=== PATIENT | male | born 1950 | race Caucasian/White ===

== ENCOUNTER → 2018-08-09 09:31 | Outpatient (CLI) | payer MEDICARE, OTHER, SELFPAY ==
[2018-08-09 10:47] LABS: BUN Creatinine Ratio 17.8 (6-22); Blood Urea Nitrogen 16 mg/dL (9-20); Carbon Dioxide 28 mmol/L (22-32); Chloride 101 mmol/L (98-107); Estimated Glomerular Filt Rate > 60.0 mL/min (>60); Glucose 288 mg/dL (80-110); HEMOLYSIS 18 (0-50); Potassium 4.4 mmol/L (3.4-5.1); Sodium 139 mmol/L (137-145)
[2018-08-09 10:48] LABS: Hemoglobin A1C% w Est Avg Glu 10.5 % (4.0-6.0)
== END ==
PROVIDERS: PCP Family Medicine; Visit Provider Family Medicine
DX: E11.9 Type 2 diabetes mellitus without complications (principal)
CPT/HCPCS: 36415; 80048; 83036

== ENCOUNTER → 2019-10-29 08:46 | Outpatient (CLI) | payer MEDICARE, OTHER, SELFPAY ==
[2019-10-29 09:36] LABS: Add Manual Diff / Slide Review NO; Basophils Absolute Auto 100 /uL (0-100); Eosinophils Absolute Auto 200 /uL (0-450); Eosinophils Percent Auto 3.4 % (2-4); Hemoglobin 15.2 g/dL (13.5-17.5); Lymphocytes Absolute Auto 1600 /uL (1100-4500); Lymphocytes Percent Auto 30.3 % (25-40); Mean Corpuscular HGB Conc 33.7 % (30-36); Mean Corpuscular Hemoglobin 29.3 PG (26-34); Monocytes Absolute Auto 400 /uL (0-900); Monocytes Percent Auto 6.7 % (3-14); Neutrophils Absolute Auto 3100 /uL (1500-7000); Neutrophils Percent Auto 58.6 % (50-75); Platelet Count 176 X10^3/uL (150-400); Red Blood Cell Count 5.17 X10^6/uL (4.5-5.9); Red Cell Distribution Width 13.6 % (11.6-14.8); White Blood Cell Count 5.4 X10^3/uL (4.5-11.0)
[2019-10-29 09:38] LABS: Hemoglobin A1C% w Est Avg Glu 10.8 % (4.0-6.0)
[2019-10-29 09:44] LABS: Alanine Aminotransferase 34 IU/L (<50); Albumin 3.6 g/dL (3.5-5.0); Albumin Globulin Ratio 1.1 (1.0-2.8); Alkaline Phosphatase 61 U/L (38-126); Aspartate Aminotransferase 30 IU/L (17-59); Bilirubin Total 0.6 mg/dL (0.2-1.3); Blood Urea Nitrogen 22 mg/dL (9-20); Calcium 8.8 mg/dL (8.4-10.2); Carbon Dioxide 30 mmol/L (22-32); Chloride 100 mmol/L (98-107); Cholesterol 287 mg/dL (140-199); Estimated Glomerular Filt Rate > 60.0 mL/min (>60); Globulin 3.2 g/dL (1.7-4.1); Glucose 249 mg/dL (80-110); HDL Cholesterol 28 mg/dL (40-60); HEMOLYSIS < 15 (0-50); Potassium 4.1 mmol/L (3.4-5.1); Sodium 137 mmol/L (137-145); Total Protein 6.8 g/dL (6.3-8.2)
[2019-10-29 09:51] LABS: Triglycerides 569 mg/dL (35-150)
== END ==
PROVIDERS: PCP Family Medicine; Referring Provider Family Medicine; Visit Provider Family Medicine
DX: E11.9 Type 2 diabetes mellitus without complications (principal)
CPT/HCPCS: 36415; 80053; 80061; 83036; 85025

== ENCOUNTER 2020-05-25 16:20 | Emergency (ER) | payer MEDICARE, OTHER, SELFPAY ==
[2020-05-25 16:33] VITALS: BP 177/79; PULSE 77; RESP 18; TEMP 36.8; O2SAT 95; BMI 33.5
[2020-05-25] MEDS: TET,DIPH,PERTUSS(ACELL),VAC/PF 0.5 ML SYRINGE IM (17:19)
[2020-05-25] MEDS: BACITRACIN OINT 0.9 GM PCKT 1 APPLIC TOP (17:20)
[2020-05-25] MEDS: DOXYCYCLINE HYCLATE 100 MG TABLET PO (17:21)
--- NOTE | 2020-05-25 17:51 | ED_ITS ---
HPI - Wound/Laceration <SENIA Wise - Last Filed: 05/25/20 20:43> General Chief Complaint: Wound/Laceration Stated Complaint: Rt lower leg infection/pain Time Seen by Provider: 05/25/20 16:33 Source: patient Mode of arrival: Ambulatory Limitations: no limitations History of Present Illness HPI narrative: This is a 69-year-old male, former smoker, with unknown history of last tetanus immunization with history of diabetes, neuropathy, venous stasis, hypertension, CAD with triple bypass presents to ED with chief complain of leg infection on right pablo. Patient reports he had brushed affected area against the drawer 3 days ago in his motor home and has used topical antibiotic medication on affected site but the area has been progressively worse with pain, redness and mild swelling. Patient reports pain as 7 to 8/10 and jabbing and shooting and occasionally radiates up to his upper pablo. Patient reports has not been sleeping well for last couple of days due to discomfort. The patient denies associated symptoms such as fever, chills, nausea or vomiting. Since patient has history of diabetes his concerned for infection getting worse. Patient had bilateral leg infections which did not heal for a long time from venous stasis/ulcers in November. At that time a referral to wound clinic was discussed with Dr. Shea but this has not been followed up. Patient currently takes Lasix 80 mg mg daily for bilateral leg swelling. Patient reports he checks blood sugar twice a day and he has been all over the places. Related Data Home Medications Medication Instructions Recorded Confirmed omeprazole 20 mg PO QDAY #0 09/22/16 03/03/20 aspirin 81 mg chewable tablet 162 mg PO QDAY #0 tab 01/22/19 03/03/20 Resmed Airsense 10 CPAP #1 ea 02/27/19 03/03/20 Previous Rx's Medication Instructions Recorded insulin asp prt-insulin aspart 60 units SQ BID #6 vial 11/25/16 [Novolog Mix 70-30 U-100 Insuln] insulin NPH and regular human 60 units SQ BID #10 ml 12/14/16 [Novolin 70/30 U-100 Insulin] Glucose: Home Monitor units BID #1 10/03/17 Test Strips - Freestyle str BID #100 10/24/17 blood sugar diagnostic See Rx Instructions .ROUTE 06/18/19 .COMPLEX #50 unspecified atorvastatin 80 mg tablet 80 mg PO DAILY #90 tab 10/30/19 metoprolol succinate 50 mg 50 mg PO DAILY #90 tab 10/30/19 tablet,extended release 24 hr diclofenac sodium 1 % topical gel 2 gram TOP BID #100 gram 10/31/19 metoprolol succinate 25 mg 25 mg PO .HS #90 tab 12/14/19 tablet,extended release 24 hr furosemide 40 mg tablet 80 mg PO DAILY #90 tab 03/03/20 lisinopril 40 mg tablet 40 mg PO DAILY #90 tab 03/03/20 metformin 500 mg tablet,extended 1,000 mg PO BID #360 tab 03/03/20 release 24 hr doxycycline hyclate 100 mg PO BID 7 Days #14 cap 05/25/20 mupirocin 1 applictn TOP BID #15 gram 05/25/20 Allergies Allergy/AdvReac Type Severity Reaction Status Date / Time aspirin AdvReac Mild GI PROBLEMS Verified 05/25/20 16:33 VICODEN Allergy Mild CRAMPS Uncoded 05/25/20 16:33 STOMACH Review of Systems <SENIA Wise - Last Filed: 05/25/20 20:43> Review of Systems Narrative: General: Denies fever, chills, fatigue, malaise, sweats. HEENT: Denies sinus pain, ear pain, sore throat, difficulty swallowing, dizziness. Respiratory: Denies dyspnea, cough, wheezing, hemoptysis, sputum. Cardiovascular: Denies chest pain, palpitations, orthopnea, edema. Gastrointestinal: Denies nausea, vomiting, abdominal pain, diarrhea, constipation, melena. : Denies dysuria, frequency, incontinence, hematuria, urinary retention. Musculoskeletal: See HPI Skin: See HPI Neurologic: Denies weakness, headache, numbness, change in speech, confusion, seizures, incoordination. Psychiatric: No concerning psychosocial issues. 12-point review of systems is negative except for those stated above. Patient History <SENIA Wise - Last Filed: 05/25/20 20:43> Medical History Diabetes mellitus (Chronic ~1994) Hyperlipidemia (Chronic ~2005) Hypertension (Chronic ~2005) Obstructive sleep apnea of adult (Chronic ~04/2017) Snoring (Inactive ~2006) Tinnitus (Chronic ~1989) Surgical History Anesthesia (Resolved) History of knee surgery (Resolved ~1994) S/P triple vessel bypass (Resolved ~2006) Status post wrist surgery (Resolved ~2011) Family History Father Heart disease Grandmother Diabetes mellitus Grandfather Heart disease Grandmother Diabetes mellitus Social History marital status: Smoking Status: Former smoker alcohol intake: current substance use type: does not use Smoking Status: Former smoker alcohol intake frequency: a few times a week Substance Use Type: does not use Exam <SENIA Wise - Last Filed: 05/25/20 20:43> Narrative Exam Narrative: General appearance: well developed, well nourished, in no acute distress. Head: normocephalic, atraumatic, no scalp lesions, non-tender. ENT: Hearing grossly intact. Nose without bleeding, purulent discharge. Airway patent. Neck/Thyroid: neck supple, full range of motion, no visible masses or meningeal signs. No JVD, non-tender without lymphadenopathy. Heart: no clubbing, no cyanosis, no edema. S1 and S2 normal. RRR w/o murmurs, clicks, or bruits. Lungs: Breathing even and unlabored. No stridor. No accessory muscles used. Able to speak in full sentences. Chest: normal shape and expansion. Abdomen: non-obese, non-distended. Neurologic: alert and oriented. Cognitive exam, [employer] and PNS grossly intact on informal exam. Psych: good eye contact, normal affect. Initial Vital Signs Initial Vital Signs: Vital Signs Temperature 98.2 F 05/25/20 16:33 Pulse Rate 77 05/25/20 16:33 Respiratory Rate 18 05/25/20 16:33 Blood Pressure 177/79 H 05/25/20 16:33 Pulse Oximetry 95 05/25/20 16:33 Skin General: crusts, erythema, eschar, No fluctuance, warm and other (dark scab on right pablo, approx 3 x 2.5 cm with erythema and mild swelling) <Magdalena Howard DO - Last Filed: 05/26/20 08:24> Initial Vital Signs Initial Vital Signs: Vital Signs Temperature 98.2 F 05/25/20 16:33 Pulse Rate 77 05/25/20 16:33 Respiratory Rate 18 05/25/20 16:33 Blood Pressure 177/79 H 05/25/20 16:33 Pulse Oximetry 95 05/25/20 16:33 Scores <[facility] - Last Filed: 05/25/20 20:43> GCS Rajan coma scale eye opening: Spontaneous [place] coma scale verbal response: Orientated Rajan coma scale motor response: Obey commands Rajan coma scale total score: 15 qSOFA Altered Mental Status (GCS <15): No Respiratory rate greater than/equal to 22: No Systolic blood pressure less than or equal to 100: No qSOFA Total: 0 0-1 Not High Risk 1-3 High risk Course <[facility] - Last Filed: 05/25/20 20:43> Orders Ordered: Discontinued Medications Bacitracin (Bacitracin) 1 applic TOP NOW ONE Stop: 05/25/20 16:55 Last Admin: 05/25/20 17:20 Dose: 1 applic Documented by: REMINGTON Diphtheria/Tetanus/Acell Pertussis (Adacel) 0.5 ml IM .ONCE ONE Stop: 05/25/20 16:55 Last Admin: 05/25/20 17:19 Dose: 0.5 ml Documented by: REMINGTON Doxycycline Hyclate (Vibramycin) 100 mg PO NOW ONE Stop: 05/25/20 16:55 Last Admin: 05/25/20 17:21 Dose: 100 mg Documented by: REMINGTON Vital Signs Vital signs: Vital Signs - 8 hr 05/25/20 16:33 Temperature 98.2 F Pulse Rate 77 Respiratory Rate 18 Blood Pressure 177/79 H Pulse Oximetry 95 <Magdalena Howard DO - Last Filed: 05/26/20 08:24> Orders Ordered: Discontinued Medications Bacitracin (Bacitracin) 1 applic TOP NOW ONE Stop: 05/25/20 16:55 Last Admin: 05/25/20 17:20 Dose: 1 applic Documented by: REMINGTON Diphtheria/Tetanus/Acell Pertussis (Adacel) 0.5 ml IM .ONCE ONE Stop: 05/25/20 16:55 Last Admin: 05/25/20 17:19 Dose: 0.5 ml Documented by: REMINGTON Doxycycline Hyclate (Vibramycin) 100 mg PO NOW ONE Stop: 05/25/20 16:55 Last Admin: 05/25/20 17:21 Dose: 100 mg Documented by: REMINGTON Vital Signs Vital signs: Vital Signs - 8 hr 05/25/20 16:33 Temperature 98.2 F Pulse Rate 77 Respiratory Rate 18 Blood Pressure 177/79 H Pulse Oximetry 95 [facility] - Wound/Laceration <Dillon SENIA Patino - Last Filed: 05/25/20 20:43> Differential Diagnosis Differential diagnosis: Likely abrasion and other (Cellulitis) Medical Records Attestation: I reviewed the patient's medical records. [facility] Narrative Medical decision making narrative: This is 69-year-old male who has history of venous stasis/ulcer, non insulin-dependent diabetes, bilateral leg swelling presents to ED with right pablo injury from abrasion that has been getting worse for last 3 days. Patient denies constitutional symptoms. Physical exam is consistent with early cellulitis on right pablo with slight erythema, edema, tender to palpate on affected side without significant drainage but eschar with dark scabs which may require debridements. Patient was medicated with doxycycline in ED with wound care. Patient discharged to home with remaining course of doxycycline and mupirocin for antibiotic ointment. Advised to keep the wound clean and dry after using soap and water and applying antibiotic ointment and to follow-up with wound clinic and a referral has been faxed for an evaluation and treatment. Patient advised to use [id number] Tylenol and or Motrin as needed for discomfort which patient declined in ED. Patient advised to elevate his affected leg and limit excessive walking. Return precautions were discussed with patient and patient verbalized understanding in agreement with treatment plan. Discharge Plan Departure Patient Disposition: Home Clinical Impression: Cellulitis Qualifiers: Site of cellulitis: extremity Site of cellulitis of extremity: lower extremity Laterality: right Qualified Code(s): L03.115 - Cellulitis of right lower limb Discharge Date/Time: 05/25/20 18:09 Instructions: DI for Cellulitis -- Adult Activity Restrictions/Additional Instructions: You have been diagnosed with [right lower leg cellulitis. You were treated with wound care and 1st dose of doxycycline while in ED.]. What to do: *Take your medications as directed. Please continue with doxycycline twice a day for 7 day course. Please use mupirocin antibiotic ointment on affected site at least 2 times a day with wound care. Please elevate your leg while at rest and use warm pack 2 to 3 times a day on affected site to help with the healing. This medication have been transmitted to [facility] in [place]. *Follow up with your primary care provider in 2-3 days, call for an appointment. Please follow-up with wound clinic to set up an appointment on Tuesday. Your information has been faxed to wound clinic. Let them know you were seen in the ED and that we asked you to be seen in follow up. *Return to ED if you have any new, worsening, or concerning symptoms, such as [fever/chills, worsening pain, increasing swelling/redness, chest pain, breathing difficulty, unable to tolerate fluids, tingling/numbness/weakness to affected leg or any acute concerns]. Prescriptions: New doxycycline hyclate 100 mg capsule 100 mg PO BID 7 Days Qty: 14 RF: 0 mupirocin 2 % ointment 1 applictn TOP BID Qty: 15 RF: 0 No Action atorvastatin 80 mg tablet 80 mg PO DAILY Qty: 90 RF: 3 metoprolol succinate 50 mg tablet extended release 24 hr 50 mg PO DAILY Qty: 90 RF: 3 lisinopril 40 mg tablet 40 mg PO DAILY Qty: 90 RF: 3 metformin [Glucophage XR] 500 mg tablet extended release 24 hr 1,000 mg PO BID Qty: 360 RF: 3 furosemide 40 mg tablet 80 mg PO DAILY Qty: 90 RF: 1 omeprazole 20 MG capsule,delayed release(DR/EC) 20 mg PO QDAY Qty: 0 RF: 0 insulin asp prt-insulin aspart [Novolog Mix 70-30 U-100 Insuln] 100 UNIT/1 ML solution 60 units SQ BID Qty: 6 RF: 3 insulin NPH and regular human [Novolin 70/30 U-100 Insulin] 100 UNIT/1 ML suspension 60 units SQ BID Qty: 10 RF: 0 Glucose: Home Monitor BID Qty: 1 RF: 0 Test Strips - Freestyle BID Qty: 100 RF: 3 aspirin 81 mg tablet,chewable 162 mg PO QDAY Qty: 0 RF: 0 FreeStyle Lite Strips Strip See Rx Instructions .ROUTE .COMPLEX Qty: 50 RF: 12 diclofenac sodium 1 % gel 2 gram TOP BID Qty: 100 RF: 1 metoprolol succinate 25 mg tablet extended release 24 hr 25 mg PO .HS Qty: 90 RF: 3 (DME) Resmed Airsense 10 CPAP Qty: 1 RF: 0 Referrals: Skip Shea MD [Primary Care Provider] - <Magdalena Howard DO - Last Filed: 05/26/20 08:24> Cosign ED Attending Cosignature Attestation: I was immediately available in the department for consultation. Documentation has been reviewed. I agree with assessment and plan.
== END 2020-05-25 18:09 | disposition home or self-care (01) ==
PROVIDERS: Emergency Provider Nurse Practitioner Family; PCP Family Medicine
DX: L03.115 Cellulitis of right lower limb (principal); Z23 Encounter for immunization
CPT/HCPCS: 90471; 99283; 99284; 90715

== ENCOUNTER → 2020-06-02 14:18 | Outpatient (CLI) | payer MEDICARE, OTHER, SELFPAY | PROVIDERS: Family Provider Family Medicine; PCP Family Medicine; Referring Provider Family Medicine; Visit Provider Family Medicine | DX: I87.2 Venous insufficiency (chronic) (peripheral) (principal); L97.811 Non-pressure chronic ulcer of other part of right lower leg limited to breakdown of skin; I73.9 Peripheral vascular disease, unspecified; E11.65 Type 2 diabetes mellitus with hyperglycemia; L03.115 Cellulitis of right lower limb | CPT/HCPCS: 93922; 99203; 99213 ==

== ENCOUNTER → 2020-06-09 10:09 | Outpatient (CLI) | payer MEDICARE, OTHER, SELFPAY | PROVIDERS: Family Provider Family Medicine; PCP Family Medicine; Referring Provider Family Medicine; Visit Provider Family Medicine | DX: I87.2 Venous insufficiency (chronic) (peripheral) (principal); L97.811 Non-pressure chronic ulcer of other part of right lower leg limited to breakdown of skin; I73.9 Peripheral vascular disease, unspecified; E11.65 Type 2 diabetes mellitus with hyperglycemia | CPT/HCPCS: 93923; 97597; 99213 ==

== ENCOUNTER → 2020-06-11 09:17 | Outpatient (CLI) | payer MEDICARE, OTHER, SELFPAY | PROVIDERS: Family Provider Family Medicine; PCP Family Medicine; Referring Provider Family Medicine; Visit Provider Family Medicine | DX: S80.821A Blister (nonthermal), right lower leg, initial encounter (principal); I87.2 Venous insufficiency (chronic) (peripheral) | CPT/HCPCS: 29581 ==

== ENCOUNTER → 2020-06-18 14:12 | Outpatient (CLI) | payer MEDICARE, OTHER, SELFPAY | PROVIDERS: Family Provider Family Medicine; PCP Family Medicine; Referring Provider Family Medicine; Visit Provider Family Medicine | DX: I87.2 Venous insufficiency (chronic) (peripheral) (principal); L97.811 Non-pressure chronic ulcer of other part of right lower leg limited to breakdown of skin; I73.9 Peripheral vascular disease, unspecified; E11.65 Type 2 diabetes mellitus with hyperglycemia | CPT/HCPCS: 11042 ==

== ENCOUNTER → 2020-06-27 12:19 | Outpatient (CLI) | payer MEDICARE, OTHER, SELFPAY | PROVIDERS: Family Provider Family Medicine; PCP Family Medicine; Referring Provider Family Medicine; Visit Provider Family Medicine | DX: I87.2 Venous insufficiency (chronic) (peripheral) (principal); L97.811 Non-pressure chronic ulcer of other part of right lower leg limited to breakdown of skin | CPT/HCPCS: 29581 ==

== ENCOUNTER → 2020-07-07 11:32 | Outpatient (CLI) | payer MEDICARE, OTHER, SELFPAY | PROVIDERS: Family Provider Family Medicine; PCP Family Medicine; Referring Provider Family Medicine; Visit Provider Family Medicine | DX: I87.2 Venous insufficiency (chronic) (peripheral) (principal); L97.811 Non-pressure chronic ulcer of other part of right lower leg limited to breakdown of skin; S81.802A Unspecified open wound, left lower leg, initial encounter; I73.9 Peripheral vascular disease, unspecified; E11.65 Type 2 diabetes mellitus with hyperglycemia | CPT/HCPCS: 97597; 99213; 99214 ==

== ENCOUNTER → 2020-07-14 09:49 | Outpatient (CLI) | payer MEDICARE, OTHER, SELFPAY | PROVIDERS: Family Provider Family Medicine; PCP Family Medicine; Referring Provider Family Medicine; Visit Provider Family Medicine | DX: I87.2 Venous insufficiency (chronic) (peripheral) (principal); L97.811 Non-pressure chronic ulcer of other part of right lower leg limited to breakdown of skin; L97.821 Non-pressure chronic ulcer of other part of left lower leg limited to breakdown of skin | CPT/HCPCS: 29581 ==

== ENCOUNTER → 2020-07-21 11:16 | Outpatient (CLI) | payer MEDICARE, OTHER, SELFPAY | PROVIDERS: Family Provider Family Medicine; PCP Family Medicine; Referring Provider Family Medicine; Visit Provider Family Medicine | DX: I87.2 Venous insufficiency (chronic) (peripheral) (principal); L97.811 Non-pressure chronic ulcer of other part of right lower leg limited to breakdown of skin; L97.821 Non-pressure chronic ulcer of other part of left lower leg limited to breakdown of skin | CPT/HCPCS: 29581 ==

== ENCOUNTER → 2020-07-28 08:42 | Outpatient (CLI) | payer MEDICARE, OTHER, SELFPAY | PROVIDERS: Family Provider Family Medicine; PCP Family Medicine; Referring Provider Family Medicine; Visit Provider Family Medicine | DX: I87.2 Venous insufficiency (chronic) (peripheral) (principal); I73.9 Peripheral vascular disease, unspecified; E11.65 Type 2 diabetes mellitus with hyperglycemia | CPT/HCPCS: 99212; 99213 ==

== ENCOUNTER → 2021-04-14 13:11 | Outpatient (CLI) | payer MEDICARE, OTHER, SELFPAY ==
[2021-04-14 13:46] LABS: Add Manual Diff / Slide Review NO; Basophils Absolute Auto 0 /uL (0-100); Basophils Percent Auto 0.6 % (0-2); Eosinophils Absolute Auto 100 /uL (0-450); Eosinophils Percent Auto 1.9 % (2-4); Hemoglobin 14.2 g/dL (13.5-17.5); Lymphocytes Absolute Auto 2400 /uL (1100-4500); Lymphocytes Percent Auto 32.9 % (25-40); Mean Corpuscular HGB Conc 33.8 % (30-36); Mean Corpuscular Hemoglobin 28.7 PG (26-34); Monocytes Absolute Auto 400 /uL (0-900); Monocytes Percent Auto 5.4 % (3-14); Neutrophils Absolute Auto 4300 /uL (1500-7000); Neutrophils Percent Auto 59.2 % (50-75); Platelet Count 203 X10^3/uL (150-400); Red Blood Cell Count 4.94 X10^6/uL (4.5-5.9); Red Cell Distribution Width 13.5 % (11.6-14.8); White Blood Cell Count 7.2 X10^3/uL (4.5-11.0)
[2021-04-14 13:58] LABS: Hemoglobin A1C% w Est Avg Glu 10.4 % (4.0-6.0)
[2021-04-14 14:41] LABS: Alanine Aminotransferase 27 IU/L (<50); Albumin 3.7 g/dL (3.5-5.0); Albumin Globulin Ratio 1.3 (1.0-2.8); Alkaline Phosphatase 60 U/L (38-126); Aspartate Aminotransferase 28 IU/L (17-59); BUN Creatinine Ratio 32.7 (6-22); Bilirubin Total 0.4 mg/dL (0.2-1.3); Blood Urea Nitrogen 35 mg/dL (9-20); Calcium 9.6 mg/dL (8.4-10.2); Carbon Dioxide 24 mmol/L (22-32); Chloride 104 mmol/L (98-107); Cholesterol 188 mg/dL (140-199); Estimated Glomerular Filt Rate > 60.0 mL/min (>60); Globulin 2.9 g/dL (1.7-4.1); Glucose 249 mg/dL (80-110); HDL Cholesterol 38 mg/dL (40-60); HEMOLYSIS < 15 (0-50); Potassium 4.9 mmol/L (3.4-5.1); Sodium 134 mmol/L (137-145); Total Protein 6.6 g/dL (6.3-8.2); Triglycerides 459 mg/dL (35-150)
[2021-04-15 12:46] LABS: Creatinine Urine Random 87.3 mg/dL
[2021-04-15 12:47] LABS: Microalbumi Creatinin Ratio Ur 121.4 ug/mg CR (<30); Microalbumin Urine Random 10.6 mg/dL (0-1.6)
== END ==
PROVIDERS: Family Provider Family Medicine; PCP Family Medicine; Referring Provider Family Medicine; Visit Provider Family Medicine
DX: E11.9 Type 2 diabetes mellitus without complications (principal); Z12.5 Encounter for screening for malignant neoplasm of prostate; I25.10 Atherosclerotic heart disease of native coronary artery without angina pectoris; E78.5 Hyperlipidemia, unspecified; I10 Essential (primary) hypertension
CPT/HCPCS: 36415; 80053; 80061; 82043; 82570; 83036; 85025; G0103

== ENCOUNTER 2021-10-10 12:56 | Emergency (ER) | payer MEDICARE, OTHER, SELFPAY ==
[2021-10-10] VITALS (11 sets, daily range): BP systolic 150; BP diastolic 71; PULSE 70–88; RESP 16; TEMP 36.4; O2SAT 93–95; BMI 28.8
[2021-10-10 13:45] LABS: COVID19 -Nasal RAPID POSITIVE (Negative)
--- NOTE | 2021-10-10 14:20 | ED.GENADULT ---
HPI - General Adult General Chief complaint: Weakness Stated complaint: COVID, Nausea,Dizzy, Weak Time Seen by Provider: 10/10/21 14:08 Source: patient Mode of arrival: Ambulatory History of Present Illness HPI narrative: Patient is a 71-year-old male. Is a insulin-dependent diabetic. Is unvaccinated against COVID. Tested positive for COVID earlier this week. He states that for the past 3 weeks he is felt very weak. Somewhat difficult for him to express exactly what is going on a except that he just generally does not feel very well. Has had weight loss. Blood sugars have been elevated. Has had dizziness and nausea. Was exposed to COVID last month. Tested positive for COVID earlier this week. Related Data Home Medications Medication Instructions Recorded Confirmed aspirin 81 mg chewable tablet 162 mg PO QDAY #0 tab 01/22/19 04/21/21 Resmed Airsense 10 CPAP #1 ea 02/27/19 04/21/21 Previous Rx's Medication Instructions Recorded insulin human U-100 NPH-regulr 60 units (0.6 mL) SQ BID #10 ml 12/14/16 70-30 mix 100 unit/mL subcutaneous susp (Novolin 70/30 U-100 Insulin) Glucose: Home Monitor units BID #1 10/03/17 Test Strips - Freestyle str BID #100 10/24/17 atorvastatin 80 mg tablet 80 mg PO DAILY #90 tab 10/30/19 metoprolol succinate 50 mg 50 mg PO DAILY #90 tab 10/30/19 tablet,extended release 24 hr diclofenac sodium 1 % topical gel 2 gram TOP BID #100 gram 10/31/19 blood sugar diagnostic (FreeStyle See Rx Instructions .ROUTE 07/15/20 Lite Strips) .COMPLEX #100 each fluoxetine 40 mg capsule 40 mg PO DAILY #30 cap 04/21/21 lisinopril 40 mg tablet See Rx Instructions .ROUTE 07/23/21 .COMPLEX #90 tab metformin 500 mg tablet,extended See Rx Instructions .ROUTE 07/23/21 release 24 hr .COMPLEX #360 tab DISABLED PARKING PLACARD #1 ea 08/26/21 Allergies Allergy/AdvReac Type Severity Reaction Status Date / Time aspirin AdvReac Mild GI PROBLEMS Verified 08/26/21 16:25 VICODEN Allergy Mild CRAMPS Uncoded 08/26/21 16:25 STOMACH Review of Systems Constitutional Constitutional: Reports chills, Reports fatigue, Denies fever(s), Reports lethargy and Reports malaise Cardiovascular Cardiovascular: Denies chest pain and Denies dyspnea Respiratory Respiratory: Denies dyspnea Gastrointestinal Gastrointestinal: Reports as per HPI and Reports system reviewed and no additional complaints, except as documented Musculoskeletal Musculoskeletal: Reports system reviewed and no additional complaints, except as documented Integumentary/Breasts Skin/Breast: Reports system reviewed and no additional complaints, except as documented Neurologic Neurologic: Reports system reviewed and no additional complaints, except as documented Endocrine Endocrine: Reports fatigue Hematologic/Lymphatic On Anticoagulants: No Patient History Medical History Diabetes mellitus (06/04/15) Diabetes mellitus (~1994) Hyperlipidemia (~2005) Hypertension (~2005) Obstructive sleep apnea of adult (~04/2017) Snoring (~2006) Tinnitus (~1989) Surgical History Anesthesia History of knee surgery (~1994) S/P triple vessel bypass (~2006) Status post wrist surgery (~2011) Family History Father Heart disease Grandmother Diabetes mellitus Grandfather Heart disease Grandmother Diabetes mellitus Social History marital status: Smoking Status: Former smoker alcohol intake: current substance use type: does not use Smoking Status: Former smoker alcohol intake frequency: a few times a week Substance Use Type: does not use Exam Initial Vital Signs Initial Vital Signs: Vital Signs Blood Pressure 150/71 H 10/10/21 13:10 HENMT Head: normal to inspection and normocephalic Resp Effort & Inspection: normal respiratory effort Auscultation: clear to auscultation bilaterally Cardio Rate: regular rate Rhythm: regular rhythm GI Inspection: normal to inspection Skin General: no rashes or lesions noted Neuro General: patient alert, patient awake and moves all extremities Extrem General: normal to inspection and capillary refill normal Psych Appearance: grossly normal Course Orders Ordered: ED Orders 10/10/21 13:31 COVID19 -Nasal swab/Pre-Proc Stat 10/10/21 14:21 EKG-12 Lead Stat 10/10/21 14:35 Complete Blood Count AUTO DIFF Stat Comprehensive Metabolic Panel Stat Ketones (Beta-Hydroxybutyrate) Stat Lipase Stat Troponin & CK Cardiac Panel Stat Discontinued Medications Sodium Chloride (Normal Saline 0.9%) 1,000 mls @ 1,000 mls/hr IV BOLUS ONE Stop: 10/10/21 15:20 Last Infusion: 10/10/21 15:45 Dose: 0 mls/hr Documented by: Admin: 10/10/21 14:42 Dose: 1,000 mls/hr Documented by: CELIA Vital Signs Vital signs: Vital Signs - 8 hr 10/10/21 13:10 10/10/21 13:11 10/10/21 13:18 Temperature 97.5 F L Pulse Rate 84 88 Respiratory Rate 16 Blood Pressure 150/71 H 150/71 H Pulse Oximetry 95 95 10/10/21 13:30 10/10/21 14:00 10/10/21 14:30 Temperature Pulse Rate 78 73 70 Respiratory Rate Blood Pressure Pulse Oximetry 93 94 94 10/10/21 15:00 10/10/21 15:30 10/10/21 16:00 Temperature Pulse Rate 73 71 76 Respiratory Rate Blood Pressure Pulse Oximetry 95 95 94 10/10/21 16:30 10/10/21 17:00 Temperature Pulse Rate 72 71 Respiratory Rate Blood Pressure 150/71 H Pulse Oximetry 95 95 Medical Decision Making Lab Data Lab results reviewed: Yes I reviewed the patient's lab results. Result diagrams: 10/10/21 14:35 10/10/21 14:35 Labs: Lab Results 10/10/21 10/10/21 10/10/21 Range/Units 13:31 14:35 14:35 WBC 5.8 (4.5-11.0) X10^3/uL RBC 5.31 (4.5-5.9) X10^6/uL Hgb 15.2 (13.5-17.5) g/dL Hct 44.8 (41-53) % MCV 84.4 (80-100) fL MCH 28.7 (26-34) PG MCHC 34.0 (30-36) % RDW 13.5 (11.6-14.8) % Plt Count 135 L (150-400) X10^3/uL Neut % (Auto) 62.7 (50-75) % Lymph % (Auto) 29.3 (25-40) % [place] % (Auto) 6.2 (3-14) % Eos % (Auto) 0.4 L (2-4) % Baso % (Auto) 1.4 (0-2) % Neut # (Auto) 3600 (8823-3631) /uL Lymph # (Auto) 1700 (0539-7372) /uL [place] # (Auto) 400 (0-900) /uL Eos # (Auto) 0 (0-450) /uL Baso # (Auto) 100 (0-100) /uL Sodium 131 L (137-145) mmol/L Potassium 4.9 (3.4-5.1) mmol/L Chloride 96 L (98-107) mmol/L Carbon Dioxide 31 (22-32) mmol/L BUN 20 (9-20) mg/dL Creatinine 1.29 H (0.66-1.25) mg/dL Estimated GFR 54.7 L (>60) mL/min BUN/Creatinine Ratio 15.5 (6-22) Glucose 253 H (80-110) mg/dL Calcium 8.4 (8.4-10.2) mg/dL Total Bilirubin 0.5 (0.2-1.3) mg/dL AST 55 (17-59) IU/L ALT 59 H (<50) IU/L Alkaline Phosphatase 65 (38-126) U/L Total Creatine Kinase 60 (55-170) U/L CK-MB (CK-2) TNP CK-MB (CK-2) Rel Index TNP Troponin I 0.019 (0.01-0.034) ng/mL Total Protein 7.0 (6.3-8.2) g/dL Albumin 3.8 (3.5-5.0) g/dL Globulin 3.2 (1.7-4.1) g/dL Albumin/Globulin Ratio 1.2 (1.0-2.8) Lipase 64 (23-300) U/L Ketones 0.13 (<0.27) mmol/L SARS-CoV-2 (PCR) Positive H (Negative) ECG Data Attestation: I personally reviewed and interpreted this ECG as follows: Interpretation: Sinus rhythm Ventricular rate is 73 Frequent PACs Significant motion artifact. MDM Narrative Medical decision making narrative: Patient is hyperglycemic but not in DKA. Labs are relatively unremarkable. I suspect that the bump in his creatinine is secondary to his lack of oral intake recently. He was given fluids here in the ER. Patient is COVID positive today. This does explain his presenting symptoms and he potentially could have had a for the past several weeks. He was informed of his positive COVID result. No indication for antibiotics. He was given return precautions and follow-up instructions. He expressed understanding and agreement Discharge Plan Departure Patient Disposition: Home Clinical Impression: COVID-19 Activity Restrictions/Additional Instructions: Continue to take all of your medications as directed. Be sure to increase your fluid intake. Your workup here in the emergency department is very reassuring. There is no indication for any antibiotics. Contact your primary doctor for a follow-up. Follow current CDC guidelines with regard to COVID-19. Return to the emergency department for any new or worsening symptoms. Prescriptions: No Action atorvastatin 80 mg tablet 80 mg PO DAILY Qty: 90 3RF metoprolol succinate 50 mg tablet extended release 24 hr 50 mg PO DAILY Qty: 90 3RF fluoxetine 40 mg capsule 40 mg PO DAILY Qty: 30 3RF (DME) DISABLED PARKING PLACARD See Rx Instructions .Route .MEDSUPPLY Qty: 1 0RF Rx Instructions: PATIENT QUALIFIES FOR DISABLED PARKING PLACARD insulin NPH and regular human [Novolin 70/30 U-100 Insulin] 100 UNIT/1 ML suspension 60 units SQ BID Qty: 10 0RF Glucose: Home Monitor BID Qty: 1 0RF Test Strips - Freestyle BID Qty: 100 3RF aspirin 81 mg tablet,chewable 162 mg PO QDAY Qty: 0 0RF diclofenac sodium 1 % gel 2 gram TOP BID Qty: 100 1RF Rx Instructions: apply sparingly twice daily to affected areas FreeStyle Lite Strips Strip See Rx Instructions .ROUTE .COMPLEX Qty: 100 11RF Dose Instruction: USE STRIP TO CHECK GLUCOSE TWICE DAILY TO CHECK GLUCOSE Rx Instructions: USE STRIP TO CHECK GLUCOSE TWICE DAILY metformin 500 mg tablet extended release 24 hr See Rx Instructions .ROUTE .COMPLEX Qty: 360 0RF Dose Instruction: Take 2 tablets by mouth twice daily Rx Instructions: Take 2 tablets by mouth twice daily lisinopril 40 mg tablet See Rx Instructions .ROUTE .COMPLEX Qty: 90 0RF Dose Instruction: Take 1 tablet by mouth once daily Rx Instructions: Take 1 tablet by mouth once daily (DME) Resmed Airsense 10 CPAP Qty: 1 0RF Dose Instruction: As directed Label Comments: Pressure: 8-14 cmH2O DME: [facility] Rx Instructions: As directed Referrals: Skip Shea MD [Primary Care Provider] -
[2021-10-10] MEDS: SODIUM CHLORIDE 0.9% 1,000 ML 1000 ML IV (14:42)
[2021-10-10 15:16] LABS: Add Manual Diff / Slide Review NO; Basophils Absolute Auto 100 /uL (0-100); Basophils Percent Auto 1.4 % (0-2); Eosinophils Absolute Auto 0 /uL (0-450); Eosinophils Percent Auto 0.4 % (2-4); Hematocrit 44.8 % (41-53); Hemoglobin 15.2 g/dL (13.5-17.5); Lymphocytes Absolute Auto 1700 /uL (1100-4500); Lymphocytes Percent Auto 29.3 % (25-40); Mean Corpuscular Hemoglobin 28.7 PG (26-34); Mean Corpuscular Volume 84.4 fL (80-100); Monocytes Absolute Auto 400 /uL (0-900); Monocytes Percent Auto 6.2 % (3-14); Neutrophils Absolute Auto 3600 /uL (1500-7000); Neutrophils Percent Auto 62.7 % (50-75); Platelet Count 135 X10^3/uL (150-400); Red Blood Cell Count 5.31 X10^6/uL (4.5-5.9); Red Cell Distribution Width 13.5 % (11.6-14.8); White Blood Cell Count 5.8 X10^3/uL (4.5-11.0)
[2021-10-10 15:17] LABS: Alanine Aminotransferase 59 IU/L (<50); Albumin 3.8 g/dL (3.5-5.0); Albumin Globulin Ratio 1.2 (1.0-2.8); Alkaline Phosphatase 65 U/L (38-126); Aspartate Aminotransferase 55 IU/L (17-59); BUN Creatinine Ratio 15.5 (6-22); Bilirubin Total 0.5 mg/dL (0.2-1.3); Blood Urea Nitrogen 20 mg/dL (9-20); Calcium 8.4 mg/dL (8.4-10.2); Carbon Dioxide 31 mmol/L (22-32); Chloride 96 mmol/L (98-107); Creatine Kinase 60 U/L (55-170); Estimated Glomerular Filt Rate 54.7 mL/min (>60); Globulin 3.2 g/dL (1.7-4.1); Glucose 253 mg/dL (80-110); HEMOLYSIS < 15 (0-50); Lipase 64 U/L (23-300); Potassium 4.9 mmol/L (3.4-5.1); Sodium 131 mmol/L (137-145)
[2021-10-10 15:20] LABS: Ketones (Beta-Hydroxybutyrate) 0.13 mmol/L (<0.27)
[2021-10-10 15:31] LABS: Troponin I 0.019 ng/mL (0.01-0.034)
== END 2021-10-10 17:07 | disposition home or self-care (01) ==
PROVIDERS: Emergency Provider Emergency Medicine; Family Provider Family Medicine; PCP Family Medicine
DX: U07.1 COVID-19 (principal); Z87.891 Personal history of nicotine dependence; I49.1 Atrial premature depolarization
CPT/HCPCS: 36415; 80053; 82009; 82550; 83690; 84484; 85025; 87635; 93005; 93010; 96360; 99284; C9803

== ENCOUNTER 2021-10-13 14:30 | Emergency (ER) | payer MEDICARE, OTHER, SELFPAY ==
[2021-10-13] VITALS (11 sets, daily range): BP systolic 117–135; BP diastolic 56–87; PULSE 67–87; RESP 14–18; TEMP 36.3; O2SAT 92–96; BMI 28.5
[2021-10-13] MEDS: ONDANSETRON 4 MG/2 ML INJ IV (15:25)
--- NOTE | 2021-10-13 15:45 | ED.NEUROSD ---
HPI - Neuro Symptoms/Deficit General Chief Complaint: Neuro Symptoms/Deficit Stated Complaint: Covid+, dehydrated, confused Time Seen by Provider: 10/13/21 15:08 Mode of arrival: Wheelchair History of Present Illness HPI Narrative: 71-year-old male insulin-dependent diabetic and vaccinated for COVID tested positive for COVID last week. He said he was just feeling weaker. Family member in room and is the primary historian. He says that he has had increasing weakness over last 6 months or so but has gotten significantly worse. Seeing that patient is more foggy normal. Was here and evaluated on 10/10/2021 for similar. Found to be mildly dehydrated with slightly elevated creatinine as he was given fluids and discharged home. He actually had COVID test 3 days ago and it was positive. Family member is concerned that this may be something more than COVID. He has had significant decreased oral intake he is urinating but very minimal. Patient really has no complaints and does not answer questions. He has not had fever chills or body aches no sore throat no significant shortness of breath. This significant increased weakness and decreased intake On Anticoagulants: No Related Data Home Medications Medication Instructions Recorded Confirmed aspirin 81 mg chewable tablet 162 mg PO QDAY #0 tab 01/22/19 04/21/21 Resmed Airsense 10 CPAP #1 ea 02/27/19 04/21/21 Previous Rx's Medication Instructions Recorded insulin human U-100 NPH-regulr 60 units (0.6 mL) SQ BID #10 ml 12/14/16 70-30 mix 100 unit/mL subcutaneous susp (Novolin 70/30 U-100 Insulin) Glucose: Home Monitor units BID #1 10/03/17 Test Strips - Freestyle str BID #100 10/24/17 atorvastatin 80 mg tablet 80 mg PO DAILY #90 tab 10/30/19 metoprolol succinate 50 mg 50 mg PO DAILY #90 tab 10/30/19 tablet,extended release 24 hr diclofenac sodium 1 % topical gel 2 gram TOP BID #100 gram 10/31/19 blood sugar diagnostic (FreeStyle See Rx Instructions .ROUTE 07/15/20 Lite Strips) .COMPLEX #100 each fluoxetine 40 mg capsule 40 mg PO DAILY #30 cap 04/21/21 lisinopril 40 mg tablet See Rx Instructions .ROUTE 07/23/21 .COMPLEX #90 tab metformin 500 mg tablet,extended See Rx Instructions .ROUTE 07/23/21 release 24 hr .COMPLEX #360 tab DISABLED PARKING PLACARD #1 ea 08/26/21 Allergies Allergy/AdvReac Type Severity Reaction Status Date / Time aspirin AdvReac Mild GI PROBLEMS Verified 10/13/21 14:49 VICODEN Allergy Mild CRAMPS Uncoded 08/26/21 16:25 STOMACH Review of Systems Review of Systems ROS Unobtainable: All systems reviewed & are unremarkable except as noted in HPI and below Constitutional Constitutional: Denies body ache(s), Reports daytime sleepiness, Reports fatigue, Denies frequent falls, Denies headache(s), Reports lethargy and Reports poor appetite Eyes Eyes: Denies change in vision and Denies irritation ENT Ears, Nose, Mouth, and Throat: Denies dizziness, Denies headache(s) and Denies sore throat Cardiovascular Cardiovascular: Denies chest pain, Denies lightheadedness and Denies dyspnea on exertion Respiratory Respiratory: Denies dyspnea on exertion Gastrointestinal Gastrointestinal: Denies abdominal pain, Denies nausea and Denies vomiting Genitourinary Genitourinary: Reports as per HPI Musculoskeletal Musculoskeletal: Denies back pain and Reports myalgias Neurologic Neurologic: Reports confusion, Denies dizziness, Denies frequent falls, Denies headache(s) and Reports memory loss Psychiatric Psychiatric: Reports confusion and Reports memory loss Endocrine Endocrine: Reports fatigue Hematologic/Lymphatic On Anticoagulants: No Patient History Medical History Diabetes mellitus (06/04/15) Diabetes mellitus (~1994) Hyperlipidemia (~2005) Hypertension (~2005) Obstructive sleep apnea of adult (~04/2017) Snoring (~2006) Tinnitus (~1989) Surgical History Anesthesia History of knee surgery (~1994) S/P triple vessel bypass (~2006) Status post wrist surgery (~2011) Family History Father Heart disease Grandmother Diabetes mellitus Grandfather Heart disease Grandmother Diabetes mellitus Social History marital status: Smoking Status: Former smoker alcohol intake: current substance use type: does not use Smoking Status: Former smoker alcohol intake frequency: a few times a week Substance Use Type: does not use Exam Initial Vital Signs Initial Vital Signs: Vital Signs Temperature 97.3 F L 10/13/21 14:49 Pulse Rate 87 10/13/21 14:49 Respiratory Rate 16 10/13/21 14:49 Blood Pressure 135/62 10/13/21 14:49 Pulse Oximetry 96 10/13/21 14:49 GENERAL: Weak 71-year-old male HEENT: Head atraumatic,EOMI, pupils reactive, face symmetric, [moist] mucous membranes CARDIOVASCULAR: Regular rate and rhythm without murmurs, rubs or gallops. RESPIRATORY: Breath sounds equal bilaterally, no wheezes rales or rhonchi. ABDOMEN: Soft, nontender. Normoactive bowel sounds all 4 quadrants. No guarding or rebound. EXTREMITIES: Normal range of motion, no clubbing or edema. 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 Course Orders Ordered: ED Orders 10/13/21 14:55 EKG-12 Lead Stat 10/13/21 15:30 Complete Blood Count AUTO DIFF Stat Comprehensive Metabolic Panel Stat Lactate (Lactic Acid) Stat Lipase Stat Partial Thromboplastin Time Stat Prothrombin Time INR Stat Troponin & CK Cardiac Panel Stat 10/13/21 16:05 COVID19 -Nasal swab/Pre-Proc Stat 10/13/21 17:14 CT head/brain wo con Stat Discontinued Medications Sodium Chloride (Normal Saline 0.9%) 1,000 mls @ 1,000 mls/hr IV BOLUS ONE Stop: 10/13/21 16:54 Last Infusion: 10/13/21 17:29 Dose: 0 mls/hr Documented by: Admin: 10/13/21 16:17 Dose: 1,000 mls/hr Documented by: VALDO Sodium Chloride (Normal Saline 0.9%) 1,000 mls @ 1,000 mls/hr IV BOLUS ONE Stop: 10/13/21 18:13 Last Infusion: 10/13/21 19:13 Dose: 0 mls/hr Documented by: Admin: 10/13/21 17:30 Dose: 1,000 mls/hr Documented by: VALDO Ondansetron HCl (Ondansetron 4 Mg/2 Ml Inj) 4 mg IV NOW ONE Stop: 10/13/21 14:55 Last Admin: 10/13/21 15:25 Dose: 4 mg Documented by: VALDO Vital Signs Vital signs: Vital Signs - 8 hr 10/13/21 14:49 10/13/21 15:07 10/13/21 15:30 Temperature 97.3 F L Pulse Rate 87 67 74 Respiratory Rate 16 17 Blood Pressure 135/62 Pulse Oximetry 96 93 94 10/13/21 15:37 10/13/21 16:00 10/13/21 16:30 Temperature Pulse Rate 73 69 70 Respiratory Rate 15 16 18 Blood Pressure 123/56 L 133/60 120/62 Pulse Oximetry 93 93 92 10/13/21 17:00 10/13/21 17:30 10/13/21 18:00 Temperature Pulse Rate 69 73 67 Respiratory Rate 18 14 15 Blood Pressure 117/87 124/59 L Pulse Oximetry 94 93 95 10/13/21 18:30 10/13/21 19:00 Temperature Pulse Rate 77 77 Respiratory Rate 14 18 Blood Pressure Pulse Oximetry 94 93 MDM - Neuro Symptoms/Deficit Lab Data Result diagrams: 10/13/21 15:30 10/13/21 15:30 Labs: Lab Results 10/13/21 10/13/21 10/13/21 Range/Units 15:30 15:30 15:30 WBC 6.9 (4.5-11.0) X10^3/uL RBC 5.30 (4.5-5.9) X10^6/uL Hgb 15.3 (13.5-17.5) g/dL Hct 44.5 (41-53) % MCV 83.9 (80-100) fL MCH 28.9 (26-34) PG MCHC 34.5 (30-36) % RDW 13.3 (11.6-14.8) % Plt Count 191 (150-400) X10^3/uL Neut % (Auto) 75.6 H (50-75) % Lymph % (Auto) 17.4 L (25-40) % [place] % (Auto) 6.2 (3-14) % Eos % (Auto) 0.3 L (2-4) % Baso % (Auto) 0.5 (0-2) % Neut # (Auto) 5200 (0676-7255) /uL Lymph # (Auto) 1200 (0966-3170) /uL [place] # (Auto) 400 (0-900) /uL Eos # (Auto) 0 (0-450) /uL Baso # (Auto) 0 (0-100) /uL PT 12.4 (10.1-12.7) SECONDS INR 1.1 (0.9-1.3) APTT 33 (26.4-36.2) SECONDS Sodium 132 L (137-145) mmol/L Potassium 4.7 (3.4-5.1) mmol/L Chloride 96 L (98-107) mmol/L Carbon Dioxide 26 (22-32) mmol/L BUN 26 H (9-20) mg/dL Creatinine 1.54 H (0.66-1.25) mg/dL Estimated GFR 44.6 L (>60) mL/min BUN/Creatinine Ratio 16.9 (6-22) Glucose 319 H (80-110) mg/dL Lactate (0.7-2.1) mmol/L Calcium 9.1 (8.4-10.2) mg/dL Total Bilirubin 0.8 (0.2-1.3) mg/dL AST 39 (17-59) IU/L ALT 37 (<50) IU/L Alkaline Phosphatase 91 (38-126) U/L Total Creatine Kinase (55-170) U/L CK-MB (CK-2) CK-MB (CK-2) Rel Index Troponin I (0.01-0.034) ng/mL Total Protein 7.3 (6.3-8.2) g/dL Albumin 3.9 (3.5-5.0) g/dL Globulin 3.4 (1.7-4.1) g/dL Albumin/Globulin Ratio 1.1 (1.0-2.8) Lipase 80 (23-300) U/L SARS-CoV-2 (PCR) (Negative) 10/13/21 10/13/21 10/13/21 Range/Units 15:30 15:30 16:05 WBC (4.5-11.0) X10^3/uL RBC (4.5-5.9) X10^6/uL Hgb (13.5-17.5) g/dL Hct (41-53) % MCV (80-100) fL MCH (26-34) PG MCHC (30-36) % RDW (11.6-14.8) % Plt Count (150-400) X10^3/uL Neut % (Auto) (50-75) % Lymph % (Auto) (25-40) % [place] % (Auto) (3-14) % Eos % (Auto) (2-4) % Baso % (Auto) (0-2) % Neut # (Auto) (8361-3370) /uL Lymph # (Auto) (0077-3029) /uL [place] # (Auto) (0-900) /uL Eos # (Auto) (0-450) /uL Baso # (Auto) (0-100) /uL PT (10.1-12.7) SECONDS INR (0.9-1.3) APTT (26.4-36.2) SECONDS Sodium (137-145) mmol/L Potassium (3.4-5.1) mmol/L Chloride (98-107) mmol/L Carbon Dioxide (22-32) mmol/L BUN (9-20) mg/dL Creatinine (0.66-1.25) mg/dL Estimated GFR (>60) mL/min BUN/Creatinine Ratio (6-22) Glucose (80-110) mg/dL Lactate 2.0 (0.7-2.1) mmol/L Calcium (8.4-10.2) mg/dL Total Bilirubin (0.2-1.3) mg/dL AST (17-59) IU/L ALT (<50) IU/L Alkaline Phosphatase (38-126) U/L Total Creatine Kinase 42 L (55-170) U/L CK-MB (CK-2) TNP CK-MB (CK-2) Rel Index TNP Troponin I 0.016 (0.01-0.034) ng/mL Total Protein (6.3-8.2) g/dL Albumin (3.5-5.0) g/dL Globulin (1.7-4.1) g/dL Albumin/Globulin Ratio (1.0-2.8) Lipase (23-300) U/L SARS-CoV-2 (PCR) Negative (Negative) Imaging Data CT scan - head: Radiologist's Impression: PROCEDURE:? CT HEAD/BRAIN WO CON ? INDICATIONS:? increased confusion and weakness ? TECHNIQUE:? Noncontrast 4.5 mm thick angled axial sections acquired from the foramen magnum to the vertex, with coronal and sagittal reformats.? For radiation dose reduction, the following was used:? automated exposure control, adjustment of mA and/or kV according to patient size.? ? COMPARISON:? [facility], , STROKE PROTOCOL, 10/18/2016, 7:18. ? FINDINGS:? Image quality:? Excellent.? ? CSF spaces:? Basal cisterns are patent.? No extra-axial fluid collections.? The ventricles are symmetric in size and shape.? ? Brain:? No intracranial bleeds or masses.? There is cerebral volume loss for age, with resultant ventricular and sulcal prominence.? Small chronic left thalamic lacunar infarct is stable compared to prior MRI.? Prominent perivascular space in the left putamen is stable.? There are periventricular and deep white matter chronic small vessel ischemic changes.? There is intracranial internal carotid artery vertebral artery atherosclerosis. ? ? Skull and face:? Calvarium and visualized facial bones appear intact, without suspicious lesions.? ? Sinuses:? Partially visualized mucous retention cyst versus polyp in the right maxillary sinus.? The mastoids are clear.? ? IMPRESSION:? No acute intracranial disease process. ? ? Dictated by: Danuta Pan MD, PhD on 10/13/2021 at 17:44 ? ? ECG Data Interpretation: Normal sinus rhythm rate 70 p.r. interval 160 QRS 2 MDM Narrative Medical decision making narrative: Patient sounds as though he has had some ongoing weakness memory confusion son thinks it has gotten definitely worse. Records report that there is some memory loss. He definitely had a recent infection with COVID although his COVID test today is negative. I suspect that recent infection cause worsening confusion. His creatinine today is slightly worse than what it was previously. He was given 2 L of IV fluids. He is eating and drinking here in the emergency department he actually overall looks better. No EKG changes. Head CT is negative as well. He is not hypoxic. He does not meet any admission criteria at this time. I recommend close outpatient follow-up. Discharge Plan Departure Patient Disposition: Home Clinical Impression: Dehydration Instructions: DI for Dehydration -- Adult Activity Restrictions/Additional Instructions: *You have been diagnosed with dehydration *What to do: At this time you do have some mild bruising dehydration. Please drink fluids, water, Gatorade, Pedialyte broth apple sauce, or Jell-O Head CT and COVID, are negative today. I do recommend outpatient follow-up *Continue to take medications as directed *Follow up with your primary care provider in 2-3 days or call [phone] *Return to ER if you should have increasing confusion, decreased intake, increasing shortness of breath, any new, worsening or concerning symptoms Prescriptions: No Action atorvastatin 80 mg tablet 80 mg PO DAILY Qty: 90 3RF metoprolol succinate 50 mg tablet extended release 24 hr 50 mg PO DAILY Qty: 90 3RF fluoxetine 40 mg capsule 40 mg PO DAILY Qty: 30 3RF (DME) DISABLED PARKING PLACARD See Rx Instructions .Route .MEDSUPPLY Qty: 1 0RF Rx Instructions: PATIENT QUALIFIES FOR DISABLED PARKING PLACARD insulin NPH and regular human [Novolin 70/30 U-100 Insulin] 100 UNIT/1 ML suspension 60 units SQ BID Qty: 10 0RF Glucose: Home Monitor BID Qty: 1 0RF Test Strips - Freestyle BID Qty: 100 3RF aspirin 81 mg tablet,chewable 162 mg PO QDAY Qty: 0 0RF diclofenac sodium 1 % gel 2 gram TOP BID Qty: 100 1RF Rx Instructions: apply sparingly twice daily to affected areas FreeStyle Lite Strips Strip See Rx Instructions .ROUTE .COMPLEX Qty: 100 11RF Dose Instruction: USE STRIP TO CHECK GLUCOSE TWICE DAILY TO CHECK GLUCOSE Rx Instructions: USE STRIP TO CHECK GLUCOSE TWICE DAILY metformin 500 mg tablet extended release 24 hr See Rx Instructions .ROUTE .COMPLEX Qty: 360 0RF Dose Instruction: Take 2 tablets by mouth twice daily Rx Instructions: Take 2 tablets by mouth twice daily lisinopril 40 mg tablet See Rx Instructions .ROUTE .COMPLEX Qty: 90 0RF Dose Instruction: Take 1 tablet by mouth once daily Rx Instructions: Take 1 tablet by mouth once daily (DME) Resmed Airsense 10 CPAP Qty: 1 0RF Dose Instruction: As directed Label Comments: Pressure: 8-14 cmH2O DME: [facility] Rx Instructions: As directed Referrals: Skip Shea MD [Primary Care Provider] -
[2021-10-13 15:47] LABS: Add Manual Diff / Slide Review NO; Basophils Absolute Auto 0 /uL (0-100); Basophils Percent Auto 0.5 % (0-2); Eosinophils Absolute Auto 0 /uL (0-450); Eosinophils Percent Auto 0.3 % (2-4); Hematocrit 44.5 % (41-53); Hemoglobin 15.3 g/dL (13.5-17.5); Lymphocytes Absolute Auto 1200 /uL (1100-4500); Lymphocytes Percent Auto 17.4 % (25-40); Mean Corpuscular HGB Conc 34.5 % (30-36); Mean Corpuscular Hemoglobin 28.9 PG (26-34); Mean Corpuscular Volume 83.9 fL (80-100); Monocytes Absolute Auto 400 /uL (0-900); Monocytes Percent Auto 6.2 % (3-14); Neutrophils Absolute Auto 5200 /uL (1500-7000); Neutrophils Percent Auto 75.6 % (50-75); Platelet Count 191 X10^3/uL (150-400); Red Cell Distribution Width 13.3 % (11.6-14.8); White Blood Cell Count 6.9 X10^3/uL (4.5-11.0)
[2021-10-13 16:00] LABS: INR 1.1 (0.9-1.3); Prothrombin Time 12.4 SECONDS (10.1-12.7)
[2021-10-13 16:04] LABS: PTT Partial Thromboplastin Tim 33 SECONDS (26.4-36.2)
[2021-10-13 16:09] LABS: Alanine Aminotransferase 37 IU/L (<50); Albumin 3.9 g/dL (3.5-5.0); Albumin Globulin Ratio 1.1 (1.0-2.8); Alkaline Phosphatase 91 U/L (38-126); Aspartate Aminotransferase 39 IU/L (17-59); BUN Creatinine Ratio 16.9 (6-22); Bilirubin Total 0.8 mg/dL (0.2-1.3); Blood Urea Nitrogen 26 mg/dL (9-20); Calcium 9.1 mg/dL (8.4-10.2); Carbon Dioxide 26 mmol/L (22-32); Chloride 96 mmol/L (98-107); Estimated Glomerular Filt Rate 44.6 mL/min (>60); Globulin 3.4 g/dL (1.7-4.1); Glucose 319 mg/dL (80-110); HEMOLYSIS 22 (0-50); Lipase 80 U/L (23-300); Potassium 4.7 mmol/L (3.4-5.1); Sodium 132 mmol/L (137-145); Total Protein 7.3 g/dL (6.3-8.2)
[2021-10-13] MEDS: SODIUM CHLORIDE 0.9% 1,000 ML 1000 ML IV ×2 (16:17→17:30)
[2021-10-13 16:42] LABS: COVID19 -Nasal RAPID Negative (Negative)
--- NOTE | 2021-10-13 17:14 | DI.CT.S_ITS ---
PROCEDURE: CT HEAD/BRAIN WO CON INDICATIONS: increased confusion and weakness TECHNIQUE: Noncontrast 4.5 mm thick angled axial sections acquired from the foramen magnum to the vertex, with coronal and sagittal reformats. For radiation dose reduction, the following was used: automated exposure control, adjustment of mA and/or kV according to patient size. COMPARISON: [facility], , STROKE PROTOCOL, 10/18/2016, 7:18. FINDINGS: Image quality: Excellent. CSF spaces: Basal cisterns are patent. No extra-axial fluid collections. The ventricles are symmetric in size and shape. Brain: No intracranial bleeds or masses. There is cerebral volume loss for age, with resultant ventricular and sulcal prominence. Small chronic left thalamic lacunar infarct is stable compared to prior MRI. Prominent perivascular space in the left putamen is stable. There are periventricular and deep white matter chronic small vessel ischemic changes. There is intracranial internal carotid artery vertebral artery atherosclerosis. Skull and face: Calvarium and visualized facial bones appear intact, without suspicious lesions. Sinuses: Partially visualized mucous retention cyst versus polyp in the right maxillary sinus. The mastoids are clear. IMPRESSION: No acute intracranial disease process. Dictated by: Danuta Pan MD, PhD on 10/13/2021 at 17:44 Approved by: Danuta Pan MD, PhD on 10/13/2021 at 17:47
[2021-10-13 18:58] LABS: Creatine Kinase 42 U/L (55-170)
[2021-10-13 19:11] LABS: Troponin I 0.016 ng/mL (0.01-0.034)
== END 2021-10-13 19:25 | disposition home or self-care (01) ==
PROVIDERS: Emergency Provider Emergency Medicine; Family Provider Family Medicine; PCP Family Medicine
DX: E86.0 Dehydration (principal); R41.0 Disorientation, unspecified; Z20.822 Contact with and (suspected) exposure to COVID-19
CPT/HCPCS: 36415; 70450; 80053; 82550; 83605; 83690; 84484; 85025; 85610; 85730; 87635; 93005; 96361; 96374; 99284; C9803; J2405

== ENCOUNTER → 2021-10-23 13:38 | Outpatient (CLI) | payer MEDICARE, OTHER, SELFPAY ==
--- NOTE | 2021-10-23 13:39 | DI.CT.S_ITS ---
PROCEDURE: CT ABDOMEN PELVIS W CON INDICATIONS: 40# wt loss in 2 months, loss of appetite, weakness TECHNIQUE: After the administration of intravenous contrast, axial sections acquired from the lung bases to the pubic symphysis. Coronal and sagittal reformats were performed. For radiation dose reduction, the following was used: automated exposure control, adjustment of mA and/or kV according to patient size. COMPARISON: [facility], CT, ABDOMEN/PELVIS WITH CONTRAST, 11/21/2017, 13:55. FINDINGS: Image quality: Excellent. Lung bases: Lung bases are clear. Heart size is normal. Solid organs: Liver: The liver has no mass or intrahepatic biliary ductal dilatation. The portal vein and hepatic veins are patent. Biliary: The gallbladder has no gallstones, pericholecystic fluid, gallbladder wall thickening, or surrounding inflammatory change. Pancreas: The pancreas has no mass or ductal dilatation. There is no surrounding inflammation. Spleen: Normal size. There are no masses. Adrenals: The left adrenal gland is normal. The right adrenal gland has a a mass interspersed with fat measuring 4.6 x 5.0 cm consistent with an adrenal myelolipoma. Kidneys: No obstructive calculus or hydronephrosis. No solid mass. No cystic mass. Peritoneum and bowel: The distal esophagus and stomach are normal. The small bowel has a normal caliber and appearance. The terminal ileum is normal. The large bowel has a normal caliber and appearance. The appendix is normal. No free fluid or air. Nodes and vessels: No retroperitoneal or mesenteric adenopathy by size criteria. The aorta has atherosclerotic calcifications. There are severe calcified plaque of the common iliac arteries and both internal iliac arteries bilaterally causing 70% stenosis of the right common iliac artery, 90% stenosis of the left common iliac artery, and occlusion of both internal iliac arteries. 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 The midportion of the right external iliac artery has severe calcified plaque with 50% stenosis. Both common femoral arteries have severe calcified plaque causing 90% stenosis. Miscellaneous: Bilateral fat containing inguinal hernias. PELVIS: Genitourinary: The bladder has no wall thickening or mass. No bladder calcifications. The prostate is enlarged measuring 6.8 x 4.9 cm. Bones: No suspicious bony lesions. No vertebral body compression fractures. IMPRESSION: 1. No acute abnormality of the abdomen or pelvis. 2. Right adrenal nodule consistent with a benign adrenal myelolipoma, unchanged compared to the prior CTs. 3. Enlarged prostate. 4. 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 Dictated by: Erik Garcia M.D. on 10/23/2021 at 14:26 Approved by: Erik Garcia M.D. on 10/23/2021 at 14:39
== END ==
PROVIDERS: Family Provider Family Medicine; PCP Family Medicine; Referring Provider Physician Assistant; Visit Provider Physician Assistant
DX: E27.9 Disorder of adrenal gland, unspecified (principal); N40.0 Benign prostatic hyperplasia without lower urinary tract symptoms; I70.8 Atherosclerosis of other arteries; R63.0 Anorexia; R63.4 Abnormal weight loss; R53.1 Weakness; M54.50 Low back pain, unspecified; E86.0 Dehydration
CPT/HCPCS: 74177; Q9967

== ENCOUNTER 2022-03-18 22:39 | Emergency (ER) | payer MEDICARE, SELFPAY ==
[2022-03-18 22:46] VITALS: PULSE 70; O2SAT 96
[2022-03-18 22:47] VITALS: BP 182/83; PULSE 67; RESP 15; O2SAT 97
[2022-03-18 22:57] VITALS: BP 182/89; PULSE 69; RESP 16; TEMP 36.9; O2SAT 97; BMI 30.7
[2022-03-18 23:00] VITALS: PULSE 67; O2SAT 96
--- NOTE | 2022-03-18 23:04 | DI.RAD.S_ITS ---
PROCEDURE: XR CHEST 1V INDICATIONS: chest pain TECHNIQUE: One view of the chest was acquired. COMPARISON: [facility], , CHEST 1 VIEW, 07/02/2013, 16:02. FINDINGS: Surgical changes and devices: Postsurgical changes redemonstrated in the mediastinum. Lungs and pleura: Lungs are clear. No pleural effusions or pneumothorax. Mediastinum: Mediastinal contours appear normal. Heart size is normal. Bones and chest wall: No suspicious bony lesions. Overlying soft tissues appear unremarkable. IMPRESSION: 1. No acute cardiopulmonary disease. Dictated by: David Becker M.D. on 03/19/2022 at 0:32 Approved by: David Becker M.D. on 03/19/2022 at 0:32
[2022-03-18 23:16] LABS: Prothrombin Time 10.8 SECONDS (10.1-12.7)
[2022-03-18 23:19] LABS: PTT Partial Thromboplastin Tim 31 SECONDS (26.4-36.2)
[2022-03-18 23:21] LABS: Alanine Aminotransferase 38 IU/L (<50); Albumin 4.3 g/dL (3.5-5.0); Albumin Globulin Ratio 1.3 (1.0-2.8); Alkaline Phosphatase 62 U/L (38-126); Aspartate Aminotransferase 32 IU/L (17-59); BUN Creatinine Ratio 26.3 (6-22); Bilirubin Total 0.8 mg/dL (0.2-1.3); Blood Urea Nitrogen 26 mg/dL (9-20); Calcium 9.3 mg/dL (8.4-10.2); Carbon Dioxide 26 mmol/L (22-32); Chloride 100 mmol/L (98-107); Creatine Kinase 145 U/L (55-170); Estimated Glomerular Filt Rate > 60 mL/min (>60); Globulin 3.3 g/dL (1.7-4.1); Glucose 150 mg/dL (80-110); HEMOLYSIS < 15 (0-50); Lipase 270 U/L (23-300); Magnesium 1.4 mg/dL (1.6-2.3); Potassium 4.1 mmol/L (3.4-5.1); Sodium 137 mmol/L (137-145); Total Protein 7.6 g/dL (6.3-8.2)
[2022-03-18 23:22] LABS: Add Manual Diff / Slide Review NO; Basophils Absolute Auto 100 /uL (0-100); Basophils Percent Auto 0.7 % (0-2); Eosinophils Absolute Auto 100 /uL (0-450); Eosinophils Percent Auto 1.4 % (2-4); Hematocrit 43.6 % (41-53); Hemoglobin 14.9 g/dL (13.5-17.5); Lymphocytes Absolute Auto 2600 /uL (1100-4500); Mean Corpuscular HGB Conc 34.3 % (30-36); Mean Corpuscular Hemoglobin 28.9 PG (26-34); Mean Corpuscular Volume 84.4 fL (80-100); Monocytes Absolute Auto 500 /uL (0-900); Monocytes Percent Auto 5.8 % (3-14); Neutrophils Absolute Auto 5500 /uL (1500-7000); Neutrophils Percent Auto 62.1 % (50-75); Platelet Count 223 X10^3/uL (150-400); Red Blood Cell Count 5.16 X10^6/uL (4.5-5.9); Red Cell Distribution Width 13.4 % (11.6-14.8); White Blood Cell Count 8.8 X10^3/uL (4.5-11.0)
[2022-03-18 23:30] VITALS: PULSE 71; O2SAT 96
[2022-03-18 23:30] LABS: COVID19 -Nasal RAPID Negative (Negative)
[2022-03-18 23:32] LABS: Troponin I 0.022 ng/mL (0.01-0.034)
[2022-03-18 23:36] LABS: Creatine Kinase MB 1.48 ng/mL (<2.37)
[2022-03-18] MEDS: ONDANSETRON 4 MG/2 ML INJ IV (23:53)
[2022-03-19] VITALS (32 sets, daily range): BP systolic 112–166; BP diastolic 58–88; PULSE 63–79; RESP 15–32; O2SAT 81–99
--- NOTE | 2022-03-19 01:28 | ED_ITS ---
HPI - Chest Pain General Chief Complaint: Chest Pain Stated Complaint: nausea, chest discomfort, dizzy Time Seen by Provider: 03/19/22 01:14 History of Present Illness HPI narrative: Patient here with family. Complains 1 week of nausea sweating dizziness and substernal pain. Nonradiating. Patient has significant history of coronary disease and bypass surgery 10 years ago. 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 No recent cardiology workup. Has had recent fatigue and tired which is different from baseline. No recent illness cough cold congestion fever chills. Patient is diabetic. Related Data Home Medications Medication Instructions Recorded Confirmed aspirin 81 mg chewable tablet 162 mg PO QDAY #0 tabs 01/22/19 12/21/21 Resmed Airsense 10 CPAP #1 ea 02/27/19 12/21/21 Previous Rx's Medication Instructions Recorded insulin human U-100 NPH-regulr 60 units (0.6 mL) SQ BID #10 mL 12/14/16 70-30 mix 100 unit/mL subcutaneous susp (Novolin 70/30 U-100 Insulin) Glucose: Home Monitor units BID ##1 10/03/17 Test Strips - Freestyle str BID ##100 10/24/17 atorvastatin 80 mg tablet 80 mg PO DAILY #90 tabs 10/30/19 metoprolol succinate 50 mg 50 mg PO DAILY #90 tabs 10/30/19 tablet,extended release 24 hr diclofenac sodium 1 % topical gel 2 gram topical BID #100 grams 10/31/19 blood sugar diagnostic (FreeStyle See Rx Instructions .Route 07/15/20 Lite Strips) .COMPLEX #100 ea DISABLED PARKING PERMIT #1 ea 10/28/21 nitroglycerin 0.4 mg sublingual 0.4 mg sublingual Q5-15M PRN chest 12/09/21 tablet pain #30 tabs duloxetine 60 mg capsule,delayed 60 mg PO DAILY #90 caps 12/21/21 release lisinopril 40 mg tablet See Rx Instructions .Route 12/21/21 .COMPLEX #90 tabs metformin 500 mg tablet,extended See Rx Instructions .Route 01/05/22 release 24 hr .COMPLEX #360 tabs Allergies Allergy/AdvReac Type Severity Reaction Status Date / Time aspirin AdvReac Mild GI PROBLEMS Verified 12/21/21 13:41 VICODEN Allergy Mild CRAMPS Uncoded 12/21/21 13:41 STOMACH Review of Systems Review of Systems Narrative: GENERAL: Denies chills, positive fatigue, positive for malaise, negative fever, positive sweats. HEENT: Denies sinus pain, ear pain, sore throat RESPIRATORY: Denies dyspnea, cough CARDIOVASCULAR: Positive chest pain, negative palpitations GASTROINTESTINAL: Positive nausea, negative vomiting, abdominal pain : Denies dysuria, frequency, hematuria MUSCULOSKELETAL: denies muscle or bony pain SKIN: Denies rash, skin lesions NEUROLOGIC: Denies weakness, numbness ROS Unobtainable: All systems reviewed & are unremarkable except as noted in HPI and below Patient History Medical History COVID-19 Diabetes mellitus (06/04/15) Diabetes mellitus (~1994) Hyperlipidemia (~2005) Hypertension (~2005) Obstructive sleep apnea of adult (~04/2017) Snoring (~2006) Tinnitus (~1989) Surgical History Anesthesia History of knee surgery (~1994) S/P triple vessel bypass (~2006) Status post wrist surgery (~2011) Family History Father Heart disease Grandmother Diabetes mellitus Grandfather Heart disease Grandmother Diabetes mellitus Social History marital status: Smoking Status: Former smoker alcohol intake: current substance use type: does not use Smoking Status: Former smoker alcohol intake frequency: a few times a week Substance Use Type: does not use Exam Narrative Exam Narrative: GENERAL: in no distress, not toxic not dyspneic HEAD: Normocephalic. EYES: Pupils equal round No scleral icterus. ENT: Mucous membranes moist. NECK: Trachea midline. CARDIOVASCULAR: Regular rate and rhythm without murmurs RESPIRATORY: Clear to auscultation. Breath sounds equal bilaterally. No wheezes, rales, or rhonchi. GASTROINTESTINAL: Abdomen soft, non-tender, no peritoneal signs, nontender abdomen. Bowel sounds present. EXTREMITIES: No gross deformities. BACK: No flank tenderness. NEURO: AOx4. SKIN: Warm and dry PSYCH: Not anxious, is cooperative Initial Vital Signs Initial Vital Signs: Vital Signs Pulse Rate 70 03/18/22 22:46 Pulse Oximetry 96 03/18/22 22:46 Course Course Course Narrative: No new issues during course of stay Decision to Admit Date: 03/19/22 Decision to Admit time: 01:32 Orders Ordered: Discontinued Medications Acetaminophen (Acetaminophen 325 Mg Tablet) 650 mg PO Q6HR PRN PRN Reason: Fever/Mild Pain (1-3) Acetaminophen (Acetaminophen 325 Mg Tablet) 650 mg PO Q6HR PRN PRN Reason: Fever/Mild Pain (1-3) Aspirin (Aspirin 81 Mg Chew Tab) 324 mg PO NOW ONE Stop: 03/19/22 01:25 Last Admin: 03/19/22 01:31 Dose: 324 mg Documented By: NIRMAL Aspirin (Aspirin 81 Mg Chew Tab) 162 mg PO DAILY [facility] Last Admin: 03/19/22 09:55 Dose: 162 mg Documented By: CAMILA Atorvastatin Calcium (Atorvastatin 20 Mg Tablet) 80 mg PO DAILY [facility] Last Admin: 03/19/22 09:57 Dose: 80 mg Documented By: CAMILA Dextrose (Dextrose 50 % In Water 25 Gm/50 Ml Syringe) 25 gm IV PRN PRN PRN Reason: Hypoglycemia Duloxetine HCl (Duloxetine 30 Mg Capsule) 60 mg PO DAILY [facility] Last Admin: 03/19/22 09:55 Dose: 60 mg Documented By: CAMILA Enoxaparin Sodium (Enoxaparin 40 Mg/0.4 Ml Syringe) 40 mg SUBCUT DAILY [facility] Last Admin: 03/19/22 10:03 Dose: Not Given Documented By: CAMILA Sodium Chloride (Normal Saline 0.9%) 500 mls @ 1,000 mls/hr IV BOLUS ONE Stop: 03/19/22 01:53 Last Infusion: 03/19/22 02:34 Dose: 0 mls/hr Documented By: Admin: 03/19/22 01:32 Dose: 1,000 mls/hr Documented By: NIRMAL Insulin Human Isoph/Insulin Regular (Insulin Nph/Reg 70-30 100 Unit/Ml 3ml Vial) 60 unit SUBCUT BID [facility] Last Admin: 03/19/22 10:06 Dose: Not Given Documented By: CAMILA Insulin Human Lispro (Insulin Lispro 100 Unit/Ml 3ml Vial) 0 unit SUBCUT ACHS [facility]; Protocol Last Admin: 03/19/22 12:59 Dose: Not Given Documented By: Admin: 03/19/22 08:45 Dose: Not Given Documented By: CAMILA Lisinopril (Lisinopril 20 Mg Tablet) 20 mg PO DAILY [facility] Last Admin: 03/19/22 10:01 Dose: 20 mg Documented By: CAMILA Metoprolol Succinate (Metoprolol Er 50 Mg Tablet) 50 mg PO DAILY [facility] Last Admin: 03/19/22 09:59 Dose: 50 mg Documented By: CAMILA Nitroglycerin (Nitroglycerin Oint 1 Inch/Gm Oint...G.) 1 inch TOP NOW ONE Stop: 03/19/22 01:28 Last Admin: 03/19/22 01:31 Dose: 1 inch Documented By: NIRMAL Ondansetron HCl (Ondansetron 4 Mg/2 Ml Inj) 4 mg IV NOW ONE Stop: 03/18/22 23:45 Last Admin: 03/18/22 23:53 Dose: 4 mg Documented By: NIRMAL Ondansetron HCl (Ondansetron 4 Mg/2 Ml Inj) 4 mg IV Q4HR PRN PRN Reason: Nausea And Vomiting Reevaluation(s) Reevaluation #1: Reviewed results patient agrees were admit. Currently chest pain-free. Time: 01:32 Consultations Consultation #1: Spoke with patient's position frannie, primary care, Dr. Shea, agrees needs for admit and stress test Time: 01:33 Vital Signs Vital signs: Vital Signs - 8 hr 03/18/22 22:57 Temperature 98.4 F Pulse Rate 69 Respiratory Rate 16 Blood Pressure 182/89 H Pulse Oximetry 97 Oxygen Delivery Method Room Air MDM - Chest Pain Differential Diagnosis Differential diagnosis: Likely stable angina, unstable angina pectoris, atypical chest pain, st elevation myocardial infarction and chest pain Lab Data Result diagrams: 03/18/22 22:55 03/18/22 22:55 Labs: Lab Results 03/18/22 03/18/22 03/18/22 Range/Units 22:55 22:55 22:55 WBC 8.8 (4.5-11.0) X10^3/uL RBC 5.16 (4.5-5.9) X10^6/uL Hgb 14.9 (13.5-17.5) g/dL Hct 43.6 (41-53) % MCV 84.4 (80-100) fL MCH 28.9 (26-34) PG MCHC 34.3 (30-36) % RDW 13.4 (11.6-14.8) % Plt Count 223 (150-400) X10^3/uL Neut % (Auto) 62.1 (50-75) % Lymph % (Auto) 30.0 (25-40) % [place] % (Auto) 5.8 (3-14) % Eos % (Auto) 1.4 L (2-4) % Baso % (Auto) 0.7 (0-2) % Neut # (Auto) 5500 (8187-8088) /uL Lymph # (Auto) 2600 (9323-4633) /uL [place] # (Auto) 500 (0-900) /uL Eos # (Auto) 100 (0-450) /uL Baso # (Auto) 100 (0-100) /uL PT 10.8 (10.1-12.7) SECONDS INR 1.0 (0.9-1.3) APTT 31 (26.4-36.2) SECONDS Sodium 137 (137-145) mmol/L Potassium 4.1 (3.4-5.1) mmol/L Chloride 100 (98-107) mmol/L Carbon Dioxide 26 (22-32) mmol/L BUN 26 H (9-20) mg/dL Creatinine 0.99 (0.66-1.25) mg/dL Estimated GFR > 60 (>60) mL/min BUN/Creatinine Ratio 26.3 H (6-22) Glucose 150 H (80-110) mg/dL Calcium 9.3 (8.4-10.2) mg/dL Magnesium 1.4 L (1.6-2.3) mg/dL Total Bilirubin 0.8 (0.2-1.3) mg/dL AST 32 (17-59) IU/L ALT 38 (<50) IU/L Alkaline Phosphatase 62 (38-126) U/L Total Creatine Kinase 145 (55-170) U/L CK-MB (CK-2) 1.48 (<2.37) ng/mL CK-MB (CK-2) Rel Index 1.0 L (1.5-5.0) % Troponin I 0.022 (0.01-0.034) ng/mL Total Protein 7.6 (6.3-8.2) g/dL Albumin 4.3 (3.5-5.0) g/dL Globulin 3.3 (1.7-4.1) g/dL Albumin/Globulin Ratio 1.3 (1.0-2.8) Lipase 270 (23-300) U/L SARS-CoV-2 (PCR) (Negative) 03/18/22 03/19/22 Range/Units 22:58 03:09 WBC (4.5-11.0) X10^3/uL RBC (4.5-5.9) X10^6/uL Hgb (13.5-17.5) g/dL Hct (41-53) % MCV (80-100) fL MCH (26-34) PG MCHC (30-36) % RDW (11.6-14.8) % Plt Count (150-400) X10^3/uL Neut % (Auto) (50-75) % Lymph % (Auto) (25-40) % [place] % (Auto) (3-14) % Eos % (Auto) (2-4) % Baso % (Auto) (0-2) % Neut # (Auto) (5741-1174) /uL Lymph # (Auto) (9134-7040) /uL [place] # (Auto) (0-900) /uL Eos # (Auto) (0-450) /uL Baso # (Auto) (0-100) /uL PT (10.1-12.7) SECONDS INR (0.9-1.3) APTT (26.4-36.2) SECONDS Sodium (137-145) mmol/L Potassium (3.4-5.1) mmol/L Chloride (98-107) mmol/L Carbon Dioxide (22-32) mmol/L BUN (9-20) mg/dL Creatinine (0.66-1.25) mg/dL Estimated GFR (>60) mL/min BUN/Creatinine Ratio (6-22) Glucose (80-110) mg/dL Calcium (8.4-10.2) mg/dL Magnesium (1.6-2.3) mg/dL Total Bilirubin (0.2-1.3) mg/dL AST (17-59) IU/L ALT (<50) IU/L Alkaline Phosphatase (38-126) U/L Total Creatine Kinase 131 (55-170) U/L CK-MB (CK-2) 1.25 (<2.37) ng/mL CK-MB (CK-2) Rel Index 1.0 L (1.5-5.0) % Troponin I 0.027 (0.01-0.034) ng/mL Total Protein (6.3-8.2) g/dL Albumin (3.5-5.0) g/dL Globulin (1.7-4.1) g/dL Albumin/Globulin Ratio (1.0-2.8) Lipase (23-300) U/L SARS-CoV-2 (PCR) Negative (Negative) Point of Care Testing Glucose POC 154 Imaging Data Chest x-ray: Radiologist's Impression: [address] [address] XRay Report Signed Patient: Wilfrido Mclean MR#: [id number] : 1950 Acct:[id number] Age/Sex: 71 / M Date of Service: 03/18/22 Loc: ED Accession Number: [id number] ?? Procedure: XR chest 1V Ordering Provider: Toni Jennings MD PROCEDURE:? XR CHEST 1V ? INDICATIONS:? chest pain ? TECHNIQUE:? One view of the chest was acquired.? ? COMPARISON:? Located Within [facility], , CHEST 1 VIEW, 07/02/2013, 16:02. ? FINDINGS:? ? Surgical changes and devices:? Postsurgical changes redemonstrated in the mediastinum. ? Lungs and pleura:? Lungs are clear.? No pleural effusions or pneumothorax.? ? Mediastinum:? Mediastinal contours appear normal.? Heart size is normal.? ? Bones and chest wall:? No suspicious bony lesions.? Overlying soft tissues appear unremarkable.? ? IMPRESSION:? ? 1.? No acute cardiopulmonary disease. ? ? ? Dictated by: David Becker M.D. on 03/19/2022 at 0:32 ? ? Approved by: David Becker M.D. on 03/19/2022 at 0:32 ? ECG Data Interpretation: Sinus rhythm. Rate 71. No ST elevation or depression MDM Narrative Medical decision making narrative: Appropriate for admission for repeat troponin as well as stress test and echocardiogram. Patient has significant risk factors and past coronary artery disease history. Reviewed with patient and agrees for admit. Currently chest pain-free. Reviewed with primary care Dr. Shea and agrees for admit. Discharge Plan Departure Patient Disposition: Admitted as Observation Clinical Impression: Gastroenteritis, Chest pain Visit Report Forms: Patient Portal/API, Stroke Signs & Symptoms
[2022-03-19] MEDS: ASPIRIN 81 MG CHEW TAB 324 MG PO (01:31)
[2022-03-19] MEDS: NITROGLYCERIN OINT 1 INCH/GM OINT...G. TOP (01:31)
[2022-03-19] MEDS: SODIUM CHLORIDE 0.9% 500 ML 1000 ML IV (01:32)
[2022-03-19 03:34] LABS: Creatine Kinase 131 U/L (55-170)
[2022-03-19 03:47] LABS: Troponin I 0.027 ng/mL (0.01-0.034)
[2022-03-19 03:50] LABS: Creatine Kinase MB 1.25 ng/mL (<2.37)
--- NOTE | 2022-03-19 07:53 | P.HP_ITS ---
History of Present Illness History of Present Illness Date Patient Seen: 03/19/22 Time Patient Seen: 07:54 Chief complaint: nausea, chest discomfort, dizzy Narrative: 71-year-old male who presents to the emergency department with complaints of not feeling well for 3 or 4 days nausea significant vomiting and chest discomfort. Patient has a past medical history coronary artery disease status post bypass surgery diabetes insulin dependent poorly controlled obstructive stent sleep apnea hypertension cerebrovascular accident. Patient states his symptoms started 2-3 days ago. He began to not feel very well a little bit weak and tired. He then to begin to get a little bit nauseated. And then yesterday he threw up multiple times. He says he was just throwing up bile in water. After he threw up multiple times he could not eat. Fell little bit worn out his then began to have some chest discomfort. Says his chest discomfort was substernal radiating up from his abdominal area. S associated with nausea. There was no radiation of the pain to his chest or neck. With not exertional. He says he has no pain now. Patient had coronary artery bypass 10 years ago. Has not had any recent imaging of his heart or echocardiogram. Patient has poor control of his blood sugars. He does state he takes his medication regularly. On review of his laboratory test from the emergency room cardiac troponins are negative x2 EKG shows or probable old septal infarct no acute ST or T-wave changes. Chest x-ray shows no significant heart enlargement or signs of heart failure. Patient History Medical History COVID-19 Diabetes mellitus (06/04/15) Diabetes mellitus (~1994) Hyperlipidemia (~2005) Hypertension (~2005) Obstructive sleep apnea of adult (~04/2017) Snoring (~2006) Tinnitus (~1989) Surgical History Anesthesia History of knee surgery (~1994) S/P triple vessel bypass (~2006) Status post wrist surgery (~2011) Family & Social History Family History Father Heart disease Grandmother Diabetes mellitus Grandfather Heart disease Grandmother Diabetes mellitus Safety & Behavioral: Feels Safe in Current Yes Environment Been Physically Hurt or No Threatened By a Person Tobacco & Substance use: Smoking Status Former smoker alcohol intake current alcohol intake frequency a few times a week Substance Use Type does not use Meds Home Medications and Allergies Home Medications Medication Instructions Recorded Confirmed Type insulin human U-100 NPH-regulr 60 units (0.6 mL) SQ BID #10 mL 12/14/16 12/21/21 Rx 70-30 mix 100 unit/mL subcutaneous susp (Novolin 70/30 U-100 Insulin) Glucose: Home Monitor units BID ##1 10/03/17 12/21/21 Rx Test Strips - Freestyle str BID ##100 10/24/17 12/21/21 Rx aspirin 81 mg chewable tablet 162 mg PO QDAY #0 tabs 01/22/19 12/21/21 History Resmed Airsense 10 CPAP #1 ea 02/27/19 12/21/21 History atorvastatin 80 mg tablet 80 mg PO DAILY #90 tabs 10/30/19 12/21/21 Rx metoprolol succinate 50 mg 50 mg PO DAILY #90 tabs 10/30/19 12/21/21 Rx tablet,extended release 24 hr diclofenac sodium 1 % topical gel 2 gram topical BID #100 grams 10/31/19 0 12/21/21 Rx blood sugar diagnostic (FreeStyle See Rx Instructions .Route 07/15/20 12/21/21 Rx Lite Strips) .COMPLEX #100 ea DISABLED PARKING PERMIT #1 ea 10/28/21 12/21/21 Rx nitroglycerin 0.4 mg sublingual 0.4 mg sublingual Q5-15M PRN chest 12/09/21 12/21/21 Rx tablet pain #30 tabs duloxetine 60 mg capsule,delayed 60 mg PO DAILY #90 caps 12/21/21 12/21/21 Rx release lisinopril 40 mg tablet See Rx Instructions .Route 12/21/21 Rx .COMPLEX #90 tabs metformin 500 mg tablet,extended See Rx Instructions .Route 01/05/22 Rx release 24 hr .COMPLEX #360 tabs Allergies Allergy/AdvReac Type Severity Reaction Status Date / Time aspirin AdvReac Mild GI PROBLEMS Verified 12/21/21 13:41 VICODEN Allergy Mild CRAMPS Uncoded 12/21/21 13:41 STOMACH Exam Vital Signs (past 8 hours): - 03/19/22 00:00 03/19/22 00:30 07/01/22 01:00 Pulse Rate 75 73 71 Respiratory Rate 30 H 23 32 H Blood Pressure Pulse Oximetry 95 89 L 96 03/19/22 01:30 03/19/22 01:40 03/19/22 01:40 Pulse Rate 79 70 Respiratory Rate 27 H 28 H Blood Pressure 158/76 H Pulse Oximetry 96 95 03/19/22 02:00 03/19/22 02:00 03/19/22 02:30 Pulse Rate 69 Respiratory Rate 24 Blood Pressure 150/83 H 166/88 H Pulse Oximetry 91 03/19/22 02:30 03/19/22 03:00 03/19/22 03:01 Pulse Rate 66 69 Respiratory Rate 22 19 Blood Pressure 154/71 H Pulse Oximetry 94 93 03/19/22 03:01 03/19/22 03:30 03/19/22 03:30 Pulse Rate 70 65 Respiratory Rate 25 H 19 Blood Pressure 143/73 H Pulse Oximetry 91 92 03/19/22 04:00 03/19/22 04:01 03/19/22 04:01 Pulse Rate 67 66 Respiratory Rate 19 16 Blood Pressure 142/64 H Pulse Oximetry 81 L 94 03/19/22 04:30 03/19/22 05:00 03/19/22 05:30 Pulse Rate 72 69 Respiratory Rate 23 23 Blood Pressure 131/67 Pulse Oximetry 03/19/22 05:30 03/19/22 06:00 03/19/22 06:01 Pulse Rate 71 64 Respiratory Rate 20 29 H Blood Pressure 150/67 H Pulse Oximetry 91 92 03/19/22 06:01 03/19/22 06:30 03/19/22 06:31 Pulse Rate 74 69 Respiratory Rate 27 H 20 Blood Pressure 129/72 Pulse Oximetry 91 03/19/22 06:31 Pulse Rate 74 Respiratory Rate 18 Blood Pressure Pulse Oximetry Oxygen Delivery Method Room Air Narrative Exam Narrative: Gen.: Alert good historian recognizes me knows he is in the emergency department fairly good historian HEENT: Pupils equal round and reactive neck is supple or mucosa is moist Cardio: [S1-S2 regular rate and rhythm no murmurs appreciated.] Respiratory: Lungs are clear normal respiratory effort no wheezes or crackles Abdomen: [Soft nontender no rebound or guarding no liver spleen enlargement no appreciable hernias] Extremities: Warm dry perfused some chronic venous stasis changes of his lower extremity with some edema Objective Labs Result Diagrams: 03/18/22 22:55 03/18/22 22:55 Labs: Laboratory Results - last 24 hr 03/18/22 03/18/22 03/18/22 22:55 22:55 22:55 WBC 8.8 RBC 5.16 Hgb 14.9 Hct 43.6 MCV 84.4 MCH 28.9 MCHC 34.3 RDW 13.4 Plt Count 223 Neut % (Auto) 62.1 Lymph % (Auto) 30.0 [place] % (Auto) 5.8 Eos % (Auto) 1.4 L Baso % (Auto) 0.7 Neut # (Auto) 5500 Lymph # (Auto) 2600 [place] # (Auto) 500 Eos # (Auto) 100 Baso # (Auto) 100 PT 10.8 INR 1.0 APTT 31 Sodium 137 Potassium 4.1 Chloride 100 Carbon Dioxide 26 BUN 26 H Creatinine 0.99 Estimated GFR > 60 BUN/Creatinine Ratio 26.3 H Glucose 150 H Calcium 9.3 Magnesium 1.4 L Total Bilirubin 0.8 AST 32 ALT 38 Alkaline Phosphatase 62 Total Creatine Kinase 145 CK-MB (CK-2) 1.48 CK-MB (CK-2) Rel Index 1.0 L Troponin I 0.022 Total Protein 7.6 Albumin 4.3 Globulin 3.3 Albumin/Globulin Ratio 1.3 Lipase 270 SARS-CoV-2 (PCR) 03/18/22 03/19/22 22:58 03:09 WBC RBC Hgb Hct MCV MCH MCHC RDW Plt Count Neut % (Auto) Lymph % (Auto) [place] % (Auto) Eos % (Auto) Baso % (Auto) Neut # (Auto) Lymph # (Auto) [place] # (Auto) Eos # (Auto) Baso # (Auto) PT INR APTT Sodium Potassium Chloride Carbon Dioxide BUN Creatinine Estimated GFR BUN/Creatinine Ratio Glucose Calcium Magnesium Total Bilirubin AST ALT Alkaline Phosphatase Total Creatine Kinase 131 CK-MB (CK-2) 1.25 CK-MB (CK-2) Rel Index 1.0 L Troponin I 0.027 Total Protein Albumin Globulin Albumin/Globulin Ratio Lipase SARS-CoV-2 (PCR) Negative Assessment & Plan Assessment and plan (1) Gastroenteritis: Status: Acute (2) Chest pain: Status: Acute Plan 71-year-old male with significant cardiac risk factors and history of coronary artery disease with recent illness with weakness fatigue tiredness and 24 hours of significant vomiting presented to the emergency department with chest discomfort. Cardiac enzymes x2 were negative chest x-ray negative EKG shows no significant changes. He was admitted to the hospital for observation and further workup. Will proceed with cardiac imaging with an echocardiogram and Cardiolite stress testing if possible. We can get an echocardiogram that shows and no significant wall motion abnormalities are heart failure and a stress test initially is normal then he can be discharged. If for some reason we were unable to get the stress test with this can be done as an outpatient. Discharge plan. Echocardiogram today cardiac stress testing today. Discharge from hospital. If stress test not able to done we will do that as an outpati ent. Patient will have close interval follow-up with me in the clinic in the next 1 week. No changes to his current medical regiment Time Spent With Patient Critical Care time: I spent a total of [] minutes of critical care time on this patient's care today; this time is exclusive of procedural time.
--- NOTE | 2022-03-19 07:59 | DI.ECHO.S_ITS ---
[facility] +---------+ [facility] +---------+ : : [address] [place] [address] : : : : [id number] : : : : Phone: [phone] Echocardiogram Report + + :Name: JOJO SHEA Study Date: 03/19/2022 Height: 71 in : :[facility] ReadingLocation: Weight: 220 lb : : Gender: Male BSA: 2.2 m2 : :: 1950 Age: 71 yrs BP: 144/70 mmHg: :Reason For Study: Chest pain : :Ordering Physician: LINSEY, : :HARITHA Performed By: Kraig Liu : :Referring: HARITHA STILES : + + Interpretation Summary There is mild concentric left ventricular hypertrophy. The ejection fraction is estimated to be 55-60%. Diastolic function could not be accurately assessed due to unobtainable data. The right ventricle is normal in size and function. Significant valvular abnormalities. Unable to estimate PASP. Compared to the prior study dated 03/17/2017, no significant change. Procedure: A two-dimensional transthoracic echocardiogram with color flow and Doppler was performed. The study quality was technically adequate. Comparison is made with the echocardiogram of 03/17/2017. Left Ventricle: The left ventricle is normal in size. There is mild concentric left ventricular hypertrophy. Left ventricular systolic function is normal. The ejection fraction is estimated to be 55-60%. There are no focal wall motion abnormalities. Diastolic function could not be accurately assessed due to unobtainable data. Right Ventricle: The right ventricle is normal in size and function. Atria: Both atria are normal in size. The interatrial septum grossly appears intact with no obvious evidence for an atrial septal defect. Mitral Valve: There is mild mitral annular calcification. There is no mitral regurgitation noted. Aortic Valve: The aortic valve is trileaflet. The aortic valve is mildly calcified. There is no aortic valve stenosis. No aortic regurgitation is present. Tricuspid Valve: The tricuspid valve is normal in structure and function. There is a trace or physiologic amount of tricuspid regurgitation. Pulmonary artery pressures cannot be estimated because of the lack of a measurable TR jet velocity. Pulmonic Valve: The pulmonic valve is not well visualized. Great Vessels: The aortic root is normal size. The dimensions of the ascending aorta are normal. The IVC is of normal diameter and collapses greater than 50% with a sniff. This suggests a low right atrial pressure of 3 mm Hg. Pericardium/ Pleura There is no pericardial effusion. There is no pleural effusion. MMode/2D Measurements & Calculations LVIDd: 4.5 cm LVOT diam: 2.4 cm LVIDs: 3.1 cm Ao root diam: 3.9 cm FS: 30.5 % asc Aorta Diam: 3.5 cm IVSd: 1.2 cm LVPWd: 1.1 cm LV shields. diameter/BSA (cm/m^2): 2.0 LV sys. diameter/BSA (cm/m^2): 1.4 LA A2 area: 19.8 cm2 RA long axis: 5.6 cm LA A4 area: 18.6 cm2 RA area: 15.0 cm2 LA length (vol): 5.4 cm RA vol: 34.1 ml LA vol: 58.0 ml RA : 15.5 ml/m2 LA vol index: 26.4 ml/m2 TAPSE: 1.7 cm Doppler Measurements & Calculations Ao V2 max: 97.5 cm/sec LVOT Max Berry: 75.0 cm/sec Ao V2 mean: 71.8 cm/sec LV V1 max P.2 mmHg Ao max P.9 mmHg LV V1 VTI: 16.1 cm Ao mean P.3 mmHg JOSE(I,D): 3.8 cm2 Ao V2 VTI: 19.6 cm JOSE(V,D): 3.6 cm2 sev ratio: 0.82 JOSE indexed to BSA (cm^2/m^2): 1.7 MV E max berry: 47.0 cm/sec SV(LVOT): 74.7 ml MV A max berry: 91.6 cm/sec MV E/A: 0.51 Med Peak E' Berry: 3.9 cm/sec E/E' med: 12.0 Lat Peak E' Berry: 4.8 cm/sec E/E' lat: 9.8 E/e' average: 10.9 MV dec time: 0.35 sec Reading Physician:02:18 PM
[2022-03-19] MEDS: ASPIRIN 81 MG CHEW TAB 162 MG PO (09:55)
[2022-03-19] MEDS: DULOXETINE 30 MG CAPSULE 60 MG PO (09:55)
[2022-03-19] MEDS: ATORVASTATIN 20 MG TABLET 80 MG PO (09:57)
[2022-03-19] MEDS: METOPROLOL ER 50 MG TABLET PO (09:59)
[2022-03-19] MEDS: lisinopriL 20 MG TABLET PO (10:01)
--- NOTE | 2022-03-19 13:17 | PM.TREADMILL ---
Cardiac Stress Test Report Referral & Results Date Patient Seen: 03/19/22 Time Patient Seen: 13:17 Requesting provider: Skip Shea Indication: Chest pain Rest ECG: Sinus rhythm and sinus bradycardia with PACs Procedure Note: After Lexiscan injection had minimal dyspnea, no chest discomfort No significant ST changes after Lexiscan injection No significant ectopy Impression: Normal Lexiscan stress test Nuclear images pending Please note: Actual ECG tracings can be found in the PACS system.
--- NOTE | 2022-03-19 16:03 | PC.NURSE ---
1600: call placed to Dr Shea. Pt anxious. awaiting NST results and wanting to go home from ER. Dr Shea states ECHO WNL for pt and will call him to f/u with results from NST when read by Dr Joya. Pt agreeble to plan. Verbal order for Discharge. 1620: Dr Shea called stating NST was read and is normal. Pt made aware. Advised to f/u with Dr Shea's office this week. Pt ambulated out of ED with steady gait. No further questions and DC instructions given.
--- NOTE | 2022-03-19 18:54 | DI.NM.S_ITS ---
DATE OF SERVICE: 03/19/2022 PROCEDURE PERFORMED: Pharmacologic vasodilator stress and rest myocardial perfusion imaging with gating to assess ejection fraction and regional wall motion. ORDERING PROVIDER: Dr. Skip Shea. INDICATIONS: The patient is a 71-year-old male admitted with nausea, dyspnea, and atypical chest discomfort. CARDIAC STRESS: Per protocol, 0.4 mg of regadenoson was infused with a normal hemodynamic response. He had minimal dyspnea but no chest discomfort. His resting ECG is normal. With stress, there were no significant ST-segment shifts. He had frequent PACs, at times consecutively, with short runs of ectopic atrial tachycardia that were self-limited but no other arrhythmias. Per protocol, 25.5 millicuries of technetium-99m Myoview was injected and he was imaged 10 minutes later using a gated SPECT acquisition protocol. Earlier in the day while at rest, he had been injected with 9.3 millicuries of technetium- 99m Myoview and was imaged 30 minutes later, again using a gated SPECT acquisition protocol. FINDINGS: 1. Raw data: There is fair myocardial tracer uptake with evidence of diaphragmatic attenuation. The lung/heart ratio is normal at 0.36 with normal TID ratio of 1.29. 2. Quantitated gated SPECT: Post-stress ejection fraction is estimated at 59% without any focal wall motion abnormality and specifically the inferior wall appears to have normal contractility, although image quality is somewhat poor. The resting ejection fraction is estimated at 56% with a normal resting end-diastolic volume of 97 mL although the resting images are of quite poor image quality. 3. Myocardial perfusion imaging: Immediate post-stress supine images show a fairly normal myocardial perfusion pattern with a mild defect at the base of the inferior wall, extending slightly into the mid and distal inferolateral wall in a pattern that would be consistent with diaphragmatic attenuation, supported by its near-complete resolution on the prone images although a very subtle defect remains present more distally. The resting images show a similar perfusion pattern without any significant improvement in the perfusion defect. IMPRESSION: 1. Probable normal myocardial perfusion study. 2. Predominantly fixed proximal mid inferior and inferolateral perfusion defect that nearly completely resolves on the prone images, most consistent with diaphragmatic attenuation artifact. While previous nontransmural infarction cannot be entirely excluded, this is less likely given the absence of any wall motion abnormality in this distribution. There is no evidence for significant ischemia. 3. Normal left ventricular systolic function without any focal wall motion abnormality with normal left ventricular volumes. 4. No angina or ECG evidence of ischemia with pharmacologic vasodilator stress. Wilfrido Mclean - KACIE/bony/albert doc#: [id number]/job#: [id number] dd: 03/19/2022 16:09:00 dt: 03/19/2022 18:09:00 DICTATING MD/COPIES TO: Harshil Joya MD; Skip Shea MD COPIES MNE: JOAN;
== END 2022-03-19 16:20 | disposition admitted as inpatient to this hospital (09) ==
LOC: ED 03-19 01:14 → AC 03-19 01:32
PROVIDERS: Emergency Medicine; Emergency Provider Family Medicine; Family Provider Family Medicine; PCP Family Medicine
DX: K52.9 Noninfective gastroenteritis and colitis, unspecified (principal); R07.9 Chest pain, unspecified; Z20.822 Contact with and (suspected) exposure to COVID-19
CPT/HCPCS: 36415; 71045; 78452; 80053; 82550; 82553; 82962; 83690; 83735; 84484; 85025; 85610; 85730; 87635; 93005; 93010; 93017; 93306; 96361; 96374; 99284; C9803; A9502; J1815; J2405; J2785

== ENCOUNTER 2022-10-12 12:56 | Emergency (ER) | payer MEDICARE, SELFPAY ==
[2022-10-12] VITALS (21 sets, daily range): BP systolic 159–243; BP diastolic 77–119; PULSE 70–79; RESP 12–23; TEMP 36.7; O2SAT 91–98; BMI 25.7
--- NOTE | 2022-10-12 13:28 | DI.RAD.S_ITS ---
PROCEDURE: XR CHEST 1V INDICATIONS: altered mental status TECHNIQUE: One view of the chest was acquired. COMPARISON: [facility], CR, XR CHEST 1V, 03/18/2022, 23:23. FINDINGS: Surgical changes and devices: Median sternotomy changes. Lungs and pleura: Low lung volumes. This crowds the central bronchovascular structures. There is possible perihilar peribronchial thickening. No visible dense consolidations in the visible lung zhang. No pneumothorax. Mediastinum: The heart is not well seen due to low lung volumes. No significant central venous congestion. Bones and chest wall: No suspicious bony lesions. Overlying soft tissues appear unremarkable. IMPRESSION: 1. Possible bilateral perihilar peribronchial thickening, potentially accentuated by low lung volumes. Consider bronchitis and correlate clinically. Dictated by: Dariana Molina M.D. on 10/12/2022 at 13:48 Approved by: Dariana Molina M.D. on 10/12/2022 at 13:51
[2022-10-12 13:37] LABS: Hematocrit 45.7 % (41-53); Hemoglobin 15.4 g/dL (13.5-17.5); Lymphocytes Percent Auto 20.3 % (25-40); Mean Corpuscular HGB Conc 33.6 % (30-36); Mean Corpuscular Hemoglobin 28.4 PG (26-34); Mean Corpuscular Volume 84.5 fL (80-100); Monocytes Percent Auto 4.9 % (3-14); Neutrophils Percent Auto 73.1 % (50-75); Platelet Count 192 X10^3/uL (150-400); Red Cell Distribution Width 13.8 % (11.6-14.8); White Blood Cell Count 8.5 X10^3/uL (4.5-11.0)
[2022-10-12 13:38] LABS: Add Manual Diff / Slide Review NO; Basophils Absolute Auto 100 /uL (0-100); Basophils Percent Auto 0.8 % (0-2); Eosinophils Absolute Auto 100 /uL (0-450); Eosinophils Percent Auto 0.9 % (2-4); Lymphocytes Absolute Auto 1700 /uL (1100-4500); Monocytes Absolute Auto 400 /uL (0-900); Neutrophils Absolute Auto 6300 /uL (1500-7000)
[2022-10-12 13:46] LABS: Alanine Aminotransferase 40 IU/L (<50); Albumin 4.5 g/dL (3.5-5.0); Albumin Globulin Ratio 1.3 (1.0-2.8); Alkaline Phosphatase 82 U/L (38-126); Aspartate Aminotransferase 31 IU/L (17-59); BUN Creatinine Ratio 22.8 (6-22); Bilirubin Total 1.1 mg/dL (0.2-1.3); Blood Urea Nitrogen 21 mg/dL (9-20); Calcium 9.3 mg/dL (8.4-10.2); Carbon Dioxide 29 mmol/L (22-32); Chloride 94 mmol/L (98-107); Estimated Glomerular Filt Rate > 60 mL/min (>60); Globulin 3.6 g/dL (1.7-4.1); Glucose 344 mg/dL (80-110); HEMOLYSIS < 15 (0-50); Potassium 4.9 mmol/L (3.4-5.1); Sodium 134 mmol/L (137-145); Total Protein 8.1 g/dL (6.3-8.2)
[2022-10-12 14:10] LABS: Ammonia (NH3) < 9 umol/L (9-30)
--- NOTE | 2022-10-12 14:11 | DI.CT.S_ITS ---
PROCEDURE: CT HEAD/BRAIN WO CON INDICATIONS: Altered mental status TECHNIQUE: Noncontrast 4.5 mm thick angled axial sections acquired from the foramen magnum to the vertex, with coronal and sagittal reformats. For radiation dose reduction, the following was used: automated exposure control, adjustment of mA and/or kV according to patient size. COMPARISON: None. FINDINGS: Image quality: Excellent. CSF spaces: Basal cisterns are patent. No extra-axial fluid collections. The ventricles are symmetric in size and shape. Brain: No intracranial bleeds or masses. There is cerebral volume loss for age, with resultant ventricular and sulcal prominence. There are periventricular and deep white matter chronic small vessel ischemic changes. There is intracranial internal carotid artery and vertebral artery atherosclerosis. Skull and face: Calvarium and visualized facial bones appear intact, without suspicious lesions. Sinuses: Partially visualized mucous retention cyst versus polyp in the right maxillary sinus. The mastoids are clear. IMPRESSION: No acute intracranial disease process. Dictated by: Danuta Pan MD, PhD on 10/12/2022 at 14:28 Approved by: Danuta Pan MD, PhD on 10/12/2022 at 14:30
--- NOTE | 2022-10-12 14:16 | ED.AMS ---
HPI - Altered Mental Status General Chief Complaint: Altered Mental Status Stated Complaint: confusion,not eating/drinking,shaking Time Seen by Provider: 10/12/22 14:01 Source: patient Mode of arrival: Wheelchair History of Present Illness HPI narrative: Patient brought in from home by his good friend. For altered mental status. Patient is able to state his name and date of . However he minimizes many other things that has been going on in his life. He does agree with what his friend has been saying. Patient lives remotely in a trailer. It has no electricity other than being powered by propane gas tank. Patient does not take good care of himself according to his friend. Primary care is Dr. Shea, patient states he saw him 1 month ago but did not mentioned was going on his life. Patient has history of bypass surgery. Also has poor peripheral circulation to the legs. Patient denies any fall or injury. Patient admits not been taking good care of himself or taking his home medications. Friend came to visit him today, [facility], there is no pro pain or fuel no electricity no heat no food. Patient as live this way without eating for the past 4 days. Patient has poor home support according to his friend. He has children in local area but they do not visit him or take care of him. Friend states he will take him home with him if needed tonight to stay with him. Related Data Home Medications Medication Instructions Recorded Confirmed aspirin 81 mg chewable tablet 162 mg PO QDAY #0 tabs 01/22/19 10/14/22 Previous Rx's Medication Instructions Recorded atorvastatin 80 mg tablet 80 mg PO DAILY #90 tabs 10/30/19 blood sugar diagnostic (FreeStyle See Rx Instructions .Route 07/15/20 Lite Strips) .COMPLEX #100 ea DISABLED PARKING PERMIT #1 ea 10/28/21 nitroglycerin 0.4 mg sublingual 0.4 mg sublingual Q5-15M PRN chest 12/09/21 tablet pain #30 tabs duloxetine 60 mg capsule,delayed 60 mg PO DAILY #90 caps 12/21/21 release lisinopril 40 mg tablet See Rx Instructions .Route 09/17/22 .COMPLEX #90 tabs insulin glargine 100 unit/mL (3 40 unit (0.4 mL) SUBCUT 2100 #15 mL 10/18/22 mL) subcutaneous pen (Lantus Solostar U-100 Insulin) insulin lispro 100 unit/mL See Rx Instructions .Route 10/18/22 subcutaneous solution (Humalog .COMPLEX #10 mL U-100 Insulin) metformin 500 mg tablet,extended 1,000 mg PO BID #60 tabs 10/18/22 release 24 hr metoprolol succinate 50 mg 50 mg PO BID #30 tabs 10/18/22 tablet,extended release 24 hr triamterene 37.5 1 tab PO DAILY #30 tabs 10/18/22 mg-hydrochlorothiazide 25 mg tablet Allergies Allergy/AdvReac Type Severity Reaction Status Date / Time acetaminophen [From Vicodin] AdvReac Mild CRAMPS Verified 10/14/22 18:41 STOMACH aspirin AdvReac Mild GI PROBLEMS Verified 12/21/21 13:41 hydrocodone [From Vicodin] AdvReac Mild CRAMPS Verified 10/14/22 18:41 STOMACH Review of Systems Review of Systems Narrative: GENERAL: negative chills, fatigue, malaise, fever, sweats. 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) COVID-19 CVA (cerebral vascular accident) CVA, old, cognitive deficits Depression Diabetes mellitus (~1994) Diabetic neuropathy Hyperlipidemia (~2005) Hypertension (~2005) Obstructive sleep apnea of adult (~04/2017) Osteoarthritis of hand (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) Snoring (~2006) Tinnitus (~1989) Vascular dementia Surgical History Anesthesia History of knee surgery (~1994) S/P triple vessel bypass (~2006) Status post wrist surgery (~2011) Family History Father Heart disease Grandmother Diabetes mellitus Grandfather Heart disease Grandmother Diabetes mellitus Social History marital status: household members: none Smoking Status: Former smoker alcohol intake: current substance use type: does not use Smoking Status: Former smoker alcohol intake frequency: a few times a week Substance Use Type: does not use Exam Narrative Exam Narrative: GENERAL: in no distress, not toxic not dyspneic HEAD: Normocephalic. Atraumatic nontender scalp and face no bruising on the face. EYES: Pupils equal round ENT: Mucous membranes moist. NECK: Trachea midline. CARDIOVASCULAR: Regular rate and rhythm without murmurs RESPIRATORY: Clear to auscultation. Breath sounds equal bilaterally. No wheezes, rales, or rhonchi. GASTROINTESTINAL: Abdomen soft, non-tender EXTREMITIES: No gross deformities. BACK: No flank tenderness. NEURO: Patient is awake alert or to self date of and where he is at. He does recall recent events his friend describes at his home setting. Clear speech no facial droop light touch intact to bilateral face and hands with strong equal caregiver assisted living. SKIN: Warm and dry PSYCH: Not anxious, is cooperative Initial Vital Signs Initial Vital Signs: Vital Signs Temperature 98.1 F 10/12/22 13:05 Pulse Rate 76 10/12/22 13:05 Respiratory Rate 18 10/12/22 13:05 Blood Pressure 232/107 H 10/12/22 13:05 Pulse Oximetry 98 10/12/22 13:05 Oxygen Delivery Method 10/12/22 13:05 Course Orders Ordered: Discontinued Medications Sodium Chloride (Normal Saline 0.9%) 1,000 mls @ 1,000 mls/hr IV BOLUS ONE Stop: 10/12/22 17:41 Last Infusion: 10/12/22 17:39 Dose: 0 mls/hr Documented By: Admin: 10/12/22 16:53 Dose: 1,000 mls/hr Documented By: VICTORINO Sodium Chloride (Normal Saline 0.9%) 1,000 mls @ 1,000 mls/hr IV BOLUS ONE Stop: 10/12/22 18:48 Last Infusion: 10/12/22 19:10 Dose: 0 mls/hr Documented By: Admin: 10/12/22 17:51 Dose: 1,000 mls/hr Documented By: HARLAN Insulin Glargine (Insulin Glargine 100 Unit/Ml 3ml Pen) 20 unit SUBCUT NOW ONE Stop: 10/12/22 19:01 Last Admin: 10/12/22 19:09 Dose: 20 unit Documented By: HARLAN Co-signed By: CONRADO Insulin Human Regular (Insulin Regular 100 Unit/Ml 3 Ml Vial) 5 unit IV NOW ONE Stop: 10/12/22 16:55 Last Admin: 10/12/22 17:00 Dose: 5 unit Documented By: VICTORINO Co-signed By: CONRADO Metoprolol Succinate (Metoprolol Er 50 Mg Tablet) 50 mg PO NOW ONE Stop: 10/12/22 17:35 Last Admin: 10/12/22 17:45 Dose: 50 mg Documented By: HARLAN Vital Signs Vital signs: Vital Signs - 8 hr 10/12/22 13:05 10/12/22 13:30 10/12/22 13:38 Temperature 98.1 F Pulse Rate 76 77 78 Respiratory Rate 18 15 12 Blood Pressure 232/107 H Pulse Oximetry 98 97 96 Oxygen Delivery Method Room Air 10/12/22 13:38 10/12/22 14:00 10/12/22 14:01 Temperature Pulse Rate 78 Respiratory Rate Blood Pressure 243/103 H 159/81 H Pulse Oximetry 98 95 Oxygen Delivery Method Room Air 10/12/22 14:01 10/12/22 14:30 10/12/22 14:31 Temperature Pulse Rate 75 72 72 Respiratory Rate Blood Pressure Pulse Oximetry 95 98 98 Oxygen Delivery Method 10/12/22 14:31 10/12/22 15:00 10/12/22 15:01 Temperature Pulse Rate 74 76 Respiratory Rate 20 12 Blood Pressure 188/89 H Pulse Oximetry 97 97 Oxygen Delivery Method 10/12/22 15:31 10/12/22 15:31 10/12/22 16:00 Temperature Pulse Rate 79 78 Respiratory Rate 14 Blood Pressure 176/77 H Pulse Oximetry 91 95 Oxygen Delivery Method 10/12/22 16:30 10/12/22 16:30 10/12/22 17:00 Temperature Pulse Rate 72 74 Respiratory Rate Blood Pressure 191/119 H Pulse Oximetry 97 96 Oxygen Delivery Method 10/12/22 17:05 10/12/22 17:05 10/12/22 17:30 Temperature Pulse Rate 74 Respiratory Rate 13 Blood Pressure 188/95 H 185/87 H Pulse Oximetry 97 Oxygen Delivery Method 10/12/22 17:30 10/12/22 17:45 Temperature Pulse Rate 72 75 Respiratory Rate 13 Blood Pressure 185/87 H Pulse Oximetry Oxygen Delivery Method MDM - Altered Mental Status Lab Data 10/12/22 13:11 10/12/22 13:11 Labs: Lab Results 10/12/22 10/12/22 10/12/22 Range/Units 13:11 13:11 13:11 WBC 8.5 (4.5-11.0) X10^3/uL RBC 5.40 (4.5-5.9) X10^6/uL Hgb 15.4 (13.5-17.5) g/dL Hct 45.7 (41-53) % MCV 84.5 (80-100) fL MCH 28.4 (26-34) PG MCHC 33.6 (30-36) % RDW 13.8 (11.6-14.8) % Plt Count 192 (150-400) X10^3/uL Neut % (Auto) 73.1 (50-75) % Lymph % (Auto) 20.3 L (25-40) % [place] % (Auto) 4.9 (3-14) % Eos % (Auto) 0.9 L (2-4) % Baso % (Auto) 0.8 (0-2) % Neut # (Auto) 6300 (8629-8866) /uL Lymph # (Auto) 1700 (3440-2398) /uL [place] # (Auto) 400 (0-900) /uL Eos # (Auto) 100 (0-450) /uL Baso # (Auto) 100 (0-100) /uL Sodium 134 L (137-145) mmol/L Potassium 4.9 (3.4-5.1) mmol/L Chloride 94 L (98-107) mmol/L Carbon Dioxide 29 (22-32) mmol/L BUN 21 H (9-20) mg/dL Creatinine 0.92 (0.66-1.25) mg/dL Estimated GFR > 60 (>60) mL/min BUN/Creatinine Ratio 22.8 H (6-22) Glucose 344 H (80-110) mg/dL Calcium 9.3 (8.4-10.2) mg/dL Total Bilirubin 1.1 (0.2-1.3) mg/dL AST 31 (17-59) IU/L ALT 40 (<50) IU/L Alkaline Phosphatase 82 (38-126) U/L Ammonia < 9 L (9-30) umol/L Total Creatine Kinase (55-170) U/L CK-MB (CK-2) (<2.37) ng/mL CK-MB (CK-2) Rel Index (1.5-5.0) % Troponin I (0.01-0.034) ng/mL Total Protein 8.1 (6.3-8.2) g/dL Albumin 4.5 (3.5-5.0) g/dL Globulin 3.6 (1.7-4.1) g/dL Albumin/Globulin Ratio 1.3 (1.0-2.8) Urine RBC (0-5/HPF) Urine WBC (0-5/HPF) Urine Bacteria (None) Ur Culture Indicated? U Opiates 300ng/mL cut (Negative) Ur Oxycodone Screen (Negative) Urine Methadone Screen (Negative) Ur Barbiturates Screen (Negative) U Tricyclic Antidepress (Negative) Ur Phencyclidine Scrn (Negative) Ur Amphetamines Screen (Negative) U Methamphetamines Scrn (Negative) Ur MDMA Scrn (Ecstasy) (Negative) U Benzodiazepines Scrn (Negative) Urine Cocaine Screen (Negative) U Marijuana (THC) Screen (Negative) Ketones (<0.27) mmol/L SARS-CoV-2 (PCR) (Negative) 10/12/22 10/12/22 10/12/22 Range/Units 13:11 13:11 16:05 WBC (4.5-11.0) X10^3/uL RBC (4.5-5.9) X10^6/uL Hgb (13.5-17.5) g/dL Hct (41-53) % MCV (80-100) fL MCH (26-34) PG MCHC (30-36) % RDW (11.6-14.8) % Plt Count (150-400) X10^3/uL Neut % (Auto) (50-75) % Lymph % (Auto) (25-40) % [place] % (Auto) (3-14) % Eos % (Auto) (2-4) % Baso % (Auto) (0-2) % Neut # (Auto) (4604-1126) /uL Lymph # (Auto) (4534-3350) /uL [place] # (Auto) (0-900) /uL Eos # (Auto) (0-450) /uL Baso # (Auto) (0-100) /uL Sodium (137-145) mmol/L Potassium (3.4-5.1) mmol/L Chloride (98-107) mmol/L Carbon Dioxide (22-32) mmol/L BUN (9-20) mg/dL Creatinine (0.66-1.25) mg/dL Estimated GFR (>60) mL/min BUN/Creatinine Ratio (6-22) Glucose (80-110) mg/dL Calcium (8.4-10.2) mg/dL Total Bilirubin (0.2-1.3) mg/dL AST (17-59) IU/L ALT (<50) IU/L Alkaline Phosphatase (38-126) U/L Ammonia (9-30) umol/L Total Creatine Kinase 114 (55-170) U/L CK-MB (CK-2) 1.72 (<2.37) ng/mL CK-MB (CK-2) Rel Index 1.5 (1.5-5.0) % Troponin I 0.020 (0.01-0.034) ng/mL Total Protein (6.3-8.2) g/dL Albumin (3.5-5.0) g/dL Globulin (1.7-4.1) g/dL Albumin/Globulin Ratio (1.0-2.8) Urine RBC (0-5/HPF) Urine WBC (0-5/HPF) Urine Bacteria (None) Ur Culture Indicated? U Opiates 300ng/mL cut Negative (Negative) Ur Oxycodone Screen Negative (Negative) Urine Methadone Screen Negative (Negative) Ur Barbiturates Screen Negative (Negative) U Tricyclic Antidepress Negative (Negative) Ur Phencyclidine Scrn Negative (Negative) Ur Amphetamines Screen Negative (Negative) U Methamphetamines Scrn Negative (Negative) Ur MDMA Scrn (Ecstasy) Negative (Negative) U Benzodiazepines Scrn Negative (Negative) Urine Cocaine Screen Negative (Negative) U Marijuana (THC) Screen Negative (Negative) Ketones 1.59 H (<0.27) mmol/L SARS-CoV-2 (PCR) (Negative) 10/12/22 10/12/22 10/12/22 Range/Units 16:05 16:54 18:35 WBC (4.5-11.0) X10^3/uL RBC (4.5-5.9) X10^6/uL Hgb (13.5-17.5) g/dL Hct (41-53) % MCV (80-100) fL MCH (26-34) PG MCHC (30-36) % RDW (11.6-14.8) % Plt Count (150-400) X10^3/uL Neut % (Auto) (50-75) % Lymph % (Auto) (25-40) % [place] % (Auto) (3-14) % Eos % (Auto) (2-4) % Baso % (Auto) (0-2) % Neut # (Auto) (3767-6052) /uL Lymph # (Auto) (9161-3049) /uL [place] # (Auto) (0-900) /uL Eos # (Auto) (0-450) /uL Baso # (Auto) (0-100) /uL Sodium (137-145) mmol/L Potassium (3.4-5.1) mmol/L Chloride (98-107) mmol/L Carbon Dioxide (22-32) mmol/L BUN (9-20) mg/dL Creatinine (0.66-1.25) mg/dL Estimated GFR (>60) mL/min BUN/Creatinine Ratio (6-22) Glucose (80-110) mg/dL Calcium (8.4-10.2) mg/dL Total Bilirubin (0.2-1.3) mg/dL AST (17-59) IU/L ALT (<50) IU/L Alkaline Phosphatase (38-126) U/L Ammonia (9-30) umol/L Total Creatine Kinase (55-170) U/L CK-MB (CK-2) (<2.37) ng/mL CK-MB (CK-2) Rel Index (1.5-5.0) % Troponin I (0.01-0.034) ng/mL Total Protein (6.3-8.2) g/dL Albumin (3.5-5.0) g/dL Globulin (1.7-4.1) g/dL Albumin/Globulin Ratio (1.0-2.8) Urine RBC 1-5/hpf (0-5/HPF) Urine WBC None seen (0-5/HPF) Urine Bacteria None seen (None) Ur Culture Indicated? Cult not indicated U Opiates 300ng/mL cut (Negative) Ur Oxycodone Screen (Negative) Urine Methadone Screen (Negative) Ur Barbiturates Screen (Negative) U Tricyclic Antidepress (Negative) Ur Phencyclidine Scrn (Negative) Ur Amphetamines Screen (Negative) U Methamphetamines Scrn (Negative) Ur MDMA Scrn (Ecstasy) (Negative) U Benzodiazepines Scrn (Negative) Urine Cocaine Screen (Negative) U Marijuana (THC) Screen (Negative) Ketones 0.49 H (<0.27) mmol/L SARS-CoV-2 (PCR) Negative (Negative) Point of Care Testing Glucose POC 220 Urine Dip Bedside Urine Glucose 1000 mg/dl Bedside Urine Bilirubin - Negative Bedside Urine Ketone ++ 40 Urine Specific [place] 1.020 Bedside Urine Occult Blood +/- Bedside Urine pH 6.0 Bedside Urine Protein ++ 100 Bedside Urine Urobilinogen - Negative Bedside Urine Nitrite - Negative Bedside Urine Leukocytes - Negative Esterase Imaging Data Chest x-ray: Radiologist's Impression: [address] [address] XRay Report Signed Patient: Wilfrido Mclean MR#: [id number] : 1950 Acct:[id number] Age/Sex: 72 / M Date of Service: 10/12/22 Loc: ED Accession Number: [id number] ?? Procedure: XR chest 1V Ordering Provider: Toni Jennings MD PROCEDURE:? XR CHEST 1V ? INDICATIONS:? altered mental status ? TECHNIQUE:? One view of the chest was acquired.? ? [facility]. ? FINDINGS:? ? Surgical changes and devices:? Median sternotomy changes. ? Lungs and pleura:? Low lung volumes.? This crowds the central bronchovascular structures. ?There is possible perihilar peribronchial thickening.? No visible dense consolidations in the visible lung zhang.? No pneumothorax. ? Mediastinum:? The heart is not well seen due to low lung volumes.? No significant central venous congestion. ? Bones and chest wall:? No suspicious bony lesions.? Overlying soft tissues appear unremarkable.? ? IMPRESSION:? ? 1. Possible bilateral perihilar peribronchial thickening, potentially accentuated by low lung volumes.? Consider bronchitis and correlate clinically.? ? ? Dictated by: Dariana Molina M.D. on 10/12/2022 at 13:48 ? ? Approved by: Dariana Molina M.D. on 10/12/2022 at 13:51 ? CT scan - head: Radiologist's Impression: [place] [address] CT Scan Report Signed Patient: Wilfrido Mclean MR#: [id number] : 1950 Acct:[id number] Age/Sex: 72 / M Date of Service: 10/12/22 Loc: ED Accession Number: [id number] ?? Procedure: CT head/brain wo con Ordering Provider: Toni Jennings MD PROCEDURE:? CT HEAD/BRAIN WO CON ? INDICATIONS:? Altered mental status ? TECHNIQUE:? Noncontrast 4.5 mm thick angled axial sections acquired from the foramen magnum to the vertex, with coronal and sagittal reformats.? For radiation dose reduction, the following was used:? automated exposure control, adjustment of mA and/or kV according to patient size.? ? COMPARISON:? None. ? FINDINGS:? Image quality:? Excellent.? ? CSF spaces:? Basal cisterns are patent.? No extra-axial fluid collections.? The ventricles are symmetric in size and shape.? ? Brain:? No intracranial bleeds or masses.? There is cerebral volume loss for age, with resultant ventricular and sulcal prominence.? There are periventricular and deep white matter chronic small vessel ischemic changes.? There is intracranial internal carotid artery and vertebral artery atherosclerosis.? ? Skull and face:? Calvarium and visualized facial bones appear intact, without suspicious lesions.? ? Sinuses:? Partially visualized mucous retention cyst versus polyp in the right maxillary sinus.? The mastoids are clear.? ? IMPRESSION:? No acute intracranial disease process. ? ? Dictated by: Danuta Pan MD, PhD on 10/12/2022 at 14:28 ? ? Approved by: Danuta Pan MD, PhD on 10/12/2022 at 14:30 ? ECG Data Interpretation: Sinus rhythm rate [address] elevation or depression MDM Narrative Medical decision making narrative: Patient brought in from home by his good friend. For altered mental status. Patient is able to state his name and date of . However he minimizes many other things that has been going on in his life. He does agree with what his friend has been saying. Patient lives remotely in a trailer. It has no electricity other than being powered by propane gas tank. Patient does not take good care of himself according to his friend. Primary care is Dr. Shea, patient states he saw him 1 month ago but did not mentioned was going on his life. Patient has history of bypass surgery. Also has poor peripheral circulation to the legs. Patient denies any fall or injury. Patient admits not been taking good care of himself or taking his home medications. Friend came to visit him today, the windshield was missing in the trailer, there is no pro pain or fuel no electricity no heat no food. Patient as live this way without eating for the past 4 days. Patient has poor home support according to his friend. He has children in local area but they do not visit him or take care of him. After exam and history, CBC CMP EKG troponin urinalysis CT scan head and chest x-ray have been ordered. [facility] CC: Altered mental status Complicating co-morbidities: Diabetes/CABG Data collected from: Patient and friend Medical records reviewed: Previous visits for dehydration/cellulitis Differential considered: Includes but not limited to TIA/stroke/dehydration/dementia/UTI/electrolyte imbalance Exam documented above, pertinent findings include: Altered mental status Lab Test results independently reviewed as above. Pertinent findings: CBC without leukocytosis, CMP without acute renal injury, there is glucose hyperglycemia 344 with normal bicarb. Urinalysis no bacteria no WBC, ketone positive at 1.59. Urine drug screen is negative. Negative COVID, troponin 0.02 Independently reviewed EKG as above Imaging studies independently reviewed: CT head no acute process, chest x-ray no acute process. Consultations: 4:45 p.m.. Spoke with primary care provider, Dr. Skip Shea, he knows patient very well. Patient was with daughter for a while living with her but patient did not want to stay with her any longer. That is why he is in the trailer by himself. However he feels patient could benefit hydration here glucose control and go home with his friend and he will see patient in the office tomorrow or . He feels hospitalization would do more harm for patient 6:[address] Shea again. At this time patient can be discharged. I did review ketones with him and glucose is improving as well as blood pressure. He desires patient to have Lantus subcutaneous 20 units and discharge home as patient will have long-acting insulin through the night. Blood pressure is trending downward. Treatments: IV fluids/insulin Re-evaluations: 6:45 p.m.. Patient in no distress. Son at bedside. They agree with treatment plan and discharge home with his friend Darrel. He will follow up with Dr. Shea tomorrow or . Discussion: Appropriate for discharge home. Exam and imaging otherwise reassuring. Blood pressure and glucose levels due to noncompliance/not taking meds for the past 4 days. However patient in no distress. Patient interacting at baseline at this time per son and friend/Darrel. Return precautions reviewed with him. Patient does have appropriate follow up with his primary care who was on-call today. Blood pressure 190/89. It has improved and trending down however metoprolol ER is slow acting but it is working. Patient denies any chest pain or headache. bench worker binding, Anali, has seen and evaluated patient. She will make APS report for patient's essentially self neglect. Diagnosis: Hyperglycemia Discharge Plan Departure Patient Disposition: Home Clinical Impression: Acute hyperglycemia, Hypertension Instructions: High Blood Pressure, DI for Hyperglycemia -- Adult Activity Restrictions/Additional Instructions: Please stay with your friend leonard, you will need to see your family doctor tomorrow or for re-evaluation and to review your home medications. Please do continue your home medications/diabetes medication/blood pressure medications. Return if worse if any questions or concerns Prescriptions: No Action atorvastatin 80 mg tablet 80 mg PO DAILY Qty: 90 3RF duloxetine 60 mg capsule,delayed release(DR/EC) 60 mg PO DAILY Qty: 90 3RF aspirin 81 mg tablet,chewable 162 mg PO QDAY Qty: 0 FreeStyle Lite Strips Strip See Rx Instructions .ROUTE .COMPLEX Qty: 100 11RF Dose Instruction: USE STRIP TO CHECK GLUCOSE TWICE DAILY TO CHECK GLUCOSE Rx Instructions: USE STRIP TO CHECK GLUCOSE TWICE DAILY (DME) DISABLED PARKING PERMIT See Rx Instructions .ROUTE .MEDSUPPLY Qty: 1 0RF Rx Instructions: I find this patient to be medically disabled and qualified for disabled parking as indicated, and signed, on the accompanying Disabled Parking Application for Individuals. nitroglycerin 0.4 mg tablet, sublingual 0.4 mg sublingual Q5-15M PRN (Reason: chest pain) Qty: 30 1RF Label Comments: Rx Instructions: do not exceed 3 doses per episode lisinopril 40 mg tablet See Rx Instructions .ROUTE .COMPLEX Qty: 90 1RF Dose Instruction: Take 1 tablet by mouth once daily Rx Instructions: Take 1 tablet by mouth once daily metoprolol succinate 50 mg Tablet Extended Release 24 Hr 50 mg PO BID Qty: 30 0RF metformin 500 mg Tablet Extended Release 24 Hr 1,000 mg PO BID Qty: 60 0RF insulin glargine [Lantus Solostar U-100 Insulin] 100 unit/mL (3 mL) Insulin Pen 40 unit SUBCUT 2100 Qty: 15 0RF insulin lispro [Humalog U-100 Insulin] 100 unit/mL Solution See Rx Instructions .ROUTE .COMPLEX Qty: 10 0RF Rx Instructions: see protocol on separate sheet, check qid triamterene-hydrochlorothiazid 37.5-25 mg tablet 1 tab PO DAILY Qty: 30 0RF Referrals: Skip Shea MD [Primary Care Provider] - Stand Alone Forms: Patient Portal/API
[2022-10-12 14:21] LABS: Creatine Kinase 114 U/L (55-170)
[2022-10-12 14:47] LABS: CKMB % Relative Index 1.5 % (1.5-5.0); Creatine Kinase MB 1.72 ng/mL (<2.37)
[2022-10-12 16:18] LABS: UR Morphine/Opiate cutoff 300 Negative (Negative); Ur Creatinine Normal (Normal); Ur Specific Gravity Normal (Normal); Urine Amphetamines Negative (Negative); Urine Barbiturates Negative (Negative); Urine Benzodiazepines Negative (Negative); Urine Cocaine Negative (Negative); Urine MDMA Negative (Negative); Urine Methadone Negative (Negative); Urine Methamphetamines Negative (Negative); Urine Oxycodone Negative (Negative); Urine Phencyclidine Negative (Negative); Urine Tetrahydrocannabinol Negative (Negative); Urine Tricyclic Antidepressant Negative (Negative); Urine pH Normal (Normal)
[2022-10-12 16:20] LABS: Bacteria Urine None Seen; RBC Urine 1-5/HPF (0-5/HPF); WBC Urine None Seen (0-5/HPF)
[2022-10-12 16:21] LABS: Culture Indicated Urine Cult Not Indicated
[2022-10-12 16:33] LABS: Ketones (Beta-Hydroxybutyrate) 1.59 mmol/L (<0.27)
[2022-10-12] MEDS: SODIUM CHLORIDE 0.9% 1,000 ML 1000 ML IV ×2 (16:53→17:51)
[2022-10-12] MEDS: INSULIN REGULAR 100 UNIT/ML 3 ML VIAL IV (17:00)
--- NOTE | 2022-10-12 17:12 | CM.SWNOTE ---
HOB MACHINE OPERATOR/ED DCP Note Patient is 72 y/o male who presents to ED via POV with friend due to friend's concern for patient's confusion, AMS, unhealthy living situation and concern for patient's lack of eating, drinking and taking medication. Patient's PCP is Dr. Shea. Patient has [employer] and Medicare insurance HOB MACHINE OPERATOR enters room to meet with patient, present in room is patient's friend Darrel and patient's son Marcellus. Patient presents as A/O to self and person. Patient presents as confused when asked where he lived and details about his living situation, unable to respond. When asked where he lived, patient reports [place]. It is reported that patient resides alone in an RV in [place] and friend identified that patient has been living without heat, water, or electricity and concern for no food in the home. When asked about patient's living situation, he states lousy. Patient's son and friend report concern for patient's steady decline but they did not know the extent of patient's living condition. Patient's son endorses that he recently checked on patient. It is reported that patient previously resided with daughter to manage patient health and well being but patient wanted to live independently. Patient's friend Darrel endorses that patient can reside with him temporarily while family figures out a terminal make up operator living situation for patient. HOB MACHINE OPERATOR reports to APS due to concern for patient's self neglect. APS Online Report Confirmation Number: [id number] ED provider Dr. Jennings calls patient's PCP and requests PCP f/u appt this week. Per ED provider, patient will d/c upon medical clearance after stabilizing patient's blood sugar. HOB MACHINE OPERATOR provides son with senior resource guide. Plan: patient to d/c to friend's home upon medical clearance, patient's family to coordinate appropriate living situation and higher level of care. MATHEW NormanSW
[2022-10-12 17:15] LABS: COVID19 -Nasal RAPID Negative (Negative)
[2022-10-12] MEDS: METOPROLOL ER 50 MG TABLET PO (17:45)
[2022-10-12 18:59] LABS: Ketones (Beta-Hydroxybutyrate) 0.49 mmol/L (<0.27)
[2022-10-12] MEDS: INSULIN GLARGINE 100 UNIT/ML 3ML PEN 20 UNIT SUBCUT (19:09)
== END 2022-10-12 19:25 | disposition home or self-care (01) ==
PROVIDERS: Emergency Provider Emergency Medicine; Family Provider Family Medicine; PCP Family Medicine
DX: E11.65 Type 2 diabetes mellitus with hyperglycemia (principal); I10 Essential (primary) hypertension; Z79.84 Long term (current) use of oral hypoglycemic drugs; Z79.4 Long term (current) use of insulin; Z87.891 Personal history of nicotine dependence
CPT/HCPCS: 36415; 70450; 71045; 80053; 80305; 81003; 81015; 82009; 82140; 82550; 82553; 82962; 84484; 85025; 87635; 93005; 99285; C9803

== ENCOUNTER 2022-10-14 14:50 | Inpatient (IN) | payer MEDICARE, OTHER, SELFPAY ==
[2022-10-14] VITALS (10 sets, daily range): BP systolic 176–210; BP diastolic 76–121; PULSE 101–118; RESP 16–27; TEMP 37.2–38.3; O2SAT 91–95; BMI 29.9
--- NOTE | 2022-10-14 15:32 | DI.RAD.S_ITS ---
PROCEDURE: XR CHEST 1V INDICATIONS: altered mental status TECHNIQUE: One view of the chest was acquired. COMPARISON: [facility], CR, XR CHEST 1V, 10/12/2022, 13:35. FINDINGS: Surgical changes and devices: CABG Lungs and pleura: Submaximal inspiration with patchy bibasilar atelectasis. No pleural effusions or pneumothorax. Mediastinum: Mediastinal contours appear normal. Heart size is normal. Bones and chest wall: No suspicious bony lesions. Overlying soft tissues appear unremarkable. IMPRESSION: Submaximal inspiration with patchy bibasilar atelectasis Dictated by: Carlito Alberts M.D. on 10/14/2022 at 17:31 Approved by: Carlito Alberts M.D. on 10/14/2022 at 17:32
[2022-10-14 15:37] LABS: Appearance Urine UA CLEAR; Bilirubin Urine UA NEGATIVE (NEGATIVE); Color Urine UA YELLOW; Glucose Urine UA 3+ g/dL (Negative); Ketones Urine UA 1+ (NEGATIVE); Leukocyte Esterase Urine UA NEGATIVE (NEGATIVE); Nitrite Urine UA NEGATIVE (Negative); Occult Blood Urine UA 1+ (Negative); Protein Urine UA 2+ (Negative); pH Urine UA 5.5 (4.5-8.0)
[2022-10-14 15:45] LABS: Amorphous Sediment Urine 1+; Bacteria Urine Occasional (0-1); RBC Urine 0-1/HPF (0-5/HPF); Squamous Epithelial Cell Urine 1-5 /HPF (0-5/HPF); WBC Urine None Seen (0-5/HPF)
[2022-10-14 15:46] LABS: Culture Indicated Urine Specimen Cultured
[2022-10-14 15:51] LABS: Add Manual Diff / Slide Review NO; Basophils Absolute Auto 100 /uL (0-100); Basophils Percent Auto 0.6 % (0-2); Eosinophils Absolute Auto 0 /uL (0-450); Hematocrit 46.7 % (41-53); Hemoglobin 15.8 g/dL (13.5-17.5); Lymphocytes Absolute Auto 500 /uL (1100-4500); Lymphocytes Percent Auto 4.3 % (25-40); Mean Corpuscular HGB Conc 33.7 % (30-36); Mean Corpuscular Hemoglobin 28.3 PG (26-34); Monocytes Absolute Auto 400 /uL (0-900); Monocytes Percent Auto 3.8 % (3-14); Neutrophils Absolute Auto 10700 /uL (1500-7000); Neutrophils Percent Auto 91.3 % (50-75); Platelet Count 201 X10^3/uL (150-400); Red Blood Cell Count 5.56 X10^6/uL (4.5-5.9); White Blood Cell Count 11.7 X10^3/uL (4.5-11.0)
--- NOTE | 2022-10-14 15:56 | DI.CT.S_ITS ---
PROCEDURE: CT ABDOMEN PELVIS W CON INDICATIONS: vomiting, hyperglycemia TECHNIQUE: After the administration of intravenous contrast, axial sections acquired from the lung bases to the pubic symphysis. Coronal and sagittal reformats were performed. For radiation dose reduction, the following was used: automated exposure control, adjustment of mA and/or kV according to patient size. COMPARISON: [facility], CT, CT ABDOMEN PELVIS W CON, 10/23/2021, 13:46. FINDINGS: Image quality: Excellent. Lung bases: Lung bases are clear. Heart size is normal. Solid organs: Liver: The liver has no mass or intrahepatic biliary ductal dilatation. The liver has a low density consistent with hepatic steatosis. Biliary: The gallbladder has no gallstones, pericholecystic fluid, gallbladder wall thickening, or surrounding inflammatory change. Pancreas: The pancreas has no mass or ductal dilatation. There is no surrounding inflammation. Spleen: Normal size. There are no masses. Adrenals: No hypertrophy or nodules. Kidneys: The right adrenal gland has a mass interspersed with fat measuring 5 cm consistent with no adrenal myelolipoma, unchanged compared to the prior study on 10/23/2021. There is a 1 cm stable simple cyst in the inferior pole of the right kidney. No solid mass. No cystic mass. Peritoneum and bowel: The distal esophagus and stomach are normal. The small bowel has a normal caliber and appearance. The terminal ileum is normal. The large bowel has a normal caliber and appearance. The appendix is normal. No free fluid or air. Nodes and vessels: No retroperitoneal or mesenteric adenopathy by size criteria. Aorta and inferior vena cava are normal in size. Bilateral atherosclerotic calcifications, severe in the aorta iliac bifurcation. Status post right MAGENTO DEVELOPER endarterectomy. The midportion of the right external iliac artery has severe calcified plaque with 50% stenosis. Both common femoral arteries have severe calcified plaque. Miscellaneous: No abdominal wall mass or hernia. PELVIS: Genitourinary: The bladder has no wall thickening or mass. No bladder calcifications. Bones: No suspicious bony lesions. No vertebral body compression fractures. IMPRESSION: 1. No acute abnormality of the abdomen or pelvis. 2. 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 3. Severe atherosclerotic disease in the iliac arteries and distal aorta. Dictated by: Erik Garcia M.D. on 10/14/2022 at 16:51 Approved by: Erik Garcia M.D. on 10/14/2022 at 16:57
[2022-10-14] MEDS: SODIUM CHLORIDE 0.9% 2,259 ML 753 ML IV (16:02)
[2022-10-14 16:03] LABS: Alanine Aminotransferase 454 IU/L (<50); Albumin 4.7 g/dL (3.5-5.0); Albumin Globulin Ratio 1.1 (1.0-2.8); Alkaline Phosphatase 223 U/L (38-126); Aspartate Aminotransferase 393 IU/L (17-59); BUN Creatinine Ratio 22.6 (6-22); Bilirubin Total 2.1 mg/dL (0.2-1.3); Blood Urea Nitrogen 21 mg/dL (9-20); Calcium 9.8 mg/dL (8.4-10.2); Carbon Dioxide 24 mmol/L (22-32); Chloride 94 mmol/L (98-107); Estimated Glomerular Filt Rate > 60 mL/min (>60); Globulin 4.2 g/dL (1.7-4.1); Glucose 440 mg/dL (80-110); Sodium 133 mmol/L (137-145); Total Protein 8.9 g/dL (6.3-8.2)
[2022-10-14 16:04] LABS: Ammonia (NH3) < 9 umol/L (9-30)
[2022-10-14 16:13] LABS: HEMOLYSIS 86 (0-50); Potassium 5.2 mmol/L (3.4-5.1)
[2022-10-14 16:18] LABS: Lactate (Lactic Acid) 1.7 mmol/L (0.7-2.1)
[2022-10-14] MEDS: ONDANSETRON 4 MG/2 ML INJ IV (16:41)
[2022-10-14] MEDS: PIPERACILLIN/TAZO 4.5 GM in SODIUM CHLORIDE 0.9% 100 ML IV (17:01)
--- NOTE | 2022-10-14 17:10 | PM.HP.1 ---
History of Present Illness History of Present Illness Date Patient Seen: 10/14/22 Chief complaint: sent by Dr Shea Narrative: 72-year-old gentleman with a history of insulin-dependent diabetes with poor control peripheral arterial disease depression hypertension hyperlipidemia. Patient lives at home in a trailer. His family states he is had a gradual decline over the past few weeks. And more acutely in the last 2 days. He was in the emergency department 48 hours ago returned to my office to follow-up today. Patient has an altered level of mental status. Recognizes me but has a hard time saying my name he is confused. Nauseated and vomiting. When discussing with his son and daughter who brought him in states that they spent time with him over [place] he was doing well then they checked up on his house with him a couple of times and really was not seeming to do very well. . Like he was not taking his medication. There are times where he said he was sick. He was having difficult time communicating and this is progressively gotten worse. In my office he is hypertensive and tachycardic. Quite ill-appearing. He is able to answer one-word questions. Based on his clinical condition he was sent down to the emergency department. In the emergency department acute laboratory testing was done. Patient was found to be hyperglycemic but not ketotic. His an anion gap is 14. At this point his liver enzymes are quite elevated which was not previous their lipase is pending CT of his abdomen and pelvis shows it really an unremarkable process no signs of gallbladder liver disease. He had mild elevation of his white blood cell count as procalcitonin is normal urinalysis is normal. Mildly hyperkalemic. And his blood sugars are elevated. Patient in the emergency room has been getting fluids antinausea medication. On my re-evaluation his mental status is a little bit improved. Patient History Medical History COVID-19 Diabetes mellitus (06/04/15) Diabetes mellitus (~1994) Hyperlipidemia (~2005) Hypertension (~2005) Obstructive sleep apnea of adult (~04/2017) Snoring (~2006) Tinnitus (~1989) Surgical History Anesthesia History of knee surgery (~1994) S/P triple vessel bypass (~2006) Status post wrist surgery (~2011) Family & Social History Family History Father Heart disease Grandmother Diabetes mellitus Grandfather Heart disease Grandmother Diabetes mellitus Safety & Behavioral: Feels Safe in Current Yes Environment Been Physically Hurt or No Threatened By a Person Tobacco & Substance use: Smoking Status Former smoker alcohol intake current alcohol intake frequency a few times a week Substance Use Type does not use Meds Home Medications and Allergies Home Medications Medication Instructions Recorded Confirmed Type insulin human U-100 NPH-regulr 60 units (0.6 mL) SQ BID #10 mL 12/14/16 10/14/22 Rx 70-30 mix 100 unit/mL subcutaneous susp (Novolin 70/30 U-100 Insulin) aspirin 81 mg chewable tablet 162 mg PO QDAY #0 tabs 01/22/19 10/14/22 History atorvastatin 80 mg tablet 80 mg PO DAILY #90 tabs 10/30/19 10/14/22 Rx metoprolol succinate 50 mg 50 mg PO DAILY #90 tabs 10/30/19 10/14/22 Rx tablet,extended release 24 hr diclofenac sodium 1 % topical gel 2 gram topical BID #100 grams 10/31/19 10/14/22 Rx blood sugar diagnostic (FreeStyle See Rx Instructions .Route 07/15/20 10/14/22 Rx Lite Strips) .COMPLEX #100 ea DISABLED [place] #1 ea 10/28/21 10/14/22 Rx nitroglycerin 0.4 mg sublingual 0.4 mg sublingual Q5-15M PRN chest 12/09/21 10/14/22 Rx tablet pain #30 tabs duloxetine 60 mg capsule,delayed 60 mg PO DAILY #90 caps 12/21/21 10/14/22 Rx release metformin 500 mg tablet,extended See Rx Instructions .Route 05/04/22 10/14/22 Rx release 24 hr .COMPLEX #360 tabs lisinopril 40 mg tablet See Rx Instructions .Route 09/17/22 10/14/22 Rx .COMPLEX #90 tabs Allergies Allergy/AdvReac Type Severity Reaction Status Date / Time acetaminophen [From Vicodin] AdvReac Mild CRAMPS Verified 10/14/22 18:41 STOMACH aspirin AdvReac Mild GI PROBLEMS Verified 04/04/22 13:41 hydrocodone [From Vicodin] AdvReac Mild CRAMPS Verified 10/14/22 18:41 STOMACH Exam Vital Signs (past 8 hours): - 10/14/22 15:08 10/14/22 15:46 10/14/22 16:00 Temperature 98.9 F Pulse Rate 118 H 114 H 109 H Respiratory Rate 16 19 Blood Pressure 194/92 H Pulse Oximetry 95 93 92 Oxygen Delivery Method Room Air 10/14/22 16:01 10/14/22 16:01 Temperature Pulse Rate 110 H Respiratory Rate 20 Blood Pressure 210/86 H Pulse Oximetry 94 Oxygen Delivery Method Room Air Oxygen Delivery Method Room Air Narrative Exam Narrative: Gen.: Patient is alert elderly gentleman who has confusion HEENT: Pupils equal round and reactive or mucosa is dry Cardio: S1-S2 slight systolic murmur with tachycardia Respiratory: No wheezes or crackles normal respiratory effort Abdomen: Obese does not appear to be distended no significant rebound or guarding or tenderness Extremities: Trace lower extremity edema warm dry perfused Neurologic: Difficulty with word finding no apparent lower upper extremity weakness Objective Labs 10/14/22 15:30 10/14/22 15:30 Labs: Laboratory Results - last 24 hr 10/14/22 10/14/22 10/14/22 15:28 15:30 15:30 WBC 11.7 H RBC 5.56 Hgb 15.8 Hct 46.7 MCV 84.0 MCH 28.3 MCHC 33.7 RDW 14.0 Plt Count 201 Neut % (Auto) 91.3 H Lymph % (Auto) 4.3 L [place] % (Auto) 3.8 Eos % (Auto) 0.0 L Baso % (Auto) 0.6 Neut # (Auto) 87234 H Lymph # (Auto) 500 L [place] # (Auto) 400 Eos # (Auto) 0 Baso # (Auto) 100 Sodium 133 L Potassium 5.2 H Chloride 94 L Carbon Dioxide 24 BUN 21 H Creatinine 0.93 Estimated GFR > 60 BUN/Creatinine Ratio 22.6 H Glucose 440 H Lactate Calcium 9.8 Total Bilirubin 2.1 H AST 393 H ALT 454 H Alkaline Phosphatase 223 H D Ammonia Total Protein 8.9 H Albumin 4.7 Globulin 4.2 H Albumin/Globulin Ratio 1.1 Procalcitonin Urine Color Yellow Urine Appearance Clear Urine pH 5.5 Ur Specific [place] 1.020 Urine Protein 2+ H Urine Glucose (UA) 3+ H Urine Ketones 1+ H Urine Occult Blood 1+ H Urine Nitrate Negative Urine Bilirubin Negative Urine Urobilinogen 1.0 Ur Leukocyte Esterase Negative Urine RBC 0-1/hpf Urine WBC None seen Ur Squamous Epith Cells 1-5 /hpf Amorphous Sediment 1+ Urine Bacteria Occasional (0-1) Ur Culture Indicated? Specimen cultured 10/14/22 10/14/22 10/14/22 15:30 15:30 15:30 WBC RBC Hgb Hct MCV MCH MCHC RDW Plt Count Neut % (Auto) Lymph % (Auto) [place] % (Auto) Eos % (Auto) Baso % (Auto) Neut # (Auto) Lymph # (Auto) [place] # (Auto) Eos # (Auto) Baso # (Auto) Sodium Potassium Chloride Carbon Dioxide BUN Creatinine Estimated GFR BUN/Creatinine Ratio Glucose Lactate 1.7 Calcium Total Bilirubin AST ALT Alkaline Phosphatase Ammonia < 9 L Total Protein Albumin Globulin Albumin/Globulin Ratio Procalcitonin 0.40 Urine Color Urine Appearance Urine pH Ur Specific [place] Urine Protein Urine Glucose (UA) Urine Ketones Urine Occult Blood Urine Nitrate Urine Bilirubin Urine Urobilinogen Ur Leukocyte Esterase Urine RBC Urine WBC Ur Squamous Epith Cells Amorphous Sediment Urine Bacteria Ur Culture Indicated? Assessment & Plan Assessment and plan (1) Transaminitis: Status: Acute Plan Nonketotic hyperglycemia patient with a glucose of 440. Patient has no enlargement of his anion gap CO2 is 24. Says the 2nd time he has been in the hospital for in less than 24 hours previously in emergency department. Discussed significant signs of nausea vomiting and dehydration and other clinical findings that are concerning he will be admitted to the hospital he will continue IV fluid and insulin therapy will be placed on long-acting insulin as well as subcutaneous insulin will hold off on an insulin drip at this point because he is not ketotic. Although he is vomiting at this point. If needs be to control blood sugar we would consider starting a glucose drip at this point will can continue with the subcutaneous insulin. Transaminitis. Patient with significant elevation of his liver enzymes and bilirubin. CT scan of his abdomen shows no acute choledocholithiasis or biliary obstruction I would like to proceed with further workup as an ultrasound. Add a lipase onto his laboratory testing to make sure that there is no pancreatic involvement although pancreas on CT scan shows normal. Will go ahead and continue with the IV fluids and Zofran. He has a mild elevation of white blood cell count was given Zosyn in the emergency department will continue this until we have further at clinical indication of potential causes and rule out infection. Acute encephalopathy on the background of mild cognitive decline. Patient's mental status has significantly changed over previously he is confused and not a good historian. CT scan just in the hospital 2 days ago was normal. Will see if we improve his blood sugars and hydration if his mental status improves if not we may want to proceed with advanced imaging such as an MRI. Acute dehydration with nausea and vomiting. Patient will be admitted to the floor she is not able to keep anything p.o. and his blood sugars are quite out of control. Will continue with IV fluids antiemetics. Monitor his blood sugars closely. Keep a close eye on his kidney function and monitor his electrolytes. Hypertension. Restart patient's lisinopril and metoprolol. Preferal vascular disease. Patient has a history prefer vascular disease he is normally on a beta-austyn aspirin and statin. These are on hold because of his vomiting will reintroduce this once his nausea is improved. Insulin dependent diabetes. Insulin sliding scale with insulin coverage. Metformin will be on hold. Hyperlipidemia restart patient's statin when he is no longer vomiting Disposition plan admit as inpatient anticipate length of stay greater than 2 midnights Time Spent With Patient Critical Care time: I spent a total of [] minutes of critical care time on this patient's care today; this time is exclusive of procedural time.
--- NOTE | 2022-10-14 17:16 | ED.NAVMDI ---
HPI - Nausea/Vomiting/Diarrhea General Chief complaint: Nausea/Vomiting/Diarrhea Stated complaint: sent by Dr Shea Time Seen by Provider: 10/14/22 15:10 Source: patient Mode of arrival: Wheelchair History of Present Illness HPI Narrative: This is a 72-year-old male over by Dr. Shea his primary care physician from their office. Dr. Shea states patient was here recently, he has been altered for several days he is now having nausea and vomiting starting today. On evaluation for myself patient it knows his name he denies any issues but at bedside daughter and family including son-in-law state that patient has been much more confused. He has some mild confusion at baseline but significantly worsened. They do not believe he has been taking his medications including his insulin or blood pressure medications. Patient they state noted still having nausea and vomiting over the last 12 hours and has new urinary incontinence. No diarrhea constipation they are aware of. Patient himself denies any pain in his chest, back or abdomen. Patient family states his glucoses have been 300 or higher the last several days. He is supposed to be on medication for aspirin, dyslipidemia, diabetes and is insulin dependent, hypertension, patient has KESHIA. Patient has allergies reactions to aspirin and Vicodin. No tobacco, alcohol or illicit. Related Data Home Medications Medication Instructions Recorded Confirmed aspirin 81 mg chewable tablet 162 mg PO QDAY #0 tabs 01/22/19 10/14/22 Resmed Airsense 10 CPAP #1 ea 02/27/19 10/14/22 Previous Rx's Medication Instructions Recorded insulin human U-100 NPH-regulr 60 units (0.6 mL) SQ BID #10 mL 12/14/16 70-30 mix 100 unit/mL subcutaneous susp (Novolin 70/30 U-100 Insulin) Glucose: Home Monitor units BID ##1 10/03/17 Test Strips - Freestyle str BID ##100 10/24/17 atorvastatin 80 mg tablet 80 mg PO DAILY #90 tabs 10/30/19 metoprolol succinate 50 mg 50 mg PO DAILY #90 tabs 10/30/19 tablet,extended release 24 hr diclofenac sodium 1 % topical gel 2 gram topical BID #100 grams 10/31/19 blood sugar diagnostic (FreeStyle See Rx Instructions .Route 07/15/20 Lite Strips) .COMPLEX #100 ea DISABLED PARKING PERMIT #1 ea 10/28/21 nitroglycerin 0.4 mg sublingual 0.4 mg sublingual Q5-15M PRN chest 12/09/21 tablet pain #30 tabs duloxetine 60 mg capsule,delayed 60 mg PO DAILY #90 caps 12/21/21 release metformin 500 mg tablet,extended See Rx Instructions .Route 05/04/22 release 24 hr .COMPLEX #360 tabs lisinopril 40 mg tablet See Rx Instructions .Route 09/17/22 .COMPLEX #90 tabs Allergies Allergy/AdvReac Type Severity Reaction Status Date / Time aspirin AdvReac Mild GI PROBLEMS Verified 12/21/21 13:41 VICODEN Allergy Mild CRAMPS Uncoded 12/21/21 13:41 STOMACH Review of Systems Review of Systems ROS Unobtainable: All systems reviewed & are unremarkable except as noted in HPI and below Patient History Medical History COVID-19 Diabetes mellitus (06/04/15) Diabetes mellitus (~1994) Hyperlipidemia (~2005) Hypertension (~2005) Obstructive sleep apnea of adult (~04/2017) Snoring (~2006) Tinnitus (~1989) Surgical History Anesthesia History of knee surgery (~1994) S/P triple vessel bypass (~2006) Status post wrist surgery (~2011) Family History Father Heart disease Grandmother Diabetes mellitus Grandfather Heart disease Grandmother Diabetes mellitus Social History marital status: household members: none Smoking Status: Former smoker alcohol intake: current substance use type: does not use Smoking Status: Former smoker alcohol intake frequency: a few times a week Substance Use Type: does not use Exam Narrative Exam Narrative: GENERAL: Alert and oriented to self patient knows he is at the hospital but thinks he is at [facility], he is confused about the year. He does recognize his daughter at bedside. HEENT: Head normocephalic, atraumatic, EOMI, pupils reactive, face symmetric, moist mucous membranes NECK: Supple, full range of motion CARDIOVASCULAR: Regular rate and rhythm without murmurs, rubs or gallops. RESPIRATORY: Breath sounds equal bilaterally, no wheezes rales or rhonchi. ABDOMEN: Soft, nontender. Normoactive bowel sounds all 4 quadrants. No guarding or rebound, rigidity, no mass, nondistended. : No CVA tenderness EXTREMITIES: Normal range of motion, no clubbing. Neurovascularly intact. NEUROLOGICAL: Cranial nerves II through XII grossly intact. Moving all extremities, full range of motion all 4 extremities SKIN: Warm, dry, no petechiae, no rashes or lesions. Initial Vital Signs Initial Vital Signs: Vital Signs Temperature 98.9 F 10/14/22 15:08 Pulse Rate 118 H 10/14/22 15:08 Respiratory Rate 16 10/14/22 15:08 Blood Pressure 194/92 H 10/14/22 15:08 Pulse Oximetry 95 10/14/22 15:08 Oxygen Delivery Method 10/14/22 15:08 Scores GCS Rajan coma scale eye opening: Spontaneous Rajan coma scale verbal response: Confused Rajan coma scale motor response: Obey commands Rajan coma scale total score: 14 Course Orders Ordered: ED Orders 10/14/22 15:28 Urinalysis and Microscopic Stat Urine Culture Stat 10/14/22 15:30 Ammonia (NH3) Stat Complete Blood Count AUTO DIFF Stat Comprehensive Metabolic Panel Stat ETOH [Ethanol (ETOH)] Stat Folate Stat Lactate (Lactic Acid) Stat Lipase Stat Procalcitonin Stat Vitamin B12 Stat 10/14/22 15:32 XR chest 1V Stat 10/14/22 15:50 COVID19 -Nasal RAPID/Pre-Proc Stat 10/14/22 15:56 CT abdomen pelvis w con Stat 10/14/22 16:05 EKG-12 Lead Stat 10/14/22 16:13 Blood Culture Stat 10/14/22 16:20 Urine Drug Screen, Rapid Stat Sodium Chloride (Normal Saline 0.9%) 2,259 mls @ 753 mls/hr 30 ml/kg infuse over 3 hr (2259 ml) IV NOW ONE Stop: 10/14/22 18:55 Last Admin: 10/14/22 16:02 Dose: 753 mls/hr Documented By: KM Discontinued Medications Piperacillin Sod/Tazobactam (Sod 4.5 gm/ Sodium Chloride) 100 mls @ 200 mls/hr IV NOW ONE Stop: 10/14/22 16:50 Last Infusion: 10/14/22 17:51 Dose: 0 mls/hr Documented By: Admin: 10/14/22 17:01 Dose: 200 mls/hr Documented By: GOLDEN Insulin Human Regular (Insulin Regular 100 Unit/Ml 3 Ml Vial) 8 unit IV NOW ONE Stop: 10/14/22 17:28 Last Admin: 10/14/22 17:42 Dose: 8 unit Documented By: GOLDEN Co-signed By: CONRADO Ondansetron HCl (Ondansetron 4 Mg/2 Ml Inj) 4 mg IV NOW ONE Stop: 10/14/22 16:37 Last Admin: 10/14/22 16:41 Dose: 4 mg Documented By: GOLDEN Vital Signs Vital signs: Vital Signs - 8 hr 10/14/22 15:08 10/14/22 15:46 10/14/22 16:00 Temperature 98.9 F Pulse Rate 118 H 114 H 109 H Respiratory Rate 16 19 Blood Pressure 194/92 H Pulse Oximetry 95 93 92 Oxygen Delivery Method Room Air 10/14/22 16:01 10/14/22 16:01 10/14/22 16:30 Temperature Pulse Rate 110 H 107 H Respiratory Rate 20 20 Blood Pressure 210/86 H Pulse Oximetry 94 95 Oxygen Delivery Method Room Air 10/14/22 17:00 10/14/22 17:23 10/14/22 17:23 Temperature Pulse Rate 106 H 108 H Respiratory Rate 24 27 H Blood Pressure 186/121 H Pulse Oximetry 91 94 Oxygen Delivery Method 10/14/22 17:25 10/14/22 17:25 10/14/22 17:30 Temperature Pulse Rate 106 H Respiratory Rate 18 Blood Pressure 197/90 H 176/81 H Pulse Oximetry 94 Oxygen Delivery Method 10/14/22 17:30 Temperature Pulse Rate 101 H Respiratory Rate 21 Blood Pressure Pulse Oximetry 94 Oxygen Delivery Method MDM - Nausea/Vomiting/Diarrhea Lab Data 10/14/22 15:30 10/14/22 15:30 Labs: Lab Results 10/14/22 10/14/22 10/14/22 Range/Units 15:28 15:30 15:30 WBC 11.7 H (4.5-11.0) X10^3/uL RBC 5.56 (4.5-5.9) X10^6/uL Hgb 15.8 (13.5-17.5) g/dL Hct 46.7 (41-53) % MCV 84.0 (80-100) fL MCH 28.3 (26-34) PG MCHC 33.7 (30-36) % RDW 14.0 (11.6-14.8) % Plt Count 201 (150-400) X10^3/uL Neut % (Auto) 91.3 H (50-75) % Lymph % (Auto) 4.3 L (25-40) % [place] % (Auto) 3.8 (3-14) % Eos % (Auto) 0.0 L (2-4) % Baso % (Auto) 0.6 (0-2) % Neut # (Auto) 17278 H (0742-4219) /uL Lymph # (Auto) 500 L (3257-1361) /uL [place] # (Auto) 400 (0-900) /uL Eos # (Auto) 0 (0-450) /uL Baso # (Auto) 100 (0-100) /uL Sodium 133 L (137-145) mmol/L Potassium 5.2 H (3.4-5.1) mmol/L Chloride 94 L (98-107) mmol/L Carbon Dioxide 24 (22-32) mmol/L BUN 21 H (9-20) mg/dL Creatinine 0.93 (0.66-1.25) mg/dL Estimated GFR > 60 (>60) mL/min BUN/Creatinine Ratio 22.6 H (6-22) Glucose 440 H (80-110) mg/dL Lactate (0.7-2.1) mmol/L Calcium 9.8 (8.4-10.2) mg/dL Total Bilirubin 2.1 H (0.2-1.3) mg/dL AST 393 H (17-59) IU/L ALT 454 H (<50) IU/L Alkaline Phosphatase 223 H D (38-126) U/L Ammonia (9-30) umol/L Total Protein 8.9 H (6.3-8.2) g/dL Albumin 4.7 (3.5-5.0) g/dL Globulin 4.2 H (1.7-4.1) g/dL Albumin/Globulin Ratio 1.1 (1.0-2.8) Lipase (23-300) U/L Procalcitonin (<0.5) ng/mL Urine Color Yellow Urine Appearance Clear Urine pH 5.5 (4.5-8.0) Ur Specific [place] 1.020 (1.000-1.035) Urine Protein 2+ H (Negative) Urine Glucose (UA) 3+ H (Negative) g/dL Urine Ketones 1+ H (NEGATIVE) Urine Occult Blood 1+ H (Negative) Urine Nitrate Negative (Negative) Urine Bilirubin Negative (NEGATIVE) Urine Urobilinogen 1.0 (0.2) E.U./dL Ur Leukocyte Esterase Negative (NEGATIVE) Urine RBC 0-1/hpf (0-5/HPF) Urine WBC None seen (0-5/HPF) Ur Squamous Epith Cells 1-5 /hpf (0-5/HPF) Amorphous Sediment 1+ Urine Bacteria Occasional (0-1) (None) Ur Culture Indicated? Specimen cultured Ethyl Alcohol ( - 10) mg/dL SARS-CoV-2 (PCR) (Negative) 10/14/22 10/14/22 10/14/22 Range/Units 15:30 15:30 15:30 WBC (4.5-11.0) X10^3/uL RBC (4.5-5.9) X10^6/uL Hgb (13.5-17.5) g/dL Hct (41-53) % MCV (80-100) fL MCH (26-34) PG MCHC (30-36) % RDW (11.6-14.8) % Plt Count (150-400) X10^3/uL Neut % (Auto) (50-75) % Lymph % (Auto) (25-40) % [place] % (Auto) (3-14) % Eos % (Auto) (2-4) % Baso % (Auto) (0-2) % Neut # (Auto) (6205-2764) /uL Lymph # (Auto) (4924-4432) /uL [place] # (Auto) (0-900) /uL Eos # (Auto) (0-450) /uL Baso # (Auto) (0-100) /uL Sodium (137-145) mmol/L Potassium (3.4-5.1) mmol/L Chloride (98-107) mmol/L Carbon Dioxide (22-32) mmol/L BUN (9-20) mg/dL Creatinine (0.66-1.25) mg/dL Estimated GFR (>60) mL/min BUN/Creatinine Ratio (6-22) Glucose (80-110) mg/dL Lactate 1.7 (0.7-2.1) mmol/L Calcium (8.4-10.2) mg/dL Total Bilirubin (0.2-1.3) mg/dL AST (17-59) IU/L ALT (<50) IU/L Alkaline Phosphatase (38-126) U/L Ammonia < 9 L (9-30) umol/L Total Protein (6.3-8.2) g/dL Albumin (3.5-5.0) g/dL Globulin (1.7-4.1) g/dL Albumin/Globulin Ratio (1.0-2.8) Lipase (23-300) U/L Procalcitonin 0.40 (<0.5) ng/mL Urine Color Urine Appearance Urine pH (4.5-8.0) Ur Specific [place] (1.000-1.035) Urine Protein (Negative) Urine Glucose (UA) (Negative) g/dL Urine Ketones (NEGATIVE) Urine Occult Blood (Negative) Urine Nitrate (Negative) Urine Bilirubin (NEGATIVE) Urine Urobilinogen (0.2) E.U./dL Ur Leukocyte Esterase (NEGATIVE) Urine RBC (0-5/HPF) Urine WBC (0-5/HPF) Ur Squamous Epith Cells (0-5/HPF) Amorphous Sediment Urine Bacteria (None) Ur Culture Indicated? Ethyl Alcohol ( - 10) mg/dL SARS-CoV-2 (PCR) (Negative) 10/14/22 10/14/22 10/14/22 Range/Units 15:30 15:30 15:50 WBC (4.5-11.0) X10^3/uL RBC (4.5-5.9) X10^6/uL Hgb (13.5-17.5) g/dL Hct (41-53) % MCV (80-100) fL MCH (26-34) PG MCHC (30-36) % RDW (11.6-14.8) % Plt Count (150-400) X10^3/uL Neut % (Auto) (50-75) % Lymph % (Auto) (25-40) % [place] % (Auto) (3-14) % Eos % (Auto) (2-4) % Baso % (Auto) (0-2) % Neut # (Auto) (9378-9207) /uL Lymph # (Auto) (0142-3322) /uL [place] # (Auto) (0-900) /uL Eos # (Auto) (0-450) /uL Baso # (Auto) (0-100) /uL Sodium (137-145) mmol/L Potassium (3.4-5.1) mmol/L Chloride (98-107) mmol/L Carbon Dioxide (22-32) mmol/L BUN (9-20) mg/dL Creatinine (0.66-1.25) mg/dL Estimated GFR (>60) mL/min BUN/Creatinine Ratio (6-22) Glucose (80-110) mg/dL Lactate (0.7-2.1) mmol/L Calcium (8.4-10.2) mg/dL Total Bilirubin (0.2-1.3) mg/dL AST (17-59) IU/L ALT (<50) IU/L Alkaline Phosphatase (38-126) U/L Ammonia (9-30) umol/L Total Protein (6.3-8.2) g/dL Albumin (3.5-5.0) g/dL Globulin (1.7-4.1) g/dL Albumin/Globulin Ratio (1.0-2.8) Lipase 93 (23-300) U/L Procalcitonin (<0.5) ng/mL Urine Color Urine Appearance Urine pH (4.5-8.0) Ur Specific [place] (1.000-1.035) Urine Protein (Negative) Urine Glucose (UA) (Negative) g/dL Urine Ketones (NEGATIVE) Urine Occult Blood (Negative) Urine Nitrate (Negative) Urine Bilirubin (NEGATIVE) Urine Urobilinogen (0.2) E.U./dL Ur Leukocyte Esterase (NEGATIVE) Urine RBC (0-5/HPF) Urine WBC (0-5/HPF) Ur Squamous Epith Cells (0-5/HPF) Amorphous Sediment Urine Bacteria (None) Ur Culture Indicated? Ethyl Alcohol < 10 ( - 10) mg/dL SARS-CoV-2 (PCR) Negative (Negative) Point of Care Testing Glucose POC [address] scan - abdomen/pelvis: Radiologist's Impression: [address] [address] [address] Scan Report Signed Patient: Wilfrido Mclean MR#: [id number] : 1950 Acct:[id number] Age/Sex: 72 / M Date of Service: 10/14/22 Loc: ED Accession Number: [id number] ?? Procedure: CT abdomen pelvis w con Ordering Provider: Gabriella Miller D.O. PROCEDURE:? CT ABDOMEN PELVIS W CON ? INDICATIONS:? vomiting, hyperglycemia ? TECHNIQUE:? After the administration of intravenous contrast, axial sections acquired from the lung bases to the pubic symphysis.? Coronal and sagittal reformats were performed.? For radiation dose reduction, the following was used:? automated exposure control, adjustment of mA and/or kV according to patient size.? ? COMPARISON:? [facility], CT, CT ABDOMEN PELVIS W CON, 10/23/2021, 13:46. ? FINDINGS: Image quality:? Excellent.? ? Lung bases:? Lung bases are clear.? Heart size is normal. ? Solid organs:? Liver: The liver has no mass or intrahepatic biliary ductal dilatation.? The liver has a low density consistent with hepatic steatosis.? Biliary: The gallbladder has no gallstones, pericholecystic fluid, gallbladder wall thickening, or surrounding inflammatory change. Pancreas: The pancreas has no mass or ductal dilatation. There is no surrounding inflammation. Spleen: Normal size. There are no masses. Adrenals: No hypertrophy or nodules. Kidneys:? The right adrenal gland has a mass interspersed with fat measuring 5 cm consistent with no adrenal myelolipoma, unchanged compared to the prior study on 10/23/2021.? There is a 1 cm stable simple cyst in the inferior pole of the right kidney. ?No solid mass. No cystic mass. ? Peritoneum and bowel:? The distal esophagus and stomach are normal.? The small bowel has a normal caliber and appearance. The terminal ileum is normal. The large bowel has a normal caliber and appearance.? The appendix is normal. No free fluid or air.? ? Nodes and vessels:? No retroperitoneal or mesenteric adenopathy by size criteria.? Aorta and inferior vena cava are normal in size.? Bilateral atherosclerotic calcifications, severe in the aorta iliac bifurcation.? 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 The midportion of the right external iliac artery has severe calcified plaque with 50% stenosis.? Both common femoral arteries have severe calcified plaque. ? Miscellaneous:? No abdominal wall mass or hernia. ? PELVIS:? Genitourinary:? The bladder has no wall thickening or mass. No bladder calcifications. ? Bones:? No suspicious bony lesions.? No vertebral body compression fractures.? ? IMPRESSION:? 1. No acute abnormality of the abdomen or pelvis. 2. 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 3. 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 ? ? Dictated by: Erik Garcia M.D. on 10/14/2022 at 16:51 ? ? Approved by: Erik Garcia M.D. on 10/14/2022 at 16:57?? ECG Data Attestation: I personally reviewed and interpreted this ECG as follows: Prior ECG tracings: available for review Interpretation: Sinus rhythm rate of 102 AL 162 QRS of [address]TC [address] No acute [address] elevation or depression. MDM Narrative Medical decision making narrative: This is a 72-year-old altered mental status, hyperglycemia, elevated LFTs including bilirubin and AST ALT alk-phos with a lipase. Patient has a mild hyponatremia elevation potassium of 5.2 with a glucose of 440. Anion gap is 15. Patient has appropriate bicarb 24 does not appear to be in DKA, possible sepsis patient is tachycardic but afebrile and is actually hypertensive. Patient was given 30 cc/kilos bolus, for possible cholangitis was covered with Zosyn. CT abdomen pelvis does not show any clear obstructive cause, has right adrenal mass consistent with benign adrenal myelolipoma unchanged to prior. Patient has severe atherosclerotic disease and iliac arteries and distal aorta. Patient was seen by Dr. Shea, he initiated insulin and accepted for inpatient admission. Discharge Plan Departure Patient Disposition: Admitted As Inpatient Clinical Impression: Hyperglycemia Admit Date/Time: 10/14/22 18:07 Admit Provider: Skip Shea
[2022-10-14 17:19] LABS: Lipase 93 U/L (23-300)
[2022-10-14 17:31] LABS: COVID19 -Nasal RAPID Negative (Negative)
[2022-10-14] MEDS: INSULIN REGULAR 100 UNIT/ML 3 ML VIAL 8 UNIT IV (17:42)
[2022-10-14 17:46] LABS: Ethanol (ETOH) < 10 mg/dL
--- NOTE | 2022-10-14 18:01 | CM.IDA ---
Initial Brief DCP Assessment Patient is 72 y/o male who presents to ED after PCP appt with Dr. Shea and PCP recommends ED visit. Patient presented to ED on 10/12/22 and was seen by this AGRONOMY RESEARCH MANAGER. Patient presented with friend due to concern for patient's increase in confusion and concern for self neglect. AGRONOMY RESEARCH MANAGER reported this to APS. It is unknown what APS security investigator is assigned. Patient presents to ED today due to concern for gradual decline, increase in confusion, nausea, vomitting and not taking home medication. Patient's PCP Dr. Shea, patient has [employer] [facility] and Medicare insurance. Patient has history of insulin-dependent diabetes with poor control peripheral arterial disease,depression, hypertension & hyperlipidemia This AGRONOMY RESEARCH MANAGER has not met with patient today, It is reported that Dr. Shea has admitted patient to acute care for further evaluation due to patient's decline. Patient has been staying at [facility] since 12/10/22. Patient has a daughter that lives in [facility] and a son that lives in [place]. See AGRONOMY RESEARCH MANAGER note from 10/12/22 for more details. Patient is able to ambulate independently but has struggled with managing needs at home and ADLs independently in RV at home. Plan: patient to be admitted to acute care due to concern for hyperglycemia, transaminitis and hypertension. DCP to f/u with POC and patient needs, coordinate further with family and friends upon medical clearance. ELLI Norman Discharge Planning/Care Management CM Discharge Assessment Start: 10/14/22 17:55 Freq: Status: Active Protocol: Document 10/14/22 17:56 LN (Rec: 10/14/22 18:00 LN [id number]) Discharge Planning Assessment Assigned Customer Support Consultant ELLI Briones Advance Directives? No History Provided By Medical Record Has Patient been admitted in last 30 No days? Prior Living Arrangements RV Comment Patient has been residing alone in RV w/o water, heat or electricity. Since 10/12/22 patient has been staying at [facility] Household Members none Type of transporation used prior to Relies on Others admit Independent with ADL's No Is patient alert and oriented? No Needs Assistance With Managing Medications,Home Chores / Shopping Additional Comment unknown at this time. Please Provide Date Initial DC 10/14/22 Assessment Was Performed
[2022-10-14 18:36] LABS: Vitamin B12 628 pg/mL (239-931)
[2022-10-14 18:53] LABS: Folate 15.4 ng/mL (2.76-20.0)
[2022-10-14] MEDS: LACTATED RINGERS 1,000 ML 100 ML IV (20:03)
[2022-10-14] MEDS: PIPERACILLIN/TAZO 3.375 GM in SODIUM CHLORIDE 0.9% 100 ML IV (20:13)
[2022-10-14] MEDS: PANTOPRAZOLE 40 MG VIAL IV (20:14)
[2022-10-14] MEDS: INSULIN GLARGINE 100 UNIT/ML 3ML PEN 30 UNIT SUBCUT (20:34)
[2022-10-14] MEDS: INSULIN LISPRO 100 UNIT/ML 3ML VIAL SUBCUT (20:35)
[2022-10-14 20:51] LABS: UR Morphine/Opiate cutoff 300 Negative (Negative); Ur Creatinine Normal (Normal); Ur Specific Gravity Normal (Normal); Urine Amphetamines Negative (Negative); Urine Barbiturates Negative (Negative); Urine Benzodiazepines Negative (Negative); Urine Cocaine Negative (Negative); Urine MDMA Negative (Negative); Urine Methadone Negative (Negative); Urine Methamphetamines Negative (Negative); Urine Oxycodone Negative (Negative); Urine Phencyclidine Negative (Negative); Urine Tetrahydrocannabinol Negative (Negative); Urine Tricyclic Antidepressant Negative (Negative); Urine pH Normal (Normal)
[2022-10-15] VITALS (19 sets, daily range): BP systolic 136–214; BP diastolic 67–101; PULSE 72–125; RESP 16–21; TEMP 36.6–38.3; O2SAT 93–97
[2022-10-15] MEDS: ACETAMINOPHEN 325 MG TABLET 650 MG PO ×2 (01:10→08:54)
[2022-10-15] MEDS: METOPROLOL TARTRATE 5 MG/5 ML INJ IV (01:13)
--- NOTE | 2022-10-15 01:54 | PC.NURSE ---
Proof Technician Helper Contacted weatherization director provider Dr Karen Riojas informed him of Pt having temperature of 101.0 temporal with a blood pressure of 206/102 in left arm and 214/95 in right arm with a heart rate of (left)125 (right)126. Pt denied any chest pain or shortness of breath, and no complaints of nausea. Dr Jones gave verbal order of 5 mg Metoprolol IV push to give now and start cardiac Tele, as well as administer Tylenol 650. RN repeated orders back to provider and informed discharge planner.
[2022-10-15] MEDS: PIPERACILLIN/TAZO 3.375 GM in SODIUM CHLORIDE 0.9% 100 ML IV ×3 (04:30→20:33)
[2022-10-15 05:41] LABS: Add Manual Diff / Slide Review NO; Basophils Absolute Auto 0 /uL (0-100); Basophils Percent Auto 0.7 % (0-2); Eosinophils Absolute Auto 0 /uL (0-450); Eosinophils Percent Auto 0.1 % (2-4); Hematocrit 41.1 % (41-53); Hemoglobin 13.9 g/dL (13.5-17.5); Lymphocytes Absolute Auto 1100 /uL (1100-4500); Lymphocytes Percent Auto 15.7 % (25-40); Mean Corpuscular HGB Conc 33.8 % (30-36); Mean Corpuscular Hemoglobin 28.2 PG (26-34); Mean Corpuscular Volume 83.4 fL (80-100); Monocytes Absolute Auto 300 /uL (0-900); Monocytes Percent Auto 4.6 % (3-14); Neutrophils Absolute Auto 5300 /uL (1500-7000); Neutrophils Percent Auto 78.9 % (50-75); Platelet Count 157 X10^3/uL (150-400); Red Blood Cell Count 4.92 X10^6/uL (4.5-5.9); Red Cell Distribution Width 13.8 % (11.6-14.8); White Blood Cell Count 6.8 X10^3/uL (4.5-11.0)
[2022-10-15 05:58] LABS: Alanine Aminotransferase 308 IU/L (<50); Albumin 3.4 g/dL (3.5-5.0); Alkaline Phosphatase 157 U/L (38-126); Aspartate Aminotransferase 179 IU/L (17-59); BUN Creatinine Ratio 17.1 (6-22); Bilirubin Total 1.1 mg/dL (0.2-1.3); Blood Urea Nitrogen 18 mg/dL (9-20); Calcium 8.6 mg/dL (8.4-10.2); Carbon Dioxide 26 mmol/L (22-32); Chloride 100 mmol/L (98-107); Estimated Glomerular Filt Rate > 60 mL/min (>60); Globulin 3.3 g/dL (1.7-4.1); Glucose 235 mg/dL (80-110); HEMOLYSIS < 15 (0-50); Potassium 3.7 mmol/L (3.4-5.1); Sodium 135 mmol/L (137-145); Total Protein 6.7 g/dL (6.3-8.2)
[2022-10-15] MEDS: INSULIN LISPRO 100 UNIT/ML 3ML VIAL SUBCUT ×4 (08:53→20:43)
[2022-10-15] MEDS: ENOXAPARIN 40 MG/0.4 ML SYRINGE SUBCUT (08:54)
[2022-10-15] MEDS: lisinopriL 20 MG TABLET PO (08:55)
[2022-10-15] MEDS: PANTOPRAZOLE 40 MG VIAL IV (08:55)
[2022-10-15] MEDS: METOPROLOL ER 50 MG TABLET PO ×2 (08:55→20:34)
[2022-10-15] MEDS: lisinopriL 20 MG TABLET 40 MG PO (09:15)
--- NOTE | 2022-10-15 09:20 | CM.DPC ---
Addendum entered by Colette Lindo R.N. 10/15/22 15:02: Originally asked Gabby to fax other facilities, [facility], [facility]. Then, received a call from Leeanna luz [facility], stated, they can accept patient on Tuesday, they don't have much to skill patient on, but if he continues to have Metabolic Encephalopathy, can skill him for this. Did not see vaccination information on portal, but if it is unable to be located, as long as he tests negative for COVID, they can take him.Updated Leeanna that this ID Bobbin Doffer had met with family, and gave resources, such as Medicaid application. Addendum entered by Colette Lindo R.N. 10/15/22 14:31: Met with patient's daughter, Glory, and son, Ankit. Brought in the [employer] for [place] facilities, and Medicaid application, [facility]. Confirmed that patient has been residing on his property, in an , but currently has been staying with a friend, patient was living off of the grid. Discussed finances, and cost of AL facilities. Indicated that patient gets about a $1000.00 a month with social security. He does own property. Encouraged daughter to fill out Medicaid application as soon as possible. They would like to pursue getting an apartment for patient, and having caregivers come some of the time. They will also call some of the assisted living facilities, stated, he can't afford that very long. They have no preferences upon skilled facilities, just hope that he can be accepted in one of them. Leeanna luz [facility] is reviewing, and updated her on meeting with family. Encouraged family to pursue this MICHELL, for if he gets accepted to facility, has to have a place to stay. Daughter stated she will work on this, asked if he can stay with them, stated, they don't have the room. If no place is secure, will need to go home with friend. Addendum entered by Colette Lindo R.N. 10/15/22 13:26: UR nurse, Darrel, had sent to EHR to determine if inpatient. Received response that patient is inpatient status. Addendum entered by Colette Lindo R.N. 10/15/22 10:42: Planning on meeting with patient's daughter at 1400. Will bring in resources for some of the bed bug exterminator care agencies, [facility], as well as [employer] [facility]. Left a message with Chayo at [facility], in admission, asking if she has beds available, as well as respite beds. Original Note: DCP Cont: Spoke to Dr. Shea, who is here seeing patient. Indicated, he is still confused, and he most likely will need assisted, family may need to look into fdc care options. He will place P.T. orders as well. This DC Bobbin Doffer met with patient in his room. He was sitting up in bed, weak, alert to self, knows he lives in [place]. Confirmed that he drives, does not use any DME. Asked him if this DC Bobbin Doffer can call his daughter, Glory, he stated that it would be ok. Patient indicated that he is living alone. Called patient's daughter, Glory. She resides in [place], near [facility]. She indicated, his friend took him in, he has not been his norm, had been at the ER already, couldn't go home alone, everything is so new to us. Asked her if he has been in assisted facility before, stated that he has not, he had been doing pretty well on his own, driving, etc. Asked her if patient has the finances for fdc care, stated, for a couple of months. Asked her if she can come to the hospital so this DC Bobbin Doffer and her can meet and discuss resources. She will be here at about 1400. Will also provide a Medicaid application as well, for fdc care. At this time, unclear if he can make inpatient, UR may be sending to EHR. P: DCP to meet with daughter to discuss skilled facilities, and fdc planning today. Colette Lindo, ASHLEIGH/Butter Production Supervisor
--- NOTE | 2022-10-15 09:27 | DI.MRI.S_ITS ---
PROCEDURE: MR STROKE Pre- and post-contrast brain MRI, non-contrast brain MR angiogram, pre- and postcontrast neck MR angiogram INDICATIONS: confusion and difficulty with word finding. TECHNIQUE: Brain: Noncontrast axial T1 spin echo, axial T2 fast spin echo, sagittal and axial FLAIR, coronal T2 fast spin echo, axial gradient echo, axial diffusion and ADC through the brain. After the administration of contrast, axial 3D VIBE of the cranial vasculature and brain. Brain MRA: Non-contrast 3-D time of flight MR angiogram, with multiple tfmkevx-yovlaceyg-aiaghkgvoz (MIP) reformats performed. Neck MRA: Axial and sagittal TruFISP through the neck. Coronal dynamic MR angiogram during administration of contrast in the arterial and venous phases, with 3-dimenstional tgytlly-hqdjriwxd-cziavrkdig (MIP) reformats constructed from subtraction images. COMPARISON: [facility], MR, STROKE PROTOCOL, 07/02/2013, 15:42. [facility], CT, CT HEAD/BRAIN WO CON, 10/12/2022, 14:16. [facility], CR, XR CHEST 1V, 10/14/2022, 15:35. [facility], MR, STROKE PROTOCOL, 10/18/2016, 7:18. FINDINGS: Image quality: Excellent. BRAIN: The ventricular system and cortical sulci demonstrate atrophy, consistent for the patient's stated age. There are areas of increased T2/FLAIR signal intensity within the periventricular and subcortical white matter. There is no acute intra-or extra axial fluid collection. No acute hemorrhage, mass lesion or midline shift. Brainstem is unremarkable. Restricted diffusion is present in the left elliott radiata extending towards the basal ganglia. There is partial hypodensity on ADC sequence. Globes are symmetrical. Sinuses demonstrate mucous retention cyst versus polyp in the right maxillary sinus and minimal left maxillary sinus mucosal thickening.. Osseous structures are intact. BRAIN MR ANGIOGRAM: Anterior circulation: Intracranial internal carotid arteries are normal in size and enhancement. The flow within the paired anterior cerebral arteries is normal and symmetric. The flow within the middle cerebral arteries is normal and symmetric. The anterior communicating artery is seen. No stenoses, occlusions, or aneurysms. Posterior circulation: There is a left vertebral artery dominance. Portions of the V4 segment of the right vertebral artery demonstrate loss of signal intensity. This is new compared to 2017. The visualized portions of the vertebral arteries demonstrate normal caliber, and join to form a normal appearing basilar artery. The flow within the posterior cerebral arteries is normal and symmetric. No stenoses, occlusions, or aneurysms. NECK MR ANGIOGRAM: Carotids: Great vessels demonstrate a conventional anatomy as they arise from the aortic arch. The origins of the common carotid arteries appear patent. The calibers and courses of both common carotid arteries are normal. The bifurcation regions appear normal bilaterally. The internal carotid arteries demonstrate normal course and caliber. Posterior circulation: The origins of the vertebral arteries appear patent. More superior portions of both vertebral arteries demonstrate normal course and caliber, and join to form a normal appearing basilar artery. Miscellaneous: Subclavian arteries appear patent. Pre-contrast images through the neck show no soft tissue abnormalities. IMPRESSION: Focus of restricted diffusion consistent with subacute ischemia in the left elliott radiata/basal ganglia without superimposed hemorrhage. Mild to moderate atrophy and chronic microvascular ischemic changes. Loss of signal within portions of the V4 segment of the right vertebral artery. This could be secondary to slow flow or occlusion. As clinically indicated, CTA neck may be obtained for further evaluation. No areas of hemodynamically significant stenosis, vascular occlusion or aneurysmal dilation within the neck vasculature. Dictated by: Aspen Olsen M.D. on 10/15/2022 at 11:41 Approved by: Aspen Olsen M.D. on 10/15/2022 at 11:54
--- NOTE | 2022-10-15 09:27 | DI.US.S_ITS ---
PROCEDURE: US ABDOMEN COMPLETE INDICATIONS: Transaminitis TECHNIQUE: Real-time scanning was performed of the abdominal and retroperitoneal organs, with image documentation. COMPARISON: [facility], CT, CT ABDOMEN PELVIS W CON, 10/14/2022, 16:23. [facility], US, ABDOMEN COMPLETE, 11/30/2006, 14:48. FINDINGS: Liver: The liver demonstrates mildly enlarged size. The liver demonstrates generalized moderately increased echogenicity. This decreases ultrasound sensitivity for detection of hepatic masses. Gallbladder: Layering sludge can be seen. The gallbladder wall is not thickened, measuring 3 mm or less. No specific pericholecystic fluid is seen. The sonographic Dumont sign is negative. Biliary ducts: Intrahepatic bile ducts are non-dilated. Extrahepatic bile duct caliber measures 4 mm. Normal is 6-7 mm or less in diameter, or 10 mm or less post-cholecystectomy. Pancreas: Visualized portions of the pancreas are sonographically normal. Spleen: Spleen is normal in size and homogeneous in echotexture. Kidneys: Kidneys are normal in size and echotexture. Right kidney measures 11.8 cm long; left kidney measures 12 cm long. No hydronephrosis or nephrolithiasis. No solid masses. At the inferior pole of the right kidney, there is a 1.6 cm simple cyst seen. Aorta: Visualized aorta is normal in caliber at less than 3 cm. Iliacs: Proximal common iliac arteries are normal in caliber at less than 2.5 cm. IVC: Intrahepatic inferior vena cava is patent. Miscellaneous: No free abdominal fluid. IMPRESSION: Enlarged, fatty liver. Sludge can be seen within the gallbladder, without additional sonographic signs of cholecystitis. No biliary dilatation. Additional findings: 1.6 cm simple appearing right renal cyst Dictated by: Fletcher Horner M.D. on 10/15/2022 at 11:43 Approved by: Fletcher Horner M.D. on 10/15/2022 at 11:49
--- NOTE | 2022-10-15 09:59 | PM.PN.1 ---
Subjective Subjective Date Patient Seen: 10/15/22 Time Patient Seen: 10:00 Interval history: The patient seen and evaluated this morning. Confusion is a little bit improved. Had some accelerated blood pressures last night received a dose of IV labetalol. Blood pressure is better this morning. Vomiting has improved stating still little bit of nausea. Patient is still little bit confused. He is arousable he still does not recognize me he knows it is September and he is at the hospital in [place]. When asking about pain he denies any significant pain other than he says he does not not feel well. Has a hard time with some word-finding. Exam Vital Signs (past 8 hours): - 10/15/22 02:48 10/15/22 03:45 10/15/22 04:45 Temperature 98.4 F 98.2 F Pulse Rate 83 83 83 Respiratory Rate 17 Blood Pressure 170/76 H 154/83 H 152/77 H Pulse Oximetry 93 Oxygen Flow Rate 0 10/15/22 08:46 10/15/22 08:54 10/15/22 08:55 Temperature 99.9 F H 99.9 F H Pulse Rate 89 89 Respiratory Rate 18 Blood Pressure 164/77 H 164/77 H Pulse Oximetry 97 Oxygen Flow Rate 0 10/15/22 08:55 10/15/22 09:15 10/15/22 09:53 Temperature 98.6 F Pulse Rate 89 Respiratory Rate Blood Pressure 164/77 H 164/77 H Pulse Oximetry Oxygen Flow Rate Oxygen Delivery Method Room Air Oxygen Flow Rate 0 Narrative Exam Narrative: Gen.: Alert sleepy arouses to answer questions. Some mild cognitive confusion HEENT: Pupils equal round and reactive or mucosa is moist neck is supple Cardio: S1-S2 regular rate and rhythm Respiratory: Lungs are clear normal respiratory effort Abdomen: Soft some mild diffuse tenderness no rebound or guarding Extremities: Full range of motion normal strength Neurologic: Patient with difficulty with word finding Objective Labs 10/15/22 04:41 10/15/22 04:41 Labs: Laboratory Results - last 24 hr 10/14/22 10/14/22 10/14/22 15:28 15:30 15:30 WBC 11.7 H RBC 5.56 Hgb 15.8 Hct 46.7 MCV 84.0 MCH 28.3 MCHC 33.7 RDW 14.0 Plt Count 201 Neut % (Auto) 91.3 H Lymph % (Auto) 4.3 L [place] % (Auto) 3.8 Eos % (Auto) 0.0 L Baso % (Auto) 0.6 Neut # (Auto) 71445 H Lymph # (Auto) 500 L [place] # (Auto) 400 Eos # (Auto) 0 Baso # (Auto) 100 Sodium 133 L Potassium 5.2 H Chloride 94 L Carbon Dioxide 24 BUN 21 H Creatinine 0.93 Estimated GFR > 60 BUN/Creatinine Ratio 22.6 H Glucose 440 H Lactate Calcium 9.8 Total Bilirubin 2.1 H AST 393 H ALT 454 H Alkaline Phosphatase 223 H D Ammonia Total Protein 8.9 H Albumin 4.7 Globulin 4.2 H Albumin/Globulin Ratio 1.1 Lipase Vitamin B12 Folate Procalcitonin Urine Color Yellow Urine Appearance Clear Urine pH 5.5 Ur Specific [place] 1.020 Urine Protein 2+ H Urine Glucose (UA) 3+ H Urine Ketones 1+ H Urine Occult Blood 1+ H Urine Nitrate Negative Urine Bilirubin Negative Urine Urobilinogen 1.0 Ur Leukocyte Esterase Negative Urine RBC 0-1/hpf Urine WBC None seen Ur Squamous Epith Cells 1-5 /hpf Amorphous Sediment 1+ Urine Bacteria Occasional (0-1) Ur Culture Indicated? Specimen cultured U Opiates 300ng/mL cut Ur Oxycodone Screen Urine Methadone Screen Ur Barbiturates Screen U Tricyclic Antidepress Ur Phencyclidine Scrn Ur Amphetamines Screen U Methamphetamines Scrn Ur MDMA Scrn (Ecstasy) U Benzodiazepines Scrn Urine Cocaine Screen U Marijuana (THC) Screen Ethyl Alcohol SARS-CoV-2 (PCR) 10/14/22 10/14/22 10/14/22 15:30 15:30 15:30 WBC RBC Hgb Hct MCV MCH MCHC RDW Plt Count Neut % (Auto) Lymph % (Auto) [place] % (Auto) Eos % (Auto) Baso % (Auto) Neut # (Auto) Lymph # (Auto) [place] # (Auto) Eos # (Auto) Baso # (Auto) Sodium Potassium Chloride Carbon Dioxide BUN Creatinine Estimated GFR BUN/Creatinine Ratio Glucose Lactate 1.7 Calcium Total Bilirubin AST ALT Alkaline Phosphatase Ammonia < 9 L Total Protein Albumin Globulin Albumin/Globulin Ratio Lipase Vitamin B12 Folate Procalcitonin 0.40 Urine Color Urine Appearance Urine pH Ur Specific [place] Urine Protein Urine Glucose (UA) Urine Ketones Urine Occult Blood Urine Nitrate Urine Bilirubin Urine Urobilinogen Ur Leukocyte Esterase Urine RBC Urine WBC Ur Squamous Epith Cells Amorphous Sediment Urine Bacteria Ur Culture Indicated? U Opiates 300ng/mL cut Ur Oxycodone Screen Urine Methadone Screen Ur Barbiturates Screen U Tricyclic Antidepress Ur Phencyclidine Scrn Ur Amphetamines Screen U Methamphetamines Scrn Ur MDMA Scrn (Ecstasy) U Benzodiazepines Scrn Urine Cocaine Screen U Marijuana (THC) Screen Ethyl Alcohol SARS-CoV-2 (PCR) 10/14/22 10/14/22 10/14/22 15:30 15:30 15:30 WBC RBC Hgb Hct MCV MCH MCHC RDW Plt Count Neut % (Auto) Lymph % (Auto) [place] % (Auto) Eos % (Auto) Baso % (Auto) Neut # (Auto) Lymph # (Auto) [place] # (Auto) Eos # (Auto) Baso # (Auto) Sodium Potassium Chloride Carbon Dioxide BUN Creatinine Estimated GFR BUN/Creatinine Ratio Glucose Lactate Calcium Total Bilirubin AST ALT Alkaline Phosphatase Ammonia Total Protein Albumin Globulin Albumin/Globulin Ratio Lipase 93 Vitamin B12 628 Folate 15.4 Procalcitonin Urine Color Urine Appearance Urine pH Ur Specific [place] Urine Protein Urine Glucose (UA) Urine Ketones Urine Occult Blood Urine Nitrate Urine Bilirubin Urine Urobilinogen Ur Leukocyte Esterase Urine RBC Urine WBC Ur Squamous Epith Cells Amorphous Sediment Urine Bacteria Ur Culture Indicated? U Opiates 300ng/mL cut Ur Oxycodone Screen Urine Methadone Screen Ur Barbiturates Screen U Tricyclic Antidepress Ur Phencyclidine Scrn Ur Amphetamines Screen U Methamphetamines Scrn Ur MDMA Scrn (Ecstasy) U Benzodiazepines Scrn Urine Cocaine Screen U Marijuana (THC) Screen Ethyl Alcohol < 10 SARS-CoV-2 (PCR) 10/14/22 10/14/22 10/15/22 15:50 20:44 04:41 WBC 6.8 RBC 4.92 Hgb 13.9 Hct 41.1 MCV 83.4 MCH 28.2 MCHC 33.8 RDW 13.8 Plt Count 157 Neut % (Auto) 78.9 H Lymph % (Auto) 15.7 L [place] % (Auto) 4.6 Eos % (Auto) 0.1 L Baso % (Auto) 0.7 Neut # (Auto) 5300 Lymph # (Auto) 1100 [place] # (Auto) 300 Eos # (Auto) 0 Baso # (Auto) 0 Sodium Potassium Chloride Carbon Dioxide BUN Creatinine Estimated GFR BUN/Creatinine Ratio Glucose Lactate Calcium Total Bilirubin AST ALT Alkaline Phosphatase Ammonia Total Protein Albumin Globulin Albumin/Globulin Ratio Lipase Vitamin B12 Folate Procalcitonin Urine Color Urine Appearance Urine pH Ur Specific [place] Urine Protein Urine Glucose (UA) Urine Ketones Urine Occult Blood Urine Nitrate Urine Bilirubin Urine Urobilinogen Ur Leukocyte Esterase Urine RBC Urine WBC Ur Squamous Epith Cells Amorphous Sediment Urine Bacteria Ur Culture Indicated? U Opiates 300ng/mL cut Negative Ur Oxycodone Screen Negative Urine Methadone Screen Negative Ur Barbiturates Screen Negative U Tricyclic Antidepress Negative Ur Phencyclidine Scrn Negative Ur Amphetamines Screen Negative U Methamphetamines Scrn Negative Ur MDMA Scrn (Ecstasy) Negative U Benzodiazepines Scrn Negative Urine Cocaine Screen Negative U Marijuana (THC) Screen Negative Ethyl Alcohol SARS-CoV-2 (PCR) Negative 10/15/22 04:41 WBC RBC Hgb Hct MCV MCH MCHC RDW Plt Count Neut % (Auto) Lymph % (Auto) [place] % (Auto) Eos % (Auto) Baso % (Auto) Neut # (Auto) Lymph # (Auto) [place] # (Auto) Eos # (Auto) Baso # (Auto) Sodium 135 L Potassium 3.7 D Chloride 100 Carbon Dioxide 26 BUN 18 Creatinine 1.05 Estimated GFR > 60 BUN/Creatinine Ratio 17.1 Glucose 235 H D Lactate Calcium 8.6 Total Bilirubin 1.1 AST 179 H ALT 308 H Alkaline Phosphatase 157 H Ammonia Total Protein 6.7 Albumin 3.4 L Globulin 3.3 Albumin/Globulin Ratio 1.0 Lipase Vitamin B12 Folate Procalcitonin Urine Color Urine Appearance Urine pH Ur Specific [place] Urine Protein Urine Glucose (UA) Urine Ketones Urine Occult Blood Urine Nitrate Urine Bilirubin Urine Urobilinogen Ur Leukocyte Esterase Urine RBC Urine WBC Ur Squamous Epith Cells Amorphous Sediment Urine Bacteria Ur Culture Indicated? U Opiates 300ng/mL cut Ur Oxycodone Screen Urine Methadone Screen Ur Barbiturates Screen U Tricyclic Antidepress Ur Phencyclidine Scrn Ur Amphetamines Screen U Methamphetamines Scrn Ur MDMA Scrn (Ecstasy) U Benzodiazepines Scrn Urine Cocaine Screen U Marijuana (THC) Screen Ethyl Alcohol SARS-CoV-2 (PCR) [facility] Medical History COVID-19 Diabetes mellitus (06/04/15) Diabetes mellitus (~1994) Hyperlipidemia (~2006) Hypertension (~2005) Obstructive sleep apnea of adult (~04/2017) Snoring (~2006) Tinnitus (~1989) Surgical History Anesthesia History of knee surgery (~1994) S/P triple vessel bypass (~2006) Status post wrist surgery (~2011) Family History Father Heart disease Grandmother Diabetes mellitus Grandfather Heart disease Grandmother Diabetes mellitus Social History marital status: household members: none Smoking Status: Former smoker alcohol intake: current substance use type: does not use Assessment & Plan Assessment and plan (1) Transaminitis: Status: Acute Plan Nonketotic hyperglycemia with nausea vomiting and dehydration. Patient's blood sugars are improved with IV and subcutaneous insulin. Patient's nausea and vomiting has improved. Blood sugars are returning back to baseline but still elevated. Made adjustments to his long-acting insulin. Continue with insulin sliding scale. Still not feeling well. Will advance his diet as tolerated. Consider restarting metformin tomorrow. Transaminitis. Patient with improved liver enzymes today. Possibly due to hydration and decreasing of vomiting and improvement of blood sugars. Still concerned as there is a small picture of obstructive pattern I would like to do an ultrasound of his liver and gallbladder to rule out any possible stones. Continue with IV hydration Acute metabolic encephalopathy. Possibly due to underlying hyperglycemia. Can not exclude underlying cerebrovascular lesion. CT scan 2 days ago was done which was reviewed. Will proceed with an MRI stroke protocol today. Vitamin B12 folic acid were done. Urine toxicology and alcohol screening are done. Hypertensive urgency patient with blood pressures greater than 200. Required IV blood pressure management. Restarted oral medication today. Increase dose of lisinopril and metoprolol this morning for better blood pressure control. Peripheral vascular disease. Patient will be placed back on his beta-austyn aspirin and statin. Now that he is tolerating more orals. Insulin-dependent diabetes with long history of poor control recent hemoglobin A1c is quite elevated Impression and plan. MRI today ultrasound today continued correction of blood pressure and blood sugar. PT evaluation and consultation. Anticipate probably prison stay for discharge plan. Time Spent With Patient Critical Care time: I spent a total of [] minutes of critical care time on this patient's care today; this time is exclusive of procedural time. Quality VTE Deep Vein Thrombosis/Pulmonary Embolism Present on Admission: No
[2022-10-15] MEDS: LACTATED RINGERS 1,000 ML 100 ML IV ×2 (11:16→21:10)
--- NOTE | 2022-10-15 11:30 | PT.IIE ---
Current Diagnoses Elevation of levels of liver transaminase levels (10/14/22) Surgical History (Last Reviewed 10/14/22 @ 18:21 by Gabriella Miller DO) Anesthesia History of knee surgery (~1994) S/P triple vessel bypass (~2006) Status post wrist surgery (~2011) Medical History (Last Reviewed 10/14/22 @ 18:21 by Gabriella Miller DO) COVID-19 Diabetes mellitus (06/04/15) Diabetes mellitus (~1994) Hyperlipidemia (~2005) Hypertension (~2005) Obstructive sleep apnea of adult (~04/2017) Snoring (~2006) Tinnitus (~1989) Physical Therapy Inpatient Evaluation/Re-Eval M1 PT/OT-IP Prior Functional Status Start: 10/15/22 12:53 Freq: NEEDED Status: Active Protocol: Document 10/15/22 11:30 AB (Rec: 10/15[facility]22 13:[facility] Review Prior Functional Status Medical History Reviewed Yes Communication able to make needs known but with delay with responding and needs repetitions Mobility and Gait pt stated that he is independent with all mobilities and ambulation without AD; per son, pt has been declining in function due to LE instability/weakness due to DM Social History Household Members none Living Arrangements RV Number of Floors (Floors) One Floor Number of Stairs To Enter/Railing? 3 steps B rails to enter the house Home Environment Standard Height Toilet,Walk in Shower Home Equipment Hand Held Shower,Grab Bars In Shower M2 PT-IP Current Condition Start: 10/15/22 12:53 Freq: NEEDED Status: Active Protocol: Document 10/15/22 11:30 AB (Rec: 10/15/22 13:03 [facility] Therapy Current Condition Current Condition Evaluation Date 10/15/22 Treatment Diagnosis hyperglycemia; difficulty in walking Onset Date 10/14/22 M3 PT-IP Subjective Start: 10/15/22 12:53 Freq: NEEDED Status: Active Protocol: Document 10/15/22 11:30 AB (Rec: 10/15/22 13:03 AB [id number]) Subjective Physical Therapy Visit Type Type Initial Evaluation Visit Start Time 11:30 Visit Stop Time 11:50 Total Visit Minutes 20 Number of SKIN CARE CONSULTANT Visits 0 M4 PT-IP Mobility and Gait Start: 10/15/22 12:53 Freq: NEEDED Status: Active Protocol: Document 10/15/22 11:30 AB (Rec: 10/15/22 13:03 AB [email or web address]) PT-Bed Mobility Assessment Supine to Sit Supine to Sit Standby Assistance,Head of Bed Elevated Sit to Supine Sit to Supine Standby Assistance PT-Transfer Assessment Sit to and From Stand Sit to and from Stand Contact Guard Assistance, Minimal Assistance,1 Person Assistance,Use of Upper Extremities Equipment Transfer Assistive Device Gait Belt,Front Wheeled Walker Orthotic/Prosthetic Devices or Brace: No Comments Mobility Comments completed supine to sit SBA with HOB elevated. able to sit on EOB SBA. completed sit to stand CGA to min A with unsteadiness on initial standing. pt ambulated in room using FWW CGA to min A using FWW with (+) LOB x 4 to the L and posteriorly. pt stated that he has LE numbness due to DM. automobile glass technician came in and wants pt back in bed for US procedure. pt ambulated back to EOB. completed sit to supine SBA. positioned pt in bed. call light and table placed within reach. Gait Assessment Gait Gait Assistance Required: Contact Guard Assist,Minimum Assistance Distance (Feet) 40 Able to Maintain Weight Bearing Status Yes During Gait Assistive Devices Assistive Device Gait Belt,Front Wheeled Walker Orthotic/Prosthetic Devices or Brace: No Gait Deviations General Gait Pattern Antalgic,Decreased Stride Length,Step-to Gait Factors Limiting Gait Function Factors Limiting Gait Function Decreased Activity Tolerance, Decreased Sensation,Decreased Strength,Difficulty Following Directions,Pain,Poor Balance, Poor Safety Awareness PT-Balance Assessment Sitting Balance and Reactions Static Sitting Balance Ability Good Dynamic Sitting Balance Ability Fair Standing Balance and Reactions Static Standing Balance Ability Fair Dynamic Standing Balance Ability Poor Device Used FWW M5 PT-IP Objective Assessments Start: 10/15/22 12:53 Freq: NEEDED Status: Active Protocol: Document 10/15/22 11:30 AB (Rec: 10/15/22 13:03 AB [email or web address]) Orientation Orientation/Cognition Level of Alertness Confusional State Orientation Name Safety Awareness Decreased Safety Awareness Memory Description Short Term Impaired Gross Range of Motion Lower Extremity ROM Assessment Within Functional Limits Strength Lower Extremity Strength Assessment Within Functional Limits Coordination Assessment Gross Coordination Gross Coordination WNL Sensation Assessment Sensation Sensation Description Numbness Comments Sensation Comments BLE numbness : whole leg per pt but worst on the feet area Muscle Tone Muscle Tone WNL Yes M6 PT-IP Treatment Start: 10/15/22 12:53 Freq: NEEDED Status: Active Protocol: Document 10/15/22 11:30 AB (Rec: 10/15/22 13:03 AB [email or web address]) Physical Therapy Treatment Education Education Provided Safety M7 PT-IP Assessment and Plan Start: 10/15/22 12:53 Freq: NEEDED Status: Active Protocol: Document 10/15/22 11:30 AB (Rec: 10/15/22 13:03 AB [email or web address]) PT Summary Assessment and Plan Potential Rehabilitation Potential Fair Summary Impairments Pain,ROM,Strength,Balance, Coordination,Sensation,Tone, Cognition,Bed Mobility, Transfers,Gait,Activity Tolerance Assessment Summary pt requiring CGA to min A with ambulation using FWW with (+) LOB during ambulation requiring min A for recovery. pt will require 24/ assist availability at this time and will need SNF rehab to improve overall strength and mobility . will continue to assess progress. Goals Bed Mobility Goal Independent Transfer Goal Standby Assistance,Front Wheeled Walker Gait Goal Standby Assistance,Front Wheel Walker Gait Distance 150 Other Goals up/down 3 steps B rails SBA Days to Meet Goals 10 Frequency of Treatment Frequency Of Treatment Once a Day Treatment Plan Physical Therapy Treatment Plan Bed Mobility Training,Transfer Training,Gait Training, Therapeutic Exercise,Balance Retraining,Discharge Planning, Hot or Cold Pack,Neuromuscular Re-ed,Coordination Retraining Precautions Other Precautions falls Recommendations To Nursing Amount of Assist Needed 1 Person Assist Discharge Recommendations PT Discharge Recommendations SNF Rehab Equipment Needed for Home Before FWW Discharge Transportation Needs at Discharge Private Vehicle,Wheelchair/ Cabulance
[2022-10-15] MEDS: INSULIN GLARGINE 100 UNIT/ML 3ML PEN 40 UNIT SUBCUT (20:44)
[2022-10-16] VITALS (9 sets, daily range): BP systolic 138–174; BP diastolic 67–88; PULSE 49–95; RESP 16–20; TEMP 36–37.8; O2SAT 92–100
[2022-10-16] MEDS: PIPERACILLIN/TAZO 3.375 GM in SODIUM CHLORIDE 0.9% 100 ML IV ×3 (05:38→21:05)
[2022-10-16] MEDS: ACETAMINOPHEN 325 MG TABLET 650 MG PO (05:49)
[2022-10-16] MEDS: LACTATED RINGERS 1,000 ML 100 ML IV ×2 (05:53→16:34)
[2022-10-16 05:55] LABS: Add Manual Diff / Slide Review NO; Basophils Absolute Auto 100 /uL (0-100); Basophils Percent Auto 1.4 % (0-2); Eosinophils Absolute Auto 200 /uL (0-450); Eosinophils Percent Auto 3.1 % (2-4); Hematocrit 39.5 % (41-53); Hemoglobin 13.2 g/dL (13.5-17.5); Lymphocytes Absolute Auto 1700 /uL (1100-4500); Mean Corpuscular HGB Conc 33.4 % (30-36); Mean Corpuscular Hemoglobin 28.1 PG (26-34); Mean Corpuscular Volume 83.9 fL (80-100); Monocytes Absolute Auto 500 /uL (0-900); Monocytes Percent Auto 7.8 % (3-14); Neutrophils Absolute Auto 3600 /uL (1500-7000); Neutrophils Percent Auto 59.7 % (50-75); Platelet Count 143 X10^3/uL (150-400); Red Blood Cell Count 4.71 X10^6/uL (4.5-5.9)
[2022-10-16 06:02] LABS: Alanine Aminotransferase 198 IU/L (<50); Albumin 3.2 g/dL (3.5-5.0); Albumin Globulin Ratio 1.1 (1.0-2.8); Alkaline Phosphatase 165 U/L (38-126); Aspartate Aminotransferase 89 IU/L (17-59); BUN Creatinine Ratio 15.6 (6-22); Bilirubin Total 0.8 mg/dL (0.2-1.3); Blood Urea Nitrogen 14 mg/dL (9-20); Calcium 8.1 mg/dL (8.4-10.2); Carbon Dioxide 29 mmol/L (22-32); Chloride 98 mmol/L (98-107); Estimated Glomerular Filt Rate > 60 mL/min (>60); Glucose 157 mg/dL (80-110); HEMOLYSIS < 15 (0-50); Potassium 3.1 mmol/L (3.4-5.1); Sodium 134 mmol/L (137-145); Total Protein 6.2 g/dL (6.3-8.2)
[2022-10-16] MEDS: INSULIN LISPRO 100 UNIT/ML 3ML VIAL SUBCUT ×4 (08:14→21:03)
[2022-10-16] MEDS: ENOXAPARIN 40 MG/0.4 ML SYRINGE SUBCUT (08:15)
[2022-10-16] MEDS: ATORVASTATIN 20 MG TABLET 80 MG PO (08:15)
[2022-10-16] MEDS: ASPIRIN 325 MG TABLET PO (08:15)
[2022-10-16] MEDS: DULOXETINE 30 MG CAPSULE 60 MG PO (08:16)
[2022-10-16] MEDS: lisinopriL 20 MG TABLET 40 MG PO (08:16)
[2022-10-16] MEDS: METOPROLOL ER 50 MG TABLET PO ×2 (08:16→21:04)
[2022-10-16] MEDS: POTASSIUM CHLORIDE 20 MEQ TAB 40 MEQ PO ×2 (08:18→14:17)
[2022-10-16] MEDS: PANTOPRAZOLE DR 40 MG TABLET PO (08:18)
--- NOTE | 2022-10-16 09:56 | PT.IPTN ---
Current Diagnoses Elevation of levels of liver transaminase levels (10/14/22) Physical Therapy Treatment Note M2 PT-IP Current Condition Start: 10/15/22 12:53 Freq: NEEDED Status: Active Protocol: Document 10/15/22 11:30 AB (Rec: 10/15/22 13:03 AB [id number]) Physical Therapy Current Condition Current Condition Evaluation Date 10/15/22 Treatment Diagnosis hyperglycemia; difficulty in walking Onset Date 10/14/22 M3 PT-IP Subjective Start: 10/15/22 12:53 Freq: NEEDED Status: Active Protocol: Document 10/16/22 09:56 AB (Rec: 10/16/22 12:03 AB [id number]) Subjective Physical Therapy Visit Type Type Treatment Note Visit Start Time 09:56 Visit Stop Time 10:15 Total Visit Minutes 19 Number of LIBRARY SALES CONSULTANT Visits 0 Physical Therapy Visit Comments Patient Comments agreeable to do PT M4 PT-IP Mobility and Gait Start: 10/15/22 12:53 Freq: NEEDED Status: Active Protocol: Document 10/16/22 09:56 AB (Rec: 10/16/22 12:03 AB [email or web address]) PT-Transfer Assessment Sit to and From Stand Sit to and from Stand Contact Guard Assistance, Minimal Assistance,1 Person Assistance,Use of Upper Extremities Equipment Transfer Assistive Device Gait Belt,Front Wheeled Walker Orthotic/Prosthetic Devices or Brace: No Comments Mobility Comments pt sitting on the chair. completed sit to stand min A and cues. ambulated in room using FWW ~ 60 ft CGA to min A with (+) LOB x 2. cued for steadiness, pacing and safety. pt sat back on the chair. sit<>stand trainig: educated pt on sit<>stand techniques and to be able to maintain standing balance: pt completed x 3 sit to stand with initial min and CGA on last 2 reps. positioned pt on chair. call light and table placed within reach. Gait Assessment Gait Gait Assistance Required: Contact Guard Assist,Minimum Assistance,1 Person Assist Distance (Feet) 60 Able to Maintain Weight Bearing Status Yes During Gait Assistive Devices Assistive Device Gait Belt,Front Wheeled Walker Gait Deviations General Gait Pattern Ataxic,Decreased Stride Length ,Decreased Feet Clearance Factors Limiting Gait Function Factors Limiting Gait Function Decreased Activity Tolerance, Decreased Strength,Poor Balance,Poor Safety Awareness M5 PT-IP Objective Assessments Start: 10/15/22 12:53 Freq: NEEDED Status: Active Protocol: Document 10/15/22 11:30 AB (Rec: 10/15/22 13:03 AB [id number]) Orientation Orientation/Cognition Level of Alertness Confusional State Orientation Name Safety Awareness Decreased Safety Awareness Memory Description Short Term Impaired Gross Range of Motion Lower Extremity ROM Assessment Within Functional Limits Strength Lower Extremity Strength Assessment Within Functional Limits Coordination Assessment Gross Coordination Gross Coordination WNL Sensation Assessment Sensation Sensation Description Numbness Comments Sensation Comments BLE numbness : whole leg per pt but worst on the feet area Muscle Tone Muscle Tone WNL Yes M6 PT-IP Treatment Start: 10/15/22 12:53 Freq: NEEDED Status: Active Protocol: Document 10/16/22 09:56 AB (Rec: 10/16/22 12:03 AB [id number]) Physical Therapy Treatment Education Education Provided Safety M7 PT-IP Assessment and Plan Start: 10/15/22 12:53 Freq: NEEDED Status: Active Protocol: Document 10/16/22 09:56 AB (Rec: 10/16/22 12:03 AB [email or web address]) PT Summary Assessment and Plan Potential Rehabilitation Potential Fair Summary Impairments Pain,ROM,Strength,Balance, Coordination,Sensation,Tone, Cognition,Bed Mobility, Transfers,Gait,Activity Tolerance Assessment Summary pt continues to require CGA to min A with ambulation using FWW but seems steadier and able to follow directions better. MRI showed L CVA affecting mobility. pt will benefit from SNF rehab to improve strength and function. Goals Bed Mobility Goal Independent Transfer Goal Standby Assistance,Front Wheeled Walker Gait Goal Standby Assistance,Front Wheel Walker Gait Distance 150 Other Goals up/down 3 steps B rails SBA Days to Meet Goals 10 Frequency of Treatment Frequency Of Treatment Once a Day Treatment Plan Physical Therapy Treatment Plan Bed Mobility Training,Transfer Training,Gait Training, Therapeutic Exercise,Balance Retraining,Discharge Planning, Hot or Cold Pack,Neuromuscular Re-ed,Coordination Retraining Precautions Other Precautions falls Recommendations To Nursing Amount of Assist Needed 1 Person Assist Discharge Recommendations PT Discharge Recommendations SNF Rehab Transportation Needs at Discharge Private Vehicle,Wheelchair/ Cabulance
--- NOTE | 2022-10-16 10:32 | P.PN_ITS ---
Subjective Subjective Date Patient Seen: 10/16/22 Time Patient Seen: 10:32 Interval history: New subacute stroke found , outside intervention window Planning discharge to [facility] tomorrow completing stroke workup today feeling ok but glum today eating and using phone ok ableto get up ok CC: confusion Exam Vital Signs (past 8 hours): - 10/16/22 05:49 10/16/22 05:52 10/16/22 07:57 Temperature 100.1 F H 100.1 F H 97.8 F Pulse Rate 78 72 Respiratory Rate 20 16 Blood Pressure 174/88 H 151/81 H Pulse Oximetry 94 92 Oxygen Flow Rate 0 Oxygen Delivery Method Room Air Oxygen Flow Rate 0 Narrative Exam Narrative: sitting in chair looking glum Const Nutritional Appearance: well nourished HENMT Head: normocephalic and atraumatic Eyes General: appearance normal, both eyes and all related structures Resp Auscultation: clear to auscultation bilaterally Cardio Other: irregular rhythm noted today, S1/S2, rate ok GI Other: soft nontender nondistended Neuro Other: aweke alert and oriented to person place time month but not year wordfinding difficulties apparent but the speech he does produce is coherent without word salad able to repeat phrases correctly moving all limbs normally no motor issues evident Psych Speech and Movement: delayed speech Thought Content: normal Objective Labs 10/16/22 05:27 10/16/22 05:27 Labs: Laboratory Results - last 24 hr 10/16/22 10/16/22 05:27 05:27 WBC 6.0 RBC 4.71 Hgb 13.2 L Hct 39.5 L MCV 83.9 MCH 28.1 MCHC 33.4 RDW 14.0 Plt Count 143 L Neut % (Auto) 59.7 Lymph % (Auto) 28.0 [place] % (Auto) 7.8 Eos % (Auto) 3.1 Baso % (Auto) 1.4 Neut # (Auto) 3600 Lymph # (Auto) 1700 [place] # (Auto) 500 Eos # (Auto) 200 Baso # (Auto) 100 Sodium 134 L Potassium 3.1 L Chloride 98 Carbon Dioxide 29 BUN 14 Creatinine 0.90 Estimated GFR > 60 BUN/Creatinine Ratio 15.6 Glucose 157 H Calcium 8.1 L Total Bilirubin 0.8 AST 89 H ALT 198 H Alkaline Phosphatase 165 H Total Protein 6.2 L Albumin 3.2 L Globulin 3.0 Albumin/Globulin Ratio 1.1 [facility] Medical History COVID-19 Diabetes mellitus (06/04/15) Diabetes mellitus (~1994) Hyperlipidemia (~2005) Hypertension (~2005) Obstructive sleep apnea of adult (~04/2017) Snoring (~2006) Tinnitus (~1989) Surgical History Anesthesia History of knee surgery (~1994) S/P triple vessel bypass (~2006) Status post wrist surgery (~2011) Family History Father Heart disease Grandmother Diabetes mellitus Grandfather Heart disease Grandmother Diabetes mellitus Social History marital status: household members: none Smoking Status: Former smoker alcohol intake: current substance use type: does not use Assessment & Plan Assessment & Plan narrative: #Subacute stroke MRI shows subacute ischemia in the left elliott radiata/basal ganglia without superimposed hemorrhage. Continued wordfinding issues, able to repeat phrases, no word salad noted. ASA 81 and statin. irregular heartbeat noted, checking echo and carotid dopplers I explained situation to patient he is coming to terms with new diagnosis and importance of avoiding future events. #Nonketotic hyperglycemia with nausea vomiting and dehydration Patient's blood sugars are improved with IV and subcutaneous insulin.? Patient's nausea and vomiting has improved.? Blood sugars are returning back to baseline but still elevated.? Made adjustments to his long-acting insulin.? Continue with insulin sliding scale and IVF.? Still not feeling well.? Will advance his diet as tolerated.? Restarting metformin. #Transaminitis Trending down, following. Ultrasound showed some sludge but no biliary obstruction. #Hypertensive urgency with blood pressures greater than 200 Stable continue increased dose of lisinopril and metoprolol #Peripheral vascular disease Resume betablocker and statin? #Insulin-dependent diabetes Long history of poor control recent hemoglobin A1c is quite elevated continue SSI with increased metformin in light of recent stroke all the more important to get under control consider GLP-1 as outpatient Dispo: dc to [facility] tomorrow Code: full PCP: AFM time spent: 40 min Time Spent With Patient Critical Care time: I spent a total of [] minutes of critical care time on this patient's care today; this time is exclusive of procedural time. Quality VTE Deep Vein Thrombosis/Pulmonary Embolism Present on Admission: No
--- NOTE | 2022-10-16 11:45 | CM.DPC ---
Addendum entered by Colette Lindo R.N. 10/16/22 15:50: Attempted to call patient's daughter, Glory, and phone did not ring. Will attempt again tomorrow. Addendum entered by Colette Lindo R.N. 10/16/22 14:16: Met with patient in his room, he was sleepy, but alert. Mentioned that his primary care provider wants him to go to a alf facility before going home. Let him know that this was also discussed with his daughter, he gave permission to contact her. Let him know that [facility], which is next door, can accept him tomorrow at 11:00, so he is aware. Original Note: DCP Cont: Called Steven in admissions at [facility] and confirmed that he will be picked up tomorrow at about 11:00am. Updated Dr. Gómez, he can do the orders tomorrow. Left patient's daughter, Glory, a message to call this [employer] Sand [employer] Operator [employer] back, did not leave detailed message, as was a generic voice mail. Wanted to update her about patient going to [facility]. Placed COVID swab order for today. PASSR completed. P: DCP to continue to follow. Plan is for [facility], as long as stable, they can accept tomorrow with tack picker at 11:00. Colette Lindo, ASHLEIGH/Gas Analyst
[2022-10-16 13:41] LABS: COVID19 -Nasal RAPID Negative (Negative)
[2022-10-16] MEDS: INSULIN GLARGINE 100 UNIT/ML 3ML PEN 40 UNIT SUBCUT (21:03)
[2022-10-16] MEDS: METFORMIN XR 500 MG TABLET 1000 MG PO (21:04)
[2022-10-17] VITALS (9 sets, daily range): BP systolic 137–172; BP diastolic 39–82; PULSE 53–76; RESP 17–23; TEMP 36.4–36.6; O2SAT 94–97
[2022-10-17] MEDS: LACTATED RINGERS 1,000 ML 100 ML IV (04:36)
[2022-10-17] MEDS: PIPERACILLIN/TAZO 3.375 GM in SODIUM CHLORIDE 0.9% 100 ML IV ×3 (04:47→20:56)
[2022-10-17] MEDS: PANTOPRAZOLE DR 40 MG TABLET PO (04:49)
--- NOTE | 2022-10-17 09:34 | CM.DPC ---
Addendum entered by Colette Lindo R.N. 10/17/22 13:42: Echo was obtained, but not read, and unclear as to when it will be interpreted. Patient will not be able to discharge today until this is read, Dr. Gómez is concerned about the potential results, wants to have them before discharge. Patient most likely is an avoidable day, as echo orders were placed yesterday, and not done until late this am. [facility] has been updated, they can accept tomorrow, will need to verify time in the am. Original Note: DCP Cont: Patient was supposed to be picked up at 11:00am, had called Dr. Gómez, for orders. He came by the office and indicated that the echo was not done, was ordered yesterday, for CVA follow up. He will be having echo today. Attempted to call Steven in admissions at [facility] to move discharge to 1400. Was unable to get in touch with her, spoke to Lindsey, the admission nurse at [facility] and updated her. She will contact their diesel pile driver operator, Luke, and change the time to 1400. Dr. Gómez is aware, and can discharge patient as long as echo is WNL. P: DCP to continue to follow. Patient will discharge today as long as echo is WNL. Colette Lindo, ASHLEIGH/Derrick Worker [employer]
[2022-10-17] MEDS: DULOXETINE 30 MG CAPSULE 60 MG PO (10:04)
[2022-10-17] MEDS: lisinopriL 20 MG TABLET 40 MG PO (10:04)
[2022-10-17] MEDS: ATORVASTATIN 20 MG TABLET 80 MG PO (10:04)
[2022-10-17] MEDS: ENOXAPARIN 40 MG/0.4 ML SYRINGE SUBCUT (10:11)
[2022-10-17] MEDS: METOPROLOL ER 50 MG TABLET PO ×2 (10:12→20:56)
[2022-10-17] MEDS: METFORMIN XR 500 MG TABLET 1000 MG PO ×2 (10:12→20:56)
--- NOTE | 2022-10-17 11:27 | DI.ECHO.S_ITS ---
:Name: JOJO SHEA Study Date: 10/17/2022 Height: 71 in : :Reason For Study: Stroke, irregular heart rhythm : :Ordering Physician: BULL, : :HESHAM Tejeda Performed By: Ashlee Díaz : :Referring: HESHAM GOTTLIEB : + + Interpretation Summary There is moderate concentric left ventricular hypertrophy. The ejection fraction is estimated to be 55-60%. Diastolic function could not be accurately assessed due to unobtainable data. The left atrium is moderately dilated. The right ventricle is normal in size and function. No significant valvular abnormalities. Unable to estimate PASP. The ascending aorta is mildly enlarged. Compared to the prior study dated 03/19/2022, no significant change. Procedure: A two-dimensional transthoracic echocardiogram with color flow and Doppler was performed. The patient was in a bradycardic rhythm during the exam. The heart rate ranged between 52-79 bpm during the study. Left Ventricle: The left ventricle is normal in size. There is moderate concentric left ventricular hypertrophy. The ejection fraction is estimated to be 55-60%. Diastolic function could not be accurately assessed due to unobtainable data. Right Ventricle: The right ventricle is normal in size and function. Atria: The left atrium is moderately dilated. Right atrial size is normal. There is no Doppler evidence for an interatrial shunt. Mitral Valve: The mitral valve leaflets are mildly calcified. There is mild to moderate mitral annular calcification. There is no mitral regurgitation noted. Aortic Valve: The aortic valve is trileaflet. The aortic valve opens well. The aortic valve is mildly calcified. There is no aortic valve stenosis. No aortic regurgitation is present. Tricuspid Valve: The tricuspid valve is normal in structure and function. There is a trace or physiologic amount of tricuspid regurgitation. Pulmonic Valve: The pulmonic valve leaflets are thin and pliable; valve motion is normal. There is no pulmonic valvular regurgitation. Great Vessels: The aortic root is mildly dilated. The ascending aorta is mildly enlarged. The aortic arch is mildly enlarged. The IVC is of normal diameter and collapses greater than 50% with a sniff. This suggests a low right atrial pressure of 3 mm Hg. Pericardium/ Pleura There is no pericardial effusion. There is no pleural effusion. MMode/2D Measurements & Calculations LVIDd: 4.0 cm LVOT diam: 2.2 cm LVIDs: 3.1 cm Ao root diam: 3.9 cm FS: 21.2 % asc Aorta Diam: 3.9 cm EPSS: 0.49 cm IVSd: 1.4 cm LVPWd: 1.2 cm LV shields. diameter/BSA (cm/m^2): 1.8 LV sys. diameter/BSA (cm/m^2): 1.4 LA A2 area: 20.2 cm2 RA long axis: 4.9 cm LA A4 area: 22.2 cm2 RA area: 14.8 cm2 LA length (vol): 5.8 cm RA vol: 38.0 ml LA vol: 65.6 ml RA : 17.4 ml/m2 LA vol index: 30.1 ml/m2 RVD1 (basal): 3.2 cm TAPSE: 2.0 cm Doppler Measurements & Calculations Ao V2 max: 120.7 cm/sec LVOT Max Berry: 68.9 cm/sec Ao V2 mean: 84.6 cm/sec LV V1 max P.9 mmHg Ao max P.8 mmHg LV V1 VTI: 16.9 cm Ao mean P.2 mmHg JOSE(I,D): 2.2 cm2 Ao V2 VTI: 30.3 cm JOSE(V,D): 2.2 cm2 sev ratio: 0.56 JOSE indexed to BSA (cm^2/m^2): 1.0 MV E max berry: 62.5 cm/sec TR max berry: 171.8 cm/sec MV A max berry: 101.4 cm/sec TR max P.8 mmHg MV E/A: 0.62 PA V2 max: 74.0 cm/sec Med Peak E' Berry: 5.8 cm/sec PA V2 mean: 57.1 cm/sec E/E' med: 10.9 PA mean P.4 mmHg Lat Peak E' Berry: 7.0 cm/sec E/E' lat: 8.9 E/e' average: 9.9 MV dec time: 0.23 sec MVA(VTI): 2.8 cm2 MV V2 mean: 72.2 cm/sec SV(LVOT): 66.4 ml MV mean P.2 mmHg MV V2 VTI: 23.9 cm Reading Physician:04:37 PM
[2022-10-17] MEDS: INSULIN LISPRO 100 UNIT/ML 3ML VIAL SUBCUT ×3 (12:19→20:47)
--- NOTE | 2022-10-17 13:58 | PM.PN.1 ---
Subjective Subjective Date Patient Seen: 10/17/22 Time Patient Seen: 09:30 Interval history: CC: confusion Plan today is to obtain echocardiogram evaluate cardiac function. some reports of afib vs ectopy on tele, no prior diagnosis Confusion continues to improve but wordfinding difficulty persists no dificulty getting up going to bathroom feeding himself family at bedside today questions answered Exam Vital Signs (past 8 hours): - 10/17/22 08:00 10/17/22 10:04 10/17/22 10:12 Temperature 97.5 F L Pulse Rate 53 L 76 76 Respiratory Rate 23 Blood Pressure 158/75 H 158/75 H Pulse Oximetry 97 Oxygen Flow Rate 0 10/17/22 11:25 10/17/22 11:10 Temperature Pulse Rate 73 73 Respiratory Rate Blood Pressure 151/75 H 151/75 H Pulse Oximetry Oxygen Flow Rate Oxygen Delivery Method Room Air Oxygen Flow Rate 0 Narrative Exam Narrative: pleasant elder laying in bed Const Nutritional Appearance: well nourished HENMD Head: normocephalic and atraumatic Eyes General: appearance normal, both eyes and all related structures Cardio Other: irregularly irregular rhythm normal rate S1/S2 GI Other: soft nontender nondistended Neuro Other: alert awake oriented to person place situation year not president continued wordfinding issues, intact repetition, gait and manipulation wnl Extrem General: full ROM Psych Mood: congruent mood Affect: normal affect Thought Process: normal Objective Labs 10/16/22 05:27 10/16/22 05:27 [facility] Medical History COVID-19 Diabetes mellitus (06/04/15) Diabetes mellitus (~1994) Hyperlipidemia (~2005) Hypertension (~2005) Obstructive sleep apnea of adult (~04/2017) Snoring (~2006) Tinnitus (~1989) Surgical History Anesthesia History of knee surgery (~1994) S/P triple vessel bypass (~2006) Status post wrist surgery (~2011) Family History Father Heart disease Grandmother Diabetes mellitus Grandfather Heart disease Grandmother Diabetes mellitus Social History marital status: household members: none Smoking Status: Former smoker alcohol intake: current substance use type: does not use Assessment & Plan Assessment & Plan narrative: #Subacute stroke MRI shows subacute ischemia in the left elliott radiata/basal ganglia without superimposed hemorrhage. Continued wordfinding issues, able to repeat phrases, no word salad noted. ASA 81 and statin. hx of 3-vessel CABG noted. irregular heartbeat noted, checking echo - may need eliquis I explained situation to patient he is coming to terms with new diagnosis and importance of avoiding future events. #Nonketotic hyperglycemia with nausea vomiting and dehydration Blood sugars are returning back to baseline but still elevated.? Made adjustments to his long-acting insulin.? Continue with insulin sliding scale and IVF.?Continue metformin. Good glycemic control and blood pressure will be important on discharge for future stroke prevention - consider GLP-1 #Transaminitis Trending down, following. Ultrasound showed some sludge but no biliary obstruction. #Hypertensive urgency with blood pressures greater than 200 Stable continue increased dose of lisinopril and metoprolol #Peripheral vascular disease Resume betablocker and statin? #Insulin-dependent diabetes Long history of poor control recent hemoglobin A1c is quite elevated continue SSI with increased metformin in light of recent stroke all the more important to get under control consider GLP-1 as outpatient Dispo: dc to [facility] tomorrow Code: full MDM: Daughter PCP: STEPHANIE Time Spent With Patient Critical Care time: I spent a total of [] minutes of critical care time on this patient's care today; this time is exclusive of procedural time. Quality VTE Deep Vein Thrombosis/Pulmonary Embolism Present on Admission: No
[2022-10-17] MEDS: ASPIRIN 325 MG TABLET PO (14:11)
[2022-10-17 15:16] LABS: HEMOLYSIS < 15 (0-50); Potassium 4.4 mmol/L (3.4-5.1)
--- NOTE | 2022-10-17 17:10 | PT-IP ANOTE ---
Pt not seen for PT today. Will be seeing pt tomorrow depending on triage level, PT census, and staffing.
[2022-10-17] MEDS: INSULIN GLARGINE 100 UNIT/ML 3ML PEN 40 UNIT SUBCUT (20:46)
[2022-10-17] MEDS: SODIUM CHLORIDE 0.9% FLUSH 10 ML IV (20:57)
--- NOTE | 2022-10-17 22:47 | PC.NURSE ---
Patient is alert and oriented. Does have some word finding difficulties; of the 6 items on NIH scoring was only able to accurately identify 3 of them. When checking sensation he identifies RN as touching left when right was being touched and right when left was being touched. NIH = 1. Breath sounds CTA with RA sat of 94%. HRR w/telemetry reading of SR. Denied nausea. BT present and is passing flatus but has not had a BM since 10/14. Voiding per urinal and denied dysuria. Is able to turn himself in bed. Gait not assessed at time of assessment; is receiving PT who recommend 1 person assist. Is forgetful and impulsive; does not remember to call for staff assist when needing to get up. SCD's not in use as they increase his risk of falls related to impulsivity. Denied pain. Fall risk score is high and bed alarm is activated.
[2022-10-18] VITALS: BP 152/78; PULSE 60; RESP 20; TEMP 36.6; O2SAT 94
[2022-10-18 04:14] VITALS: BP 178/93; PULSE 68; RESP 20; TEMP 36.6; O2SAT 95
[2022-10-18] MEDS: SODIUM CHLORIDE 0.9% 250 ML 21 ML IV (04:40)
[2022-10-18] MEDS: SODIUM CHLORIDE 0.9% FLUSH 10 ML IV ×2 (04:40→08:27)
[2022-10-18] MEDS: PIPERACILLIN/TAZO 3.375 GM in SODIUM CHLORIDE 0.9% 100 ML IV (04:40)
[2022-10-18] MEDS: PANTOPRAZOLE DR 40 MG TABLET PO (05:57)
[2022-10-18 08:00] VITALS: BP 170/86; BP 181/79; PULSE 61; PULSE 68; RESP 16; TEMP 36.3; O2SAT 95
--- NOTE | 2022-10-18 08:06 | PM.DS.1 ---
History of Present Illness History of Present Illness Date Patient Seen: 10/18/22 Time Patient Seen: 08:07 Chief complaint: sent by Dr Shea Narrative: 72-year-old gentleman with a history of insulin-dependent diabetes with poor control peripheral arterial disease depression hypertension hyperlipidemia.? Patient lives at home in a trailer.? His family states he is had a gradual decline over the past few weeks.? And more acutely in the last 2 days.? He was in the emergency department 48 hours ago returned to my office to follow-up today.? Patient has an altered level of mental status.? Recognizes me but has a hard time saying my name he is confused.? Nauseated and vomiting.? When discussing with his son and daughter who brought him in states that they spent time with him over [place] he was doing well then they checked up on his house with him a couple of times and really was not seeming to do very well. .? Like he was not taking his medication.? There are times where he said he was sick.? He was having difficult time communicating and this is progressively gotten worse.? In my office he is hypertensive and tachycardic.? Quite ill-appearing.? He is able to answer one-word questions.? Based on his clinical condition he was sent down to the emergency department. In the emergency department acute laboratory testing was done.? Patient was found to be hyperglycemic but not ketotic.? His an anion gap is 14.? At this point his liver enzymes are quite elevated which was not previous their lipase is pending CT of his abdomen and pelvis shows it really an unremarkable process no signs of gallbladder liver disease.? He had mild elevation of his white blood cell count as procalcitonin is normal urinalysis is normal.? Mildly hyperkalemic.? And his blood sugars are elevated. {from Dr. Shea's H&P 10/14/2022} Discharge Providers Provider Date of admission: 10/14/22 18:07 Discharge Date: 10/18/22 Primary care physician: Skip Shea MD Consults: 10/15/22 09:58 Consult to Physical Therapy Evaluate & Treat Comment: Physician Instructions: Evaluate and Treat 10/16/22 11:13 Consult to Occupational Therapy Evaluate & Treat Comment: Physician Instructions: Evaluate and treat Discharge provider: Darrel Jones MD Summary Hospital Course Discharge Diagnosis: 1. 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 Hyperglycemia in the setting of type 2 diabetes out of control, without evidence ketoacidosis, question secondary to underlying infection in addition to poor management at home 3. Transaminitis of uncertain etiology 4. Leukocytosis with uncertain status of possible infection 5. Failure to thrive 6. Hypertension 7. Metabolic encephalopathy secondary to multiple above issues 8. Obstructive sleep apnea of the adult 9. 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 His overall insulin regimen was changed with much improved control blood sugars. Was felt as though possibly part of his poor blood sugar control with secondary to an undiagnosed and until hospitalization untreated infection. Hemoglobin A1c was not checked as clearly patient not been managing his blood sugars well at home on his own and that will need to be accomplished as an outpatient. Last hemoglobin A1c was 2020 Patient's confusion metabolic encephalopathy and difficulty communicating resulted in concerns for possible CVA. MRI did indeed demonstrate abnormality in the basal ganglia as noted on MRI report. Echocardiogram was essentially normal. Cardiac telemetry showed occasional premature beats with resulting pause interpreted by some as atrial fibrillation but I do not see any evidence of actual atrial fibrillation on patient's tracings. Therefore patient was continued on statin therapy antiplatelet therapy and with better control of blood sugar and blood pressures felt to lower risk of recurrent CVA. He will require placement in half-way for continued rehabilitation. He has some element of expressive type aphasia ongoing Patient's blood pressure was somewhat elevated initially he had adjustments made to his overall medications in effort to better control blood pressure. Numbers were better controlled within 24 hours of discharge this will need to continue be monitored evaluated inappropriately managed at half-way Uncertain as to whether not patient had a infectious etiology. All cultures were negative. Did have a leukocytosis. He was placed on Zosyn upon admission and will be continued for total of 10 days of antibiotic therapy with oral generic Augmentin as an outpatient as well Status at Discharge Cognitive/behavioral status at discharge: confused Functional status at discharge: uses cane/walker Overall status at discharge: patient is progressing back to baseline Time Spent with Patient Time spent: Greater than 30 minutes Exam Vital Signs (past 8 hours): - 10/18/22 04:14 Temperature 98 F Pulse Rate 68 Respiratory Rate 20 Blood Pressure 178/93 H Pulse Oximetry 95 Oxygen Flow Rate 0 Oxygen Delivery Method Room Air Oxygen Flow Rate 0 Objective Labs 10/16/22 05:27 10/17/22 14:55 Labs: Laboratory Results - last 24 hr 10/17/22 14:55 Potassium 4.4 D [facility] Medical History 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) COVID-19 CVA (cerebral vascular accident) CVA, old, cognitive deficits Depression Diabetes mellitus (~1994) Diabetic neuropathy Hyperlipidemia (~2005) Hypertension (~2005) Obstructive sleep apnea of adult (~04/2017) Osteoarthritis of hand (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) Snoring (~2006) Tinnitus (~1989) Vascular dementia Surgical History Anesthesia History of knee surgery (~1994) S/P triple vessel bypass (~2006) Status post wrist surgery (~2011) Family History Father Heart disease Grandmother Diabetes mellitus Grandfather Heart disease Grandmother Diabetes mellitus Social History marital status: household members: none Smoking Status: Former smoker alcohol intake: current substance use type: does not use Discharge Assessment & Plan Assessment and Plan Plan of Treatment: Patient be discharged to half-way to continue rehabilitation after his CVA involving communication and his dementia. Also patient is somewhat globally weak requiring physical and occupational therapy as noted in those notes here at the hospital Patient's blood pressure need to be monitored he had medications added and or doses increased Patient's blood sugar will need to be monitored carefully as well. He was switched from 70 30 insulin to long-acting single daily dose insulin with short-acting insulin coverage which improved his overall glycemic control but actual more careful management of his numbers will need to be undertaken as he recovers infection is treated etcetera Patient will continue on oral antibiotics to complete a 10 day course of antibiotics for presumed infection of uncertain etiology at this point. Discharge Plan Discharge Plan Patient Disposition: SNF Transfer to: [facility] Consult as needed: Dental, Hearing, Mental health, Podiatry and Vision Discharge orders & Medications Prescriptions: New metoprolol succinate 50 mg Tablet Extended Release 24 Hr 50 mg PO BID Qty: 30 0RF metformin 500 mg Tablet Extended Release 24 Hr 1,000 mg PO BID Qty: 60 0RF insulin glargine [Lantus Solostar U-100 Insulin] 100 unit/mL (3 mL) Insulin Pen 40 unit SUBCUT 2100 Qty: 15 0RF insulin lispro [Humalog U-100 Insulin] 100 unit/mL Solution See Rx Instructions .ROUTE .COMPLEX Qty: 10 0RF Rx Instructions: see protocol on separate sheet, check qid triamterene-hydrochlorothiazid 37.5-25 mg tablet 1 tab PO DAILY Qty: 30 0RF amoxicillin-pot clavulanate 875-125 mg tablet 1 tab PO BID 5 Days Qty: 10 0RF Rx Instructions: Last day of treatment 10/23/22 Continued atorvastatin 80 mg tablet 80 mg PO DAILY Qty: 90 3RF duloxetine 60 mg capsule,delayed release(DR/EC) 60 mg PO DAILY Qty: 90 3RF aspirin 81 mg tablet,chewable 162 mg PO QDAY Qty: 0 FreeStyle Lite Strips Strip See Rx Instructions .ROUTE .COMPLEX Qty: 100 11RF Dose Instruction: USE STRIP TO CHECK GLUCOSE TWICE DAILY TO CHECK GLUCOSE Rx Instructions: USE STRIP TO CHECK GLUCOSE TWICE DAILY nitroglycerin 0.4 mg tablet, sublingual 0.4 mg sublingual Q5-15M PRN (Reason: chest pain) Qty: 30 1RF Label Comments: Rx Instructions: do not exceed 3 doses per episode lisinopril 40 mg tablet See Rx Instructions .ROUTE .COMPLEX Qty: 90 1RF Dose Instruction: Take 1 tablet by mouth once daily Rx Instructions: Take 1 tablet by mouth once daily Discontinued metoprolol succinate 50 mg tablet extended release 24 hr 50 mg PO DAILY Qty: 90 3RF Novolin 70/30 U-100 Insulin 100 UNIT/1 ML suspension 60 units SQ BID Qty: 10 0RF diclofenac sodium 1 % gel 2 gram TOP BID Qty: 100 1RF Rx Instructions: apply sparingly twice daily to affected areas metformin 500 mg tablet extended release 24 hr See Rx Instructions .ROUTE .COMPLEX Qty: 360 3RF Dose Instruction: Take 2 tablets by mouth twice daily Rx Instructions: Take 2 tablets by mouth twice daily No Action (DME) DISABLED PARKING PERMIT See Rx Instructions .ROUTE .MEDSUPPLY Qty: 1 0RF Rx Instructions: I find this patient to be medically disabled and qualified for disabled parking as indicated, and signed, on the accompanying Disabled Parking Application for Individuals. Follow up/Referrals: Skip Shea MD [Primary Care Provider] - Discharge Health Status Multidrug resistant organism: No MDRO Precautions: [place] Diet/Activity/Treatments Diet: Diet as Tolerated and Carb-consistent/Diabetic Liquid consistency: Normal/Thin Food texture: Regular Special Rehabilitation Services Reason for rehabilitation: Therapy following stroke Rehab type: Physical therapy, Occupational therapy and Speech therapy Visit Report/Discharge Packet Stand Alone Forms: Patient Portal/API Discharge Data Primary Care Provider: Skip Shea Quality VTE Deep Vein Thrombosis/Pulmonary Embolism Present on Admission: No
[2022-10-18] MEDS: INSULIN LISPRO 100 UNIT/ML 3ML VIAL SUBCUT (08:21)
[2022-10-18 08:26] VITALS: BP 170/86; PULSE 68
[2022-10-18] MEDS: ASPIRIN 325 MG TABLET PO (08:26)
[2022-10-18] MEDS: TRIAMTERENE/HCTZ 37.5/25 CAPSULE 1 CAP PO (08:26)
[2022-10-18] MEDS: METFORMIN XR 500 MG TABLET 1000 MG PO (08:26)
[2022-10-18] MEDS: METOPROLOL ER 50 MG TABLET PO (08:26)
[2022-10-18] MEDS: lisinopriL 20 MG TABLET 40 MG PO (08:26)
[2022-10-18] MEDS: DULOXETINE 30 MG CAPSULE 60 MG PO (08:27)
[2022-10-18] MEDS: ATORVASTATIN 20 MG TABLET 80 MG PO (08:27)
[2022-10-18] MEDS: ENOXAPARIN 40 MG/0.4 ML SYRINGE SUBCUT (08:27)
--- NOTE | 2022-10-18 08:37 | CM.DPC ---
DCP: Spoke with Belen at [facility]. [facility] will accept patient. [facility] will p/u pt at 1130 to transport. Rena Banegas RN Case Manager
[2022-10-18 09:04] VITALS: BP 124/64; PULSE 68
[2022-10-18 09:14] LABS: COVID19 -Nasal RAPID Negative (Negative)
== END 2022-10-18 11:35 | DRG 64 ==
LOC: ED 17:39 → AC 18:07
PROVIDERS: Family Medicine; Admitting Provider Family Medicine; Emergency Provider Emergency Medicine; Family Provider Family Medicine; PCP Family Medicine; Referring Provider Emergency Medicine; Visit Provider Internal Medicine
DX: I63.9 Cerebral infarction, unspecified (principal); G93.41 Metabolic encephalopathy; E11.65 Type 2 diabetes mellitus with hyperglycemia; E86.0 Dehydration; R11.2 Nausea with vomiting, unspecified; I10 Essential (primary) hypertension; I73.9 Peripheral vascular disease, unspecified; E78.5 Hyperlipidemia, unspecified; R74.01 Elevation of levels of liver transaminase levels; I16.0 Hypertensive urgency; F01.50 Vascular dementia, unspecified severity, without behavioral disturbance, psychotic disturbance, mood disturbance, and anxiety; R62.7 Adult failure to thrive; R29.701 NIHSS score 1; Z68.30 Body mass index [BMI] 30.0-30.9, adult; Z20.822 Contact with and (suspected) exposure to COVID-19; Z79.84 Long term (current) use of oral hypoglycemic drugs; Z79.4 Long term (current) use of insulin; Z87.891 Personal history of nicotine dependence
CPT/HCPCS: 36415; 70450; 70548; 70553; 71045; 74177; 76700; 80053; 80305; 80320; 81001; 81003; 81015; 82009; 82140; 82550; 82553; 82607; 82746; 82962; 83605; 83690; 84132; 84145; 84484; 85025; 87040; 87086; 87635; 93005; 93306; 96365; 96372; 96374; 96375; 97116; 97162; 99222; 99232; 99238; 99284; 99285; C9803; C9113; J1650; J1815; J2405; J2543; Q9967

== ENCOUNTER → 2022-11-10 13:20 | Outpatient (CLI) | payer MEDICARE, OTHER, SELFPAY ==
[2022-10-14 18:31] VITALS: BMI 29.9
[2022-11-10 13:27] LABS: Add Manual Diff / Slide Review NO; Basophils Absolute Auto 100 /uL (0-100); Basophils Percent Auto 0.8 % (0-2); Eosinophils Absolute Auto 300 /uL (0-450); Eosinophils Percent Auto 2.4 % (2-4); Hematocrit 45.8 % (41-53); Hemoglobin 14.8 g/dL (13.5-17.5); Lymphocytes Absolute Auto 2600 /uL (1100-4500); Lymphocytes Percent Auto 22.9 % (25-40); Mean Corpuscular HGB Conc 32.4 % (30-36); Mean Corpuscular Hemoglobin 27.7 PG (26-34); Mean Corpuscular Volume 85.5 fL (80-100); Monocytes Absolute Auto 600 /uL (0-900); Monocytes Percent Auto 5.3 % (3-14); Neutrophils Absolute Auto 7600 /uL (1500-7000); Neutrophils Percent Auto 68.6 % (50-75); Platelet Count 175 X10^3/uL (150-400); Red Blood Cell Count 5.35 X10^6/uL (4.5-5.9); Red Cell Distribution Width 14.3 % (11.6-14.8); White Blood Cell Count 11.1 X10^3/uL (4.5-11.0)
[2022-11-10 13:39] LABS: BUN Creatinine Ratio 18.2 (6-22); Blood Urea Nitrogen 57 mg/dL (9-20); Calcium 9.5 mg/dL (8.4-10.2); Carbon Dioxide 28 mmol/L (22-32); Chloride 93 mmol/L (98-107); Estimated Glomerular Filt Rate 20 mL/min (>60); Glucose 305 mg/dL (80-110); HEMOLYSIS < 15 (0-50); Sodium 136 mmol/L (137-145)
[2022-11-10 13:45] LABS: Potassium 5.4 mmol/L (3.4-5.1)
== END ==
PROVIDERS: Family Provider Family Medicine; PCP Family Medicine; Visit Provider Internal Medicine
DX: Z13.9 Encounter for screening, unspecified (principal)
CPT/HCPCS: 80048; 85025

== ENCOUNTER 2022-11-12 11:42 | Inpatient (IN) | payer MEDICARE, OTHER, SELFPAY ==
[2022-10-14 18:31] VITALS: BMI 29.9
[2022-11-12] VITALS (34 sets, daily range): BP systolic 98–191; BP diastolic 63–103; PULSE 53–78; RESP 14–23; TEMP 36.8; O2SAT 92–100; BMI 25.7
--- NOTE | 2022-11-12 11:47 | DI.CT.S_ITS ---
PROCEDURE: CT ANGIO HEAD AND NECK INDICATIONS: h/o fall x 2, h/o ICH, + worsening mental status TECHNIQUE: Pre-contrast 4.5 mm thick sections acquired from the foramen magnum to the vertex. After the administration of intravenous contrast, 1 mm thick sections acquired from the aortic arch through the [place] of [place]. Post-contrast 4.5 mm thick sections then re-acquired from the foramen magnum to the vertex. 3-dimensional ywjbhlt-mtsmhmasw-godgzortlx (MIP) and/or volume rendering reformats were acquired of the central intracranial vasculature and neck separately. For radiation dose reduction, the following was used: automated exposure control, adjustment of mA and/or kV according to patient size. COMPARISON: [facility], , MR STROKE, 10/15/2022, 9:59. FINDINGS: Image quality: Good CSF spaces: Basal cisterns are patent. Lateral ventricles are symmetric. Volume: Vascular calcifications. Periventricular white matter disease is commonly seen with chronic microangiopathy. Volume loss is present. These findings are uweq-[id number] Brain: Basal ganglia mineralization. Hypoattenuation involving the bilateral basal ganglia and elliott radiata regions. The right-sided region is more prominent than prior imaging. Craniofacial structures: No displaced fracture. Sinuses are clear. Orbits are intact. Image quality: Excellent HEAD ANGIOGRAPHY Anterior circulation: ICAs: Moderate narrowing of the distal cervical ICA. Xvaq-qb-uuqcytkh bilateral cavernous carotid narrowing also seen. ACAs: Normal and symmetric MCAs: Moderate narrowing of the right M1 segment (10/106). High-grade stenosis of the superior branch of the left M2 (11/90). AComm: No aneurysm Venous sinuses: patent Posterior circulation: Dominance: Left Vertebral arteries: Decreased opacification and moderate irregularity of the right intracranial vertebral artery Basilar artery: Unremarkable PComms: No aneurysm special day class teacher: [id number] intracranial irregularity NECK ANGIOGRAPHY: Aortic arch and subclavian arteries: Atherosclerotic calcifications are present without high-grade stenosis CCAs: No stenosis, occlusion, or aneurysm. ICA origins (by NASCET criteria): Atherosclerotic calcifications, left in 50% narrowing. ICAs: No stenosis, occlusion or aneurysm. ECAs: Origins are patent. Vertebral arteries: Mild narrowing at the origins Soft tissues: No significant mass, aneurysm, or lymphadenopathy Lung apices: No pneumothorax Bones: No acute or suspicious abnormality. IMPRESSION: No large vessel occlusion. However, there are multiple areas of moderate to high-grade stenosis, for example in the distal right cervical ICA, bilateral cavernous carotids, right M1, superior branch of the left M2, and bilateral special day class teacher. Intracranial arterial irregularities likely representing intracranial atherosclerosis. Decreased opacification and irregularity of the right V4 segment likely represents chronic atherosclerotic disease and/or dissection related thrombus. On noncontrast head CT, there is increased focal hypoattenuation in the bilateral basal ganglia, particularly on the right, compared to prior imaging. Consider MRI to further evaluate if there is concern for infarction. Other findings as above. Dictated by: Brendan Romero M.D. on 11/12/2022 at 13:09 Approved by: Brendan Romero M.D. on 11/12/2022 at 13:21
--- NOTE | 2022-11-12 11:47 | DI.CT.S_ITS ---
PROCEDURE: CT CERVICAL SPINE WO CON INDICATIONS: h/o fall x 2, h/o ICH, + worsening mental status TECHNIQUE: Noncontrast 3 mm thick sections acquired from the skull base to the T4 level. Sagittal and coronal reformats were then constructed. For radiation dose reduction, the following was used: automated exposure control, adjustment of mA and/or kV according to patient size. COMPARISON: None. FINDINGS: Image quality: Good Bones: Moderate spondylotic changes, with disc space height loss, uncovertebral and facet arthropathy, and osteophytes. Vertebral body heights are well maintained. No displaced fracture. No traumatic malalignment. Sclerotic appearance of the left half of the T1 vertebral body, possibly a bone island, indeterminate. Soft tissues: Prevertebral soft tissues are normal in thickness. No paravertebral hematomas. No apical pneumothoraces. IMPRESSION: Degenerative changes. No acute fracture or traumatic subluxation identified. If there is high concern for further derangement, consider MRI evaluation. Dictated by: Brendan Romero M.D. on 11/12/2022 at 13:06 Approved by: Brendan Romero M.D. on 11/12/2022 at 13:08
--- NOTE | 2022-11-12 11:53 | DI.RAD.S_ITS ---
PROCEDURE: XR CHEST 1V INDICATIONS: chest pain TECHNIQUE: One view of the chest was acquired. COMPARISON: [facility], CR, XR CHEST 1V, 10/14/2022, 15:35. [facility], CR, XR CHEST 1V, 10/12/2022, 13:35. FINDINGS: Surgical changes and devices: Sternotomy wires. Lungs and pleura: Low lung volumes. No consolidation or pleural effusion. Mediastinum: Mediastinal contours appear normal. Heart size is normal. Bones and chest wall: No suspicious bony lesions. Overlying soft tissues appear unremarkable. IMPRESSION: No acute radiographic abnormality. Low lung volumes limiting evaluation. Dictated by: Brendan Romero M.D. on 11/12/2022 at 12:16 Approved by: Brendan Romero M.D. on 11/12/2022 at 12:17
[2022-11-12 12:04] LABS: INR 1.1 (0.9-1.3); Prothrombin Time 12.7 SECONDS (10.1-12.7)
[2022-11-12 12:07] LABS: PTT Partial Thromboplastin Tim 31 SECONDS (26-36)
[2022-11-12 12:08] LABS: Alanine Aminotransferase 63 IU/L (<50); Albumin Globulin Ratio 1.1 (1.0-2.8); Alkaline Phosphatase 103 U/L (38-126); Aspartate Aminotransferase 49 IU/L (17-59); Bilirubin Total 0.9 mg/dL (0.2-1.3); Blood Urea Nitrogen 43 mg/dL (9-20); Calcium 9.1 mg/dL (8.4-10.2); Carbon Dioxide 30 mmol/L (22-32); Chloride 98 mmol/L (98-107); Creatine Kinase 102 U/L (55-170); Estimated Glomerular Filt Rate 40 mL/min (>60); Globulin 3.6 g/dL (1.7-4.1); Glucose 146 mg/dL (80-110); HEMOLYSIS < 15 (0-50); Lipase 94 U/L (23-300); Magnesium 1.6 mg/dL (1.6-2.3); Potassium 4.4 mmol/L (3.4-5.1); Sodium 138 mmol/L (137-145); Total Protein 7.6 g/dL (6.3-8.2)
[2022-11-12 12:20] LABS: Troponin I < 0.012 ng/mL (0.01-0.034)
[2022-11-12 12:24] LABS: CKMB % Relative Index 0.5 % (1.5-5.0); Creatine Kinase MB 0.54 ng/mL (<2.37)
[2022-11-12 12:27] LABS: Add Manual Diff / Slide Review NO; Basophils Absolute Auto 100 /uL (0-100); Basophils Percent Auto 0.8 % (0-2); Eosinophils Absolute Auto 300 /uL (0-450); Eosinophils Percent Auto 3.4 % (2-4); Hematocrit 42.5 % (41-53); Hemoglobin 13.8 g/dL (13.5-17.5); Lymphocytes Absolute Auto 2000 /uL (1100-4500); Lymphocytes Percent Auto 25.3 % (25-40); Mean Corpuscular HGB Conc 32.5 % (30-36); Mean Corpuscular Hemoglobin 27.7 PG (26-34); Mean Corpuscular Volume 85.3 fL (80-100); Monocytes Absolute Auto 500 /uL (0-900); Monocytes Percent Auto 6.7 % (3-14); Neutrophils Absolute Auto 5000 /uL (1500-7000); Neutrophils Percent Auto 63.8 % (50-75); Platelet Count 156 X10^3/uL (150-400); Red Blood Cell Count 4.98 X10^6/uL (4.5-5.9); Red Cell Distribution Width 14.2 % (11.6-14.8); White Blood Cell Count 7.9 X10^3/uL (4.5-11.0)
--- NOTE | 2022-11-12 13:02 | ED.AMS ---
HPI - Altered Mental Status General Chief Complaint: Altered Mental Status Stated Complaint: Altered Mental Status Time Seen by Provider: 11/12/22 12:35 Source: EMS Mode of arrival: EMS History of Present Illness HPI narrative: Patient brought in by ambulance from [facility] for altered mental status. Last well known 9:00 p.m. last night. Patient has history of stroke diabetes idiopathic transaminitis. Discharge from this facility October 18, 2022 for subacute stroke failure to thrive. Patient does have right lip droop with slurred speech. Not hypoglycemic per EMS. Patient follows instructions very well. Denies any headache or pain or chest pain. Patient moving all 4 limbs purposely. Is this oriented, does not know where he is at or where he lives. Able to state his name and date of only. Patient is full code. Patient did have 2 falls yesterday. No known injury. Related Data Home Medications Medication Instructions Recorded Confirmed insulin glargine 100 unit/mL (3 50 unit SUBCUT 2100 11/12/22 11/12/22 mL) subcutaneous pen (Lantus Solostar U-100 Insulin) lisinopril 40 mg tablet 40 mg PO DAILY 11/12/22 11/12/22 mirtazapine 7.5 mg tablet 7.5 mg PO 2100 11/12/22 11/12/22 ondansetron 4 mg disintegrating 4 mg PO DAILY 11/12/22 11/12/22 tablet Previous Rx's Medication Instructions Recorded atorvastatin 80 mg tablet 80 mg PO DAILY #90 tabs 10/30/19 blood sugar diagnostic (FreeStyle See Rx Instructions .Route 07/15/20 Lite Strips) .COMPLEX #100 ea DISABLED PARKING PERMIT #1 ea 10/28/21 nitroglycerin 0.4 mg sublingual 0.4 mg sublingual Q5-15M PRN chest 12/09/21 tablet pain #30 tabs duloxetine 60 mg capsule,delayed 60 mg PO DAILY #90 caps 12/21/21 release insulin lispro 100 unit/mL See Rx Instructions .Route 10/18/22 subcutaneous solution (Humalog .COMPLEX #10 mL U-100 Insulin) metformin 500 mg tablet,extended 1,000 mg PO BID #60 tabs 10/18/22 release 24 hr metoprolol succinate 50 mg 50 mg PO BID #30 tabs 10/18/22 tablet,extended release 24 hr triamterene 37.5 1 tab PO DAILY #30 tabs 10/18/22 mg-hydrochlorothiazide 25 mg tablet aspirin 81 mg chewable tablet 325 mg PO QDAY #30 tabs 11/14/22 clopidogrel 75 mg tablet 75 mg PO DAILY #30 tabs 11/14/22 Allergies Allergy/AdvReac Type Severity Reaction Status Date / Time hydrocodone [From Vicodin] AdvReac Mild CRAMPS Verified 10/14/22 18:41 STOMACH Review of Systems Review of Systems Narrative: GENERAL: negative chills, fatigue, malaise, fever, sweats. HEENT: negative sinus pain, ear pain, sore throat RESPIRATORY: negative dyspnea, cough CARDIOVASCULAR: negative chest pain, palpitations GASTROINTESTINAL: negative nausea, vomiting, abdominal pain : negative dysuria, frequency, hematuria MUSCULOSKELETAL: negative muscle or bony pain SKIN: negative rash, skin lesions NEUROLOGIC: negative weakness, numbness, positive slurred speech positive right facial droop positive altered mental status ROS Unobtainable: All systems reviewed & are unremarkable except as noted in HPI and below Patient History Medical History Coronary arteriosclerosis in [place] artery (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) COVID-19 CVA (cerebral vascular accident) CVA, old, cognitive deficits Depression Diabetes mellitus (~1994) Diabetic neuropathy Hyperlipidemia (~2005) Hypertension (~2005) Obstructive sleep apnea of adult (~04/2017) Osteoarthritis of hand (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) Snoring (~2006) Tinnitus (~1989) Vascular dementia Surgical History Anesthesia History of knee surgery (~1994) S/P triple vessel bypass (~2006) Status post wrist surgery (~2011) Family History Father Heart disease Grandmother Diabetes mellitus Grandfather Heart disease Grandmother Diabetes mellitus Social History marital status: household members: none Smoking Status: Former smoker alcohol intake: current substance use type: does not use Smoking Status: Former smoker alcohol intake frequency: a few times a week Substance Use Type: does not use Exam Narrative Exam Narrative: GENERAL: in no distress, not toxic not dyspneic HEAD: Normocephalic. EYES: Pupils equal round ENT: Mucous membranes moist. NECK: Trachea midline. CARDIOVASCULAR: Regular rate and rhythm without murmurs RESPIRATORY: Clear to auscultation. Breath sounds equal bilaterally. No wheezes, rales, or rhonchi. GASTROINTESTINAL: Abdomen soft, non-tender EXTREMITIES: No gross deformities. BACK: No flank tenderness. NEURO: Awake alert oriented self and date of and follows commands easily. Has slight slurred speech as well as right lip droop. 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 Able to lift each leg independently off the bed SKIN: Warm and dry PSYCH: Not anxious, is cooperative Initial Vital Signs Initial Vital Signs: Vital Signs Temperature 98.2 F 11/12/22 11:46 Pulse Rate 60 11/12/22 11:46 Respiratory Rate 18 11/12/22 11:46 Blood Pressure 140/70 11/12/22 11:46 Pulse Oximetry 100 11/12/22 11:46 Oxygen Delivery Method 11/12/22 11:46 Scores NIH Stroke Scale Level of Conciousness: Alert, keenly responsive Ask month/age: Answers one question correctly, intubated follow commands Open/close eyes, close hand: Performs both tasks correctly Best gaze horizontal: Normal Visual zhang: No visual loss Facial palsy: Minor paralysis, flattened nasolabial fold, asymmetry on smiling Left arm drift: No drift for full 10 sec Right arm drift: No drift for full 10 sec Left leg drift: No drift for full 5 sec Right leg drift: No drift for full 5 sec Limb ataxia: Absent Sensory on face/arms/legs: Normal, no sensory loss Best language: Mild to moderate, slurs some words Dysarthria: Mild to mod,some slurring Extinction or inattention: No abnormality Total NIH Stroke scale score: 4 Course Orders Ordered: Discontinued Medications Acetaminophen (Acetaminophen 325 Mg Tablet) 650 mg PO Q6H PRN PRN Reason: Fever/Mild Pain (1-3) Aspirin (Aspirin Ec 325 Mg Tablet) 325 mg PO DAILY [facility] Last Admin: 11/14/22 09:25 Dose: 325 mg Documented By: Admin: 11/13/22 08:24 Dose: Not Given Documented By: Admin: 11/12/22 17:39 Dose: 325 mg Documented By: HARLAN Atorvastatin Calcium (Atorvastatin 20 Mg Tablet) 80 mg PO DAILY [facility] Last Admin: 11/14/22 09:25 Dose: 80 mg Documented By: Admin: 11/13/22 08:24 Dose: Not Given Documented By: ORLANDO Clopidogrel Bisulfate (Clopidogrel 75 Mg Tablet) 75 mg PO DAILY [facility] Last Admin: 11/14/22 09:25 Dose: 75 mg Documented By: Admin: 11/13/22 08:24 Dose: Not Given Documented By: Admin: 11/12/22 17:39 Dose: 75 mg Documented By: HARLAN Dextrose (Dextrose 50 % In Water 25 Gm/50 Ml Syringe) 25 gm IV PRN PRN PRN Reason: Hypoglycemia Duloxetine HCl (Duloxetine 30 Mg Capsule) 60 mg PO DAILY [facility] Last Admin: 11/14/22 09:25 Dose: 60 mg Documented By: Admin: 11/13/22 08:24 Dose: Not Given Documented By: ORLANDO Enoxaparin Sodium (Enoxaparin 40 Mg/0.4 Ml Syringe) 40 mg SUBCUT DAILY [facility] Last Admin: 11/14/22 09:25 Dose: 40 mg Documented By: Admin: 11/13/22 09:05 Dose: 40 mg Documented By: Admin: 11/12/22 17:38 Dose: 40 mg Documented By: HARLAN Lactated Ringer's (Lactated Ringers) 1,000 mls @ 100 mls/hr IV CONT [facility] Last Admin: 11/14/22 03:11 Dose: 100 mls/hr Documented By: Infusion: 11/14/22 03:11 Dose: 0 mls/hr Documented By: Admin: 11/13/22 03:52 Dose: 100 mls/hr Documented By: Infusion: 11/13/22 03:38 Dose: 100 mls/hr Documented By: Infusion: 11/12/22 18:20 Dose: 100 mls/hr Documented By: Admin: 11/12/22 17:38 Dose: 100 mls/hr Documented By: HARLAN Insulin Glargine (Insulin Glargine 100 Unit/Ml 3ml Pen) 40 unit SUBCUT 2100 [facility] Last Admin: 11/13/22 21:02 Dose: Not Given Documented By: Admin: 11/12/22 21:34 Dose: 40 unit Documented By: JENNIFER Co-signed By: LUIS M Insulin Human Lispro (Insulin Lispro 100 Unit/Ml 3ml Vial) 0 unit SUBCUT ACHS [facility]; Protocol Last Admin: 11/14/22 07:45 Dose: Not Given Documented By: Admin: 11/13/22 21:02 Dose: Not Given Documented By: Admin: 11/13/22 16:49 Dose: Not Given Documented By: Admin: 11/13/22 11:31 Dose: Not Given Documented By: Admin: 11/13/22 07:48 Dose: Not Given Documented By: Admin: 11/12/22 21:24 Dose: Not Given Documented By: Admin: 11/12/22 16:45 Dose: Not Given Documented By: HARLAN Lisinopril (Lisinopril 20 Mg Tablet) 40 mg PO DAILY [facility] Last Admin: 11/14/22 09:25 Dose: 40 mg Documented By: Admin: 11/13/22 08:24 Dose: Not Given Documented By: ORLANDO Metoprolol Succinate (Metoprolol Er 50 Mg Tablet) 50 mg PO BID [facility] Last Admin: 11/14/22 09:25 Dose: 50 mg Documented By: Admin: 11/13/22 21:02 Dose: Not Given Documented By: Admin: 11/13/22 08:24 Dose: Not Given Documented By: Admin: 11/12/22 21:34 Dose: Not Given Documented By: JENNIFER Naloxone HCl (Naloxone 0.4 Mg/Ml Vial) 0.2 mg IV Q2MIN PRN PRN Reason: Opiate Reversal Ondansetron HCl (Ondansetron 4 Mg/2 Ml Inj) 4 mg IV Q8HR PRN PRN Reason: Nausea And Vomiting Triamterene/Hydrochlorothiazide (Triamterene/Hctz 37.5/25 Capsule) 1 cap PO DAILY [facility] Last Admin: 11/14/22 09:26 Dose: 1 cap Documented By: Admin: 11/13/22 08:24 Dose: Not Given Documented By: ORLANDO Vital Signs Vital signs: Vital Signs - 8 hr 11/12/22 11:46 11/12/22 12:03 11/12/22 12:15 Temperature 98.2 F Pulse Rate 60 65 66 Respiratory Rate 18 14 18 Blood Pressure 140/70 Pulse Oximetry 100 95 94 Oxygen Delivery Method Room Air 11/12/22 12:16 11/12/22 12:16 11/12/22 12:38 Temperature Pulse Rate 66 64 Respiratory Rate 20 Blood Pressure 132/103 H Pulse Oximetry 94 97 Oxygen Delivery Method 11/12/22 12:45 11/12/22 13:00 11/12/22 13:15 Temperature Pulse Rate 68 67 66 Respiratory Rate 16 15 16 Blood Pressure Pulse Oximetry 94 94 94 Oxygen Delivery Method Room Air 11/12/22 13:30 11/12/22 13:45 11/12/22 14:00 Temperature Pulse Rate 70 64 69 Respiratory Rate 18 16 17 Blood Pressure Pulse Oximetry 94 98 97 Oxygen Delivery Method 11/12/22 14:14 11/12/22 14:14 11/12/22 14:15 Temperature Pulse Rate 68 Respiratory Rate 23 Blood Pressure 136/64 135/65 Pulse Oximetry 96 Oxygen Delivery Method 11/12/22 14:15 Temperature Pulse Rate 69 Respiratory Rate 17 Blood Pressure Pulse Oximetry 96 Oxygen Delivery Method Room Air MDM - Altered Mental Status Lab Data 11/12/22 11:30 11/12/22 11:30 Labs: Lab Results 11/12/22 11/12/22 11/12/22 Range/Units 11:30 11:30 11:30 WBC 7.9 (4.5-11.0) X10^3/uL RBC 4.98 (4.5-5.9) X10^6/uL Hgb 13.8 (13.5-17.5) g/dL Hct 42.5 (41-53) % MCV 85.3 (80-100) fL MCH 27.7 (26-34) PG MCHC 32.5 (30-36) % RDW 14.2 (11.6-14.8) % Plt Count 156 (150-400) X10^3/uL Neut % (Auto) 63.8 (50-75) % Lymph % (Auto) 25.3 (25-40) % [place] % (Auto) 6.7 (3-14) % Eos % (Auto) 3.4 (2-4) % Baso % (Auto) 0.8 (0-2) % Neut # (Auto) 5000 (0124-4003) /uL Lymph # (Auto) 2000 (0652-5455) /uL [place] # (Auto) 500 (0-900) /uL Eos # (Auto) 300 (0-450) /uL Baso # (Auto) 100 (0-100) /uL PT 12.7 (10.1-12.7) SECONDS INR 1.1 (0.9-1.3) APTT 31 (26-36) SECONDS Sodium 138 (137-145) mmol/L Potassium 4.4 (3.4-5.1) mmol/L Chloride 98 (98-107) mmol/L Carbon Dioxide 30 (22-32) mmol/L BUN 43 H (9-20) mg/dL Creatinine 1.79 H (0.66-1.25) mg/dL Estimated GFR 40 L (>60) mL/min BUN/Creatinine Ratio 24.0 H (6-22) Glucose 146 H D (80-110) mg/dL Calcium 9.1 (8.4-10.2) mg/dL Magnesium 1.6 (1.6-2.3) mg/dL Total Bilirubin 0.9 (0.2-1.3) mg/dL AST 49 (17-59) IU/L ALT 63 H (<50) IU/L Alkaline Phosphatase 103 (38-126) U/L Ammonia (9-30) umol/L Total Creatine Kinase 102 (55-170) U/L CK-MB (CK-2) 0.54 (<2.37) ng/mL CK-MB (CK-2) Rel Index 0.5 L (1.5-5.0) % Troponin I < 0.012 (0.01-0.034) ng/mL Total Protein 7.6 (6.3-8.2) g/dL Albumin 4.0 (3.5-5.0) g/dL Globulin 3.6 (1.7-4.1) g/dL Albumin/Globulin Ratio 1.1 (1.0-2.8) Lipase 94 (23-300) U/L Urine Color Urine Appearance Urine pH (4.5-8.0) Ur Specific [place] (1.000-1.035) Urine Protein (Negative) Urine Glucose (UA) (Negative) g/dL Urine Ketones (NEGATIVE) Urine Occult Blood (Negative) Urine Nitrate (Negative) Urine Bilirubin (NEGATIVE) Urine Urobilinogen (0.2) E.U./dL Ur Leukocyte Esterase (NEGATIVE) Urine RBC (0-5/HPF) Urine WBC (0-5/HPF) Ur Squamous Epith Cells (0-5/HPF) Urine Bacteria (None) Ur Culture Indicated? U Opiates 300ng/mL cut (Negative) Ur Oxycodone Screen (Negative) Urine Methadone Screen (Negative) Ur Barbiturates Screen (Negative) U Tricyclic Antidepress (Negative) Ur Phencyclidine Scrn (Negative) Ur Amphetamines Screen (Negative) U Methamphetamines Scrn (Negative) Ur MDMA Scrn (Ecstasy) (Negative) U Benzodiazepines Scrn (Negative) Urine Cocaine Screen (Negative) U Marijuana (THC) Screen (Negative) SARS-CoV-2 (PCR) (Negative) 11/12/22 11/12/22 11/12/22 Range/Units 13:25 13:30 13:40 WBC (4.5-11.0) X10^3/uL RBC (4.5-5.9) X10^6/uL Hgb (13.5-17.5) g/dL Hct (41-53) % MCV (80-100) fL MCH (26-34) PG MCHC (30-36) % RDW (11.6-14.8) % Plt Count (150-400) X10^3/uL Neut % (Auto) (50-75) % Lymph % (Auto) (25-40) % [place] % (Auto) (3-14) % Eos % (Auto) (2-4) % Baso % (Auto) (0-2) % Neut # (Auto) (7432-8164) /uL Lymph # (Auto) (9275-5462) /uL [place] # (Auto) (0-900) /uL Eos # (Auto) (0-450) /uL Baso # (Auto) (0-100) /uL PT (10.1-12.7) SECONDS INR (0.9-1.3) APTT (26-36) SECONDS Sodium (137-145) mmol/L Potassium (3.4-5.1) mmol/L Chloride (98-107) mmol/L Carbon Dioxide (22-32) mmol/L BUN (9-20) mg/dL Creatinine (0.66-1.25) mg/dL Estimated GFR (>60) mL/min BUN/Creatinine Ratio (6-22) Glucose (80-110) mg/dL Calcium (8.4-10.2) mg/dL Magnesium (1.6-2.3) mg/dL Total Bilirubin (0.2-1.3) mg/dL AST (17-59) IU/L ALT (<50) IU/L Alkaline Phosphatase (38-126) U/L Ammonia < 9 L (9-30) umol/L Total Creatine Kinase (55-170) U/L CK-MB (CK-2) (<2.37) ng/mL CK-MB (CK-2) Rel Index (1.5-5.0) % Troponin I (0.01-0.034) ng/mL Total Protein (6.3-8.2) g/dL Albumin (3.5-5.0) g/dL Globulin (1.7-4.1) g/dL Albumin/Globulin Ratio (1.0-2.8) Lipase (23-300) U/L Urine Color Urine Appearance Urine pH (4.5-8.0) Ur Specific [place] (1.000-1.035) Urine Protein (Negative) Urine Glucose (UA) (Negative) g/dL Urine Ketones (NEGATIVE) Urine Occult Blood (Negative) Urine Nitrate (Negative) Urine Bilirubin (NEGATIVE) Urine Urobilinogen (0.2) E.U./dL Ur Leukocyte Esterase (NEGATIVE) Urine RBC (0-5/HPF) Urine WBC (0-5/HPF) Ur Squamous Epith Cells (0-5/HPF) Urine Bacteria (None) Ur Culture Indicated? U Opiates 300ng/mL cut Negative (Negative) Ur Oxycodone Screen Negative (Negative) Urine Methadone Screen Negative (Negative) Ur Barbiturates Screen Negative (Negative) U Tricyclic Antidepress Negative (Negative) Ur Phencyclidine Scrn Negative (Negative) Ur Amphetamines Screen Negative (Negative) U Methamphetamines Scrn Negative (Negative) Ur MDMA Scrn (Ecstasy) Negative (Negative) U Benzodiazepines Scrn Negative (Negative) Urine Cocaine Screen Negative (Negative) U Marijuana (THC) Screen Negative (Negative) SARS-CoV-2 (PCR) Negative (Negative) 11/12/22 Range/Units 13:40 WBC (4.5-11.0) X10^3/uL RBC (4.5-5.9) X10^6/uL Hgb (13.5-17.5) g/dL Hct (41-53) % MCV (80-100) fL MCH (26-34) PG MCHC (30-36) % RDW (11.6-14.8) % Plt Count (150-400) X10^3/uL Neut % (Auto) (50-75) % Lymph % (Auto) (25-40) % [place] % (Auto) (3-14) % Eos % (Auto) (2-4) % Baso % (Auto) (0-2) % Neut # (Auto) (4397-6441) /uL Lymph # (Auto) (9655-0066) /uL [place] # (Auto) (0-900) /uL Eos # (Auto) (0-450) /uL Baso # (Auto) (0-100) /uL PT (10.1-12.7) SECONDS INR (0.9-1.3) APTT (26-36) SECONDS Sodium (137-145) mmol/L Potassium (3.4-5.1) mmol/L Chloride (98-107) mmol/L Carbon Dioxide (22-32) mmol/L BUN (9-20) mg/dL Creatinine (0.66-1.25) mg/dL Estimated GFR (>60) mL/min BUN/Creatinine Ratio (6-22) Glucose (80-110) mg/dL Calcium (8.4-10.2) mg/dL Magnesium (1.6-2.3) mg/dL Total Bilirubin (0.2-1.3) mg/dL AST (17-59) IU/L ALT (<50) IU/L Alkaline Phosphatase (38-126) U/L Ammonia (9-30) umol/L Total Creatine Kinase (55-170) U/L CK-MB (CK-2) (<2.37) ng/mL CK-MB (CK-2) Rel Index (1.5-5.0) % Troponin I (0.01-0.034) ng/mL Total Protein (6.3-8.2) g/dL Albumin (3.5-5.0) g/dL Globulin (1.7-4.1) g/dL Albumin/Globulin Ratio (1.0-2.8) Lipase (23-300) U/L Urine Color Yellow Urine Appearance Clear Urine pH 6.0 (4.5-8.0) Ur Specific [place] 1.010 (1.000-1.035) Urine Protein Negative (Negative) Urine Glucose (UA) Negative (Negative) g/dL Urine Ketones Negative (NEGATIVE) Urine Occult Blood Negative (Negative) Urine Nitrate Negative (Negative) Urine Bilirubin Negative (NEGATIVE) Urine Urobilinogen 1.0 (0.2) E.U./dL Ur Leukocyte Esterase Negative (NEGATIVE) Urine RBC None seen (0-5/HPF) Urine WBC 0-1/hpf (0-5/HPF) Ur Squamous Epith Cells 0-1 /hpf (0-5/HPF) Urine Bacteria None seen (None) Ur Culture Indicated? Cult not indicated U Opiates 300ng/mL cut (Negative) Ur Oxycodone Screen (Negative) Urine Methadone Screen (Negative) Ur Barbiturates Screen (Negative) U Tricyclic Antidepress (Negative) Ur Phencyclidine Scrn (Negative) Ur Amphetamines Screen (Negative) U Methamphetamines Scrn (Negative) Ur MDMA Scrn (Ecstasy) (Negative) U Benzodiazepines Scrn (Negative) Urine Cocaine Screen (Negative) U Marijuana (THC) Screen (Negative) SARS-CoV-2 (PCR) (Negative) Point of Care Testing Glucose POC 114 Imaging Data Chest x-ray: Radiologist's Impression: [address] [address] XRay Report Signed Patient: Wilfrido Mclean MR#: [id number] : 1950 Acct:[id number] Age/Sex: 72 / M Date of Service: 11/12/22 Loc: ED Accession Number: [id number] ?? Procedure: XR chest 1V Ordering Provider: Toni Jennings MD PROCEDURE:? XR CHEST 1V ? INDICATIONS:? chest pain ? TECHNIQUE:? One view of the chest was acquired.? ? COMPARISON:? [facility], CR, XR CHEST 1V, 10/14/2022, 15:35.? [facility], CR, XR CHEST 1V, 10/12/2022, 13:35. ? FINDINGS:? ? Surgical changes and devices:? Sternotomy wires. ? Lungs and pleura:? Low lung volumes.? No consolidation or pleural effusion. ? Mediastinum:? Mediastinal contours appear normal.? Heart size is normal.? ? Bones and chest wall:? No suspicious bony lesions.? Overlying soft tissues appear unremarkable.? ? IMPRESSION:? No acute radiographic abnormality.? Low lung volumes limiting evaluation. ? ? Dictated by: Brendan Whitmore M.D. on 11/12/2022 at 12:16 ? ? Approved by: Brendan Whitmore M.D. on 11/12/2022 at 12:17 ? CT - cervical spine: Radiologist's Impression: [address] [address] [address] Scan Report Signed Patient: Wilfrido Mclean MR#: [id number] : 1950 Acct:[id number] Age/Sex: 72 / M Date of Service: 11/12/22 Loc: ED Accession Number: [id number] ?? Procedure: CT cervical spine wo con Ordering Provider: Toni Jennings MD PROCEDURE:? CT CERVICAL SPINE WO CON ? INDICATIONS:? h/o fall x 2, h/o ICH, + worsening mental status ? TECHNIQUE:? Noncontrast 3 mm thick sections acquired from the skull base to the T4 level.? Sagittal and coronal reformats were then constructed.? For radiation dose reduction, the following was used:? automated exposure control, adjustment of mA and/or kV according to patient size.? ? COMPARISON:? None. ? FINDINGS:? Image quality:? Good ? Bones:? Moderate spondylotic changes, with disc space height loss, uncovertebral and facet arthropathy, and osteophytes.? Vertebral body heights are well maintained.? No displaced fracture.? No traumatic malalignment.? Sclerotic appearance of the left half of the T1 vertebral body, possibly a bone island, indeterminate. ? Soft tissues:? Prevertebral soft tissues are normal in thickness.? No paravertebral hematomas.? No apical pneumothoraces.? ? ? IMPRESSION:? Degenerative changes.? No acute fracture or traumatic subluxation identified.? If there is high concern for further derangement, consider MRI evaluation. ? ? Dictated by: Brendan Whitmore M.D. on 11/12/2022 at 13:06 ? ? Approved by: Brendan Whitmore M.D. on 11/12/2022 at 13:08 ? CTA - brain/neck: Radiologist's Impression: [address] [address] [address] Scan Report Signed Patient: Wilfrido Mclean MR#: [id number] : 1950 Acct:[id number] Age/Sex: 72 / M Date of Service: 11/12/22 Loc: ED Accession Number: [id number] ?? Procedure: CT angio head and neck Ordering Provider: Toni Jennings MD PROCEDURE:? CT ANGIO HEAD AND NECK ? INDICATIONS:? h/o fall x 2, h/o ICH, + worsening mental status ? TECHNIQUE:? Pre-contrast 4.5 mm thick sections acquired from the foramen magnum to the vertex.? After the administration of intravenous contrast, 1 mm thick sections acquired from the aortic arch through the [place].? Post-contrast 4.5 mm thick sections then re-acquired from the foramen magnum to the vertex.? 3-dimensional lksigcw-bwsjyicrd-jtnumxoaho (MIP) and/or volume rendering reformats were acquired of the central intracranial vasculature and neck separately. For radiation dose reduction, the following was used:? automated exposure control, adjustment of mA and/or kV according to patient size.? ? COMPARISON:? [facility], MR, MR STROKE, 10/15/2022, 9:59. ? FINDINGS:? Image quality:? Good ? CSF spaces: Basal cisterns are patent. Lateral ventricles are symmetric. Volume:? Vascular calcifications. Periventricular white matter disease is commonly seen with chronic microangiopathy. Volume loss is present. These findings are [id number] ? Brain:? Basal ganglia mineralization.? Hypoattenuation involving the bilateral basal ganglia and elliott radiata regions.? The right-sided region is more prominent than prior imaging. ? Craniofacial structures: No displaced fracture. Sinuses are clear. Orbits are intact. ? Image quality: Excellent ? HEAD ANGIOGRAPHY Anterior circulation: ICAs:? Moderate narrowing of the distal cervical ICA.? Kfap-tt-wkiabjje bilateral cavernous carotid narrowing also seen. ACAs: Normal and symmetric MCAs:? Moderate narrowing of the right M1 segment ().? High-grade stenosis of the superior branch of the left M2 (). AComm: No aneurysm Venous sinuses: patent ? Posterior circulation: Dominance:? Left Vertebral arteries:? Decreased opacification and moderate irregularity of the right intracranial vertebral artery Basilar artery: Unremarkable PComms: No aneurysm ticket manager:? Zwia-cl-fuacljhz intracranial irregularity ? NECK ANGIOGRAPHY: Aortic arch and subclavian arteries:? Atherosclerotic calcifications are present without high-grade stenosis CCAs: No stenosis, occlusion, or aneurysm. ICA origins (by NASCET criteria):? Atherosclerotic calcifications, left in 50% narrowing. ? ICAs: No stenosis, occlusion or aneurysm. ECAs: Origins are patent. Vertebral arteries:? Mild narrowing at the origins ? Soft tissues: No significant mass, aneurysm, or lymphadenopathy Lung apices: No pneumothorax Bones: No acute or suspicious abnormality. ? IMPRESSION:? No large vessel occlusion.? However, there are multiple areas of moderate to high-grade stenosis, for example in the distal right cervical ICA, bilateral cavernous carotids, right M1, superior branch of the left M2, and bilateral ticket manager.? Intracranial arterial irregularities likely representing intracranial atherosclerosis.? ? Decreased opacification and irregularity of the right V4 segment likely represents chronic atherosclerotic disease and/or dissection related thrombus. ? On noncontrast head CT, there is increased focal hypoattenuation in the bilateral basal ganglia, particularly on the right, compared to prior imaging.? Consider MRI to further evaluate if there is concern for infarction. ? Other findings as above.? ? Dictated by: Brendan Whitmore M.D. on 11/12/2022 at 13:09 ? ? Approved by: Brendan Whitmore M.D. on 11/12/2022 at 13:21 ? MRI brain: Radiologist's Impression: [place] [address] Magnetic Resonance Report Signed Patient: Wilfrido Mclean MR#: [id number] : 1950 Acct:[id number] Age/Sex: 72 / M Date of Service: 11/12/22 Loc: ED Accession Number: [id number] ?? Procedure: MR head/brain wo con Ordering Provider: Toni Jennings MD PROCEDURE:? MR HEAD/BRAIN WO CON ? INDICATIONS:? Slurred speech facial droop ? TECHNIQUE:? Non-contrast axial T1 spin echo, axial T2 fast spin echo, sagittal and axial FLAIR, coronal T2 fast spin echo, axial gradient echo, axial diffusion and ADC through the brain.? ? COMPARISON:? None. ? FINDINGS:? Image quality:? Degraded by motion artifact. ? CSF spaces:? Ventricles appear symmetric in size and shape.? Basal cisterns are patent.? No extra-axial fluid collections.? ? Brain:? No intracranial bleeds or mass effects.? There is cerebral volume loss for age.? There are periventricular and deep white matter chronic small vessel ischemic changes.? Brainstem appears normal.? Diffusion-weighted images demonstrate a multi lobular 30 mm diameter region of elevated signal intensity within the right mid elliott radiata which demonstrates moderate FLAIR signal elevation.? Normal intravascular flow voids are present.? ? Skull and face:? Calvarial bone marrow is normal in signal.? Orbits are normal.? ? Sinuses:? Sinuses and mastoids are clear.? ? IMPRESSION:? 1. Subacute right elliott radiata infarct. 2. Volume loss and small vessel ischemic disease.? ? ? Dictated by: Escobar Blanton M.D. on 11/12/2022 at 15:52 ? ? Approved by: Escobar Blanton M.D. on 11/12/2022 at 15:53 ? MDM Narrative Medical decision making narrative: Patient brought in by ambulance from [facility] for altered mental status. Last well known 9:00 p.m. last night. Patient has history of stroke diabetes idiopathic transaminitis. Discharge from this facility October 18, 2022 for subacute stroke failure to thrive. Patient does have right lip droop with slurred speech. Not hypoglycemic per EMS. Patient follows instructions very well. Denies any headache or pain or chest pain. Patient moving all 4 limbs purposely. Is this oriented, does not know where he is at or where he lives. Able to state his name and date of only. Patient is full code. Patient had 2 falls yesterday. No known injury. Patient denies any pain After history and exam CBC CMP troponin EKG CT angiogram head and neck ordered. MDM CC: Altered mental status slurred speech facial droop Complicating co-morbidities: History of stroke and diabetes Data collected from: Patient and longterm records and EMS Medical records reviewed: ER visits as well as admission and discharge summary from last month Differential considered: Includes but not limited to TIA/stroke/head bleed/hypoglycemia/hepatic encephalopathy/UTI Exam documented above, pertinent findings include: Slurred speech and facial droop Lab Test results independently reviewed as above. Pertinent findings: White cell count 7.9 hemoglobin 13.8 hematocrit 42 platelets 156 PT 12.7 INR 1.1 PTT 31, sodium 138 BUN 43 creatinine 1.79 GFR 40 glucose 146 AST 49 ALT 63 troponin less than 0.012, urinalysis no acute process Independently reviewed EKG as above sinus rhythm rate [address] elevation or depression Imaging studies independently reviewed: Chest x-ray no acute process, CT angiogram head and neck no large vessel occlusion. V4 right segment represents chronic atherosclerotic disease and/or dissection related thrombus. Noncontrast head CT increased focal hypoattenuation in the bilateral basal ganglia particular on the right compared to prior imaging, MRI brain subacute infarct right elliott radiata, CT cervical spine no acute process Consultations: 2:20 p.m.. Spoke with primary care Dr. Skip Shea, he will come to see patient in the department for admission 2:[address] whitmore, radiologist, the V4 segment on the right side is not new. He is able to see this on MRI from last month. Treatments: IV fluids Re-evaluations: 2:15 p.m.. Spoke with patient and son. They do agree for admission. Son feels like he is had another stroke. Son does express that patient's sugars have been running high at the longterm. 4:45 p.m.. I did speak with son and daughter results and results of MRI showing stroke. They do understand and agree for admit. Discussion: Appropriate for admission. Patient likely had another stroke. I did review with radiologist as well as primary care provider. Patient outside window for tPA. No large vessel disease. No endovascular surgery procedure indicated. Diagnosis: Altered mental status Discharge Plan Departure Patient Disposition: Admitted as Observation Clinical Impression: CVA (cerebral vascular accident) Admit Date/Time: 11/12/22 16:10 Admit Provider: Skip Shea
--- NOTE | 2022-11-12 13:27 | PC.NURSE ---
Pt slow to answer questions, but is able to answer yes/no questions appropriately. Oriented to self and place, not time.
[2022-11-12 13:47] LABS: Ammonia (NH3) < 9 umol/L (9-30)
[2022-11-12 14:01] LABS: UR Morphine/Opiate cutoff 300 Negative (Negative); Ur Creatinine Normal (Normal); Ur Specific Gravity Normal (Normal); Urine Amphetamines Negative (Negative); Urine Barbiturates Negative (Negative); Urine Benzodiazepines Negative (Negative); Urine Cocaine Negative (Negative); Urine MDMA Negative (Negative); Urine Methadone Negative (Negative); Urine Methamphetamines Negative (Negative); Urine Oxycodone Negative (Negative); Urine Phencyclidine Negative (Negative); Urine Tetrahydrocannabinol Negative (Negative); Urine Tricyclic Antidepressant Negative (Negative); Urine pH Normal (Normal)
[2022-11-12 14:09] LABS: COVID19 -Nasal RAPID Negative (Negative)
--- NOTE | 2022-11-12 14:13 | DI.MRI.S_ITS ---
PROCEDURE: MR HEAD/BRAIN WO CON INDICATIONS: Slurred speech facial droop TECHNIQUE: Non-contrast axial T1 spin echo, axial T2 fast spin echo, sagittal and axial FLAIR, coronal T2 fast spin echo, axial gradient echo, axial diffusion and ADC through the brain. COMPARISON: None. FINDINGS: Image quality: Degraded by motion artifact. CSF spaces: Ventricles appear symmetric in size and shape. Basal cisterns are patent. No extra-axial fluid collections. Brain: No intracranial bleeds or mass effects. There is cerebral volume loss for age. There are periventricular and deep white matter chronic small vessel ischemic changes. Brainstem appears normal. Diffusion-weighted images demonstrate a multi lobular 30 mm diameter region of elevated signal intensity within the right mid elliott radiata which demonstrates moderate FLAIR signal elevation. Normal intravascular flow voids are present. Skull and face: Calvarial bone marrow is normal in signal. Orbits are normal. Sinuses: Sinuses and mastoids are clear. IMPRESSION: 1. Subacute right elliott radiata infarct. 2. Volume loss and small vessel ischemic disease. Dictated by: Escobar Blanton M.D. on 11/12/2022 at 15:52 Approved by: Escobar Blanton M.D. on 11/12/2022 at 15:53
[2022-11-12 14:23] LABS: Appearance Urine UA CLEAR; Bilirubin Urine UA NEGATIVE (NEGATIVE); Color Urine UA YELLOW; Glucose Urine UA NEGATIVE (Negative); Ketones Urine UA NEGATIVE (NEGATIVE); Leukocyte Esterase Urine UA NEGATIVE (NEGATIVE); Nitrite Urine UA NEGATIVE (Negative); Occult Blood Urine UA NEGATIVE (Negative); Protein Urine UA NEGATIVE (Negative)
[2022-11-12 14:49] LABS: Bacteria Urine None Seen; Culture Indicated Urine Cult Not Indicated; RBC Urine None Seen (0-5/HPF); Squamous Epithelial Cell Urine 0-1 /HPF (0-5/HPF); WBC Urine 0-1/HPF (0-5/HPF)
--- NOTE | 2022-11-12 15:27 | PC.NURSE ---
Patient enjoyed taste of applesauce during swallow evaluation. Ate a few more additional bites. Remained seated upright in bed, position of comfort. Call light in reach.
--- NOTE | 2022-11-12 15:44 | PC.NURSE ---
standby assist to restroom. Tolerated well.
--- NOTE | 2022-11-12 15:55 | PM.HP.1 ---
History of Present Illness History of Present Illness Date Patient Seen: 11/12/22 Time Patient Seen: 15:55 Chief complaint: Altered Mental Status Narrative: 72-year-old history of coronary artery disease cerebrovascular disease poorly-controlled diabetes hypertension hyperlipidemia sleep apnea and depression who has been residing at a care home facility after a cerebrovascular accident presents to the emergency department with change in mental status. Patient was admitted to the hospital in September of this year and found to have a subacute basal ganglion stroke. Was treated appropriately during his hospital stay and was discharged to skilled rehab. Patient comes in today because of fluctuation and changes in his mental status. On my evaluation. Patient has a hard time with word finding. He appears to be confused. Which has been a significant change from his baseline. He does not recognize me. He does know he is in the hospital he is unable to tell me date time. Patient is moving upper lower a extremities but has some moderate amount of weakness. Patient is unable to answer direct questions in regards to whether he is having headache dizziness blurry vision chest pain abdominal pain. He says he does not have any problems with those. Was getting up to the bathroom with the assistance of an aide. Unable to bear weight. Patient was having a nurse side evaluation in his able to clear his secretions but has a weak cough. Unable to swallow without choking. Patient History Medical History Coronary arteriosclerosis in [place] artery (04/12/17) COVID-19 CVA (cerebral vascular accident) CVA, old, cognitive deficits Depression Diabetes mellitus (~1994) Diabetic neuropathy Hyperlipidemia (~2005) Hypertension (~2005) Obstructive sleep apnea of adult (~04/2017) Osteoarthritis of hand (06/04/15) Snoring (~2006) Tinnitus (~1989) Vascular dementia Surgical History Anesthesia History of knee surgery (~1994) S/P triple vessel bypass (~2006) Status post wrist surgery (~2011) Family & Social History Family History Father Heart disease Grandmother Diabetes mellitus Grandfather Heart disease Grandmother Diabetes mellitus Social History: household members none Safety & Behavioral: Feels Safe in Current Yes Environment Been Physically Hurt or No Threatened By a Person Tobacco & Substance use: Tobacco type cigarettes Smoking Status Former smoker alcohol intake current alcohol intake frequency a few times a week Substance Use Type does not use Meds Home Medications and Allergies Home Medications Medication Instructions Recorded Confirmed Type aspirin 81 mg chewable tablet 162 mg PO QDAY #0 tabs 01/22/19 10/14/22 History atorvastatin 80 mg tablet 80 mg PO DAILY #90 tabs 10/30/19 10/14/22 Rx blood sugar diagnostic (FreeStyle See Rx Instructions .Route 07/15/20 10/14/22 Rx Lite Strips) .COMPLEX #100 ea DISABLED [place] #1 ea 10/28/21 10/14/22 Rx nitroglycerin 0.4 mg sublingual 0.4 mg sublingual Q5-15M PRN chest 12/09/21 10/14/22 Rx tablet pain #30 tabs duloxetine 60 mg capsule,delayed 60 mg PO DAILY #90 caps 12/21/21 10/14/22 Rx release lisinopril 40 mg tablet See Rx Instructions .Route 09/17/22 10/14/22 Rx .COMPLEX #90 tabs insulin glargine 100 unit/mL (3 40 unit (0.4 mL) SUBCUT 2100 #15 mL 10/18/22 Rx mL) subcutaneous pen (Lantus Solostar U-100 Insulin) insulin lispro 100 unit/mL See Rx Instructions .Route 10/18/22 Rx subcutaneous solution (Humalog .COMPLEX #10 mL U-100 Insulin) metformin 500 mg tablet,extended 1,000 mg PO BID #60 tabs 10/18/22 Rx release 24 hr metoprolol succinate 50 mg 50 mg PO BID #30 tabs 10/18/22 Rx tablet,extended release 24 hr triamterene 37.5 1 tab PO DAILY #30 tabs 10/18/22 Rx mg-hydrochlorothiazide 25 mg tablet Allergies Allergy/AdvReac Type Severity Reaction Status Date / Time hydrocodone [From Vicodin] AdvReac Mild CRAMPS Verified 10/14/22 18:41 STOMACH Exam Vital Signs (past 8 hours): - 11/12/22 11:46 11/12/22 12:03 11/12/22 12:15 Temperature 98.2 F Pulse Rate 60 65 66 Respiratory Rate 18 14 18 Blood Pressure 140/70 Pulse Oximetry 100 95 94 Oxygen Delivery Method Room Air 11/12/22 12:16 11/12/22 12:16 11/12/22 12:38 Temperature Pulse Rate 66 64 Respiratory Rate 20 Blood Pressure 132/103 H Pulse Oximetry 94 97 Oxygen Delivery Method 11/12/22 12:45 11/12/22 13:00 11/12/22 13:15 Temperature Pulse Rate 68 67 66 Respiratory Rate 16 15 16 Blood Pressure Pulse Oximetry 94 94 94 Oxygen Delivery Method Room Air 11/12/22 13:30 11/12/22 13:45 11/12/22 14:00 Temperature Pulse Rate 70 64 69 Respiratory Rate 18 16 17 Blood Pressure Pulse Oximetry 94 98 97 Oxygen Delivery Method 11/12/22 14:14 11/12/22 14:14 11/12/22 14:15 Temperature Pulse Rate 68 Respiratory Rate 23 Blood Pressure 136/64 135/65 Pulse Oximetry 96 Oxygen Delivery Method 11/12/22 14:15 Temperature Pulse Rate 69 Respiratory Rate 17 Blood Pressure Pulse Oximetry 96 Oxygen Delivery Method Room Air Oxygen Delivery Method Room Air Narrative Exam Narrative: Gen.: Patient is alert know where but unable to provide date time and place. Answers direct questions HEENT: Pupils equal round and reactive oral mucosa is dry neck is supple Cardio: S1-S2 regular rate and rhythm Respiratory: Lungs are clear to auscultation no wheezes or crackles normal respiratory effort. Abdomen: Soft nontender no rebound or guarding no liver spleen enlargement no appreciable hernias Extremities: Full range of motion difficulty with balance Objective Labs 11/12/22 11:30 11/12/22 11:30 Labs: Laboratory Results - last 24 hr 11/12/22 11/12/22 11/12/22 11:30 11:30 11:30 WBC 7.9 RBC 4.98 Hgb 13.8 Hct 42.5 MCV 85.3 MCH 27.7 MCHC 32.5 RDW 14.2 Plt Count 156 Neut % (Auto) 63.8 Lymph % (Auto) 25.3 [place] % (Auto) 6.7 Eos % (Auto) 3.4 Baso % (Auto) 0.8 Neut # (Auto) 5000 Lymph # (Auto) 2000 [place] # (Auto) 500 Eos # (Auto) 300 Baso # (Auto) 100 PT 12.7 INR 1.1 APTT 31 Sodium 138 Potassium 4.4 Chloride 98 Carbon Dioxide 30 BUN 43 H Creatinine 1.79 H Estimated GFR 40 L BUN/Creatinine Ratio 24.0 H Glucose 146 H D Calcium 9.1 Magnesium 1.6 Total Bilirubin 0.9 AST 49 ALT 63 H Alkaline Phosphatase 103 Ammonia Total Creatine Kinase 102 CK-MB (CK-2) 0.54 CK-MB (CK-2) Rel Index 0.5 L Troponin I < 0.012 Total Protein 7.6 Albumin 4.0 Globulin 3.6 Albumin/Globulin Ratio 1.1 Lipase 94 Urine Color Urine Appearance Urine pH Ur Specific [place] Urine Protein Urine Glucose (UA) Urine Ketones Urine Occult Blood Urine Nitrate Urine Bilirubin Urine Urobilinogen Ur Leukocyte Esterase Urine RBC Urine WBC Ur Squamous Epith Cells Urine Bacteria Ur Culture Indicated? U Opiates 300ng/mL cut Ur Oxycodone Screen Urine Methadone Screen Ur Barbiturates Screen U Tricyclic Antidepress Ur Phencyclidine Scrn Ur Amphetamines Screen U Methamphetamines Scrn Ur MDMA Scrn (Ecstasy) U Benzodiazepines Scrn Urine Cocaine Screen U Marijuana (THC) Screen SARS-CoV-2 (PCR) 11/12/22 11/12/22 11/12/22 13:25 13:30 13:40 WBC RBC Hgb Hct MCV MCH MCHC RDW Plt Count Neut % (Auto) Lymph % (Auto) [place] % (Auto) Eos % (Auto) Baso % (Auto) Neut # (Auto) Lymph # (Auto) [place] # (Auto) Eos # (Auto) Baso # (Auto) PT INR APTT Sodium Potassium Chloride Carbon Dioxide BUN Creatinine Estimated GFR BUN/Creatinine Ratio Glucose Calcium Magnesium Total Bilirubin AST ALT Alkaline Phosphatase Ammonia < 9 L Total Creatine Kinase CK-MB (CK-2) CK-MB (CK-2) Rel Index Troponin I Total Protein Albumin Globulin Albumin/Globulin Ratio Lipase Urine Color Urine Appearance Urine pH Ur Specific [place] Urine Protein Urine Glucose (UA) Urine Ketones Urine Occult Blood Urine Nitrate Urine Bilirubin Urine Urobilinogen Ur Leukocyte Esterase Urine RBC Urine WBC Ur Squamous Epith Cells Urine Bacteria Ur Culture Indicated? U Opiates 300ng/mL cut Negative Ur Oxycodone Screen Negative Urine Methadone Screen Negative Ur Barbiturates Screen Negative U Tricyclic Antidepress Negative Ur Phencyclidine Scrn Negative Ur Amphetamines Screen Negative U Methamphetamines Scrn Negative Ur MDMA Scrn (Ecstasy) Negative U Benzodiazepines Scrn Negative Urine Cocaine Screen Negative U Marijuana (THC) Screen Negative SARS-CoV-2 (PCR) Negative 11/12/22 13:40 WBC RBC Hgb Hct MCV MCH MCHC RDW Plt Count Neut % (Auto) Lymph % (Auto) [place] % (Auto) Eos % (Auto) Baso % (Auto) Neut # (Auto) Lymph # (Auto) [place] # (Auto) Eos # (Auto) Baso # (Auto) PT INR APTT Sodium Potassium Chloride Carbon Dioxide BUN Creatinine Estimated GFR BUN/Creatinine Ratio Glucose Calcium Magnesium Total Bilirubin AST ALT Alkaline Phosphatase Ammonia Total Creatine Kinase CK-MB (CK-2) CK-MB (CK-2) Rel Index Troponin I Total Protein Albumin Globulin Albumin/Globulin Ratio Lipase Urine Color Yellow Urine Appearance Clear Urine pH 6.0 Ur Specific [place] 1.010 Urine Protein Negative Urine Glucose (UA) Negative Urine Ketones Negative Urine Occult Blood Negative Urine Nitrate Negative Urine Bilirubin Negative Urine Urobilinogen 1.0 Ur Leukocyte Esterase Negative Urine RBC None seen Urine WBC 0-1/hpf Ur Squamous Epith Cells 0-1 /hpf Urine Bacteria None seen Ur Culture Indicated? Cult not indicated U Opiates 300ng/mL cut Ur Oxycodone Screen Urine Methadone Screen Ur Barbiturates Screen U Tricyclic Antidepress Ur Phencyclidine Scrn Ur Amphetamines Screen U Methamphetamines Scrn Ur MDMA Scrn (Ecstasy) U Benzodiazepines Scrn Urine Cocaine Screen U Marijuana (THC) Screen SARS-CoV-2 (PCR) Assessment & Plan Assessment and plan (1) CVA (cerebral vascular accident): Qualifiers: CVA mechanism: unspecified Qualified Code(s): I63.9 - Cerebral infarction, unspecified Status: Acute Plan SubAcute right mid [place] radiata infarction with volume loss and small-vessel ischemic disease. Patient will be admitted to the hospital with acute cerebrovascular accident. Patient had an MRI and a CT scan done. Patient will be placed on telemetry monitoring. Will gradually lower his blood pressure and control this. Patient will be placed on dual antiplatelets with full-strength aspirin and Plavix as he previously was on a full dose of aspirin. Patient will be placed on full-dose atorvastatin at 80 mg a day and Lovenox for DVT prophylaxis. Patient will have speech therapy occupational therapy and physical therapy evaluation. Patient recently had an echocardiogram which showed no significant valvular heart disease. He telemetry monitoring will be done to rule out underlying arrhythmia. Patient has known history of cerebrovascular and coronary artery disease and I think underlying source is obviously occlusive due to thrombosis. Acute kidney injury. Patient has a normal kidney function at baseline. His creatinine is significantly above baseline. Unsure the etiology of this could be medical renal or dehydration. Will go ahead and gently hydrate the patient monitor closely electrolytes and stopped medications that can cause renal dysfunction including his metformin. Acute metabolic encephalopathy. Patient has significant changes in mental status due to acute stroke. Currently is disoriented to person place and time. Insulin-dependent diabetes patient with insulin-dependent diabetes will be placed on Lantus insulin and insulin sliding scale cover it is patient will have blood sugars per protocol. Patient will be placed on a diabetic diet. Avoid dextrose containing IV solutions. Have a dietitian evaluation. Patient will be evaluated by dietitian. Hypertension. Patient's blood pressure is a little bit elevated. Will continue with previous home blood pressure medication. Monitor closely and allow patient to be mildly hypertensive due to stroke. Hyperlipidemia. Patient will be placed back on his statin. Depression. Patient will be continued on his Cymbalta and mirtazapine. Code status current code status is full code. Time Spent With Patient Critical Care time: I spent a total of [] minutes of critical care time on this patient's care today; this time is exclusive of procedural time.
--- NOTE | 2022-11-12 17:37 | PC.NURSE ---
Dr Garcia called to clarify diet order. Verbal order for Soft Diabetic diet.
[2022-11-12] MEDS: ENOXAPARIN 40 MG/0.4 ML SYRINGE SUBCUT (17:38)
[2022-11-12] MEDS: LACTATED RINGERS 1,000 ML 100 ML IV (17:38)
[2022-11-12] MEDS: ASPIRIN EC 325 MG TABLET PO (17:39)
[2022-11-12] MEDS: CLOPIDOGREL 75 MG TABLET PO (17:39)
--- NOTE | 2022-11-12 18:54 | PC.NURSE ---
nursing bedside swallow screen done. patient consistently coughs with thin liquids. pockets food on left side. forgets to swallow. NIH 5, noted for left side facial droop, left tongue deviation, mild to moderate aphasia, dysarthria and mild confusion, incorrect month. MD notified, NPO, Speech therapy ordered.
[2022-11-12] MEDS: INSULIN GLARGINE 100 UNIT/ML 3ML PEN 40 UNIT SUBCUT (21:34)
--- NOTE | 2022-11-12 22:22 | PC.NURSE ---
Called Dr. Shea regarding pt's Metoprolol po order which I held since pt. is NPO and is dysarthric and B/P -s 149/65, Dr. Shea yes hold it for tonight.
[2022-11-13 01:00] VITALS: BP 116/59; PULSE 73; RESP 20; TEMP 36.9; O2SAT 95
[2022-11-13] MEDS: LACTATED RINGERS 1,000 ML 100 ML IV (03:52)
[2022-11-13 05:13] LABS: Add Manual Diff / Slide Review NO; Basophils Absolute Auto 100 /uL (0-100); Basophils Percent Auto 0.7 % (0-2); Eosinophils Absolute Auto 300 /uL (0-450); Eosinophils Percent Auto 3.5 % (2-4); Hematocrit 39.4 % (41-53); Hemoglobin 13.1 g/dL (13.5-17.5); Lymphocytes Absolute Auto 2500 /uL (1100-4500); Lymphocytes Percent Auto 33.2 % (25-40); Mean Corpuscular HGB Conc 33.4 % (30-36); Mean Corpuscular Hemoglobin 28.1 PG (26-34); Mean Corpuscular Volume 84.4 fL (80-100); Monocytes Absolute Auto 500 /uL (0-900); Monocytes Percent Auto 6.8 % (3-14); Neutrophils Absolute Auto 4200 /uL (1500-7000); Neutrophils Percent Auto 55.8 % (50-75); Platelet Count 152 X10^3/uL (150-400); Red Blood Cell Count 4.67 X10^6/uL (4.5-5.9); Red Cell Distribution Width 14.1 % (11.6-14.8); White Blood Cell Count 7.5 X10^3/uL (4.5-11.0)
[2022-11-13 05:16] LABS: INR 1.2 (0.9-1.3); Prothrombin Time 13.4 SECONDS (10.1-12.7)
[2022-11-13 05:21] LABS: Alanine Aminotransferase 53 IU/L (<50); Albumin 3.7 g/dL (3.5-5.0); Albumin Globulin Ratio 1.1 (1.0-2.8); Alkaline Phosphatase 95 U/L (38-126); Aspartate Aminotransferase 37 IU/L (17-59); Bilirubin Total 0.7 mg/dL (0.2-1.3); Blood Urea Nitrogen 35 mg/dL (9-20); Carbon Dioxide 33 mmol/L (22-32); Chloride 98 mmol/L (98-107); Estimated Glomerular Filt Rate 50 mL/min (>60); Globulin 3.4 g/dL (1.7-4.1); Glucose 72 mg/dL (80-110); HEMOLYSIS < 15 (0-50); Potassium 3.9 mmol/L (3.4-5.1); Sodium 140 mmol/L (137-145); Total Protein 7.1 g/dL (6.3-8.2)
--- NOTE | 2022-11-13 08:37 | ST.IPIE ---
Visit Care Team Role Provider Type Toni Jennings MD Emergency Provider Physician Referring Provider Specialty: Emergency Medicine Address: [address] [place] [address], [id number] Email: [email or web address] Skip Shea MD Admit Provider Physician Attending Provider Family Provider Primary Care Provider Specialty: Family Practice Address: [address] [place] [address], [id number] Email: [email or web address] Current Diagnoses Cerebral infarction, unspecified (11/12/22) Past Medical History (Last Reviewed 11/12/22 @ 13:04 by Toni Jennings MD) Coronary arteriosclerosis in [place] artery (Medical 04/12/17) COVID-19 (Medical) CVA (cerebral vascular accident) (Medical) CVA, old, cognitive deficits (Medical) Depression (Medical) 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 Diabetic neuropathy (Medical) Hyperlipidemia (Medical ~2005) Hypertension (Medical ~2005) Obstructive sleep apnea of adult (Medical ~04/2017) Osteoarthritis of hand (Medical 06/04/15) Snoring (Medical ~2006) Tinnitus (Medical ~1989) Vascular dementia (Medical) ST IP Initial Evaluation Report MEDICAL LABORATORY MANAGER Clinical Swallow Evaluation Start: 11/13/22 08:37 Freq: Status: Discharge Protocol: Document 11/13/22 08:37 ZS (Rec: 11/13/22 09:15 ZS [id number]) Clinical Swallow Evaluation Session Time Visit Start Time 08:05 Visit Stop Time 08:22 Total Visit Minutes 17 Setting Assessment Location Acute Care Visit Type Note Type Initial evaluation Patient Information Identification Type Name,Wristband History Per H&P: 72-year-old history of coronary artery disease cerebrovascular disease poorly -controlled diabetes hypertension hyperlipidemia sleep apnea and depression who has been residing at a care home facility after a cerebrovascular accident presents to the emergency department with change in mental status. Patient was admitted to the hospital in September of this year and found to have a subacute basal ganglion stroke. Was treated appropriately during his hospital stay and was discharged to skilled rehab. Patient comes in today because of fluctuation and changes in his mental status. On my evaluation. Patient has a hard time with word finding. He appears to be confused. Which has been a significant change from his baseline. He does not recognize me. He does know he is in the hospital he is unable to tell me date time. Patient is moving upper lower a extremities but has some moderate amount of weakness. Patient is unable to answer direct questions in regards to whether he is having headache dizziness blurry vision chest pain abdominal pain. He says he does not have any problems with those. Was getting up to the bathroom with the assistance of an aide. Unable to bear weight. Patient was having a nurse side evaluation in his able to clear his secretions but has a weak cough. Unable to swallow without choking. Per NSG note on 11/12 at 18:24: nursing bedside swallow screen done. patient consistently coughs with thin liquids. pockets food on left side. forgets to swallow. NIH 5, noted for left side facial droop, left tongue deviation, mild to moderate aphasia, dysarthria and mild confusion, incorrect month. Subjective Observations Pt was laying in bed asleep when MEDICAL LABORATORY MANAGER arrived. He awoke to verbal greeting, briefly opening his eyes before closing them again. Pt kept eyes closed for duration of interaction, with brief periods of opening them when prompted to do so by MEDICAL LABORATORY MANAGER. He was alert and oriented to name but not place or time. Repositioned pt to upright position to complete OME. Reported by Patient Other Symptoms Choking,Coughing,Difficulty swallowing liquids Current Diet Nothing by mouth Objective Assessment Mental Status Responsive,Cooperative, Lethargic Oral Integrity WFL Dentition Within normal limits Lip Function Mild impairment Observation of Lips at Rest Symmetrical Pucker Reduced range of motion, Reduced strength Lip Retraction Reduced range of motion,Left sided weakness/Drooping Alternating Pucker/Lip Retraction Reduced range of motion, Incoordination Tongue Function Mild impairment Observations of Tongue at Rest Within normal limits Tongue Protrusion Deviates to the left,Reduced range of motion,Reduced strength Jaw Function Within normal limits Observations of Jaw at Rest Within normal limits Jaw Opening Within normal limits Jaw Closing Within normal limits Hard/Soft Palate Function Within normal limits Observations of Hard/Soft Palate Within normal limits Comment Attempted OME with pt. Delayed responses to verbal instructions noted across all tasks. He exhihbited symmetrical structures at rest . Difficulty following directions for tongue elevation and depression, as pt attempted to do the directed motions with his finger rather than his tongue. He benefitted from tactile cues for this task, though still exhibited mild- moderately reduced strength and ROM in tongue. Lip strength and ROM was also mild -moderately impaired and incoordination noted with smile/pucker movements. Pt exhibited difficulty maintaining labial seal, though difficult to assess if this was due to lip weakness or difficulty following directions. Pt was minimally verbal, so unable to assess language and speech. During OME, pt began moving hands through hair and then through air as if washing his hair in a shower. When asked what he was doing, pt stopped motion, but did not verbally respond. Motions began again in similar fashion about 1 minute later. Pt also noted to move pillows around and grab at air as if searching for more pillows or blankets, but kept eyes closed for all of these motions. Removed pillows from the bed, which appeared to resolve issue. Food and Liquid Trials Position During Assessment Upright (90 degrees),In bed Liquids Trialed Ice chips Administration Type Tea spoon Oral Phase Comments Pt appeared to chew the ice chip and swallow without difficulty. No oral residue observed, but bolus was also very small. Pharyngeal Phase Comments Pt exhibited facial tension as if he was going to cough, but did not produce cough. When asked to produce ah to check for vocal clarity, pt opened his mouth but produced no sound. When asked to make ah sound, pt shook his head. Unable to assess for vocal clarity as pt is minimally verbal and refused to produce ah to check for clarity. Stopped PO trials due to inability to effectively check for overt signs/symptoms of aspiration given pt's current ability to participate in assessment. Comment Unable to assess fatigue due to limited trials, though pt kept eyes closed throughout evaluation. Findings Comment Unable to assess swallow function at this time, given pt's limited ability to participate in assessment. Per NSG report from NSG swallow screen, pt is at high risk for aspiration given pocketing food and forgetting to swallow . Recommend continued NPO diet at this time. Will continue to monitor and re-evaluate when pt is able to participate . Impact on Safety and Functioning Risk for aspiration Recommendations Instrumental Assessment No Swallowing Treatment Yes Recommended Solids Nothing by Mouth Recommended Liquids Nothing by Mouth Medication Recommendations Not Recommended by Mouth Goals Short-term Goals Re-attempt swallow evaluation to inform plan of care and treatment goals.
--- NOTE | 2022-11-13 08:37 | PM.PN.1 ---
Subjective Subjective Date Patient Seen: 11/13/22 Time Patient Seen: 08:37 Interval history: Patient seen and evaluated this morning respond to direct questioning. Having a difficult time with word finding. Waxing and waning neurologically. Able to raise both hands and arms. Re-evaluation of his swallow by nighttime nursing staff had concerns so he is currently NPO. Vital signs and blood pressure has been stable. Some confusion throughout the evening no significant signs of agitation. Exam Vital Signs (past 8 hours): - 11/13/22 01:00 Temperature 98.5 F Pulse Rate 73 Respiratory Rate 20 Blood Pressure 116/59 L Pulse Oximetry 95 Oxygen Delivery Method Room Air Oxygen Flow Rate 0 Narrative Exam Narrative: Gen.: Alert arousable answers to questions and follows simple commands not communicating effectively HEENT: Pupils equal round and reactive or mucosa is moist Cardio: S1-S2 regular rate and rhythm no murmurs appreciated. Respiratory: Lungs are clear to auscultation no wheezes or crackles normal respiratory effort. Abdomen: Soft nontender no rebound or guarding no liver spleen enlargement no appreciable hernias Extremities: Full range of motion no appreciable weakness no cyanosis or edema. Neurologic: Moving all extremities difficulty with speech and word-finding and signs of confusion Objective Labs 11/13/22 04:35 11/13/22 04:35 Labs: Laboratory Results - last 24 hr 11/12/22 11/12/22 11/12/22 11:30 11:30 11:30 WBC 7.9 RBC 4.98 Hgb 13.8 Hct 42.5 MCV 85.3 MCH 27.7 MCHC 32.5 RDW 14.2 Plt Count 156 Neut % (Auto) 63.8 Lymph % (Auto) 25.3 [place] % (Auto) 6.7 Eos % (Auto) 3.4 Baso % (Auto) 0.8 Neut # (Auto) 5000 Lymph # (Auto) 2000 [place] # (Auto) 500 Eos # (Auto) 300 Baso # (Auto) 100 PT 12.7 INR 1.1 APTT 31 Sodium 138 Potassium 4.4 Chloride 98 Carbon Dioxide 30 BUN 43 H Creatinine 1.79 H Estimated GFR 40 L BUN/Creatinine Ratio 24.0 H Glucose 146 H D Calcium 9.1 Magnesium 1.6 Total Bilirubin 0.9 AST 49 ALT 63 H Alkaline Phosphatase 103 Ammonia Total Creatine Kinase 102 CK-MB (CK-2) 0.54 CK-MB (CK-2) Rel Index 0.5 L Troponin I < 0.012 Total Protein 7.6 Albumin 4.0 Globulin 3.6 Albumin/Globulin Ratio 1.1 Lipase 94 Urine Color Urine Appearance Urine pH Ur Specific [place] Urine Protein Urine Glucose (UA) Urine Ketones Urine Occult Blood Urine Nitrate Urine Bilirubin Urine Urobilinogen Ur Leukocyte Esterase Urine RBC Urine WBC Ur Squamous Epith Cells Urine Bacteria Ur Culture Indicated? U Opiates 300ng/mL cut Ur Oxycodone Screen Urine Methadone Screen Ur Barbiturates Screen U Tricyclic Antidepress Ur Phencyclidine Scrn Ur Amphetamines Screen U Methamphetamines Scrn Ur MDMA Scrn (Ecstasy) U Benzodiazepines Scrn Urine Cocaine Screen U Marijuana (THC) Screen SARS-CoV-2 (PCR) 11/12/22 11/12/22 11/12/22 13:25 13:30 13:40 WBC RBC Hgb Hct MCV MCH MCHC RDW Plt Count Neut % (Auto) Lymph % (Auto) [place] % (Auto) Eos % (Auto) Baso % (Auto) Neut # (Auto) Lymph # (Auto) [place] # (Auto) Eos # (Auto) Baso # (Auto) PT INR APTT Sodium Potassium Chloride Carbon Dioxide BUN Creatinine Estimated GFR BUN/Creatinine Ratio Glucose Calcium Magnesium Total Bilirubin AST ALT Alkaline Phosphatase Ammonia < 9 L Total Creatine Kinase CK-MB (CK-2) CK-MB (CK-2) Rel Index Troponin I Total Protein Albumin Globulin Albumin/Globulin Ratio Lipase Urine Color Urine Appearance Urine pH Ur Specific [place] Urine Protein Urine Glucose (UA) Urine Ketones Urine Occult Blood Urine Nitrate Urine Bilirubin Urine Urobilinogen Ur Leukocyte Esterase Urine RBC Urine WBC Ur Squamous Epith Cells Urine Bacteria Ur Culture Indicated? U Opiates 300ng/mL cut Negative Ur Oxycodone Screen Negative Urine Methadone Screen Negative Ur Barbiturates Screen Negative U Tricyclic Antidepress Negative Ur Phencyclidine Scrn Negative Ur Amphetamines Screen Negative U Methamphetamines Scrn Negative Ur MDMA Scrn (Ecstasy) Negative U Benzodiazepines Scrn Negative Urine Cocaine Screen Negative U Marijuana (THC) Screen Negative SARS-CoV-2 (PCR) Negative 11/12/22 11/13/22 11/13/22 13:40 04:35 04:35 WBC 7.5 RBC 4.67 Hgb 13.1 L Hct 39.4 L MCV 84.4 MCH 28.1 MCHC 33.4 RDW 14.1 Plt Count 152 Neut % (Auto) 55.8 Lymph % (Auto) 33.2 [place] % (Auto) 6.8 Eos % (Auto) 3.5 Baso % (Auto) 0.7 Neut # (Auto) 4200 Lymph # (Auto) 2500 [place] # (Auto) 500 Eos # (Auto) 300 Baso # (Auto) 100 PT 13.4 H INR 1.2 APTT Sodium Potassium Chloride Carbon Dioxide BUN Creatinine Estimated GFR BUN/Creatinine Ratio Glucose Calcium Magnesium Total Bilirubin AST ALT Alkaline Phosphatase Ammonia Total Creatine Kinase CK-MB (CK-2) CK-MB (CK-2) Rel Index Troponin I Total Protein Albumin Globulin Albumin/Globulin Ratio Lipase Urine Color Yellow Urine Appearance Clear Urine pH 6.0 Ur Specific [place] 1.010 Urine Protein Negative Urine Glucose (UA) Negative Urine Ketones Negative Urine Occult Blood Negative Urine Nitrate Negative Urine Bilirubin Negative Urine Urobilinogen 1.0 Ur Leukocyte Esterase Negative Urine RBC None seen Urine WBC 0-1/hpf Ur Squamous Epith Cells 0-1 /hpf Urine Bacteria None seen Ur Culture Indicated? Cult not indicated U Opiates 300ng/mL cut Ur Oxycodone Screen Urine Methadone Screen Ur Barbiturates Screen U Tricyclic Antidepress Ur Phencyclidine Scrn Ur Amphetamines Screen U Methamphetamines Scrn Ur MDMA Scrn (Ecstasy) U Benzodiazepines Scrn Urine Cocaine Screen U Marijuana (THC) Screen SARS-CoV-2 (PCR) 11/13/22 04:35 WBC RBC Hgb Hct MCV MCH MCHC RDW Plt Count Neut % (Auto) Lymph % (Auto) [place] % (Auto) Eos % (Auto) Baso % (Auto) Neut # (Auto) Lymph # (Auto) [place] # (Auto) Eos # (Auto) Baso # (Auto) PT INR APTT Sodium 140 Potassium 3.9 Chloride 98 Carbon Dioxide 33 H BUN 35 H Creatinine 1.46 H Estimated GFR 50 L BUN/Creatinine Ratio 24.0 H Glucose 72 L Calcium 9.0 Magnesium Total Bilirubin 0.7 AST 37 ALT 53 H Alkaline Phosphatase 95 Ammonia Total Creatine Kinase CK-MB (CK-2) CK-MB (CK-2) Rel Index Troponin I Total Protein 7.1 Albumin 3.7 Globulin 3.4 Albumin/Globulin Ratio 1.1 Lipase Urine Color Urine Appearance Urine pH Ur Specific [place] Urine Protein Urine Glucose (UA) Urine Ketones Urine Occult Blood Urine Nitrate Urine Bilirubin Urine Urobilinogen Ur Leukocyte Esterase Urine RBC Urine WBC Ur Squamous Epith Cells Urine Bacteria Ur Culture Indicated? U Opiates 300ng/mL cut Ur Oxycodone Screen Urine Methadone Screen Ur Barbiturates Screen U Tricyclic Antidepress Ur Phencyclidine Scrn Ur Amphetamines Screen U Methamphetamines Scrn Ur MDMA Scrn (Ecstasy) U Benzodiazepines Scrn Urine Cocaine Screen U Marijuana (THC) Screen SARS-CoV-2 (PCR) [facility] Medical History Coronary arteriosclerosis in [place] artery (04/12/17) COVID-19 CVA (cerebral vascular accident) CVA, old, cognitive deficits Depression Diabetes mellitus (~1994) Diabetic neuropathy Hyperlipidemia (~2005) Hypertension (~2005) Obstructive sleep apnea of adult (~04/2017) Osteoarthritis of hand (06/04/15) Snoring (~2006) Tinnitus (~1989) Vascular dementia Surgical History Anesthesia History of knee surgery (~1994) S/P triple vessel bypass (~2006) Status post wrist surgery (~2011) Family History Father Heart disease Grandmother Diabetes mellitus Grandfather Heart disease Grandmother Diabetes mellitus Social History marital status: household members: none Smoking Status: Former smoker alcohol intake: current substance use type: does not use Assessment & Plan Assessment and plan (1) CVA (cerebral vascular accident): Status: Acute Plan SubAcute right mid [place] radiata infarction with volume loss and small-vessel ischemic disease.? Patient with new on old cerebrovascular accident. Previously Cintron prophylax with full-strength statin and full-strength aspirin started Plavix today. Telemetry monitoring and heart rhythm shows no signs of irregular rhythm echocardiogram not repeated. Difficulty with swallowing. Speech and swallow eval will radiation and dietary consultation. Blood pressure management physical therapy and occupational therapy consultation Acute kidney injury.? Creatinine is trending down. Improved. Previously normal baseline creatinine initially 3.4. Combination of dehydration possibly medication. Metformin on hold as well as other nephrotoxic medication continue with gentle hydration and oral hydration. Monitor electrolytes restart medication once kidney injury has improved Acute metabolic encephalopathy.? Patient with mental status changes due to stroke. Acute kidney injury. Waxing and waning symptoms. Insulin-dependent diabetes patient with insulin-dependent diabetes will be placed on Lantus insulin and insulin sliding scale cover it is patient will have blood sugars per protocol.? Diet is on hold. Blood sugars normal this morning. Hypertension.? Patient's blood pressure is a little bit elevated.? Will continue with previous home blood pressure medication.? Monitor closely and allow patient to be mildly hypertensive due to stroke. Hyperlipidemia.? Patient will be placed back on his statin. Depression.? Patient will be continued on his Cymbalta and mirtazapine. Disposition and plan speech therapy occupational therapy dietary recommendations appreciated. Time Spent With Patient Critical Care time: I spent a total of [] minutes of critical care time on this patient's care today; this time is exclusive of procedural time.
[2022-11-13] MEDS: ENOXAPARIN 40 MG/0.4 ML SYRINGE SUBCUT (09:05)
--- NOTE | 2022-11-13 11:30 | PT.IIE ---
Current Diagnoses Cerebral infarction, unspecified (11/12/22) Surgical History (Last Reviewed 11/12/22 @ 13:04 by Tnoi Jennings MD) Anesthesia History of knee surgery (~1994) S/P triple vessel bypass (~2006) Status post wrist surgery (~2011) Medical History (Last Reviewed 11/12/22 @ 13:04 by Toni Jennings MD) Coronary arteriosclerosis in [place] artery (04/12/17) COVID-19 CVA (cerebral vascular accident) CVA, old, cognitive deficits Depression Diabetes mellitus (~1994) Diabetic neuropathy Hyperlipidemia (~2005) Hypertension (~2005) Obstructive sleep apnea of adult (~04/2017) Osteoarthritis of hand (06/04/15) Snoring (~2006) Tinnitus (~1989) Vascular dementia Physical Therapy Inpatient Evaluation/Re-Eval M1 PT/OT-IP Prior Functional Status Start: 11/13/22 13:12 Freq: NEEDED Status: Active Protocol: Document 11/13/22 10:50 LRN (Rec: 11/13/22 13:49 LRN [id number]) Medical Review Prior Functional Status Medical History Reviewed Yes Diet/Fluid Consistency NPO Prior Functional Level (Other details) Pt waiting for speech swallowing evaluation. Social History Household Members none Living Arrangements Skilled Nurse Facility M2 PT-IP Current Condition Start: 11/13/22 13:12 Freq: NEEDED Status: Active Protocol: Document 11/13/22 10:50 LRN (Rec: 11/13/22 13:49 LRN [id number]) Physical Therapy Current Condition Current Condition Evaluation Date 11/13/22 Treatment Diagnosis Altered Mental Status Onset Date 11/12/22 M3 PT-IP Subjective Start: 11/13/22 13:12 Freq: NEEDED Status: Active Protocol: Document 11/13/22 10:50 LRN (Rec: 11/13/22 13:49 LRN [id number]) Subjective Physical Therapy Visit Type Type Initial Evaluation Visit Start Time 10:50 Visit Stop Time 11:30 Total Visit Minutes 40 Physical Therapy Visit Comments Patient Comments Pt speaks softly and sometimes mumbles, but responds physically to verbal instructions. Pt Nods head yes when asked to participate in physical therapy. Patient Goals Pt not verbalizing goals. Therapy Pain Assessment Pain Present Pain Present Denied Pain M4 PT-IP Mobility and Gait Start: 11/13/22 13:12 Freq: NEEDED Status: Active Protocol: Document 11/13/22 10:50 LRN (Rec: 11/13/22 13:49 LRN [id number]) PT-Bed Mobility Assessment Supine to Sit Supine to Sit Independent Scooting Scooting to Edge of Bed Independent PT-Transfer Assessment Sit to and From Stand Sit to and from Stand Standby Assistance Equipment Transfer Assistive Device Gait Belt,Front Wheeled Walker Transfers Transfer Destination Chair Transfer Technique Walked to chair Transfer Ability Level of Assist Contact Guard Assistance Comments Mobility Comments Pt was slightly weaving with gait and appeared unsteady. Gait Assessment Gait Gait Assistance Required: Contact Guard Assist Distance (Feet) 50 Able to Maintain Weight Bearing Status Yes During Gait Assistive Devices Assistive Device Gait Belt,Front Wheeled Walker Gait Deviations General Gait Pattern Decreased Stride Length, Decreased Feet Clearance, Flexed Trunk Factors Limiting Gait Function Factors Limiting Gait Function Poor Balance,Poor Safety Awareness Comments Gait Comments Pt was mildly unstead on his feet with mild increased sway when stepping. He demonstrated poor awareness of FWW position and would run into the Blood pressure cuff stand each time on turning around in the room. He did follow directions well when cued. Pt was very stoic throughout therapy and did not converse or answer questions, but would nod his head to yes /no questions. Gait training for improving step lengths, walker positioning, and direction movement of walker to prevent running into objects with wheels of walker. PT-Balance Assessment Sitting Balance and Reactions Static Sitting Balance Ability Normal Dynamic Sitting Balance Ability Good Standing Balance and Reactions Static Standing Balance Ability Good Dynamic Standing Balance Ability Good Device Used FWW/GB M5 PT-IP Objective Assessments Start: 11/13/22 13:12 Freq: NEEDED Status: Active Protocol: Document 11/13/22 10:50 LRN (Rec: 11/13/22 13:49 LRN [id number]) Orientation Orientation/Cognition Level of Alertness Confusional State Orientation Name,Birthday Language Function Ability Garbled Speech,Word Finding Difficulties Safety Awareness Decreased Safety Awareness Comments Unknown whether pt had true word finding difficulties or if he just didn't want to talk . Pt did not verbalize often during therapy. Gross Range of Motion Upper Extremity ROM Assessment Within Functional Limits Lower Extremity ROM Assessment Within Functional Limits Strength Upper Extremity Strength Assessment Within Functional Limits Lower Extremity Strength Assessment Within Functional Limits Sensation Assessment Sensation Sensation Description Pain Comments Sensation Comments Pt c/o feet pain with gait, indicating it was not new, but something he always has. Muscle Tone Muscle Tone WNL Yes M6 PT-IP Treatment Start: 11/13/22 13:12 Freq: NEEDED Status: Active Protocol: Document 11/13/22 10:50 LRN (Rec: 11/13/22 13:49 LRN [id number]) Physical Therapy Treatment Other Treatments Other Treatment Performed Pt was returned to bed after therapy with bed rails in place and exit alarm turned on . Tray table with call light was placed within reach. Pt vitals taken: At start of PT: SpO2 97%, BP 130/66, HR 84 At end of PT: SpO2 98%, BP 134/62, HR 73 M7 PT-IP Assessment and Plan Start: 11/13/22 13:12 Freq: NEEDED Status: Active Protocol: Document 11/13/22 10:50 LRN (Rec: 11/13/22 13:49 LRN [id number]) PT Summary Assessment and Plan Potential Rehabilitation Potential Good Status of Condition at Evaluation Evolving Summary Impairments Balance,Sensation,Cognition Assessment Summary Pt is a 72 yo male, admittedn 11/12/22 for change in mental status. The pt is able to follow directions, but is confused in location (thought he was in [place]), and time ( not aware of month, day). The pt identified his birthday month and date, but was incorrect in the year, states it was 2049. The pt demonstrates good UE/LE strength and good functional strength with bed mobility and transfers, and requires CGA with gait due to instability. The primary area of deficit appears to be in his general lack of strength/endurance and therefore stability with gait , and concerns for his mentation of time/place and safety awareness. Goals Bed Mobility Goal Independent Transfer Goal Independent Gait Goal Independent Gait Distance 100' Frequency of Treatment Frequency Of Treatment Once a Day Treatment Plan Physical Therapy Treatment Plan Transfer Training,Gait Training,Balance Retraining Precautions Other Precautions Reduced safety awareness. Weight Bearing Status Weight Bearing Status Full Weight Bearing Recommendations To Nursing Amount of Assist Needed Standby Assistance Discharge Recommendations PT Discharge Recommendations SNF Rehab Transportation Needs at Discharge Private Vehicle
[2022-11-13 13:00] VITALS: BP 120/64; PULSE 77; RESP 18; TEMP 36.6; O2SAT 97
--- NOTE | 2022-11-13 14:55 | CM.DANOTE ---
Discharge Planning/Care Management CM Discharge Assessment Start: 11/13/22 14:50 Freq: Status: Active Protocol: Document 11/13/22 14:50 DEIRDRE (Rec: 11/13/22 14:55 DEIRDRE [id number]) Discharge Planning Assessment Assigned Speed Runner BRANDI Dumont/Assigned Designee Name Glory Kyle, daughter ( [place], [place]) Contact Information [phone] Advance Directives? No History Provided By Family Member,Medical Record Has Patient been admitted in last 30 Yes days? Comment Here [id number] CVA, Vascular type dementia verses age-related cognitive change, exacerbated by above CVA Prior Living Arrangements Skilled Nurse Facility Household Members none Type of transporation used prior to Relies on Others admit Facility Name Admitted From: [facility] Willing to Return to Facility? Yes: [facility] Independent with ADL's No Is patient alert and oriented? No Patient/Family Preference [facility] Facility Barriers to Discharge No Comment Accepted for return to [facility] once medically discharged Discharge Plan [facility] Facility Transportation Arrangement Likely w/c Medicare Choice List Provided No SNF/HH Preference Return to [facility] requested by daughter and ULIZ Holder, requests updates re plan when available Has Agency SNF been contacted Yes Comment Accepted for return per February at [facility]
[2022-11-13 20:00] VITALS: BP 101/62; PULSE 86; RESP 19; TEMP 36.3; O2SAT 97
[2022-11-13 21:02] VITALS: BP 101/62; PULSE 86
[2022-11-14] MEDS: LACTATED RINGERS 1,000 ML 100 ML IV (03:11)
[2022-11-14 04:00] VITALS: BP 156/74; PULSE 83; RESP 20; TEMP 37.2; O2SAT 97
[2022-11-14 05:18] LABS: Add Manual Diff / Slide Review NO; Basophils Absolute Auto 100 /uL (0-100); Basophils Percent Auto 0.7 % (0-2); Eosinophils Absolute Auto 300 /uL (0-450); Eosinophils Percent Auto 3.7 % (2-4); Hematocrit 38.7 % (41-53); Lymphocytes Absolute Auto 2200 /uL (1100-4500); Lymphocytes Percent Auto 27.8 % (25-40); Mean Corpuscular HGB Conc 33.6 % (30-36); Mean Corpuscular Volume 83.3 fL (80-100); Monocytes Absolute Auto 500 /uL (0-900); Monocytes Percent Auto 6.2 % (3-14); Neutrophils Absolute Auto 4900 /uL (1500-7000); Neutrophils Percent Auto 61.6 % (50-75); Platelet Count 147 X10^3/uL (150-400); Red Blood Cell Count 4.64 X10^6/uL (4.5-5.9)
[2022-11-14 05:27] LABS: Alanine Aminotransferase 46 IU/L (<50); Albumin 3.5 g/dL (3.5-5.0); Albumin Globulin Ratio 1.1 (1.0-2.8); Alkaline Phosphatase 94 U/L (38-126); Aspartate Aminotransferase 36 IU/L (17-59); BUN Creatinine Ratio 25.5 (6-22); Bilirubin Total 0.7 mg/dL (0.2-1.3); Blood Urea Nitrogen 27 mg/dL (9-20); Calcium 8.7 mg/dL (8.4-10.2); Carbon Dioxide 28 mmol/L (22-32); Chloride 99 mmol/L (98-107); Estimated Glomerular Filt Rate > 60 mL/min (>60); Globulin 3.1 g/dL (1.7-4.1); Glucose 86 mg/dL (80-110); HEMOLYSIS < 15 (0-50); Potassium 3.8 mmol/L (3.4-5.1); Sodium 137 mmol/L (137-145); Total Protein 6.6 g/dL (6.3-8.2)
--- NOTE | 2022-11-14 09:24 | P.DS_ITS ---
History of Present Illness History of Present Illness Chief complaint: Altered Mental Status Narrative: 72-year-old history of coronary artery disease cerebrovascular disease poorly- controlled diabetes hypertension hyperlipidemia sleep apnea and depression who has been residing at a intermediate facility after a cerebrovascular accident presents to the emergency department with change in mental status. Patient was admitted to the hospital in September of this year and found to have a subacute basal ganglion stroke. Was treated appropriately during his hospital stay and was discharged to skilled rehab. Patient comes in today because of fluctuation and changes in his mental status. On my evaluation. Patient has a hard time with word finding. He appears to be confused. Which has been a significant change from his baseline. He does not recognize me. He does know he is in the hospital he is unable to tell me date time. Patient is moving upper lower a extremities but has some moderate amount of weakness. Patient is unable to answer direct questions in regards to whether he is having headache dizziness blurry vision chest pain abdominal pain. He says he does not have any problems with those. Was getting up to the bathroom with the assistance of an aide. Unable to bear weight. Patient was having a nurse side evaluation in his able to clear his secretions but has a weak cough. Unable to swallow without choking. Discharge Providers Provider Date of admission: 11/12/22 16:10 Discharge Date: 11/14/22 Primary care physician: Skip Shea MD Consults: 11/12/22 16:21 Consult to Dietitian, Adult Urgent Comment: Reason For Exam: dm stroke Consult to Discharge Planning Routine Comment: Consult to Occupational Therapy Evaluate & Treat Comment: Physician Instructions: Evaluate and treat Consult to Physical Therapy Evaluate & Treat Comment: Physician Instructions: Evaluate and Treat Consult to Speech Therapy Evaluate & Treat Comment: Physician Instructions: Evaluate and treat 11/12/22 18:50 Consult to Speech Therapy Evaluate & Treat Comment: Physician Instructions: Evaluate and treat 11/12/22 19:21 Consult to Speech Therapy Evaluate & Treat Comment: Physician Instructions: Evaluate and treat Discharge provider: Skip Shea MD Summary Hospital Course Discharge Diagnosis: Subacute right mid [place] radiata cerebrovascular accident Acute kidney injury with highest creatinine of 3.2 Acute metabolic encephalopathy due to stroke and kidney injury Insulin-dependent diabetes Hypertension Hyperlipidemia Depression Hospital Course: Patient was admitted to the hospital for increasing confusion and change in mental status. Patient was found to have a new subacute cerebrovascular accident. Previous CVA patient on aspirin statin and good blood pressure control. Despite this has had a new stroke. Previously echocardiogram and telemetry monitoring did not show any concern for thromboembolic. This was thought due to under line atherosclerotic disease. Patient was admitted to the hospital for speech physical therapy in addition to his aspirin and statin he was started on Plavix. Over the ensuing 48 hours his mental status improved. Was tolerating diet ambulating and ready for discharge. Exam Vital Signs (past 8 hours): - 11/14/22 04:00 Temperature 98.9 F Pulse Rate 83 Respiratory Rate 20 Blood Pressure 156/74 H Pulse Oximetry 97 Oxygen Delivery Method Room Air Oxygen Flow Rate 0 Objective Labs 11/14/22 04:49 11/14/22 04:49 Labs: Laboratory Results - last 24 hr 11/14/22 11/14/22 04:49 04:49 WBC 8.0 RBC 4.64 Hgb 13.0 L Hct 38.7 L MCV 83.3 MCH 28.0 MCHC 33.6 RDW 14.0 Plt Count 147 L Neut % (Auto) 61.6 Lymph % (Auto) 27.8 Baker % (Auto) 6.2 Eos % (Auto) 3.7 Baso % (Auto) 0.7 Neut # (Auto) 4900 Lymph # (Auto) 2200 Baker # (Auto) 500 Eos # (Auto) 300 Baso # (Auto) 100 Sodium 137 Potassium 3.8 Chloride 99 Carbon Dioxide 28 BUN 27 H Creatinine 1.06 Estimated GFR > 60 BUN/Creatinine Ratio 25.5 H Glucose 86 Calcium 8.7 Total Bilirubin 0.7 AST 36 ALT 46 Alkaline Phosphatase 94 Total Protein 6.6 Albumin 3.5 Globulin 3.1 Albumin/Globulin Ratio 1.1 COUNT INCLUDES THE [facility] Medical History Coronary arteriosclerosis in [place] artery (04/12/17) COVID-19 CVA (cerebral vascular accident) CVA, old, cognitive deficits Depression Diabetes mellitus (~1994) Diabetic neuropathy Hyperlipidemia (~2005) Hypertension (~2005) Obstructive sleep apnea of adult (~04/2017) Osteoarthritis of hand (06/04/15) Snoring (~2006) Tinnitus (~1989) Vascular dementia Surgical History Anesthesia History of knee surgery (~1994) S/P triple vessel bypass (~2006) Status post wrist surgery (~2011) Family History Father Heart disease Grandmother Diabetes mellitus Grandfather Heart disease Grandmother Diabetes mellitus Social History marital status: household members: none Smoking Status: Former smoker alcohol intake: current substance use type: does not use Discharge Plan Discharge Plan Patient Disposition: SNF Transfer to: [facility] Discharge orders & Medications Prescriptions: New clopidogrel 75 mg Tablet 75 mg PO DAILY Qty: 30 0RF Continued atorvastatin 80 mg tablet 80 mg PO DAILY Qty: 90 3RF duloxetine 60 mg capsule,delayed release(DR/EC) 60 mg PO DAILY Qty: 90 3RF FreeStyle Lite Strips Strip See Rx Instructions .ROUTE .COMPLEX Qty: 100 11RF Dose Instruction: USE STRIP TO CHECK GLUCOSE TWICE DAILY TO CHECK GLUCOSE Rx Instructions: USE STRIP TO CHECK GLUCOSE TWICE DAILY (DME) DISABLED PARKING PERMIT See Rx Instructions .ROUTE .MEDSUPPLY Qty: 1 0RF Rx Instructions: I find this patient to be medically disabled and qualified for disabled parking as indicated, and signed, on the accompanying Disabled Parking Applicati on for Individuals. nitroglycerin 0.4 mg tablet, sublingual 0.4 mg sublingual Q5-15M PRN (Reason: chest pain) Qty: 30 1RF Label Comments: Rx Instructions: do not exceed 3 doses per episode ondansetron [Zofran ODT] 4 mg Tablet,Disintegrating 4 mg PO DAILY Rx Instructions: Give before physical therapy mirtazapine 7.5 mg tablet 7.5 mg PO 2100 Rx Instructions: Give at bedtime for appetite lisinopril 40 mg tablet 40 mg PO DAILY Rx Instructions: Hold for systolic blood pressure less than 100 or heart rate less than 60 insulin glargine [Lantus Solostar U-100 Insulin] 100 unit/mL (3 mL) insulin pen 50 unit SUBCUT 2100 metoprolol succinate 50 mg Tablet Extended Release 24 Hr 50 mg PO BID Qty: 30 0RF Rx Instructions: Hold for systolic Blood pressure less that 100 or heartrate less than 60 metformin 500 mg Tablet Extended Release 24 Hr 1,000 mg PO BID Qty: 60 0RF insulin lispro [Humalog U-100 Insulin] 100 unit/mL Solution See Rx Instructions .ROUTE .COMPLEX Qty: 10 0RF Rx Instructions: see protocol on separate sheet, check qid triamterene-hydrochlorothiazid 37.5-25 mg tablet 1 tab PO DAILY Qty: 30 0RF Rx Instructions: hold for systolic blood pressure less than 100 or heartrate less than 60 Changed aspirin 81 mg tablet,chewable 325 mg PO QDAY Qty: 30 0RF Discontinued ondansetron [Zofran ODT] 4 mg Tablet,Disintegrating 4 mg PO Q6H PRN (Reason: Nausea) Follow up/Referrals: Skip Shea MD [Primary Care Provider] - Visit Report/Discharge Packet Stand Alone Forms: Patient Portal/API Discharge Data Primary Care Provider: Skip Shea
[2022-11-14] MEDS: lisinopriL 20 MG TABLET 40 MG PO (09:25)
[2022-11-14] MEDS: ATORVASTATIN 20 MG TABLET 80 MG PO (09:25)
[2022-11-14] MEDS: METOPROLOL ER 50 MG TABLET PO (09:25)
[2022-11-14] MEDS: ASPIRIN EC 325 MG TABLET PO (09:25)
[2022-11-14] MEDS: ENOXAPARIN 40 MG/0.4 ML SYRINGE SUBCUT (09:25)
[2022-11-14] MEDS: CLOPIDOGREL 75 MG TABLET PO (09:25)
[2022-11-14] MEDS: DULOXETINE 30 MG CAPSULE 60 MG PO (09:25)
[2022-11-14] MEDS: TRIAMTERENE/HCTZ 37.5/25 CAPSULE 1 CAP PO (09:26)
--- NOTE | 2022-11-14 09:36 | CM.DPC ---
DCP Discharge SNF Per MD, pt is medically stable to d/c back to SNF today and no identified barriers to discharge. TOÑITO called [facility] and confirmed they can accept today and will aim for an 1100 pickup and provided RN report number and confirmed no updated COVID swab needed, no PASRR as pt is a return to their facility. SW faxed d/c summary and signed med list and orders and no scripts needed. TOÑITO updated computer assistant, LABOR GANG SUPERVISOR, and RN and SW confirmed pt is agreeable with d/c today and RN kindly calling family with update on d/c time for today. Plan: Patient to d/c back to [facility] today via facility van at 1100 prior to safe return home with family. BRANDI Wiggins
[2022-11-14 10:08] VITALS: BP 148/69; PULSE 86
== END 2022-11-14 11:04 | DRG 64 ==
LOC: ED 14:37 → AC 16:11
PROVIDERS: Admitting Provider Family Medicine; Emergency Provider Emergency Medicine; Family Provider Family Medicine; PCP Family Medicine; Referring Provider Emergency Medicine; Visit Provider Family Medicine
DX: I63.9 Cerebral infarction, unspecified (principal); G93.41 Metabolic encephalopathy; N17.9 Acute kidney failure, unspecified; E11.9 Type 2 diabetes mellitus without complications; I10 Essential (primary) hypertension; E78.5 Hyperlipidemia, unspecified; R29.704 NIHSS score 4; R29.702 NIHSS score 2; F32.A Depression, unspecified; Z79.84 Long term (current) use of oral hypoglycemic drugs; Z20.822 Contact with and (suspected) exposure to COVID-19; Z87.891 Personal history of nicotine dependence; Z79.4 Long term (current) use of insulin; Z13.9 Encounter for screening, unspecified
CPT/HCPCS: 36415; 70496; 70498; 70551; 71045; 72125; 80048; 80053; 80305; 81001; 82140; 82550; 82553; 82962; 83690; 83735; 84484; 85025; 85610; 85730; 87635; 92610; 93005; 97116; 97162; 99222; 99233; 99238; 99284; 99285; C9803; J1650; Q9967

== ENCOUNTER 2022-11-25 16:05 | Inpatient (IN) | payer MEDICARE, OTHER, SELFPAY ==
[2022-11-12 21:35] VITALS: BMI 25.7
[2022-11-25] VITALS (47 sets, daily range): BP systolic 92–152; BP diastolic 51–70; PULSE 77–112; RESP 20–45; TEMP 36.1–37.7; O2SAT 75–99; BMI 24.3
--- NOTE | 2022-11-25 16:36 | DI.RAD.S_ITS ---
PROCEDURE: XR CHEST 1V INDICATIONS: Shortness of breath TECHNIQUE: One view of the chest was acquired. COMPARISON: [facility], CR, XR CHEST 1V, 11/12/2022, 11:51. [facility], CR, XR CHEST 1V, 10/14/2022, 15:35. FINDINGS: Surgical changes and devices: Post median sternotomy and CABG. Lungs and pleura: Suspect Merari B lines. No consolidative opacity identified. No pleural effusions or pneumothorax. Mediastinum: Mediastinal contours appear normal. Heart size is within normal limits. Bones and chest wall: No suspicious bony lesions. Overlying soft tissues appear unremarkable. IMPRESSION: Suspect mild fluid overload/CHF or pulmonary vasculature engorgement. Dictated by: Alli Pritchett M.D. on 11/25/2022 at 16:52 Approved by: Alli Pritchett M.D. on 11/25/2022 at 16:53
--- NOTE | 2022-11-25 16:44 | ED.SOB ---
HPI - SOB/Dyspnea General Chief Complaint: Shortness of Breath/Dyspnea Stated Complaint: non traumatic intracerebral hemorrhage subcortical Time Seen by Provider: 11/25/22 16:43 Mode of arrival: Wheelchair Limitations: language barrier and altered mental status History of Present Illness HPI Narrative: 72-year-old male with history of coronary artery disease, prior strokes, diabetes, hypertension, dyslipidemia, sleep apnea and depression who currently is at a intermediate facility after CVA. Patient presents for from sound view patient was sent over by vehicle for having decrease oxygen at 77-79%. Unclear if he has been having any other complaints. Patient indicates he does feel short of breath, unclear if he is having any pain indicates he needs to urinate. He can tell me his can tell me he is at a hospital but has difficulty answering other questions and sort of nods his head yes or now but not clearly answering any questions. I spoke with his daughter who states he is mental baseline has decreased over time and he is boggy and that his mentation seems pretty consistent at this point. She notes that he is full code although she states he has expressed that his quality of life is very poor and he does not wish to live any longer. She also notes that he has been having significant issues with dysphagia, he has been able to pass swallow 1000 their discussion about a feeding tube being placed. She is his DPOA and states that they have not changed his code status and at this moment in time he is full code. She did state they are supposed to meet with Hospice tomorrow. Related Data Home Medications Medication Instructions Recorded Confirmed insulin glargine 100 unit/mL (3 50 unit SUBCUT 209911/12/22 11/12/22 mL) subcutaneous pen (Lantus Solostar U-100 Insulin) lisinopril 40 mg tablet 40 mg PO DAILY 11/12/22 11/12/22 mirtazapine 7.5 mg tablet 7.5 mg PO 209911/12/22 11/12/22 ondansetron 4 mg disintegrating 4 mg PO DAILY 11/12/22 11/12/22 tablet Previous Rx's Medication Instructions Recorded atorvastatin 80 mg tablet 80 mg PO DAILY #90 tabs 10/30/19 blood sugar diagnostic (Freeyle See Rx Instructions .Route 07/15/20 Lite Strips) .COMPLEX #100 ea DISABLED PARKING PERMIT #1 ea 02/09/22 nitroglycerin 0.4 mg sublingual 0.4 mg sublingual Q5-15M PRN chest 12/09/21 tablet pain #30 tabs duloxetine 60 mg capsule,delayed 60 mg PO DAILY #90 caps 12/21/21 release insulin lispro 100 unit/mL See Rx Instructions .Route 10/18/22 subcutaneous solution (Humalog .COMPLEX #10 mL U-100 Insulin) metformin 500 mg tablet,extended 1,000 mg PO BID #60 tabs 10/18/22 release 24 hr metoprolol succinate 50 mg 50 mg PO BID #30 tabs 10/18/22 tablet,extended release 24 hr triamterene 37.5 1 tab PO DAILY #30 tabs 10/18/22 mg-hydrochlorothiazide 25 mg tablet aspirin 81 mg chewable tablet 325 mg PO QDAY #30 tabs 11/14/22 clopidogrel 75 mg tablet 75 mg PO DAILY #30 tabs 11/14/22 Allergies Allergy/AdvReac Type Severity Reaction Status Date / Time hydrocodone [From Vicodin] AdvReac Mild CRAMPS Verified 10/14/22 18:41 STOMACH Review of Systems Review of Systems ROS Unobtainable: Unobtainable due to mental status/LOC Patient History Medical History Coronary arteriosclerosis in [place] artery (04/12/17) COVID-19 CVA (cerebral vascular accident) CVA, old, cognitive deficits Depression Diabetes mellitus (~1994) Diabetic neuropathy Hyperlipidemia (~2005) Hypertension (~2005) Obstructive sleep apnea of adult (~04/2017) Osteoarthritis of hand (06/04/15) Snoring (~2006) Tinnitus (~1989) Vascular dementia Surgical History Anesthesia History of knee surgery (~1994) S/P triple vessel bypass (~2006) Status post wrist surgery (~2011) Family History Father Heart disease Grandmother Diabetes mellitus Grandfather Heart disease Grandmother Diabetes mellitus Social History marital status: household members: none Smoking Status: Former smoker alcohol intake: current substance use type: does not use Smoking Status: Former smoker alcohol intake frequency: a few times a week Substance Use Type: does not use Exam Narrative Exam Narrative: GEN: Ill-appearing elderly, male alert and oriented x [address], patient appears to be in moderate to severe distress. HEENT: Atraumatic, pupils are equal round reactive to light, extraocular movements are intact, nares are clear, there is no conjunctival pallor. Throat is clear without any exudates, erythema, tonsillar enlargement or uvular deviation, HEART: Tachycardic but Regular rate and rhythm without murmur, clicks, rubs. Pulses are equal in upper and lower extremities LUNGS:Lungs had breath sounds equal bilaterally, no wheezes, rales, crackles, chest moves symmetrically, positive for tachypnea. ABD:bowel sounds normal, soft, non-tender, no guarding, rebound, rigidity, no masses noted, no hepatosplenomegaly :No CVA tenderness MSCL: Non-tender, no muscle atrophy, patient does not have any edema bilateral lower extremities. NEURO:CN 2-12 intact, sensation normal SKIN: No rash, erythema or other skin changes. Initial Vital Signs Initial Vital Signs: Vital Signs Temperature 99.9 F H 11/25/22 16:05 Pulse Rate 108 H 11/25/22 16:05 Respiratory Rate 33 H 11/25/22 16:05 Blood Pressure 140/63 11/25/22 16:05 Pulse Oximetry 75 L 11/25/22 16:05 Oxygen Delivery Method Room Air 11/25/22 16:05 Course Orders Ordered: ED Orders 11/25/22 15:56 EKG-12 Lead Stat 11/25/22 16:29 Arterial Blood Gas Stat 11/25/22 16:32 Complete Blood Count AUTO DIFF Stat Comprehensive Metabolic Panel Stat Lactate (Lactic Acid) Stat NT-proBNP (BNP-Adult 18+) Stat Procalcitonin Stat Troponin & CK Cardiac Panel Stat 11/25/22 16:36 XR chest 1V Stat RT Consult Eval and Treat NOW 11/25/22 16:38 RT Consult Eval and Treat NOW 11/25/22 16:50 Blood Culture Stat D Dimer Stat Prothrombin Time INR Stat 11/25/22 17:20 Respiratory Panel (Film Array) Stat Urinalysis and Microscopic Stat 11/25/22 17:23 CT abdomen pelvis w con Stat CT angio chest PE protocol Stat 11/25/22 17:25 High flow/High humidity nasal NOW Sodium Chloride (Normal Saline 0.9%) 1,000 mls @ 150 mls/hr IV CONT MEGAN Ondansetron HCl (Ondansetron 4 Mg Odt) 4 mg SL NOW PRN PRN Reason: Nausea And Vomiting Ondansetron HCl (Ondansetron 4 Mg/2 Ml Inj) 4 mg IV NOW PRN PRN Reason: Nausea And Vomiting Last Admin: 11/25/22 17:15 Dose: 4 mg Documented By: CONRADO Discontinued Medications Albuterol/Ipratropium (Albuterol/Ipratropium 3 Ml Ampul) 3 ml INH NOW ONE Stop: 11/25/22 16:46 Last Admin: 11/25/22 17:45 Dose: 3 ml Documented By: SIRI Dextrose (Dextrose 50 % In Water 25 Gm/50 Ml Syringe) 25 gm IV NOW ONE Stop: 11/25/22 18:40 Diphenhydramine HCl (Diphenhydramine 50 Mg/Ml Vial) 25 mg IV NOW ONE Stop: 11/25/22 16:51 Last Admin: 11/25/22 17:15 Dose: 25 mg Documented By: CONRADO Sodium Chloride (Normal Saline 0.9%) 1,000 mls @ 1,000 mls/hr IV BOLUS ONE Stop: 11/25/22 17:37 Last Infusion: 11/25/22 18:00 Dose: 0 mls/hr Documented By: Admin: 11/25/22 17:00 Dose: 1,000 mls/hr Documented By: CONRADO Calcium Gluconate 4.65 meq/ (Sodium Chloride) 60 mls @ 180 mls/hr IV NOW ONE Stop: 11/25/22 17:41 Piperacillin Sod/Tazobactam (Sod 4.5 gm/ Sodium Chloride) 100 mls @ 200 mls/hr IV NOW ONE Stop: 11/25/22 17:23 Lactated Ringer's (Lactated Ringers) 2,466 mls @ 822 mls/hr 30 ml/kg infuse over 3 hr (2466 ml) IV NOW ONE Stop: 11/25/22 20:22 Insulin Human Regular (Insulin Regular 100 Unit/Ml 3 Ml Vial) 5 unit IV NOW ONE Stop: 11/25/22 18:36 Methylprednisolone (Methylprednisolone 125 Mg/2 Ml Vial) 125 mg IV NOW ONE Stop: 11/25/22 16:48 Last Admin: 11/25/22 17:15 Dose: 125 mg Documented By: CONRADO Sodium Bicarbonate (Sodium Bicarb 8.4% Syringe) 50 meq IV NOW ONE Stop: 11/25/22 18:36 Sodium Polystyrene Sulfonate (Sodium Polystyrene Sulfon/Sorb 15 Gm/60 Ml Cup) 30 gm PO NOW ONE Stop: 11/25/22 18:36 Vital Signs Vital signs: Vital Signs - 8 hr 11/25/22 16:05 11/25/22 17:00 11/25/22 17:45 Temperature 99.9 F H Pulse Rate 108 H 98 H 84 Respiratory Rate 33 H 36 H 26 H Blood Pressure 140/63 140/63 Pulse Oximetry 75 L 95 Oxygen Delivery Method Room Air Oxygen Flow Rate 11/25/22 16:15 11/25/22 16:17 11/25/22 16:17 Temperature Pulse Rate 112 H 107 H Respiratory Rate 20 Blood Pressure 140/63 Pulse Oximetry 84 L 82 L Oxygen Delivery Method Non -Rebreather Venturi Mask Oxygen Flow Rate 15 11/25/22 16:30 11/25/22 17:00 11/25/22 17:28 Temperature Pulse Rate 101 H 97 H Respiratory Rate 45 H 31 H Blood Pressure 101/70 Pulse Oximetry 89 L 98 Oxygen Delivery Method Heated High Flow Non -Rebreather Oxygen Flow Rate 11/25/22 17:28 11/25/22 17:30 11/25/22 17:31 Temperature Pulse Rate 94 H 93 H Respiratory Rate 37 H 32 H Blood Pressure 129/67 Pulse Oximetry 94 Oxygen Delivery Method Heated High Flow Oxygen Flow Rate 11/25/22 17:31 11/25/22 17:40 11/25/22 17:40 Temperature Pulse Rate 92 H 91 H Respiratory Rate 33 H 31 H Blood Pressure 141/69 H Pulse Oximetry 96 Oxygen Delivery Method Oxygen Flow Rate 11/25/22 17:50 11/25/22 17:50 11/25/22 18:00 Temperature Pulse Rate 86 85 Respiratory Rate 27 H 25 H Blood Pressure 150/68 H Pulse Oximetry 97 97 Oxygen Delivery Method Oxygen Flow Rate 11/25/22 18:01 11/25/22 18:01 11/25/22 18:11 Temperature Pulse Rate 89 Respiratory Rate 28 H Blood Pressure 111/56 L 152/67 H Pulse Oximetry 97 Oxygen Delivery Method Oxygen Flow Rate 11/25/22 18:11 11/25/22 18:23 11/25/22 18:23 Temperature Pulse Rate 85 88 Respiratory Rate 27 H 29 H Blood Pressure 123/70 Pulse Oximetry 96 94 Oxygen Delivery Method Heated High Flow Heated High Flow Oxygen Flow Rate 11/25/22 18:30 11/25/22 18:30 11/25/22 18:40 Temperature Pulse Rate 93 H 93 H Respiratory Rate 28 H 29 H Blood Pressure 92/57 L Pulse Oximetry 95 94 Oxygen Delivery Method High Flow Nasal Cannula Oxygen Flow Rate 11/25/22 18:40 11/25/22 18:41 11/25/22 18:41 Temperature Pulse Rate 94 H Respiratory Rate 28 H Blood Pressure 130/60 137/60 Pulse Oximetry 98 Oxygen Delivery Method Heated High Flow Oxygen Flow Rate 11/25/22 18:50 11/25/22 18:50 11/25/22 19:00 Temperature Pulse Rate 89 Respiratory Rate 27 H Blood Pressure 121/58 L 130/59 L Pulse Oximetry 97 Oxygen Delivery Method Oxygen Flow Rate 11/25/22 19:00 11/25/22 19:10 11/25/22 19:10 Temperature Pulse Rate 89 88 Respiratory Rate 26 H 25 H Blood Pressure 124/58 L Pulse Oximetry 96 96 Oxygen Delivery Method High Flow Nasal Cannula Oxygen Flow Rate 11/25/22 19:20 11/25/22 19:20 11/25/22 19:30 Temperature Pulse Rate 87 Respiratory Rate 26 H Blood Pressure 136/61 133/61 Pulse Oximetry 96 Oxygen Delivery Method Oxygen Flow Rate 11/25/22 19:30 Temperature Pulse Rate 89 Respiratory Rate 29 H Blood Pressure Pulse Oximetry 96 Oxygen Delivery Method Heated High Flow Oxygen Flow Rate MDM - SOB/Dyspnea Lab Data 11/25/22 16:32 11/25/22 16:32 Labs: Lab Results 11/25/22 11/25/22 11/25/22 Range/Units 16:29 16:32 16:32 WBC 17.0 H (4.5-11.0) X10^3/uL RBC 5.38 (4.5-5.9) X10^6/uL Hgb 14.9 (13.5-17.5) g/dL Hct 45.5 (41-53) % MCV 84.6 (80-100) fL MCH 27.8 (26-34) PG MCHC 32.9 (30-36) % RDW 14.7 (11.6-14.8) % Plt Count 248 (150-400) X10^3/uL Neut % (Auto) 91.3 H (50-75) % Lymph % (Auto) 6.1 L (25-40) % [place] % (Auto) 2.3 L (3-14) % Eos % (Auto) 0.1 L (2-4) % Baso % (Auto) 0.2 (0-2) % Neut # (Auto) 79969 H (1525-6795) /uL Lymph # (Auto) 1000 L (2212-3568) /uL [place] # (Auto) 400 (0-900) /uL Eos # (Auto) 0 (0-450) /uL Baso # (Auto) 0 (0-100) /uL PT (10.1-12.7) SECONDS INR (0.9-1.3) D-Dimer (<500) ng/ml ABG pH 7.43 (7.35-7.45) ABG pCO2 37.0 (35-45) mmHg ABG pO2 71 L (80-100) mmHg ABG HCO3 25 (23-27) mmol/L ABG Total CO2 26 (23-27) mmol/L ABG O2 Saturation 95 (95-100) % ABG Base Excess 0.0 (-2-3) mmol/L FiO2 100 Sodium 135 L (137-145) mmol/L Potassium 6.1 H (3.4-5.1) mmol/L Chloride 93 L (98-107) mmol/L Carbon Dioxide 26 (22-32) mmol/L BUN 64 H (9-20) mg/dL Creatinine 3.29 H (0.66-1.25) mg/dL Estimated GFR 19 L (>60) mL/min BUN/Creatinine Ratio 19.5 (6-22) Glucose 307 H (80-110) mg/dL Lactate (0.7-2.1) mmol/L Calcium 9.6 (8.4-10.2) mg/dL Total Bilirubin 1.2 (0.2-1.3) mg/dL AST 38 (17-59) IU/L ALT 38 (<50) IU/L Alkaline Phosphatase 123 (38-126) U/L Total Creatine Kinase CK-MB (CK-2) CK-MB (CK-2) Rel Index Troponin I Cancelled NT-Pro-B Natriuret Pep 808 H (<125) pg/mL Total Protein 8.2 (6.3-8.2) g/dL Albumin 4.3 (3.5-5.0) g/dL Globulin 3.9 (1.7-4.1) g/dL Albumin/Globulin Ratio 1.1 (1.0-2.8) Procalcitonin (<0.5) ng/mL Urine Color Urine Appearance Urine pH (4.5-8.0) Ur Specific [place] (1.000-1.035) Urine Protein (Negative) Urine Glucose (UA) (Negative) g/dL Urine Ketones (NEGATIVE) Urine Occult Blood (Negative) Urine Nitrate (Negative) Urine Bilirubin (NEGATIVE) Urine Urobilinogen (0.2) E.U./dL Ur Leukocyte Esterase (NEGATIVE) Urine RBC (0-5/HPF) Urine WBC (0-5/HPF) Urine Bacteria (None) Ur Culture Indicated? Chlamy pneumoniae PCR (Not Detect) Adenovirus (PCR) (Not Detect) B. pertussis DNA (PCR) (Not Detecte) B.parapertussis DNA PCR (Not Detecte) Coronavirus OC43 (PCR) (Not Detect) Coronavirus HKU1 (PCR) (Not Detect) Coronavirus 229E (PCR) (Not Detect) SARS-CoV-2 (PCR) (Not Detecte) Coronavirus NL63 (PCR) (Not Detect) Human Metapneumovir PCR (Not Detect) Influenza Type A (PCR) (Not Detect) Influenza Type B (PCR) (Not Detect) M. pneumoniae (PCR) (Not Detect) Parainfluenza 1 (PCR) (Not Detect) Parainfluenza 2 (PCR) (Not Detect) Parainfluenza 3 (PCR) (Not Detect) Parainfluenza 4 (PCR) (Not Detect) RSV (PCR) (Not Detect) Entero/Rhino (PCR) (Not Detect) 11/25/22 11/25/22 11/25/22 Range/Units 16:32 16:32 16:32 WBC (4.5-11.0) X10^3/uL RBC (4.5-5.9) X10^6/uL Hgb (13.5-17.5) g/dL Hct (41-53) % MCV (80-100) fL MCH (26-34) PG MCHC (30-36) % RDW (11.6-14.8) % Plt Count (150-400) X10^3/uL Neut % (Auto) (50-75) % Lymph % (Auto) (25-40) % [place] % (Auto) (3-14) % Eos % (Auto) (2-4) % Baso % (Auto) (0-2) % Neut # (Auto) (6515-5919) /uL Lymph # (Auto) (5239-0221) /uL [place] # (Auto) (0-900) /uL Eos # (Auto) (0-450) /uL Baso # (Auto) (0-100) /uL PT (10.1-12.7) SECONDS INR (0.9-1.3) D-Dimer (<500) ng/ml ABG pH (7.35-7.45) ABG pCO2 (35-45) mmHg ABG pO2 (80-100) mmHg ABG HCO3 (23-27) mmol/L ABG Total CO2 (23-27) mmol/L ABG O2 Saturation (95-100) % ABG Base Excess (-2-3) mmol/L FiO2 Sodium (137-145) mmol/L Potassium (3.4-5.1) mmol/L Chloride (98-107) mmol/L Carbon Dioxide (22-32) mmol/L BUN (9-20) mg/dL Creatinine (0.66-1.25) mg/dL Estimated GFR (>60) mL/min BUN/Creatinine Ratio (6-22) Glucose (80-110) mg/dL Lactate 4.2 H* (0.7-2.1) mmol/L Calcium (8.4-10.2) mg/dL Total Bilirubin (0.2-1.3) mg/dL AST (17-59) IU/L ALT (<50) IU/L Alkaline Phosphatase (38-126) U/L Total Creatine Kinase Cancelled CK-MB (CK-2) CK-MB (CK-2) Rel Index Troponin I NT-Pro-B Natriuret Pep (<125) pg/mL Total Protein (6.3-8.2) g/dL Albumin (3.5-5.0) g/dL Globulin (1.7-4.1) g/dL Albumin/Globulin Ratio (1.0-2.8) Procalcitonin 1.23 H (<0.5) ng/mL Urine Color Urine Appearance Urine pH (4.5-8.0) Ur Specific [place] (1.000-1.035) Urine Protein (Negative) Urine Glucose (UA) (Negative) g/dL Urine Ketones (NEGATIVE) Urine Occult Blood (Negative) Urine Nitrate (Negative) Urine Bilirubin (NEGATIVE) Urine Urobilinogen (0.2) E.U./dL Ur Leukocyte Esterase (NEGATIVE) Urine RBC (0-5/HPF) Urine WBC (0-5/HPF) Urine Bacteria (None) Ur Culture Indicated? Chlamy pneumoniae PCR (Not Detect) Adenovirus (PCR) (Not Detect) B. pertussis DNA (PCR) (Not Detecte) B.parapertussis DNA PCR (Not Detecte) Coronavirus OC43 (PCR) (Not Detect) Coronavirus HKU1 (PCR) (Not Detect) Coronavirus 229E (PCR) (Not Detect) SARS-CoV-2 (PCR) (Not Detecte) Coronavirus NL63 (PCR) (Not Detect) Human Metapneumovir PCR (Not Detect) Influenza Type A (PCR) (Not Detect) Influenza Type B (PCR) (Not Detect) M. pneumoniae (PCR) (Not Detect) Parainfluenza 1 (PCR) (Not Detect) Parainfluenza 2 (PCR) (Not Detect) Parainfluenza 3 (PCR) (Not Detect) Parainfluenza 4 (PCR) (Not Detect) RSV (PCR) (Not Detect) Entero/Rhino (PCR) (Not Detect) 11/25/22 11/25/22 11/25/22 Range/Units 16:32 16:50 16:50 WBC (4.5-11.0) X10^3/uL RBC (4.5-5.9) X10^6/uL Hgb (13.5-17.5) g/dL Hct (41-53) % MCV (80-100) fL MCH (26-34) PG MCHC (30-36) % RDW (11.6-14.8) % Plt Count (150-400) X10^3/uL Neut % (Auto) (50-75) % Lymph % (Auto) (25-40) % [place] % (Auto) (3-14) % Eos % (Auto) (2-4) % Baso % (Auto) (0-2) % Neut # (Auto) (3917-8459) /uL Lymph # (Auto) (4215-9889) /uL [place] # (Auto) (0-900) /uL Eos # (Auto) (0-450) /uL Baso # (Auto) (0-100) /uL PT 14.6 H (10.1-12.7) SECONDS INR 1.3 (0.9-1.3) D-Dimer 2287 H (<500) ng/ml ABG pH (7.35-7.45) ABG pCO2 (35-45) mmHg ABG pO2 (80-100) mmHg ABG HCO3 (23-27) mmol/L ABG Total CO2 (23-27) mmol/L ABG O2 Saturation (95-100) % ABG Base Excess (-2-3) mmol/L FiO2 Sodium (137-145) mmol/L Potassium (3.4-5.1) mmol/L Chloride (98-107) mmol/L Carbon Dioxide (22-32) mmol/L BUN (9-20) mg/dL Creatinine (0.66-1.25) mg/dL Estimated GFR (>60) mL/min BUN/Creatinine Ratio (6-22) Glucose (80-110) mg/dL Lactate (0.7-2.1) mmol/L Calcium (8.4-10.2) mg/dL Total Bilirubin (0.2-1.3) mg/dL AST (17-59) IU/L ALT (<50) IU/L Alkaline Phosphatase (38-126) U/L Total Creatine Kinase 44 L CK-MB (CK-2) TNP CK-MB (CK-2) Rel Index TNP Troponin I < 0.012 NT-Pro-B Natriuret Pep (<125) pg/mL Total Protein (6.3-8.2) g/dL Albumin (3.5-5.0) g/dL Globulin (1.7-4.1) g/dL Albumin/Globulin Ratio (1.0-2.8) Procalcitonin (<0.5) ng/mL Urine Color Urine Appearance Urine pH (4.5-8.0) Ur Specific [place] (1.000-1.035) Urine Protein (Negative) Urine Glucose (UA) (Negative) g/dL Urine Ketones (NEGATIVE) Urine Occult Blood (Negative) Urine Nitrate (Negative) Urine Bilirubin (NEGATIVE) Urine Urobilinogen (0.2) E.U./dL Ur Leukocyte Esterase (NEGATIVE) Urine RBC (0-5/HPF) Urine WBC (0-5/HPF) Urine Bacteria (None) Ur Culture Indicated? Chlamy pneumoniae PCR (Not Detect) Adenovirus (PCR) (Not Detect) B. pertussis DNA (PCR) (Not Detecte) B.parapertussis DNA PCR (Not Detecte) Coronavirus OC43 (PCR) (Not Detect) Coronavirus HKU1 (PCR) (Not Detect) Coronavirus 229E (PCR) (Not Detect) SARS-CoV-2 (PCR) (Not Detecte) Coronavirus NL63 (PCR) (Not Detect) Human Metapneumovir PCR (Not Detect) Influenza Type A (PCR) (Not Detect) Influenza Type B (PCR) (Not Detect) M. pneumoniae (PCR) (Not Detect) Parainfluenza 1 (PCR) (Not Detect) Parainfluenza 2 (PCR) (Not Detect) Parainfluenza 3 (PCR) (Not Detect) Parainfluenza 4 (PCR) (Not Detect) RSV (PCR) (Not Detect) Entero/Rhino (PCR) (Not Detect) 11/25/22 11/25/22 11/25/22 Range/Units 17:20 17:20 19:08 WBC (4.5-11.0) X10^3/uL RBC (4.5-5.9) X10^6/uL Hgb (13.5-17.5) g/dL Hct (41-53) % MCV (80-100) fL MCH (26-34) PG MCHC (30-36) % RDW (11.6-14.8) % Plt Count (150-400) X10^3/uL Neut % (Auto) (50-75) % Lymph % (Auto) (25-40) % [place] % (Auto) (3-14) % Eos % (Auto) (2-4) % Baso % (Auto) (0-2) % Neut # (Auto) (2199-8821) /uL Lymph # (Auto) (9869-3943) /uL [place] # (Auto) (0-900) /uL Eos # (Auto) (0-450) /uL Baso # (Auto) (0-100) /uL PT (10.1-12.7) SECONDS INR (0.9-1.3) D-Dimer (<500) ng/ml ABG pH (7.35-7.45) ABG pCO2 (35-45) mmHg ABG pO2 (80-100) mmHg ABG HCO3 (23-27) mmol/L ABG Total CO2 (23-27) mmol/L ABG O2 Saturation (95-100) % ABG Base Excess (-2-3) mmol/L FiO2 Sodium (137-145) mmol/L Potassium (3.4-5.1) mmol/L Chloride (98-107) mmol/L Carbon Dioxide (22-32) mmol/L BUN (9-20) mg/dL Creatinine (0.66-1.25) mg/dL Estimated GFR (>60) mL/min BUN/Creatinine Ratio (6-22) Glucose (80-110) mg/dL Lactate 1.5 (0.7-2.1) mmol/L Calcium (8.4-10.2) mg/dL Total Bilirubin (0.2-1.3) mg/dL AST (17-59) IU/L ALT (<50) IU/L Alkaline Phosphatase (38-126) U/L Total Creatine Kinase CK-MB (CK-2) CK-MB (CK-2) Rel Index Troponin I NT-Pro-B Natriuret Pep (<125) pg/mL Total Protein (6.3-8.2) g/dL Albumin (3.5-5.0) g/dL Globulin (1.7-4.1) g/dL Albumin/Globulin Ratio (1.0-2.8) Procalcitonin (<0.5) ng/mL Urine Color Yellow Urine Appearance Clear Urine pH 5.5 (4.5-8.0) Ur Specific [place] 1.020 (1.000-1.035) Urine Protein Negative (Negative) Urine Glucose (UA) Negative (Negative) g/dL Urine Ketones Trace H (NEGATIVE) Urine Occult Blood Negative (Negative) Urine Nitrate Negative (Negative) Urine Bilirubin Negative (NEGATIVE) Urine Urobilinogen 0.2 (0.2) E.U./dL Ur Leukocyte Esterase Negative (NEGATIVE) Urine RBC None seen (0-5/HPF) Urine WBC None seen (0-5/HPF) Urine Bacteria None seen (None) Ur Culture Indicated? Cult not indicated Chlamy pneumoniae PCR Not detected (Not Detect) Adenovirus (PCR) Not detected (Not Detect) B. pertussis DNA (PCR) Not detected (Not Detecte) B.parapertussis DNA PCR Not detected (Not Detecte) Coronavirus OC43 (PCR) Not detected (Not Detect) Coronavirus HKU1 (PCR) Not detected (Not Detect) Coronavirus 229E (PCR) Not detected (Not Detect) SARS-CoV-2 (PCR) Not detected (Not Detecte) Coronavirus NL63 (PCR) Not detected (Not Detect) Human Metapneumovir PCR Not detected (Not Detect) Influenza Type A (PCR) Not detected (Not Detect) Influenza Type B (PCR) Not detected (Not Detect) M. pneumoniae (PCR) Not detected (Not Detect) Parainfluenza 1 (PCR) Not detected (Not Detect) Parainfluenza 2 (PCR) Not detected (Not Detect) Parainfluenza 3 (PCR) Not detected (Not Detect) Parainfluenza 4 (PCR) Not detected (Not Detect) RSV (PCR) Not detected (Not Detect) Entero/Rhino (PCR) Not detected (Not Detect) Imaging Data Chest x-ray: Radiologist's Impression: [address] [address] XRay Report Signed Patient: Wilfrido Mclean MR#: [id number] : 1950 Acct:[id number] Age/Sex: 72 / M Date of Service: 11/25/22 Loc: ED Accession Number: [id number] ?? Procedure: XR chest 1V Ordering Provider: Gabriella Miller D.O. PROCEDURE:? XR CHEST 1V ? INDICATIONS:? Shortness of breath ? TECHNIQUE:? One view of the chest was acquired.? ? COMPARISON:? [facility], CR, XR CHEST 1V, 11/12/2022, 11:51.? [facility], CR, XR CHEST 1V, 10/14/2022, 15:35. ? FINDINGS:? ? Surgical changes and devices:? Post median sternotomy and CABG. ? Lungs and pleura:? Suspect [place] B lines.? No consolidative opacity identified.? No pleural effusions or pneumothorax.? ? Mediastinum:? Mediastinal contours appear normal.? Heart size is within normal limits.? ? Bones and chest wall:? No suspicious bony lesions.? Overlying soft tissues appear unremarkable.? ? IMPRESSION:? Suspect mild fluid overload/CHF or pulmonary vasculature engorgement. ? ? Dictated by: Alli Pritchett M.D. on 11/25/2022 at 16:52 ? ? Approved by: Alli Pritchett M.D. on 11/25/2022 at 16:53?? CT scan - chest: Radiologist's Impression: [place] [address] CT Scan Report Signed Patient: Wilfrido Mclean MR#: [id number] : 1950 Acct:[id number] Age/Sex: 72 / M Date of Service: 11/25/22 Loc: ED Accession Number: [id number] ?? Procedure: CT angio chest PE protocol Ordering Provider: Gabriella Miller D.O. PROCEDURE:? CT ANGIO CHEST PE PROTOCOL ? INDICATIONS:? hypoxia, tachycardia, agitated. ? TECHNIQUE:? After the administration of intravenous contrast, 2 mm thick sections acquired from the pulmonary apices to the posterior costophrenic angles.? 3-dimensional maximum intensity projection (MIP) coronal and sagittal reformats were then acquired through the thorax.? For radiation dose reduction, the following was used:? automated exposure control, adjustment of mA and/or kV according to patient size.? ? COMPARISON:? None. ? FINDINGS: Image quality:? Excellent.? ? Lungs and pleura:? Diffuse airspace opacities throughout both lung zhang.? No pleural effusions or pneumothorax.? Central and peripheral airways are patent and normal in caliber.? ? Mediastinum:? Heart size is normal.? The coronary arteries have atherosclerotic calcifications.? No pericardial effusion.? No mediastinal adenopathy by size criteria.? The aorta has atherosclerosis with no aneurysmal dilatation.? Esophagus is normal in caliber.? No hiatal hernia.? No pulmonary embolism. ? Bones and chest wall:? No suspicious bony lesions. No vertebral body compression fractures.? No axillary or supraclavicular adenopathy by size criteria.? Thyroid gland is normal. ? Abdomen:? Limited visualization of the upper abdomen shows no acute abnormality.? ? IMPRESSION:? 1.? Diffuse alveolar airspace opacities throughout both lung zhang consistent with either a atypical infectious process or CHF.? 2. Pulmonary embolism. 3. Coronary artery disease. ? Dictated by: Erik Garcia M.D. on 11/25/2022 at 18:36 ? ? Approved by: Erik Garcia M.D. on 11/25/2022 at 18:41?? ECG Data Attestation: I personally reviewed and interpreted this ECG as follows: Interpretation: Sinus rhythm with sinus arrhythmia rate of 99 VA 152 QRS 90 QTC 415. No acute ST elevation. Patient's T-waves are peaked compared to prior from 11/12/2022. Treatment and disposition Code Status and discussions:: Discussed with daughter, patient's from currently full code but there is discussion about hospice and changing his status. MDM Narrative Medical decision making narrative: Spoke with on-call Radiology, reviewed patient's CT angio as it shows no PE in the body of the paragraph, pulmonary embolism in depression. Does have diffuse alveolar airspace opacity throughout both lung zhang consistent with either atypical infectious process or CHF. Patient case was discussed. There is no PE noted on imaging and they will correct tomorrow with an addendum. CT abdomen pelvis shows a stable right adrenal mass but no other change. Suspect Haim's main cause is pneumonia daughter does note he is had high potential for aspiration recently, he is afebrile but had procalcitonin is positive lactate improving with fluids and oxygen white count is 17. Patient's coags showed a dimer was elevated outside age adjustment. ABG shows hypoxia patient is 71% on a non-rebreather but pH is 7.43 with a pCO2 at 37. Patient does have acute kidney injury with a creatinine of 3.29 BUN of 64, sodium 135 and a potassium of 6 1 with a chloride of 93. Glucose is 307, total CK is 44 with BNP of 800 and positive procalcitonin 1.23. Patient has ketones trace but no other signs of infectious. No obstructive process and patient's respiratory panel is negative. Patient had 342 postvoid residual, strict I's nose. He has received a L bolus, he is continued to be on high-flow he is currently in soft restraints as he has been trying to pull things off. Had long discussion with daughter about code status and at this time is full code, she is considering changing his code status. We did discuss that there is a spectrum or range. She is clear that he does not want dialysis and we discussed if his kidney stop working he would she does understand this. I spoke with Dr. Magaña who is covering for Dr. Shea, he accepts for inpatient, we will continue with fluids but a little bit more gently at 150/hr. He will put in orders. Critical Care Time Critical Care Time Critical Care Time: Yes Total Critical Care Time: 40 Attestation: The high probability of a clinically significant, sudden or life threatening deterioration of the [cardiac, pulm] system(s) required my full and direct attention, intervention and personal management. The aggregate critical care time was [] minutes. This time is in addition to time spent performing reported procedures but includes the following: [x] Data Review and interpretation [x] Patient assessment and monitoring of vital signs [x] Documentation [x] Medication orders and management Discharge Plan Departure Patient Disposition: Admitted As Inpatient Clinical Impression: Acute respiratory failure with hypoxia, Pneumonia, Acute hyperkalemia, Adrenal mass, Acute on chronic kidney failure
[2022-11-25] MEDS: SODIUM CHLORIDE 0.9% 1,000 ML 1000 ML IV (17:00)
[2022-11-25 17:01] LABS: Creatine Kinase 44 U/L (55-170)
[2022-11-25 17:03] LABS: Alanine Aminotransferase 38 IU/L (<50); Albumin 4.3 g/dL (3.5-5.0); Albumin Globulin Ratio 1.1 (1.0-2.8); Alkaline Phosphatase 123 U/L (38-126); Aspartate Aminotransferase 38 IU/L (17-59); BUN Creatinine Ratio 19.5 (6-22); Bilirubin Total 1.2 mg/dL (0.2-1.3); Blood Urea Nitrogen 64 mg/dL (9-20); Calcium 9.6 mg/dL (8.4-10.2); Carbon Dioxide 26 mmol/L (22-32); Chloride 93 mmol/L (98-107); Estimated Glomerular Filt Rate 19 mL/min (>60); Globulin 3.9 g/dL (1.7-4.1); Glucose 307 mg/dL (80-110); HEMOLYSIS 18 (0-50); Sodium 135 mmol/L (137-145); Total Protein 8.2 g/dL (6.3-8.2)
[2022-11-25 17:04] LABS: Potassium 6.1 mmol/L (3.4-5.1)
[2022-11-25 17:06] LABS: INR 1.3 (0.9-1.3); Prothrombin Time 14.6 SECONDS (10.1-12.7)
[2022-11-25 17:11] LABS: Add Manual Diff / Slide Review NO; Basophils Absolute Auto 0 /uL (0-100); Basophils Percent Auto 0.2 % (0-2); Eosinophils Absolute Auto 0 /uL (0-450); Eosinophils Percent Auto 0.1 % (2-4); Hematocrit 45.5 % (41-53); Hemoglobin 14.9 g/dL (13.5-17.5); Lymphocytes Absolute Auto 1000 /uL (1100-4500); Lymphocytes Percent Auto 6.1 % (25-40); Mean Corpuscular HGB Conc 32.9 % (30-36); Mean Corpuscular Hemoglobin 27.8 PG (26-34); Mean Corpuscular Volume 84.6 fL (80-100); Monocytes Absolute Auto 400 /uL (0-900); Monocytes Percent Auto 2.3 % (3-14); Neutrophils Absolute Auto 15500 /uL (1500-7000); Neutrophils Percent Auto 91.3 % (50-75); Platelet Count 248 X10^3/uL (150-400); Red Blood Cell Count 5.38 X10^6/uL (4.5-5.9); Red Cell Distribution Width 14.7 % (11.6-14.8)
[2022-11-25 17:13] LABS: D Dimer 2287 ng/ml (<500)
[2022-11-25 17:14] LABS: Troponin I < 0.012 ng/mL (0.01-0.034)
[2022-11-25 17:15] LABS: NT-proBNP (BNP-Adult 18+) 808 pg/mL (<125)
[2022-11-25] MEDS: methylPREDNISolone 125 MG/2 ML VIAL IV (17:15)
[2022-11-25] MEDS: ONDANSETRON 4 MG/2 ML INJ IV (17:15)
[2022-11-25] MEDS: diphenhydrAMINE 50 MG/ML VIAL 25 MG IV (17:15)
[2022-11-25 17:17] LABS: pH ABG 7.43 (7.35-7.45)
[2022-11-25 17:18] LABS: Fractionated Inspired Oxygen 100; HCO3 ABG 25 mmol/L (23-27); Oxygen Saturation ABG 95 % (95-100); PO2 ABG 71 mmHg (80-100); TCO2 ABG 26 mmol/L (23-27)
[2022-11-25 17:20] LABS: Procalcitonin 1.23 ng/mL (<0.5)
[2022-11-25 17:22] LABS: Lactate (Lactic Acid) 4.2 mmol/L (0.7-2.1)
--- NOTE | 2022-11-25 17:23 | DI.CT.S_ITS ---
PROCEDURE: CT ANGIO CHEST PE PROTOCOL INDICATIONS: hypoxia, tachycardia, agitated. TECHNIQUE: After the administration of intravenous contrast, 2 mm thick sections acquired from the pulmonary apices to the posterior costophrenic angles. 3-dimensional maximum intensity projection (MIP) coronal and sagittal reformats were then acquired through the thorax. For radiation dose reduction, the following was used: automated exposure control, adjustment of mA and/or kV according to patient size. COMPARISON: None. FINDINGS: Image quality: Excellent. Lungs and pleura: Diffuse airspace opacities throughout both lung zhang. No pleural effusions or pneumothorax. Central and peripheral airways are patent and normal in caliber. Mediastinum: Heart size is normal. The coronary arteries have atherosclerotic calcifications. No pericardial effusion. No mediastinal adenopathy by size criteria. The aorta has atherosclerosis with no aneurysmal dilatation. Esophagus is normal in caliber. No hiatal hernia. No pulmonary embolism. Bones and chest wall: No suspicious bony lesions. No vertebral body compression fractures. No axillary or supraclavicular adenopathy by size criteria. Thyroid gland is normal. Abdomen: Limited visualization of the upper abdomen shows no acute abnormality. IMPRESSION: 1. Diffuse alveolar airspace opacities throughout both lung zhang consistent with either a atypical infectious process or CHF. 2. Pulmonary embolism. 3. Coronary artery disease. Dictated by: Erik Garcia M.D. on 11/25/2022 at 18:36 Approved by: Erik Garcia M.D. on 11/25/2022 at 18:41
--- NOTE | 2022-11-25 17:23 | DI.CT.S_ITS ---
PROCEDURE: CT ABDOMEN PELVIS W CON INDICATIONS: arf, hypoxia TECHNIQUE: After the administration of intravenous contrast, axial sections acquired from the lung bases to the pubic symphysis. Coronal and sagittal reformats were performed. For radiation dose reduction, the following was used: automated exposure control, adjustment of mA and/or kV according to patient size. COMPARISON: [facility], CT, CT ABDOMEN PELVIS W CON, 10/14/2022, 16:23. FINDINGS: Image quality: Excellent. Lung bases: Lung bases are clear. Heart size is normal. Solid organs: Liver: The liver has no mass or intrahepatic biliary ductal dilatation. The portal vein and hepatic veins are patent. Biliary: The gallbladder has no gallstones, pericholecystic fluid, gallbladder wall thickening, or surrounding inflammatory change. Pancreas: The pancreas has no mass or ductal dilatation. There is no surrounding inflammation. Spleen: Normal size. There are no masses. Adrenals: The left adrenal gland is normal. The left adrenal gland has a 5 centimeter mass interspersed with fat consistent with a benign adrenal myelolipoma, unchanged compared to the prior studies. Kidneys: No obstructive calculus or hydronephrosis. No solid mass. No cystic mass. Peritoneum and bowel: The distal esophagus and stomach are normal. The small bowel has a normal caliber and appearance. The terminal ileum is normal. The large bowel has a normal caliber and appearance. The appendix is not definitively visualized and therefore acute appendicitis cannot be excluded; however there are no secondary findings to suggest acute appendicitis. No free fluid or air. Nodes and vessels: No retroperitoneal or mesenteric adenopathy by size criteria. Severe atherosclerotic disease of the iliac arteries and distal aorta. Miscellaneous: No abdominal wall mass or hernia. PELVIS: Genitourinary: The bladder has no wall thickening or mass. No bladder calcifications. Bones: Anterior height loss of T12 consistent with a remote fracture. IMPRESSION: 1. No acute abdominal or pelvic abnormality. 2. Stable right adrenal mass which is benign. Dictated by: Erik Garcia M.D. on 11/25/2022 at 18:43 Approved by: Erik Garcia M.D. on 11/25/2022 at 18:48
[2022-11-25 17:28] LABS: Appearance Urine UA CLEAR; Bilirubin Urine UA NEGATIVE (NEGATIVE); Color Urine UA YELLOW; Glucose Urine UA NEGATIVE (Negative); Ketones Urine UA TRACE (NEGATIVE); Leukocyte Esterase Urine UA NEGATIVE (NEGATIVE); Nitrite Urine UA NEGATIVE (Negative); Occult Blood Urine UA NEGATIVE (Negative); Protein Urine UA NEGATIVE (Negative); Urobilinogen Urine UA 0.2 E.U./dL (0.2); pH Urine UA 5.5 (4.5-8.0)
[2022-11-25] MEDS: ALBUTEROL/IPRATROPIUM 3 ML AMPUL INH (17:45)
[2022-11-25 18:09] LABS: Bacteria Urine None Seen; Culture Indicated Urine Cult Not Indicated; RBC Urine None Seen (0-5/HPF); WBC Urine None Seen (0-5/HPF)
[2022-11-25 18:14] LABS: Adenovirus Not Detected (Not Detect); B. parapertussis Not Detected (Not Detecte); Bordetella pertussis Not Detected (Not Detecte); Chlamydophila pneumoniae Not Detected (Not Detect); Coronavirus 229E Not Detected (Not Detect); Coronavirus HKU1 Not Detected (Not Detect); Coronavirus NL 63 Not Detected (Not Detect); Coronavirus OC43 Not Detected (Not Detect); Human Metapneumovirus Not Detected (Not Detect); Human Rhinovirus/Enterovirus Not Detected (Not Detect); Influenza A Not Detected (Not Detect); Influenza B Not Detected (Not Detect); Mycoplasma pneumoniae Not Detected (Not Detect); Parainfluenza Virus 1 Not Detected (Not Detect); Parainfluenza Virus 2 Not Detected (Not Detect); Parainfluenza Virus 3 Not Detected (Not Detect); Parainfluenza Virus 4 Not Detected (Not Detect); Respiratory Syncytial Virus Not Detected (Not Detect); SARS- CoV-2 Not Detected (Not Detecte)
[2022-11-25 18:42] LABS: Reflexed Lactate in 2 Hours Y
[2022-11-25 19:28] LABS: Lactate 2HR (Lactic Acid Rflx) 1.5 mmol/L (0.7-2.1)
[2022-11-25] MEDS: DEXTROSE 50 % IN WATER 25 GM/50 ML SYRINGE IV (21:01)
[2022-11-25] MEDS: SODIUM BICARB 8.4% SYRINGE 50 MEQ IV (21:02)
[2022-11-25] MEDS: CALCIUM GLUCONATE 4.65 MEQ in SODIUM CHLORIDE 0.9% 50 ML 180 MEQ IV (21:06)
[2022-11-25] MEDS: PIPERACILLIN/TAZO 4.5 GM in SODIUM CHLORIDE 0.9% 100 ML IV (21:08)
[2022-11-25] MEDS: INSULIN REGULAR 100 UNIT/ML 3 ML VIAL IV (21:11)
[2022-11-25] MEDS: SODIUM CHLORIDE 0.9% 1,000 ML 150 ML IV (21:21)
[2022-11-26] VITALS (7 sets, daily range): BP systolic 123–127; BP diastolic 54–70; PULSE 75–83; RESP 20–22; TEMP 36.1; O2SAT 92–98
--- NOTE | 2022-11-26 00:23 | PC.NURSE ---
2319 Admitted to room 206, reports from ER. RN pt. very lethargic. He was not responding to verbal & tactile stimuli, not even opening his eyes. Aspirin now order was not administered high risk for aspiration. Checked his CBG 347 notified coordinator Brandi SOTELO.& reported pt. got 5 units of Humulin R @ 2110. Brake Specialist ordered not to call MD with CBG of 347 since he gotten 5 units of Insulin in ER. Nursing staff was not able to orient or educated him, since he's too sleepy & not opening his eyes to all stimuli. Will monitor.
--- NOTE | 2022-11-26 02:22 | PC.NURSE ---
RT. notified SPO2 @ 35 liters & 82% was 97-100%. Decreased to 60% with 35 liters & SPO2 now @ 95%. Will monitor.
--- NOTE | 2022-11-26 03:02 | PC.NURSE ---
Dr. Magaña notified via answering service to report CBG is trending up it was 347 @ 6732 & 379 now, awaiting call back.
--- NOTE | 2022-11-26 03:10 | PC.NURSE ---
Order received to give 25 units of Lantus SQ now. Awaiting verification from night pharmacy.
[2022-11-26] MEDS: INSULIN GLARGINE 100 UNIT/ML 3ML PEN 25 UNIT SUBCUT (03:17)
--- NOTE | 2022-11-26 03:25 | PC.NURSE ---
Restraint was not applied since admitted to room 206 @ 2320, pt. was asleep. Not responding to verbal & tactile stimuli. Will monitor.
[2022-11-26] MEDS: SODIUM CHLORIDE 0.9% 1,000 ML 150 ML IV (04:02)
[2022-11-26] MEDS: PIPERACILLIN/TAZO 3.375 GM in SODIUM CHLORIDE 0.9% 100 ML IV (04:52)
[2022-11-26 06:28] LABS: Add Manual Diff / Slide Review NO; Basophils Absolute Auto 0 /uL (0-100); Basophils Percent Auto 0.1 % (0-2); Eosinophils Absolute Auto 0 /uL (0-450); Hematocrit 35.6 % (41-53); Hemoglobin 11.7 g/dL (13.5-17.5); Lymphocytes Absolute Auto 900 /uL (1100-4500); Mean Corpuscular Hemoglobin 27.9 PG (26-34); Mean Corpuscular Volume 84.6 fL (80-100); Monocytes Absolute Auto 400 /uL (0-900); Monocytes Percent Auto 2.3 % (3-14); Neutrophils Absolute Auto 16800 /uL (1500-7000); Neutrophils Percent Auto 92.6 % (50-75); Platelet Count 188 X10^3/uL (150-400); Red Blood Cell Count 4.21 X10^6/uL (4.5-5.9); Red Cell Distribution Width 14.6 % (11.6-14.8); White Blood Cell Count 18.1 X10^3/uL (4.5-11.0)
[2022-11-26 06:37] LABS: Alanine Aminotransferase 26 IU/L (<50); Albumin 3.2 g/dL (3.5-5.0); Albumin Globulin Ratio 1.1 (1.0-2.8); Alkaline Phosphatase 79 U/L (38-126); Aspartate Aminotransferase 18 IU/L (17-59); BUN Creatinine Ratio 25.4 (6-22); Bilirubin Total 0.9 mg/dL (0.2-1.3); Blood Urea Nitrogen 64 mg/dL (9-20); Calcium 8.4 mg/dL (8.4-10.2); Carbon Dioxide 27 mmol/L (22-32); Chloride 99 mmol/L (98-107); Estimated Glomerular Filt Rate 26 mL/min (>60); Glucose 375 mg/dL (80-110); HEMOLYSIS < 15 (0-50); Sodium 133 mmol/L (137-145); Total Protein 6.2 g/dL (6.3-8.2)
[2022-11-26 06:40] LABS: Potassium 5.4 mmol/L (3.4-5.1)
[2022-11-26] MEDS: INSULIN LISPRO 100 UNIT/ML 3ML VIAL SUBCUT (08:26)
[2022-11-26] MEDS: ENOXAPARIN 30 MG/0.3 ML SYRINGE SUBCUT (08:27)
--- NOTE | 2022-11-26 12:19 | ST.IPCSEOM ---
Visit Care Team Role Provider Type Skip Shea MD Family Provider Physician Primary Care Provider Specialty: Family Practice Address: [address] [place], [address] Email: [email or web address] Gabriella Miller DO Emergency Provider Physician Referring Provider Specialty: Emergency Medicine Address: [address] [place] [address], [id number] Email: [email or web address] Magaña MD Admit Provider Physician Attending Provider Specialty: Family Practice Address: [facility], [place], [address] Email: [email or web address] Past Medical History (Last Reviewed 11/25/22 @ 19:25 by Gabriella Miller DO) Coronary arteriosclerosis in [place] artery (Medical 04/12/17) COVID-19 (Medical) CVA (cerebral vascular accident) (Medical) CVA, old, cognitive deficits (Medical) Depression (Medical) 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 Diabetic neuropathy (Medical) Hyperlipidemia (Medical ~2005) Hypertension (Medical ~2005) Obstructive sleep apnea of adult (Medical ~04/2017) Osteoarthritis of hand (Medical 06/04/15) Snoring (Medical ~2006) Tinnitus (Medical ~1989) Vascular dementia (Medical) Speech-Language Pathology Swallow Evaluation GARDENER Clinical Swallow Evaluation Start: 11/26/22 11:50 Freq: Status: Active Protocol: Document 11/26/22 11:51 CG (Rec: 11/26/22 12:18 CG [id number]) Clinical Swallow Evaluation Session Time Visit Start Time 10:56 Visit Stop Time 11:21 Total Visit Minutes 25 Setting Assessment Location Acute Care Visit Type Note Type Initial evaluation Next Note Type Next Note Type Discharge Summary Patient Information Identification Type Name,Wristband History Per H&P: 72-year-old male with history of coronary artery disease, prior strokes, diabetes, hypertension, dyslipidemia, sleep apnea and depression who currently is at a [facility] facility after CVA. Patient presents for from sound view patient was sent over by vehicle for having decrease oxygen at 77- 79%. Unclear if he has been having any other complaints. Patient indicates he does feel short of breath, unclear if he is having any pain indicates he needs to urinate. He can tell me his can tell me he is at a hospital but has difficulty answering other questions and sort of nods his head yes or now but not clearly answering any questions. I spoke with his daughter who states he is mental baseline has decreased over time and he is boggy and that his mentation seems pretty consistent at this point. She notes that he is full code although she states he has expressed that his quality of life is very poor and he does not wish to live any longer. She also notes that he has been having significant issues with dysphagia, he has been able to pass swallow 1000 their discussion about a feeding tube being placed. She is his DPOA and states that they have not changed his code status and at this moment in time he is full code. She did state they are supposed to meet with Hospice tomorrow. Pt was seen by evaluating GARDENER at [facility] in [place] prior to readmission to hospital. He had been only eating 2-3 bites of pudding consistency per meal and had been frequently vomiting for the past 2 days, unable to keep any food or medication down. He had presented with inhalatory stridor starting 11/25/22 and was admitted for his present admission due to spO2 levels in the 70's. As of 11/25, the family was pursuing hospice. The pt has states that he does not want to pursue alternative means of nutrition/hydration. Subjective Observations Pt was seated partially reclined in bed with oxygen in place. He was awake, though clearly fatigued. His daughter, Glory, was present in the room and her joined at the end of the session. Pt had previously worked with the evaluating GARDENER at [facility], and he appeared to recognize the GARDENER and was oriented to place/ situation. Reported by Patient Other Symptoms Difficulty swallowing liquids, Difficulty swallowing pills, Difficulty swallowing solids, History of aspiration or pneumonia Current Diet Nothing by mouth Baseline Feeding Method Needs some assistance Patient Questionnaire No Objective Assessment Mental Status Alert,Cooperative Oral Integrity Xerostomia/Dry mouth Dentition Within normal limits Lip Function Moderate impairment Observation of Lips at Rest Symmetrical Pucker Reduced range of motion, Reduced strength Lip Retraction Reduced range of motion Tongue Function Moderate impairment Observations of Tongue at Rest Within normal limits Tongue Retraction Reduced range of motion, Reduced strength Jaw Function Moderate impairment Observations of Jaw at Rest Within normal limits Jaw Opening Reduced range of motion, Reduced strength Gag Reflex Within normal limits Phonation Breathy,Reduced loudness Respiratory Sufficiency Moderate impairment Comment Formal oral motor examination was not completed for patient comfort, as pt is pursuing hospice at this time. PO trials were conducted to determine what pt could comfortably eat as he pursues hospice. During PO trials, pt 's labial movement was limited , not creating a labial seal on teaspoon. Mild anterior spillage of thin liquids was noted. Minimal tongue movement was present on all PO trials. though pt was able to hold ice chip at the front of his mouth. Tongue base retraction is limited resulting in pt being unable to initiate swallow of medications. Food and Liquid Trials Position During Assessment Slightly reclined Liquids Trialed Ice chips,Thin Administration Type Tea spoon,Dependent feeding Oral Impairment Severely impaired Oral Phase Comments Pt was trialed with small (1/2 teaspoon) sips of water placed into the oral cavity by GARDENER, followed by trials of ice chips. On trials of water , minimal labial movement was noted with no labial seal on teaspoon. Mild anterior spillage was noted during oral prep. Minimal lingual movement observed across trials, though the pt was able to use his tongue to hold an ice chip at the front of his mouth as directed to allow it to melt. Pharyngeal Impairment Severely impaired Pharyngeal Phase Comments Initiation of the pharyngeal phase was severely delayed, with pt only swallowing after about 15 seconds of prep time on trials of 1/2 teaspoon water. Per palpation, swallow response was present but severely weakened. Mild wet vocal quality was observed across trials, though this was present at baseline, likely due to current pneumonia. No coughing/throat clearing observed during these trials, but GARDENER did not challenge the pharyngeal system with larger boluses due to goal for pt comfort. Fatigue/Endurance Moderate fatigue Comment Pt tolerated trials thin ice chips, but did not want to try solids. Results Pt presents with moderate- severe oropharyngeal dysphagia . His swallow initiation is severely delayed and hyolaryngeal excursion appears weakened. Lingual movement is minimal, and pocketing/ expulsion of solids has been previously observed at [facility]. Pt did not want to trial solids during this evaluation, likely a result of ongoing nausea/food aversion and weakness. He was able to tolerate ice chips and 1/2 teaspoon water WFL. Given that and family are pursuing comfort care/hospice, it is recommended that the pt be given ice chips and small (1/2 teaspoon) sips of liquid as requested for comfort moving forward. Findings Swallowing Function Oropharyngeal phase dysphagia Severity of Swallow Impairment Moderately-severely impaired Contributing Factors to Swallow Reduced oral strength/ Impairment coordination/sensation, Mastication inefficiency, Impaired oral-pharyngeal transport,Delayed swallow initiation,Reduced laryngeal excursion,Impaired airway protection Prognosis Guarded Based on History of aspiration/ aspiration pneumonia, Comorbidities,Duration of symptoms/severity Impact on Safety and Functioning Risk for aspiration,Risk for inadequate nutrition/hydration Recommendations Instrumental Assessment No Swallowing Treatment No Recommended Solids Nothing by Mouth Recommended Liquids Ice Chips Only Other Recommendations Based on discussion with family, goal is patient comfort moving forward. In order to keep the patient most comfortable, the following are recommended: 1. Ensure pt is upright as high as comfortably tolerated for all intake (including ice chips, liquids.) 2. Provide ice chips as requested to moisten the pt's mouth. Cue the pt to keep the ice chip at the front of his mouth while it melts in order to prevent it from falling into the airway. 3. Provide 1/2 -1 teaspoon sips of liquids as requested to moisten the pt's mouth. Ensure he has cleared his mouth by swallowing before providing another sip. 4. Keep pt partially upright at all times (not lying flat) so that pharyngeal secretions and saliva do not fall into the airway. 5. Consider providing pudding or puree solids if requested for comfort. Provide via teaspoon and ensure pt remains upright as much as tolerated. Safety Precautions/Swallowing To be fed only by trained Recommendations staff/family,Remain upright ( 90 degrees) during all oral intake,Needs verbal cues to use recommended strategies Medication Recommendations Not Recommended by Mouth Discharge Recommendations [facility] facility,Home with Hospice,Palliative care Referrals Recommended Referrals Dietary (if family is interested) Education Patient/Caregiver Education Described results of evaluation,Family/caregivers expressed understanding of evaluation,Family/caregivers expressed agreement with goals & treatment plans,Family/ caregivers expressed understanding of safety precautions,Family/caregivers expressed understanding of feeding recommendations
--- NOTE | 2022-11-26 12:34 | P.HP_ITS ---
History of Present Illness History of Present Illness Date Patient Seen: 11/26/22 Time Patient Seen: 09:00 Chief complaint: non traumatic intracerebral hemorrhage subcortical Narrative: 72-year-old with a medical history of cerebral vascular accident coronary artery disease poorly-controlled diabetes hypertension hyperlipidemia sleep apnea and depression who has been residing at a care home facility. Patient has now had 3 admissions to the hospital since his initial stroke. Patient was initially admitted at the end of September had a readmission at the end of October and now has been readmitted with respiratory distress. Patient's stroke has left him with difficulty with communication has affected his cognition at times and affected his swallowing speech and strength. Patient was brought into the emergency department from the care facility with concerns about respiratory distress. Patient on evaluation at the [facility] was having oxygen saturations of 77-79%. Because of his stroke that he was unable to relate any other specific complaints. Patient's states he was short of breath. But no chest pain. Patient was difficulty getting a baseline answer from his history because of his cerebral accident. Since his previous hospitalization with the stroke he is had difficulty with swallowing. Patient's family had mentioned that they had planned on progressing towards hospice care because they chose not to do a feeding tube because of his swallowing issues. Family care conference was held today with patient's 2 daughters and son about long-term care and goals. I am patient's evaluation this morning. Patient's oxygen are stable with heated high-flow 45% blood pressure stable and pulse is stable. Patient has lost significant amount of weight since his last evaluation by me a few weeks ago. Patient answers some direct questioning. He knows he is at the hospital. He is able to recognize his daughter next to him. He has a hard time expressing clear communication. Patient History Medical History Coronary arteriosclerosis in [place] artery (04/12/17) COVID-19 CVA (cerebral vascular accident) CVA, old, cognitive deficits Depression Diabetes mellitus (~1994) Diabetic neuropathy Hyperlipidemia (~2005) Hypertension (~2005) Obstructive sleep apnea of adult (~04/2017) Osteoarthritis of hand (06/04/15) Snoring (~2006) Tinnitus (~1989) Vascular dementia Surgical History Anesthesia History of knee surgery (~1994) S/P triple vessel bypass (~2006) Status post wrist surgery (~2011) Family & Social History Family History Father Heart disease Grandmother Diabetes mellitus Grandfather Heart disease Grandmother Diabetes mellitus Social History: household members none Prior Living Arrangements Skilled Nurse Facility Safety & Behavioral: Feels Safe in Current Yes Environment Been Physically Hurt or No Threatened By a Person Tobacco & Substance use: Tobacco type cigarettes Smoking Status Former smoker alcohol intake current alcohol intake frequency a few times a week Substance Use Type does not use Meds Home Medications and Allergies Home Medications Medication Instructions Recorded Confirmed Type blood sugar diagnostic (FreeStyle See Rx Instructions .Route 07/15/20 11/25/22 Rx Lite Strips) .COMPLEX #100 ea DISABLED PARKING PERMIT #1 ea 10/28/21 11/25/22 Rx nitroglycerin 0.4 mg sublingual 0.4 mg sublingual Q5-15M PRN chest 12/09/21 11/25/22 Rx tablet pain #30 tabs duloxetine 60 mg capsule,delayed 60 mg PO DAILY #90 caps 12/21/21 11/25/22 Rx release insulin lispro 100 unit/mL See Rx Instructions .Route 10/18/22 11/25/22 Rx subcutaneous solution (Humalog .COMPLEX #10 mL U-100 Insulin) metformin 500 mg tablet,extended 1,000 mg PO BID #60 tabs 10/18/22 11/25/22 Rx release 24 hr metoprolol succinate 50 mg 50 mg PO BID #30 tabs 10/18/22 11/25/22 Rx tablet,extended release 24 hr triamterene 37.5 1 tab PO DAILY #30 tabs 10/18/22 11/25/22 Rx mg-hydrochlorothiazide 25 mg tablet insulin glargine 100 unit/mL (3 50 unit SUBCUT 209911/12/22 11/25/22 History mL) subcutaneous pen (Lantus Solostar U-100 Insulin) lisinopril 40 mg tablet 40 mg PO DAILY 11/12/22 11/25/22 History mirtazapine 7.5 mg tablet 7.5 mg PO 209911/12/22 11/25/22 History ondansetron 4 mg disintegrating 4 mg PO DAILY 11/12/22 11/25/22 History tablet aspirin 81 mg chewable tablet 325 mg PO QDAY #30 tabs 11/14/22 11/25/22 Rx clopidogrel 75 mg tablet 75 mg PO DAILY #30 tabs 11/14/22 11/25/22 Rx Allergies Allergy/AdvReac Type Severity Reaction Status Date / Time hydrocodone [From Vicodin] AdvReac Mild CRAMPS Verified 10/14/22 18:41 STOMACH Exam Vital Signs (past 8 hours): - 11/26/22 05:00 11/26/22 06:16 11/26/22 07:58 Temperature 97.0 F L Pulse Rate 83 83 79 Respiratory Rate 21 22 Blood Pressure 123/54 L 125/70 Pulse Oximetry 97 98 Oxygen Delivery Method Oxygen Flow Rate Fraction of Inspired Oxygen 35 11/26/22 08:02 11/26/22 08:05 11/26/22 09:00 Temperature Pulse Rate 75 Respiratory Rate 20 Blood Pressure Pulse Oximetry 92 92 Oxygen Delivery Method Heated High Flow Heated High Flow Oxygen Flow Rate 35 Fraction of Inspired Oxygen 50 11/26/22 12:00 Temperature Pulse Rate Respiratory Rate Blood Pressure 127/56 L Pulse Oximetry Oxygen Delivery Method Oxygen Flow Rate Fraction of Inspired Oxygen Fraction of Inspired Oxygen 50 SaO2/FiO2 Ratio 184 Oxygen Delivery Method Heated High Flow Oxygen Flow Rate 35 Narrative Exam Narrative: Gen.: Alert difficulty with speech and some confusion HEENT: Pupils equal round and reactive or mucosa is dry Cardio: S1-S2 regular rate and rhythm Respiratory: Lungs show bilateral crackles with wheezes Abdomen: [Soft nontender no rebound or guarding no liver spleen enlargement no appreciable hernias] Extremities: Patient has some generalized weakness some lower extremity edema warm and dry Objective Labs 11/26/22 06:17 11/26/22 06:17 Labs: Laboratory Results - last 24 hr 11/25/22 11/25/22 11/25/22 16:29 16:32 16:32 WBC 17.0 H RBC 5.38 Hgb 14.9 Hct 45.5 MCV 84.6 MCH 27.8 MCHC 32.9 RDW 14.7 Plt Count 248 Neut % (Auto) 91.3 H Lymph % (Auto) 6.1 L [place] % (Auto) 2.3 L Eos % (Auto) 0.1 L Baso % (Auto) 0.2 Neut # (Auto) 61733 H Lymph # (Auto) 1000 L [place] # (Auto) 400 Eos # (Auto) 0 Baso # (Auto) 0 PT INR D-Dimer ABG pH 7.43 ABG pCO2 37.0 ABG pO2 71 L ABG HCO3 25 ABG Total CO2 26 ABG O2 Saturation 95 ABG Base Excess 0.0 FiO2 100 Sodium 135 L Potassium 6.1 H Chloride 93 L Carbon Dioxide 26 BUN 64 H Creatinine 3.29 H Estimated GFR 19 L BUN/Creatinine Ratio 19.5 Glucose 307 H Lactate Calcium 9.6 Total Bilirubin 1.2 AST 38 ALT 38 Alkaline Phosphatase 123 Total Creatine Kinase CK-MB (CK-2) CK-MB (CK-2) Rel Index Troponin I Cancelled NT-Pro-B Natriuret Pep 808 H Total Protein 8.2 Albumin 4.3 Globulin 3.9 Albumin/Globulin Ratio 1.1 Procalcitonin Urine Color Urine Appearance Urine pH Ur Specific [place] Urine Protein Urine Glucose (UA) Urine Ketones Urine Occult Blood Urine Nitrate Urine Bilirubin Urine Urobilinogen Ur Leukocyte Esterase Urine RBC Urine WBC Urine Bacteria Ur Culture Indicated? Chlamy pneumoniae PCR Adenovirus (PCR) B. pertussis DNA (PCR) B.parapertussis DNA PCR Coronavirus OC43 (PCR) Coronavirus HKU1 (PCR) Coronavirus 229E (PCR) SARS-CoV-2 (PCR) Coronavirus NL63 (PCR) Human Metapneumovir PCR Influenza Type A (PCR) Influenza Type B (PCR) M. pneumoniae (PCR) Parainfluenza 1 (PCR) Parainfluenza 2 (PCR) Parainfluenza 3 (PCR) Parainfluenza 4 (PCR) RSV (PCR) Entero/Rhino (PCR) 11/25/22 11/25/22 11/25/22 16:32 16:32 16:32 WBC RBC Hgb Hct MCV MCH MCHC RDW Plt Count Neut % (Auto) Lymph % (Auto) [place] % (Auto) Eos % (Auto) Baso % (Auto) Neut # (Auto) Lymph # (Auto) [place] # (Auto) Eos # (Auto) Baso # (Auto) PT INR D-Dimer ABG pH ABG pCO2 ABG pO2 ABG HCO3 ABG Total CO2 ABG O2 Saturation ABG Base Excess FiO2 Sodium Potassium Chloride Carbon Dioxide BUN Creatinine Estimated GFR BUN/Creatinine Ratio Glucose Lactate 4.2 H* Calcium Total Bilirubin AST ALT Alkaline Phosphatase Total Creatine Kinase Cancelled CK-MB (CK-2) CK-MB (CK-2) Rel Index Troponin I NT-Pro-B Natriuret Pep Total Protein Albumin Globulin Albumin/Globulin Ratio Procalcitonin 1.23 H Urine Color Urine Appearance Urine pH Ur Specific [place] Urine Protein Urine Glucose (UA) Urine Ketones Urine Occult Blood Urine Nitrate Urine Bilirubin Urine Urobilinogen Ur Leukocyte Esterase Urine RBC Urine WBC Urine Bacteria Ur Culture Indicated? Chlamy pneumoniae PCR Adenovirus (PCR) B. pertussis DNA (PCR) B.parapertussis DNA PCR Coronavirus OC43 (PCR) Coronavirus HKU1 (PCR) Coronavirus 229E (PCR) SARS-CoV-2 (PCR) Coronavirus NL63 (PCR) Human Metapneumovir PCR Influenza Type A (PCR) Influenza Type B (PCR) M. pneumoniae (PCR) Parainfluenza 1 (PCR) Parainfluenza 2 (PCR) Parainfluenza 3 (PCR) Parainfluenza 4 (PCR) RSV (PCR) Entero/Rhino (PCR) 11/25/22 11/25/22 11/25/22 16:32 16:50 16:50 WBC RBC Hgb Hct MCV MCH MCHC RDW Plt Count Neut % (Auto) Lymph % (Auto) [place] % (Auto) Eos % (Auto) Baso % (Auto) Neut # (Auto) Lymph # (Auto) [place] # (Auto) Eos # (Auto) Baso # (Auto) PT 14.6 H INR 1.3 D-Dimer 2287 H ABG pH ABG pCO2 ABG pO2 ABG HCO3 ABG Total CO2 ABG O2 Saturation ABG Base Excess FiO2 Sodium Potassium Chloride Carbon Dioxide BUN Creatinine Estimated GFR BUN/Creatinine Ratio Glucose Lactate Calcium Total Bilirubin AST ALT Alkaline Phosphatase Total Creatine Kinase 44 L CK-MB (CK-2) TNP CK-MB (CK-2) Rel Index TNP Troponin I < 0.012 NT-Pro-B Natriuret Pep Total Protein Albumin Globulin Albumin/Globulin Ratio Procalcitonin Urine Color Urine Appearance Urine pH Ur Specific [place] Urine Protein Urine Glucose (UA) Urine Ketones Urine Occult Blood Urine Nitrate Urine Bilirubin Urine Urobilinogen Ur Leukocyte Esterase Urine RBC Urine WBC Urine Bacteria Ur Culture Indicated? Chlamy pneumoniae PCR Adenovirus (PCR) B. pertussis DNA (PCR) B.parapertussis DNA PCR Coronavirus OC43 (PCR) Coronavirus HKU1 (PCR) Coronavirus 229E (PCR) SARS-CoV-2 (PCR) Coronavirus NL63 (PCR) Human Metapneumovir PCR Influenza Type A (PCR) Influenza Type B (PCR) M. pneumoniae (PCR) Parainfluenza 1 (PCR) Parainfluenza 2 (PCR) Parainfluenza 3 (PCR) Parainfluenza 4 (PCR) RSV (PCR) Entero/Rhino (PCR) 11/25/22 11/25/22 11/25/22 17:20 17:20 19:08 WBC RBC Hgb Hct MCV MCH MCHC RDW Plt Count Neut % (Auto) Lymph % (Auto) [place] % (Auto) Eos % (Auto) Baso % (Auto) Neut # (Auto) Lymph # (Auto) [place] # (Auto) Eos # (Auto) Baso # (Auto) PT INR D-Dimer ABG pH ABG pCO2 ABG pO2 ABG HCO3 ABG Total CO2 ABG O2 Saturation ABG Base Excess FiO2 Sodium Potassium Chloride Carbon Dioxide BUN Creatinine Estimated GFR BUN/Creatinine Ratio Glucose Lactate 1.5 Calcium Total Bilirubin AST ALT Alkaline Phosphatase Total Creatine Kinase CK-MB (CK-2) CK-MB (CK-2) Rel Index Troponin I NT-Pro-B Natriuret Pep Total Protein Albumin Globulin Albumin/Globulin Ratio Procalcitonin Urine Color Yellow Urine Appearance Clear Urine pH 5.5 Ur Specific [place] 1.020 Urine Protein Negative Urine Glucose (UA) Negative Urine Ketones Trace H Urine Occult Blood Negative Urine Nitrate Negative Urine Bilirubin Negative Urine Urobilinogen 0.2 Ur Leukocyte Esterase Negative Urine RBC None seen Urine WBC None seen Urine Bacteria None seen Ur Culture Indicated? Cult not indicated Chlamy pneumoniae PCR Not detected Adenovirus (PCR) Not detected B. pertussis DNA (PCR) Not detected B.parapertussis DNA PCR Not detected Coronavirus OC43 (PCR) Not detected Coronavirus HKU1 (PCR) Not detected Coronavirus 229E (PCR) Not detected SARS-CoV-2 (PCR) Not detected Coronavirus NL63 (PCR) Not detected Human Metapneumovir PCR Not detected Influenza Type A (PCR) Not detected Influenza Type B (PCR) Not detected M. pneumoniae (PCR) Not detected Parainfluenza 1 (PCR) Not detected Parainfluenza 2 (PCR) Not detected Parainfluenza 3 (PCR) Not detected Parainfluenza 4 (PCR) Not detected RSV (PCR) Not detected Entero/Rhino (PCR) Not detected 11/26/22 11/26/22 06:17 06:17 WBC 18.1 H RBC 4.21 L Hgb 11.7 L Hct 35.6 L MCV 84.6 MCH 27.9 MCHC 33.0 RDW 14.6 Plt Count 188 Neut % (Auto) 92.6 H Lymph % (Auto) 5.0 L [place] % (Auto) 2.3 L Eos % (Auto) 0.0 L Baso % (Auto) 0.1 Neut # (Auto) 17291 H Lymph # (Auto) 900 L [place] # (Auto) 400 Eos # (Auto) 0 Baso # (Auto) 0 PT INR D-Dimer ABG pH ABG pCO2 ABG pO2 ABG HCO3 ABG Total CO2 ABG O2 Saturation ABG Base Excess FiO2 Sodium 133 L Potassium 5.4 H Chloride 99 Carbon Dioxide 27 BUN 64 H Creatinine 2.52 H Estimated GFR 26 L BUN/Creatinine Ratio 25.4 H Glucose 375 H Lactate Calcium 8.4 Total Bilirubin 0.9 AST 18 ALT 26 Alkaline Phosphatase 79 Total Creatine Kinase CK-MB (CK-2) CK-MB (CK-2) Rel Index Troponin I NT-Pro-B Natriuret Pep Total Protein 6.2 L Albumin 3.2 L Globulin 3.0 Albumin/Globulin Ratio 1.1 Procalcitonin Urine Color Urine Appearance Urine pH Ur Specific [place] Urine Protein Urine Glucose (UA) Urine Ketones Urine Occult Blood Urine Nitrate Urine Bilirubin Urine Urobilinogen Ur Leukocyte Esterase Urine RBC Urine WBC Urine Bacteria Ur Culture Indicated? Chlamy pneumoniae PCR Adenovirus (PCR) B. pertussis DNA (PCR) B.parapertussis DNA PCR Coronavirus OC43 (PCR) Coronavirus HKU1 (PCR) Coronavirus 229E (PCR) SARS-CoV-2 (PCR) Coronavirus NL63 (PCR) Human Metapneumovir PCR Influenza Type A (PCR) Influenza Type B (PCR) M. pneumoniae (PCR) Parainfluenza 1 (PCR) Parainfluenza 2 (PCR) Parainfluenza 3 (PCR) Parainfluenza 4 (PCR) RSV (PCR) Entero/Rhino (PCR) Assessment & Plan Assessment and plan (1) Acute respiratory failure with hypoxia: Status: Acute (2) Pneumonia: Status: Acute (3) Acute on chronic kidney failure: Status: Acute (4) Acute hyperkalemia: Status: Acute Plan Acute respiratory failure with hypoxia. Patient with significant acute respiratory failure. Patient on heated high-flow at 35%. Patient oxygen status is stable at this point. We will continue to work on treating underlying cause of respiratory failure. Will get the underlying antibiotics he will be NPO. I think the source of his respiratory failure is due to aspiration pneumonia. Pneumonia aspiration type. Treating for g positives and g negatives. Think patient has pneumonia picture is more due to aspiration and inflammation. He was started on antibiotics and oxygen therapy and we will continue this during his hospital stay. He will be NPO. And will discuss with family speech swallow evaluation. Acute on chronic kidney failure. Patient has a significant decline in his kidney function. Creatinine on admission was 3. He has some mild baseline kidney injury. But this is significantly higher. Patient also has some hyperkalemia. Will go ahead and provide IV fluid hydration. Monitor electroly [place]. Cerebrovascular accident subacute. Patient with 2 recent strokes. Patient will be continued on stroke prevention with aspirin Plavix statins and blood pressure control. Confusion metabolic encephalopathy. Patient with intermittent confusion due to his underlying respiratory failure kidney failure and recent stroke. Malnourishment. Patient is malnourished as he is having aspiration with swallowing. Patient family is not amenable to feeding tube and they do not want on artificial nutrition. I would a long discussion around his nutrition care needs. What the patient's wishes would be. At this time they do not want a feeding tube or artificial nutrition. Insulin-dependent diabetes blood sugars will be managed and controlled per protocol Hypertension antihypertensives were restarted Disposition and plan. Patient was admitted the hospital for dove complaints and anticipate hospitalization for multiple days. Time Spent With Patient Critical Care time: I spent a total of [] minutes of critical care time on this patient's care today; this time is exclusive of procedural time. Quality VTE Deep Vein Thrombosis/Pulmonary Embolism Present on Admission: No
[2022-11-26] MEDS: LORazepam 2 MG/ML INJ 1 MG IV ×3 (13:40→23:16)
--- NOTE | 2022-11-26 14:50 | CM.DANOTE ---
Initial DCP Assessment Note 72-year-old with a medical history of cerebral vascular accident coronary artery disease poorly-controlled diabetes hypertension hyperlipidemia sleep apnea and depression, vascular type dementia vs age related cognitive change, who has been residing at a custodial facility. Patient has now had 3 admissions to the hospital since his initial stroke. Admitted for further management of Acute respiratory failure with hypoxia, Pneumonia aspiration type PCP: Skip Shea Payer: BIMAL/Janel Reviewed chart; received call from Silvia at [facility] who indicated hospice referral had been sent w/in the last few days from [facility]. adjustment examiner is available to start care Tuesday11.30.22, spot being held for patient Discussed plan /February at [facility] who explained patient could discharge back while hospice is pending, [facility] would be expected to reimburse until Hospice opens care and then patient/family would be responsible for covering the cost of room and board- approx $420 daily Met w/two of patient's daughters outside patient's room to review plan; DPOA/dtr Glory present. Updated on information outlined above. At time of this visit- family awaiting the return of Dr Shea to discuss next steps in medical plan of care. Family anticipating they would request a withdrawal of care in order to focus on comfort measures... discussed hospice services in detail and family state familiarity; further state they have had very good experience with hospice of the in the past. Explained that if patient survives this hospitalization, a bed at [facility] remains available, may be private payment w/[facility] paying for the hospice service- daughter Glory states understanding and admits she is hopeful patient will not need to be moved again but agrees to consider transition back to SNF if patient stabilizes and no longer needs hospitalization CM team following closely BRANDI Ybarra Discharge Planning/Care Management CM Discharge Assessment Start: 11/26/22 14:11 Freq: Status: Active Protocol: Document 11/26/22 14:11 DEIRDRE (Rec: 11/26/22 14:50 DEIRDRE [id number]) Discharge Planning Assessment Assigned Director Of Primary BRANDI Dumont DPOA/Assigned Designee Name Glory Kyle, daughter Contact Information [phone] Advance Directives? Yes Advance Directives on File Yes History Provided By Family Member,Medical Record Prior Living Arrangements Skilled Nurse Facility Household Members none Facility Name Admitted From: [facility] Independent with ADL's No Is patient alert and oriented? No Patient/Family Preference Detention Facility Comment Accepted for return to [facility] once medically discharged Discharge Plan Detention Facility Transportation Arrangement TBD Additional Comment unknown at this time.
[2022-11-26] MEDS: SCOPOLAMINE 1 PATCH TOP (17:52)
[2022-11-26] MEDS: SODIUM CHLORIDE 0.9% FLUSH 10 ML IV ×2 (21:37→23:16)
[2022-11-27] MEDS: SODIUM CHLORIDE 0.9% FLUSH 10 ML IV ×4 (03:01→22:14)
[2022-11-27] MEDS: LORazepam 2 MG/ML INJ 1 MG IV ×6 (03:01→23:34)
[2022-11-27 06:10] VITALS: BP 146/77; PULSE 115; RESP 22; TEMP 37.1; O2SAT 96
[2022-11-27] MEDS: MORPHINE 2 MG/ML INJ IV ×5 (10:07→18:18)
--- NOTE | 2022-11-27 12:15 | CM.DPNOTE ---
Discharge Planning Note: Patient has been transitioned to comfort care. Daughters Glory (POA) and Patricia plus a family friend are all in room. Patient is non-responsive. No oral intake since ice chips yesterday and IV was dc'd yesterday. Patient has ritchie catheter, still making urine. On 10 LPM O2, vitals are somewhat stable per nurse. Spoke with daughters and friend regarding how they are dealing with. They are hoping that patient can in hospital. Gently reinforced education given to them yesterday by AUDREY Rojas (see her note). Reinforced that Hospice of the can start on Thursday 11/30. They are not amenable to discussing this at this time. Informed Dr Gómez of the above, he was going in to see them. Called and spoke with Steven at [facility] and provided update. Juliann will be back on Tuesday. Plan: Continue to work with family regarding discharging back to [facility], Hospice to start Tuesday and then family will have to private pay at rate of $420.00 per day. Nilda Lindo RN/DCP
--- NOTE | 2022-11-27 12:21 | P.PN_ITS ---
Subjective Subjective Interval history: CC: terminal decline PT remains on comfort measures with family at bedside. Discussion with CM regarding whether transitioning back to SNF prior to hospice vs staying here until hospice on Tuesday. Not taking anything by mouth- still making some scant urine. Appears comfortable with available prns. Exam Vital Signs (past 8 hours): - 11/27/22 06:10 11/27/22 09:30 Temperature 98.7 F Pulse Rate 115 H Respiratory Rate 22 Blood Pressure 146/77 H Pulse Oximetry 96 Oxygen Delivery Method Oximask Oxygen Flow Rate 9 Fraction of Inspired Oxygen 50 SaO2/FiO2 Ratio 184 Oxygen Delivery Method Oximask Oxygen Flow Rate 9 Narrative Exam Narrative: torporous elder laying in bed with O2 mask and family at bedside Resp Other: moving air ok, no coughing, with supplemental O2 Cardio Other: regular rate and rhythm GI Other: soft nontender Neuro Other: rousable to open eyes but not sensible. Objective Labs 11/26/22 06:17 11/26/22 06:17 [facility] Medical History Coronary arteriosclerosis in [place] artery (04/12/17) COVID-19 CVA (cerebral vascular accident) CVA, old, cognitive deficits Depression Diabetes mellitus (~1994) Diabetic neuropathy Hyperlipidemia (~2005) Hypertension (~2005) Obstructive sleep apnea of adult (~04/2017) Osteoarthritis of hand (06/04/15) Snoring (~2006) Tinnitus (~1989) Vascular dementia Surgical History Anesthesia History of knee surgery (~1994) S/P triple vessel bypass (~2006) Status post wrist surgery (~2011) Family History Father Heart disease Grandmother Diabetes mellitus Grandfather Heart disease Grandmother Diabetes mellitus Social History marital status: household members: none Smoking Status: Former smoker alcohol intake: current substance use type: does not use Assessment & Plan Assessment & Plan narrative: #Acute respiratory failure with hypoxia - noninvasive O2 supplementation prn #Pneumonia aspiration type.? - NPO #Acute on chronic kidney failure NPO/KVO with ritchie, making scant urine #Insulin-dependent diabetes monitor #Hypertensio monitor #Cerebrovascular accident subacute.? Patient with 2 recent strokes.?Appears calm with prn morphine. #Confusion metabolic encephalopathy.? Patient with intermittent confusion due to his underlying respiratory failure kidney failure and recent stroke. #Malnourishment.? Patient is malnourished as he is having aspiration with swallowing.? Patient family is not amenable to feeding tube and they do not want on artificial nutrition.? Dr. Shea had discussion with family around his nutrition care needs they do not wish artificial nutrition Dispo: comfort care, DNR/DNI PCP: Shabbir Diet: NPO Time Spent With Patient Critical Care time: I spent a total of [] minutes of critical care time on this patient's care today; this time is exclusive of procedural time. Quality VTE Deep Vein Thrombosis/Pulmonary Embolism Present on Admission: No
[2022-11-27 16:37] VITALS: RESP 30
[2022-11-27] MEDS: MORPHINE 4 MG/ML INJ IV (23:07)
[2022-11-28] MEDS: MORPHINE 2 MG/ML INJ IV ×3 (01:06→22:36)
[2022-11-28 04:28] VITALS: PULSE 135; O2SAT 93
[2022-11-28] MEDS: MORPHINE 4 MG/ML INJ IV ×5 (06:33→18:07)
[2022-11-28] MEDS: SODIUM CHLORIDE 0.9% FLUSH 10 ML IV ×3 (08:33→20:48)
--- NOTE | 2022-11-28 10:23 | P.PN_ITS ---
Subjective Subjective Interval history: CC: terminal decline - unresponsive - pneumonia aspiration 2/2 multiple CVAs Family at bedside - breathing more smoothly but faster today less responsive to stimuli morphine dose increased pt appears calm and not in discomfort continue comfort measures Exam Vital Signs (past 8 hours): - 11/28/22 04:28 11/28/22 04:30 Pulse Rate 135 H Pulse Oximetry 93 Oxygen Delivery Method Oximask Oxygen Flow Rate 9 9 Fraction of Inspired Oxygen 50 SaO2/FiO2 Ratio 184 Oxygen Delivery Method Oximask Oxygen Flow Rate 9 Narrative Exam Narrative: torporous elder male laying in bed breathing heavily with mask with family at bedside Resp Other: tachypneic Cardio Other: tachycardic regular rhythm Other: scant/no output via [facility] Neuro Other: unresponsive to name or handsqueeze Objective Labs 11/26/22 06:17 11/26/22 06:17 PFSH Medical History Coronary arteriosclerosis in [place] artery (04/12/17) COVID-19 CVA (cerebral vascular accident) CVA, old, cognitive deficits Depression Diabetes mellitus (~1994) Diabetic neuropathy Hyperlipidemia (~2005) Hypertension (~2005) Obstructive sleep apnea of adult (~04/2017) Osteoarthritis of hand (06/04/15) Snoring (~2006) Tinnitus (~1989) Vascular dementia Surgical History Anesthesia History of knee surgery (~1994) S/P triple vessel bypass (~2006) Status post wrist surgery (~2011) Family History Father Heart disease Grandmother Diabetes mellitus Grandfather Heart disease Grandmother Diabetes mellitus Social History marital status: household members: none Smoking Status: Former smoker alcohol intake: current substance use type: does not use Assessment & Plan Assessment & Plan narrative: #Acute respiratory failure with hypoxia - noninvasive O2 supplementation prn #Pneumonia aspiration type? - NPO #Acute on chronic kidney failure NPO/KVO less urine #Insulin-dependent diabetes monitor #Hypertension monitor #Cerebrovascular accident subacute.? Patient with 2 recent strokes.?Appears calm with prn morphine. #Confusion metabolic encephalopathy.? Patient with intermittent confusion due to his underlying respiratory failure kidney failure and recent stroke. #Malnourishment.? Patient is malnourished as he is having aspiration with swallowing.? Patient family is not amenable to feeding tube and they do not want on artificial nutrition.? Dr. Shea had discussion with family around his nutrition care needs they do not wish artificial nutrition #sepsis - pt is tachycardic tachypneic today in setting of aspiration pneumonia elevated WBCs does appear clinically septic Dispo: comfort care, DNR/DNI PCP: Shabbir Diet: NPO Time Spent With Patient Critical Care time: I spent a total of [] minutes of critical care time on this patient's care today; this time is exclusive of procedural time. Quality VTE Deep Vein Thrombosis/Pulmonary Embolism Present on Admission: No
[2022-11-28 11:30] VITALS: TEMP 38.1
--- NOTE | 2022-11-28 11:41 | PC.NURSE ---
Addendum entered by Bibiana Pedraza R.N. 11/28/22 16:44: oximask 10L off per family wishes sats on ra 79% Addendum entered by Bibiana Pedraza R.N. 11/28/22 15:37: tylenol supp given for T-100.5, MS 4mg ivp for increase resp to 30 hr 125, repositioned, family in room and talking of removing 02. My dad would not want to be like this. Original Note: pt on comfort care measures, grimacing , muscle tension, resp rate greater than 32 and labored, Hr 130 repositioned and medicated with morphine 4mg ivp. family at bs. Temp 100.5 cool wash clothe wipe and fan, Dr. Gómez notified orders rec'd
[2022-11-28 11:55] VITALS: BP 140/63; PULSE 132; RESP 20; TEMP 38.1; O2SAT 95
[2022-11-28 15:36] VITALS: TEMP 38.1
[2022-11-28] MEDS: ACETAMINOPHEN 650 MG SUPP 325 MG PR (15:36)
[2022-11-28 19:46] VITALS: PULSE 130; O2SAT 75
[2022-11-29] MEDS: MORPHINE 4 MG/ML INJ IV ×8 (00:40→13:19)
[2022-11-29] MEDS: LORazepam 2 MG/ML INJ 1 MG IV (03:38)
--- NOTE | 2022-11-29 07:42 | PM.PN.1 ---
Subjective Subjective Date Patient Seen: 11/29/22 Time Patient Seen: 07:43 Interval history: Patient seen this morning. Daughter and brother at bedside. Patient comfortable. Unconscious. Rapid breathing. Tachycardic. No urine output. Receiving morphine and Ativan and on comfort care. Patient family is appreciative of care of their father. Exam Vital Signs (past 8 hours): Fraction of Inspired Oxygen 50 SaO2/FiO2 Ratio 184 Oxygen Delivery Method Oximask Oxygen Flow Rate 9 Narrative Exam Narrative: Gen.: Unresponsive HEENT: Pallor dry mucosa membranes Cardio: Tachycardic with irregular rhythm Respiratory: Increased work of breathing Abdomen: Soft Extremities: Prolonged capillary refill cool Objective Labs 11/26/22 06:17 11/26/22 06:17 [facility] Medical History Coronary arteriosclerosis in [place] artery (04/12/17) COVID-19 CVA (cerebral vascular accident) CVA, old, cognitive deficits Depression Diabetes mellitus (~1994) Diabetic neuropathy Hyperlipidemia (~2005) Hypertension (~2005) Obstructive sleep apnea of adult (~04/2017) Osteoarthritis of hand (06/04/15) Snoring (~2006) Tinnitus (~1989) Vascular dementia Surgical History Anesthesia History of knee surgery (~1994) S/P triple vessel bypass (~2006) Status post wrist surgery (~2011) Family History Father Heart disease Grandmother Diabetes mellitus Grandfather Heart disease Grandmother Diabetes mellitus Social History marital status: household members: none Smoking Status: Former smoker alcohol intake: current substance use type: does not use Assessment & Plan Assessment and plan (1) Acute respiratory failure with hypoxia: Status: Acute (2) Pneumonia: Status: Acute (3) Acute on chronic kidney failure: Status: Acute (4) Acute hyperkalemia: Status: Acute Plan Patient on comfort care. Family at bedside. Continue with morphine Ativan and comfort care. Patient's respiratory status and physical exam indicate passing will occur today. Family care conference discuss this morning. Comfortable with ongoing assessment and plan. Time Spent With Patient Critical Care time: I spent a total of [] minutes of critical care time on this patient's care today; this time is exclusive of procedural time. Quality VTE Deep Vein Thrombosis/Pulmonary Embolism Present on Admission: No
[2022-11-29] MEDS: SCOPOLAMINE 1 PATCH TOP (07:56)
[2022-11-29 09:27] VITALS: BP 139/63; PULSE 134; RESP 44; TEMP 37.1; O2SAT 78
--- NOTE | 2022-11-29 09:33 | CM.DPC ---
DCP continued: Reviewed chart. Per Dr. Shea's note today it is anticipated that patient will pass away today. Family at bedside. P: Patient expected to during this hospitalization. FATMATA
[2022-11-29] MEDS: SODIUM CHLORIDE 0.9% FLUSH 10 ML IV (10:41)
--- NOTE | 2022-11-29 14:56 | PC.NURSE ---
This nurse entered patient's room after crying heard from outside the room. Family members at the bedside said that the patient was no longer breathing. No heart tones heard on auscultation. Message left with Dr. Shea's nurse: time of 1440.
--- NOTE | 2022-11-29 17:31 | PC.NURSE ---
Pt picked up by [facility] at 1525.
--- NOTE | 2022-12-03 12:32 | PM.DS.1 ---
History of Present Illness History of Present Illness Chief complaint: non traumatic intracerebral hemorrhage subcortical Narrative: 72-year-old with a medical history of cerebral vascular accident coronary artery disease poorly-controlled diabetes hypertension hyperlipidemia sleep apnea and depression who has been residing at a longterm facility. Patient has now had 3 admissions to the hospital since his initial stroke. Patient was initially admitted at the end of September had a readmission at the end of October and now has been readmitted with respiratory distress. Patient's stroke has left him with difficulty with communication has affected his cognition at times and affected his swallowing speech and strength. Patient was brought into the emergency department from the care facility with concerns about respiratory distress. Patient on evaluation at the [facility] was having oxygen saturations of 77-79%. Because of his stroke that he was unable to relate any other specific complaints. Patient's states he was short of breath. But no chest pain. Patient was difficulty getting a baseline answer from his history because of his cerebral accident. Since his previous hospitalization with the stroke he is had difficulty with swallowing. Patient's family had mentioned that they had planned on progressing towards hospice care because they chose not to do a feeding tube because of his swallowing issues. Family care conference was held today with patient's 2 daughters and son about long-term care and goals. I am patient's evaluation this morning. Patient's oxygen are stable with heated high-flow 45% blood pressure stable and pulse is stable. Patient has lost significant amount of weight since his last evaluation by me a few weeks ago. Patient answers some direct questioning. He knows he is at the hospital. He is able to recognize his daughter next to him. He has a hard time expressing clear communication. Discharge Providers Provider Date of admission: 11/25/22 20:39 Discharge Date: 11/29/22 Primary care physician: Skip Shea MD Consults: 11/26/22 07:47 Consult to Speech Therapy Evaluate & Treat Comment: Physician Instructions: Evaluate and treat 11/26/22 12:50 Consult to Discharge Planning Routine Comment: Consult to Hospice Referral Urgent Comment: Discharge provider: Skip Shea MD Summary Hospital Course Discharge Diagnosis: Acute respiratory failure with hypoxia.? Pneumonia aspiration type.? sepsis due to underlying pneumonia Acute on chronic kidney failure.? Cerebrovascular accident subacute.? Confusion metabolic encephalopathy.? Malnourishment.? Insulin-dependent diabetes blood sugars will be managed and controlled per protocol Hypertension antihypertensives were restarted Hospital Course: patient was initially treated with maximal medical therapy including antibiotics fluids insulin blood pressure control and stroke prevention. Because patient has had multiple hospitalizations been at a [facility] [facility] and due to complications of stroke patient's unable to swallow and aspiration was becoming more of an issue. Family care conference was held multiple times during the hospital stay and ultimately patient's family elected to proceed with comfort care. Patient expressed wishes and family expressed wishes that they did not want a feeding tube or artificial nutrition. Because of his multiple strokes changes in mental status and decline and significant function. Withdrawal of maximal medical therapy started 24-48 hours after hospitalization. Patient passed peacefully on Tuesday morning Exam Vital Signs (past 8 hours): Fraction of Inspired Oxygen 50 SaO2/FiO2 Ratio 184 Oxygen Delivery Method Room Air Oxygen Flow Rate 0 Objective Labs 11/26/22 06:17 11/26/22 06:17 [facility] Medical History Coronary arteriosclerosis in [place] artery (04/12/17) COVID-19 CVA (cerebral vascular accident) CVA, old, cognitive deficits Depression Diabetes mellitus (~1994) Diabetic neuropathy Hyperlipidemia (~2005) Hypertension (~2005) Obstructive sleep apnea of adult (~04/2017) Osteoarthritis of hand (06/04/15) Snoring (~2006) Tinnitus (~1989) Vascular dementia Surgical History Anesthesia History of knee surgery (~1994) S/P triple vessel bypass (~2006) Status post wrist surgery (~2011) Family History Father Heart disease Grandmother Diabetes mellitus Grandfather Heart disease Grandmother Diabetes mellitus Social History marital status: household members: none Smoking Status: Former smoker alcohol intake: current substance use type: does not use Discharge Plan Discharge Plan Patient Disposition: Discharge Data Primary Care Provider: Skip Shea VTE Deep Vein Thrombosis/Pulmonary Embolism Present on Admission: No
== END 2022-11-29 14:40 | disposition expired | DRG 871 ==
LOC: ED 20:17 → AC 20:41
PROVIDERS: Admitting Provider Family Medicine; Emergency Provider Emergency Medicine; Family Provider Family Medicine; PCP Family Medicine; Referring Provider Emergency Medicine; Visit Provider Family Medicine
DX: A41.9 Sepsis, unspecified organism (principal); G93.41 Metabolic encephalopathy; J96.01 Acute respiratory failure with hypoxia; J69.0 Pneumonitis due to inhalation of food and vomit; E11.22 Type 2 diabetes mellitus with diabetic chronic kidney disease; I12.9 Hypertensive chronic kidney disease with stage 1 through stage 4 chronic kidney disease, or unspecified chronic kidney disease; N18.9 Chronic kidney disease, unspecified; Z79.84 Long term (current) use of oral hypoglycemic drugs; Z87.891 Personal history of nicotine dependence; Z79.4 Long term (current) use of insulin; Z51.5 Encounter for palliative care; Z20.822 Contact with and (suspected) exposure to COVID-19
CPT/HCPCS: 36415; 36600; 51798; 71045; 71275; 74177; 80053; 81001; 82550; 82805; 82962; 83605; 83880; 84145; 84484; 85025; 85379; 85610; 87040; 87633; 92610; 93005; 94640; 94762; 96365; 96366; 96368; 96375; 99285; 99291; J0610; J1200; J1650; J1815; J2060; J2270; J2405; J2543; J2930; Q9967